=== PATIENT | female | born 1935 | race Caucasian/White ===

== ENCOUNTER → 2017-04-30 | Outpatient (CLI) | payer BC ==
[~2017-04-30] MED LIST: LOSA100T2 PO; MULTTAB58 PO; POTA20TA16 PO
[2017-04-30 15:34] LABS: BASO % 0.5 %; BASO ABS # 0.04 K/uL (0-0.2); COMPLETE YES; EOS % 3.6 %; HEMATOCRIT 38.5 % (37-47); IG% 0.4 %; LYMPH % 24.4 %; LYMPH ABS # 1.98 K/uL (1.2-3.4); MEAN CELL VOLUME 93.2 fL (80-100); MEAN CORPUSCULAR HEMOGLOBIN 30.3 pg (25-34); MEAN CORPUSCULAR HGB CONC 32.5 g/dl (32-36); MEAN PLATELET VOLUME 11.1 fL (7.4-10.4); MONO % 6.8 %; NEUT % 64.3 %; PLATELET COUNT 305 K/uL (130-400); RED BLOOD COUNT 4.13 M/uL (4.2-5.4); WHITE BLOOD COUNT 8.12 K/uL (4.8-10.8)
[2017-04-30 15:53] LABS: INR 0.9 (0.9-1.1); PROTHROMBIN TIME (PATIENT) 10.1 SECONDS (9.0-12.0)
[2017-04-30 16:04] LABS: ALT/SGPT 18 U/L (12-78); AST/SGOT 14 U/L (15-37); BLOOD UREA NITROGEN 23 mg/dl (7-18); BUN/CREATININE RATIO 26.3 (10-20); CALCIUM 9.5 mg/dl (8.5-10.1); CARBON DIOXIDE 27 mmol/L (21-32); CHLORIDE 105 mmol/L (98-107); CREATININE 0.89 mg/dl (0.60-1.20); GLUCOSE 92 mg/dl (70-99); POTASSIUM 3.5 mmol/L (3.5-5.1); SODIUM 141 mmol/L (136-145); URIC ACID 9.1 mg/dl (2.6-7.2)
[2017-04-30 16:15] LABS: ALB/GLOB RATIO 0.8 (0.9-2); ALKALINE PHOSPHATASE 139 U/L (45-117); CHOLESTEROL 281 mg/dl (0-200); CHOLESTEROL/HDL RATIO 2.8; HDL CHOLESTEROL 101 mg/dl; LDL CHOLESTEROL CALCULATED 151 mg/dl; THYROID STIMULATING HORMONE 0.936 uIu/ml (0.300-4.500); TRIGLYCERIDES 147 mg/dl (0-150); VERY LOW DENSITY LIPOPROT CALC 29 mg/dl
[2017-04-30 17:34] LABS: URINE APPEARANCE CLEAR (CLEAR); URINE BILIRUBIN NEG (NEG); URINE COLOR YELLOW; URINE EPITHELIAL CELL AUTO >30 /lpf (0-5); URINE NITRITE NEG (NEG); URINE SPECIFIC GRAVITY 1.017 (1.000-1.030); UROBILINOGEN NEG (NEG)
[2017-04-30 17:41] LABS: MANUAL MICROSCOPIC REQUIRED? NO; REVIEW REQ? NO
== END | disposition home or self-care (01) ==
LOC: C.LAB1850 14:07
PROVIDERS: ATTEND Internal Medicine Pulmonary Disease
DX: Z01.818 Encounter for other preprocedural examination (principal); I10 Essential (primary) hypertension; M25.569 Pain in unspecified knee

== ENCOUNTER → 2017-08-09 | Outpatient (CLI) | payer BC | END | disposition home or self-care (01) | LOC: C.LAB1850 10:09 | PROVIDERS: ATTEND Physician Assistant Medical | DX: M10.9 Gout, unspecified (principal) ==

== ENCOUNTER → 2017-08-20 | Outpatient (CLI) | payer BC ==
--- NOTE | 2017-08-20 10:57 | DIAGNOSTIC IMAGING REPORT ---
L FOOT MIN 3 VIEWS ROUTINE CLINICAL HISTORY: 82 years-old Female presenting with E79.0, M10.9. TECHNIQUE: Frontal, oblique, and lateral views of the left foot were obtained. COMPARISON: None. 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 Overlying soft tissue swelling noted at the medial aspect of the first metatarsophalangeal articulation. Degenerative changes also noted at this joint. Mild osteopenia. Degenerative changes at the medial cuneiform-first metatarsal articulation may also be present. No acute fracture. IMPRESSION: 1. Findings consistent with hallux valgus deformity. 2. No acute osseous injury. 3. Degenerative changes at the first tarsometatarsal and first metatarsal-phalangeal articulations. Electronically signed by: Denzel Long M.D. 08/20/2017 10:56 AM Dictated Date/Time: 08/20/2017 10:53 AM
== END | disposition home or self-care (01) ==
LOC: C.RAD1850 10:42
PROVIDERS: ATTEND Internal Medicine Rheumatology
DX: E79.0 Hyperuricemia without signs of inflammatory arthritis and tophaceous disease (principal); M10.9 Gout, unspecified

== ENCOUNTER → 2017-09-12 | Outpatient (CLI) | payer BC | END | disposition home or self-care (01) | LOC: C.LAB1850 09:45 | PROVIDERS: ATTEND Internal Medicine Rheumatology | DX: M10.9 Gout, unspecified (principal); E79.0 Hyperuricemia without signs of inflammatory arthritis and tophaceous disease; M79.672 Pain in left foot; M25.571 Pain in right ankle and joints of right foot ==

== ENCOUNTER → 2017-09-13 | Outpatient (CLI) | payer BC | END | disposition home or self-care (01) | LOC: C.RDSM 10:07 | PROVIDERS: ATTEND Family Medicine Sports Medicine | DX: M25.571 Pain in right ankle and joints of right foot (principal) ==

== ENCOUNTER 2020-02-27 10:46 | Inpatient (IN) ==
--- NOTE | 2020-02-27 11:11 | Emergency Department Note ---
Impression & Plan Atrial fibrillation with rapid ventricular response, CKD (chronic kidney disease) stage 4, GFR 15-29 ml/min ED Provider Note NAME: ROGER OTERO AGE: 85 SEX: F : 1935 ARRIVES VIA: Walk-In INFORMANT: Patient, ED PROVIDER(S): Charlie Awad MD Chief Complaint: Elevated heart rate, doctor referral HPI: Patient reportedly did go to a follow-up as the patient has had some wound care issues over a prior laceration over the right knee. The patient was seen by the wound care center and referred here due to an elevated heart rate and blood pressure. Patient states that she had not noticed this before and denies any palpitations, shortness of breath, chest pains, fevers, chills, loss of taste or smell, nausea, vomiting. The patient denies any tick bites or recent travel. Patient denies any history of DVT or PE does not take any blood thinning medications. Patient denies any recent change in supplements or stimulants, caffeine, or tobacco. Denies any dietary changes. Patient does relate that in the past she has had some palpitations but they tend to just go away briefly. The patient does not know how long that is been ongoing. She denies any prior history of A. fib palpitations or other issues. Patient denies any prior history of thyroid problems. ROS: See HPI for pertinent positives and negatives. A total of 10 systems were reviewed and otherwise negative. Past medical history: See below Surgical history: See below Social history: See below Physical Exam: GENERAL: Wearing a mask NAD, non-toxic. EYE EXAM: Normal conjunctiva. PERRL, no anisocoria and EOM's grossly intact w/o pain. NECK: Supple, no nuchal rigidity, no adenopathy, non-tender. No signs of meningismus. LUNGS: Clear to auscultation. Normal chest wall mechanics. HEART: Tachycardic irregularly irregular, no MRG. ABDOMEN: Abdomen soft, non-tender, normo-active bowel sounds, no masses, no rebound or guarding. BACK: No CVA TTP. SKIN: No rashes and no bruising. UPPER EXTREMITIES: Upper extremities are grossly normal. LOWER EXTREMITIES: Grossly normal, no edema. Bandage to right knee without any drainage good range of motion neurovascular intact distally. NEURO EXAM: A&O x3, cranial nerves II-XII grossly intact, normal speech, moves all 4 extremities on command w/o issue. Differential diagnoses: Premature contractions, electrolyte abnormality, cardiac dysrhythmia, thyroid dysfunction, pulmonary embolism, infection, gastrointestinal, as well as other pathologies. Course: Patient was seen and evaluated the bedside. Full history physical exam was performed. EKG: Location: Elevated heart rate A. fib, rate of 169, normal QRS and QT, normal axis, nonspecific ST and T wave abnormality noted. Imaging Studies: Radiology results as stated below per my review in the radiologist's interpretation: XR chest 1V portable HISTORY: tachycardia COMPARISON: None. FINDINGS: Small linear density within the periphery the right upper lobe which may represent scarring. Otherwise, lungs are clear. Cardiac silhouette is borderline enlarged. No pleural effusions. No pneumothorax. No evidence for pulmonary edema. IMPRESSION: 1. Small linear density within the periphery of the upper lobe which may repr esent scarring. 2. Borderline cardiomegaly. ACT 112: Negative or not required by law. Electronically signed by: Adilson De Souza M.D. 02/27/2020 11:28 AM Dictated: 02/27/20 1126 Transcribed: 02/27/20 1126 Cardiac monitoring: An order was placed for continuous cardiac monitoring. The monitor shows a rate of 165 with irregularly irregular rhythm. MDM: Patient did a blood work completed along with an EKG troponin chest x-ray was given a small amount of IV fluids and IV Cardizem. He did have initial improvement with the IV Cardizem. I discussed the patient's results and the concern I had is that the patient would likely need anticoagulant medication given her A. fib with RVR. He has a normal white counts no anemia and platelet count is normal. Kidney function with a creat inine 1.2 creatinine clearance 28. The patient's alk phos is borderline elevated. TSH is low but free T4 is normal. Lyme's negative. Patient did tolerate her IV fluids. Patient would also need further rate control. I did speak the on-call hospitalist and the patient was admitted by Dr. Tavares Tavares [facility] physician group. Critical Care: I have personally spent 45 minutes of critical care time in direct management of this patient. This includes bedside care, interpretation of diagnostic studies, and testing, discussion with consultants, patient, and family members, and other require inpatient management activities. This 45 minutes is in excess of all separately billable procedures. Past Med/Surg History Medical History COPD (chronic obstructive pulmonary disease) Dyslipidemia Herpes zoster Hx of fracture of humerus Hx of gout Hypertension Osteoarthritis Surgical History History of total right knee replacement Dr. Jeremiah Eddy [place], [place] 05/2017 S/P cataract surgery Social History Smoking Status: Former smoker Hx Alcohol Use: Yes Alcohol type: wine Preferred Language: Algerian Communication Ability: Effective Hearing Ability: Normal Beliefs That Will Affect Care: None marital status: / Current Living Situation: Alone current occupational status: retired Feels Safe at Home: Yes Allergies Allergies Allergy/AdvReac Type Severity Reaction Status Date / Time No Known Allergies Allergy Verified 02/27/20 12:24 Home Meds Home Medications Medication Instructions Recorded Confirmed losartan-hydrochlorothiazide 1 tab PO QAM 01/07/20 02/27/20 vitamins A,C,[id number] 2 tab PO BID 01/07/20 02/27/20 [PreserVision AREDS] Results & Data (ED) Vital Signs Vital Signs - 24 hr 02/27/20 10:57 02/27/20 11:13 02/27/20 11:24 Temperature 36.8 C Temperature Source Oral Pulse Rate 158 H 186 H 148 H Pulse Rate from SpO2 Sensor 179 H 107 H Pulse Rhythm Regular Pulse Strength Normal Respiratory Rate 20 17 18 Respiratory Effort / Characteristics Non-Labored Spontaneous Respiratory Depth Normal Respiratory Pattern Regular Blood Pressure 144/93 H 154/102 H 154/91 H Blood Pressure Mean 110 127 98 Blood Pressure Position Sitting Pulse Oximetry 95 99 93 Oxygen Delivery Method Room Air Sepsis Recent Fever Within 48 Hours No Sepsis New/Unexplained Change in Mental Status No Sepsis Action Taken by Nursing No Action Required 02/27/20 11:36 02/27/20 11:45 02/27/20 12:01 Temperature Temperature Source Pulse Rate 124 H 158 H 161 H Pulse Rate from SpO2 Sensor 166 H Pulse Rhythm Pulse Strength Respiratory Rate 19 23 21 Respiratory Effort / Characteristics Respiratory Depth Respiratory Pattern Blood Pressure 119/95 144/105 H 121/67 Blood Pressure Mean 101 119 70 Blood Pressure Position Pulse Oximetry 96 99 Oxygen Delivery Method Sepsis Recent Fever Within 48 Hours Sepsis New/Unexplained Change in Mental Status Sepsis Action Taken by Nursing 02/27/20 12:16 Temperature Temperature Source Pulse Rate 169 H Pulse Rate from SpO2 Sensor Pulse Rhythm Pulse Strength Respiratory Rate 19 Respiratory Effort / Characteristics Respiratory Depth Respiratory Pattern Blood Pressure 144/89 H Blood Pressure Mean 123 Blood Pressure Position Pulse Oximetry Oxygen Delivery Method Sepsis Recent Fever Within 48 Hours Sepsis New/Unexplained Change in Mental Status Sepsis Action Taken by Correction Medications Current Medication List: was personally reviewed by me Laboratory Data Attestation: I reviewed the patient's lab results. Result diagrams: 02/27/20 11:10 02/27/20 11:10 Lab Results 02/27/20 02/27/20 02/27/20 Range/Units 11:10 11:10 11:10 WBC 8.69 (4.8-10.8) K/uL RBC 4.33 (4.2-5.4) M/uL Hgb 13.8 (12.0-16.0) g/dL Hct 41.4 (37-47) % MCV 95.6 (80-100) fL MCH 31.9 (25-34) pg MCHC 33.3 (32-36) g/dL RDW Std Deviation 45.2 (36.4-46.3) fL RDW Coeff of Abel 13.0 (11.5-14.5) % Plt Count 277 (130-400) K/uL MPV 11.5 H (7.4-10.4) fL Immature Gran % (Auto) 0.1 % Neut % (Auto) 69.5 % Lymph % (Auto) 23.9 % [place] % (Auto) 5.3 % Eos % (Auto) 1.0 % Baso % (Auto) 0.2 % Neut # (Auto) 6.03 (1.4-6.5) K/uL Lymph # (Auto) 2.08 (1.2-3.4) K/uL [place] # (Auto) 0.46 (0.11-0.59) K/uL Eos # (Auto) 0.09 (0-0.5) K/uL Baso # (Auto) 0.02 (0-0.2) K/uL Immature Gran # (Auto) 0.01 (0.00-0.02) K/uL Sodium 139 (136-145) mmol/L Potassium 3.8 (3.5-5.1) mmol/L Chloride 103 (98-107) mmol/L Carbon Dioxide 27 (21-32) mmol/L Anion Gap 9.0 (3-11) BUN 26 H (7-18) mg/dl Creatinine 1.22 H (0.6-1.2) mg/dl Est Cr Clr Drug Dosing 28.0 ml/min Est GFR ( Amer) 47.1 Est GFR (Non-Af Amer) 40.6 BUN/Creatinine Ratio 21.4 H (10-20) Glucose 106 H (70-99) mg/dl Calcium 9.7 (8.5-10.1) mg/dl Phosphorus 3.0 (2.5-4.9) mg/dl Magnesium 1.8 (1.8-2.4) mg/dl Total Bilirubin 0.8 (0.2-1) mg/dl AST 17 (15-37) U/L ALT 19 (12-78) U/L Alkaline Phosphatase 156 H (45-117) U/L Total Protein 8.0 (6.4-8.2) gm/dl Albumin 3.7 (3.4-5.0) gm/dl Globulin 4.3 H (2.5-4.0) gm/dl Albumin/Globulin Ratio 0.9 (0.9-2) TSH 0.251 L (0.300-4.500) uIu/ml Free T4 1.27 (0.8-1.6) ng/dl Lyme Disease IgG Ab Negative (Negative) Lyme Disease IgM Ab Negative (Negative) Administered Medications Discontinued Medications Diltiazem HCl (Diltiazem Hcl 5 Mg/Ml 5 Ml Vial) 15 mg IV NOW STA Stop: 02/27/20 11:17 Last Admin: 02/27/20 11:25 Dose: 15 mg Documented by: [id number] Cosigned by: [id number] Sodium Chloride (Nss 1000ml) 500 mls @ 999 mls/hr IV .Q31M ONE Stop: 02/27/20 11:47 Last Infusion: 02/27/20 12:22 Dose: 0 mls/hr Documented by: [id number] Admin: 02/27/20 11:25 Dose: 999 mls/hr Documented by: [id number] Discharge Plan Visit Data Chief Complaint: Arrhythmia/Palpitations Stated Complaint: IRREGULAR HEART BEAT ED Provider: Charlie Awad Discharge Problem: Atrial fibrillation with rapid ventricular response, CKD (chronic kidney disease) stage 4, GFR 15-29 ml/min Forms Stand Alone Forms: [facility] [place] [employer] Prescriptions Prescriptions: No Action PreserVision AREDS [id number] Tablet 2 tab PO BID RF: 0 losartan-hydrochlorothiazide 100-12.5 mg tablet 1 tab PO QAM RF: 0
[2020-02-27] MEDS ORDERED: dilTIAZem HCl 5 MG/ML 5 ML VIAL IV STA ×2 (11:16→23:11)
[2020-02-27] MEDS ORDERED: SODIUM CHLORIDE 0.9% 1000ML 500 ML IV ONE (11:17)
[2020-02-27 11:28] LABS: Basophils # (auto) 0.02 K/uL (0-0.2); Basophils % (auto) 0.2 %; Eosinophils # (auto) 0.09 K/uL (0-0.5); Hematocrit (blood only) 41.4 % (37-47); Hemoglobin 13.8 g/dL (12.0-16.0); Immature Granulocytes # (auto) 0.01 K/uL (0.00-0.02); Immature Granulocytes % (auto) 0.1 %; Lymphocytes # (auto) 2.08 K/uL (1.2-3.4); Lymphocytes % (auto) 23.9 %; Mean Corpuscular Hemoglobin 31.9 pg (25-34); Mean Corpuscular Hgb Conc 33.3 g/dL (32-36); Mean Corpuscular Volume 95.6 fL (80-100); Mean Platelet Volume 11.5 fL (7.4-10.4); Monocytes # (auto) 0.46 K/uL (0.11-0.59); Monocytes % (auto) 5.3 %; Neutrophils # (auto) 6.03 K/uL (1.4-6.5); Neutrophils % (auto) 69.5 %; Platelet Count 277 K/uL (130-400); RDW Standard Deviation 45.2 fL (36.4-46.3); Red Blood Count 4.33 M/uL (4.2-5.4); White Blood Count 8.69 K/uL (4.8-10.8)
--- NOTE | 2020-02-27 11:29 | XRay Report ---
XR chest 1V portable HISTORY: tachycardia COMPARISON: None. FINDINGS: Small linear density within the periphery the right upper lobe which may represent scarring . Otherwise, lungs are clear. Cardiac silhouette is borderline enlarged. No pleural effusions. No pne umothorax. No evidence for pulmonary edema. IMPRESSION: 1. Small linear density within the periphery of the upper lobe which may represent scarring. 2. Borderline cardiomegaly. ACT 112: Negative or not required by law. Electronically signed by: Adilson De Souza M.D. 02/27/2020 11:28 AM
[2020-02-27 11:45] LABS: Albumin Level 3.7 gm/dl (3.4-5.0); BUN Creatinine Ratio 21.4 (10-20); Calcium 9.7 mg/dl (8.5-10.1); Est GFR (African American) 47.1; Est GFR (Non-African American) 40.6; Magnesium 1.8 mg/dl (1.8-2.4); Potassium 3.8 mmol/L (3.5-5.1)
[2020-02-27 11:56] LABS: Albumin Globulin Ratio 0.9 (0.9-2); Bilirubin,Total 0.8 mg/dl (0.2-1); Globulin 4.3 gm/dl (2.5-4.0); Thyroid Stimulating Hormone 0.251 uIu/ml (0.300-4.500)
[2020-02-27 12:08] LABS: T4 Free Thyroxine 1.27 ng/dl (0.8-1.6)
[2020-02-27 12:26] LABS: Lyme Ab IgG w/WB Rflx Negative (Negative); Lyme Ab IgM w/WB Rflx Negative (Negative)
[2020-02-27] MEDS ORDERED: METOPROLOL TARTRATE 1 MG/ML VIAL IV PRN (12:47)
[2020-02-27] MEDS ORDERED: METOPROLOL TARTRATE 25 MG TAB PO STA ×2 (12:47→20:33)
[2020-02-27] MEDS ORDERED: Heparin IV Standard *NO* Bolus IV ONE (12:49)
[2020-02-27] MEDS ORDERED: METOPROLOL TARTRATE 1 MG/ML VIAL IV ONE ×3 (12:51→13:24)
[2020-02-27 13:13] LABS: Prothrombin Time 10.7 Seconds (9.0-12.0)
[2020-02-27] MEDS ORDERED: HEPARIN 25000 UNIT/500 ML D5W IV ONE (13:24)
--- NOTE | 2020-02-27 13:38 | History & Physical Report ---
Date of Service February 27, 2020 Assessment & Plan (1) Atrial fibrillation with rapid ventricular response: Rate control strategy: Diltiazem 15 mg IV given in ER We will switch to metoprolol 5 mg IV x3 and oral metoprolol 25 mg every 6 hours with hold parameters. Admit to PCU as likelihood of requiring diltiazem IV drip at some point Since her renal function is decreased and unknown whether this is acute or chronic will start heparin IV drip without a bolus overnight, with plan on transitioning to p.o. Eliquis tomorrow if renal function allows. (2) Hypertension: Hold hydrochlorothiazide given reduced kidney function from previous creatinine (creatinine 0.89 in 2017). Continue losartan with hold parameters tomorrow morning. (3) Decreased thyroid stimulating hormone (TSH) level: Free T4 normal. I do not suspect this is contributing towards atrial fibrillation but should be repeated in 4 to 6 weeks after discharge. (4) Elevated serum creatinine: Unknown whether acute or chronic. Patient is not hypervolemic on exam, suspect she is more hypovolemic due to poor oral intake. NSS 500ml bolus given in ER. Encourage oral intake. Repeat BMP in a.m. once rate more controlled and adequately hydrated off hydrochlorothiazide. History of Present Illness Chief Complaint: Atrial fibrillation with rapid ventricular rate Primary Care Provider: Franklin Whitaker MD Anny Stahl is an 85-year-old female who presents to the ER due to an irregular fast heart rate noted at her wound care appointment. She denies any chest pain, palpitations, shortness of breath, claudication, presyncope, syncope, orthopnea or PND. Although her wound clinic note does mention she was experiencing some palpitations and anxiety. She does have a history of palpitation episodes with associated left jaw pain lasting for minutes at a time very occasionally over the last year, no chest pain with these episodes. She has been more fatigued over the last 2 weeks but she was feeling this down to less activity due to her right knee laceration. She has recently been following up with wound care clinic after right knee laceration since January 06. She reports this has been slowly improving and is no longer on antibiotics. Allergies Allergy/AdvReac Type Severity Reaction Status Date / Time No Known Allergies Allergy Verified 02/27/20 12:24 Home Medications Home Medications Medication Instructions Recorded Confirmed Type losartan-hydrochlorothiazide 1 tab PO QAM 01/07/20 02/27/20 History vitamins A,C,[id number] 2 tab PO BID 01/07/20 02/27/20 History [PreserVision AREDS] Past Med/Surg History Medical History COPD (chronic obstructive pulmonary disease) Dyslipidemia Herpes zoster Hx of fracture of humerus Hx of gout Hypertension Osteoarthritis Surgical History History of total right knee replacement Dr. Jeremiah Eddy [place], [place] 05/2017 S/P cataract surgery Social History Smoking Status: Former smoker Hx Alcohol Use: Yes Alcohol type: wine Preferred Language: Beninese Communication Ability: Effective Hearing Ability: Normal Beliefs That Will Affect Care: None marital status: / Current Living Situation: Alone current occupational status: retired Feels Safe at Home: Yes Review of Systems Review of Systems: All systems reviewed & are unremarkable except as noted in HPI & below Physical Exam Constitutional: well developed and well nourished; no acute distress Eyes: + anicteric sclerae; normal pupil size ENMT: external ear and nose normal, oropharynx normal Neck: trachea midline, no thyromegaly Respiratory: normal respiratory effort, lungs clear to auscultation Cardiovascular: Rate/Rhythm: + tachycardic and + irregularly irregular Heart Sounds: no murmur Vessels: no JVD Extremities: normal capillary refill and + pedal edema (Trace to mid shins equal bilaterally); no calf tenderness Gastrointestinal (Abdomen): normal bowel sounds, soft, nontender, no hepatosplenomegaly Musculoskeletal: no cyanosis or clubbing, extremities motor strength 5/5 Skin: no rashes, warm and dry Neurologic: moves all extremities and awake; no focal motor deficits and not confused Cranial Nerves: normal facial strength Psychiatric: Orientation: alert and oriented x 3 Affect: + anxious affect Genitourinary: no CVA tenderness Results & Data Results & Data ([facility]) Vital Signs (Past 12 Hours) Vital Signs Temp Pulse Resp BP Pulse Ox 02/27/20 12:16 169 H 19 144/89 H 02/27/20 12:01 161 H 21 121/67 02/27/20 11:45 158 H 23 144/105 H 99 02/27/20 11:36 124 H 19 119/95 96 02/27/20 11:24 148 H 18 154/91 H 93 02/27/20 11:13 186 H 17 154/102 H 99 02/27/20 10:57 36.8 C 158 H 20 144/93 H 95 Diagnostic Findings XR chest 1V portable IMPRESSION: 1. Small linear density within the periphery of the upper lobe which may represent scarring. 2. Borderline cardiomegaly. ECG Indication: tachycardia Rate (beats per minute): 169 Rhythm: atrial fibrillation Findings: no acute ischemic change Comparison ECG Date: no prior available Code Status & VTE Plan Code Status Full VTE Prophylaxis Plan VTE Prophylaxis will be ordered: Yes PG Care Time/CCT Total # of Minutes Spent Total Time Spent with Patient: Total time spent is greater than 50% in coordination of care (as documented) at patient's floor/unit and/or counseling patient: Coding Level of Care Code 04726 Initial Inpt Care Lvl 2 Diagnoses Atrial fibrillation with rapid ventricular response I48.91 Hypertension I10 Decreased thyroid stimulating hormone (TSH) level R79.89 Elevated serum creatinine R79.89
[2020-02-27] MEDS: HEPARIN SODIUM/DEXTROSE 25,000 UNITS/500 ML BAG IV SCH (13:40)
[2020-02-27 13:49] LABS: Partial Thromboplastin Ratio 1.1; Partial Thromboplastin Time 30.1 Seconds (21.0-31.0)
[2020-02-27] MEDS ORDERED: PNEUMOCOCCAL POLYSACCHARIDES 25 MCG/0.5 ML VIAL/SYR IM ONE (14:42)
[2020-02-27] MEDS ORDERED: PNEUMOCOCCAL ADMINISTRATION CHARGE ONE (14:42)
--- NOTE | 2020-02-27 15:06 | Electrocardiogram Report ---
Test Reason : Blood Pressure : / mmHG Vent. Rate : 169 BPM Atrial Rate : 416 BPM P-R Int : 000 ms QRS Dur : 080 ms QT Int : 236 ms P-R-T Axes : 000 052 -43 degrees QTc Int : 395 ms Atrial fibrillation with rapid ventricular response Nonspecific ST and T wave abnormality Abnormal ECG No previous ECGs available Confirmed by Pepe Bonilla ([id number]) on 02/27/2020 3:06:40 PM Referred By: Confirmed By:Pepe Bonilla
--- NOTE | 2020-02-27 16:25 | XCELERA ---
[id number]
[2020-02-27] MEDS ORDERED: SODIUM CHLORIDE 0.9% 1000ML 1,000 ML IV ONE (17:43)
[2020-02-27] MEDS ORDERED: METOPROLOL TARTRATE 25 MG TAB PO SCH (19:00)
[2020-02-27 19:48] LABS: Partial Thromboplastin Ratio 2.8
[2020-02-27 19:50] LABS: Partial Thromboplastin Time 76.9 Seconds (21.0-31.0)
[2020-02-27] MEDS: CEROVITE ADV FORMULA TAB PO SCH (20:20)
[2020-02-27] MEDS ORDERED: STAT IV Infusion **Titration per Protocol STA (23:11)
[2020-02-27] MEDS ORDERED: dilTIAZem HCL 125 MG in DEXTROSE 5% 100 ML IV SCH (23:15)
[2020-02-28] MEDS ORDERED: METOPROLOL TARTRATE 50 MG TAB PO SCH (01:00)
[2020-02-28 02:28] LABS: Partial Thromboplastin Ratio 3.3
[2020-02-28] MEDS: METOPROLOL TARTRATE 50 MG TAB PO SCH ×2 (07:48→21:06)
[2020-02-28] MEDS: CEROVITE ADV FORMULA TAB PO SCH ×2 (07:49→21:05)
[2020-02-28 10:46] LABS: Basophils # (auto) 0.02 K/uL (0-0.2); Basophils % (auto) 0.3 %; Eosinophils # (auto) 0.19 K/uL (0-0.5); Eosinophils % (auto) 2.6 %; Hemoglobin 11.8 g/dL (12.0-16.0); Immature Granulocytes # (auto) 0.02 K/uL (0.00-0.02); Immature Granulocytes % (auto) 0.3 %; Lymphocytes # (auto) 2.06 K/uL (1.2-3.4); Lymphocytes % (auto) 28.6 %; Mean Corpuscular Hgb Conc 32.8 g/dL (32-36); Mean Corpuscular Volume 94.5 fL (80-100); Mean Platelet Volume 11.6 fL (7.4-10.4); Monocytes # (auto) 0.43 K/uL (0.11-0.59); Neutrophils # (auto) 4.48 K/uL (1.4-6.5); Neutrophils % (auto) 62.2 %; Platelet Count 233 K/uL (130-400); RDW Coefficient of Variation 12.8 % (11.5-14.5); RDW Standard Deviation 43.9 fL (36.4-46.3); Red Blood Count 3.81 M/uL (4.2-5.4)
[2020-02-28 11:07] LABS: Partial Thromboplastin Ratio 2.8
[2020-02-28 11:10] LABS: BUN Creatinine Ratio 23.6 (10-20); Calcium 9.8 mg/dl (8.5-10.1); Creatinine Clr Calc Pharmacy 34.1 ml/min; Est GFR (African American) 59.2; Est GFR (Non-African American) 51.1
[2020-02-28 11:11] LABS: Partial Thromboplastin Time 79.4 Seconds (21.0-31.0)
[2020-02-28 18:27] LABS: Partial Thromboplastin Time 56.9 Seconds (21.0-31.0)
[2020-02-28] MEDS: HEPARIN SODIUM/DEXTROSE 25,000 UNITS/500 ML BAG IV SCH (21:05)
--- NOTE | 2020-02-28 22:06 | Hospitalist Progress Note ---
Date of Service February 28, 2020 Assessment & Plan (1) Atrial fibrillation with rapid ventricular response: HR remains elevated. She did have a 3 second heart block. HR is not controlled. Will continue on metoprolol. Will consult cardio, may consider increasing metoprolol to 50 q6h. If patient has moments of being too diya, may consider pacemaker or amiodarone. will defer to cardio. (2) Hypertension: Hold hydrochlorothiazide given reduced kidney function from previous creatinine (creatinine 0.89 in 2017). Continue losartan with hold parameters tomorrow morning. (3) Decreased thyroid stimulating hormone (TSH) level: Free T4 normal. I do not suspect this is contributing towards atrial fibrillation but should be repeated in 4 to 6 weeks after discharge. (4) Elevated serum creatinine: Unknown whether acute or chronic. Patient is not hypervolemic on exam, suspect she is more hypovolemic due to poor oral intake. NSS 500ml bolus given in ER. Encourage oral intake. Repeat BMP in a.m. once rate more controlled and adequately hydrated off hydrochlorothiazide. Admission and Anticipated Discharge Date Admission Date: February 27, 2020 Subjective 85 yo female reports feeling well. She has no new complaints. Updated family. Review of Systems Review of Systems: All systems reviewed & are unremarkable except as noted in HPI & below Physical Exam Physical Exam: Constitutional: well developed and well nourished; no acute distress Eyes: + anicteric sclerae; normal pupil size ENMT: external ear and nose normal, oropharynx normal Neck: trachea midline, no thyromegaly Respiratory: normal respiratory effort, lungs clear to auscultation Cardiovascular: Rate/Rhythm: + tachycardic and + irregularly irregular Heart Sounds: no murmur Vessels: no JVD Extremities: normal capillary refill and + pedal edema (Trace to mid shins equal bilaterally); no calf tenderness Gastrointestinal (Abdomen): normal bowel sounds, soft, nontender, no hepatosplenomegaly Musculoskeletal: no cyanosis or clubbing, extremities motor strength 5/5 Skin: no rashes, warm and dry Neurologic: moves all extremities and awake; no focal motor deficits and not confused Cranial Nerves: normal facial strength Psychiatric: Orientation: alert and oriented x 3 Affect: + anxious affect Genitourinary: no CVA tenderness Results & Data Results & Data ([facility]) Vital Signs (Past 12 Hours) Vital Signs Temp Pulse Resp BP Pulse Ox 02/28/20 18:57 36.8 C 72 16 123/81 98 02/28/20 15:45 36.4 C L 97 H 18 126/88 97 02/28/20 10:35 36.6 C 100 H 19 114/82 96 PG Care Time/CCT Total # of Minutes Spent Total Time Spent with Patient: Total time spent is greater than 50% in coordination of care (as documented) at patient's floor/unit and/or counseling patient: Coding Level of Care Code 44547 Subseq Hosp Care Lvl 3 Diagnoses Atrial fibrillation with rapid ventricular response I48.91 Hypertension I10 Decreased thyroid stimulating hormone (TSH) level R79.89 Elevated serum creatinine R79.89 Time Spent (min) 35
[2020-02-29 06:47] LABS: Partial Thromboplastin Ratio 2.1
[2020-02-29 06:59] LABS: Partial Thromboplastin Time 59.2 Seconds (21.0-31.0)
[2020-02-29] MEDS: METOPROLOL TARTRATE 50 MG TAB PO SCH (08:20)
[2020-02-29] MEDS: CEROVITE ADV FORMULA TAB PO SCH (08:21)
[2020-02-29] MEDS: HEPARIN SODIUM/DEXTROSE 25,000 UNITS/500 ML BAG IV SCH ×2 (12:25→12:27)
--- NOTE | 2020-02-29 12:31 | Cardiology Consultation ---
Date of Consultation February 29, 2020 Assessment & Plan (1) Atrial fibrillation with rapid ventricular response: She presents with atrial fibrillation with a rapid ventricular response. She has had intermittent palpitations over the past year or so and this is very likely represents paroxysmal atrial fibrillation although they were not recorded and she does not have symptoms during this episode of atrial fibrillation. She does require long-term anticoagulation however and I would recommend 1 of the newer oral agents (I prefer Eliquis). She also needs rate control, I would use something that will also help with her high blood pressure. Prior to conversion to sinus bradycardia overnight her heart rate was adequately controlled. I would recommend diltiazem. (2) Hypertension: She has hypertension, she has been treated with losartan/Hydrocort thiazide which may help her blood pressure but will not help her heart rate. I would favor switching to either diltiazem or beta blockade and try to control her heart rate as well as her blood pressure with a single medication. I would recommend diltiazem since it has a better side effect profile and may be a better antihypertensive. I will plan on having her come back in for follow-up in our office in several weeks to see how she is doing with these changes in medical therapy History of Present Illness Reason for Consultation: Atrial fibrillation with a rapid ventricular response Attending Physician: Kavon Arias History of Present Illness This is an 85-year-old woman who has a history of hypertension, abnormal thyroid hormone measurements, and elevated creatinine as well as newly identified atrial fibrillation. She was in wound clinic (for follow-up of her right knee laceration January 07, 2020) where she was identified as having a rapid irregular heart rate which turns out to be atrial fibrillation. She apparently does have a history of occasional brief palpitations over the last year and she reports being more fatigued than normal over the last several weeks. She was given intravenous diltiazem in the emergency room for rate control and started on anticoagulation. An echocardiogram done February 27, 2020 showed normal left ventricular size and systolic function, mild concentric left ventricular hypertrophy, mild mitral regurgitation, mild tricuspid regurgitation. Her admission electrocardiogram shows atrial fibrillation with a heart rate [address]-T abnormalities. I do not believe she has had another electrocardiogram done. She reports not really being aware of her atrial fibrillation when she was in wound clinic, she does describe occasional palpitations historically which may or may not be episodes of atrial fibrillation, they have never been investigated as far she knows. She converted to sinus rhythm overnight, today she does not feel any different but feels good. She has no cardiovascular complaints. Allergies Allergy/AdvReac Type Severity Reaction Status Date / Time No Known Allergies Allergy Verified 02/27/20 12:24 Home Medications Home Medications Medication Instructions Recorded Confirmed Type vitamins A,C,Y-[id number]-pilgmu 2 tab PO BID 01/07/20 02/27/20 History [PreserVision AREDS] apixaban [Eliquis] 5 mg PO BID #60 tab 02/29/20 Rx diltiazem HCl 60 mg PO BID #60 cap 02/29/20 Rx Patient History Medical History COPD (chronic obstructive pulmonary disease) Dyslipidemia Herpes zoster Hx of fracture of humerus Hx of gout Hypertension Osteoarthritis Surgical History History of total right knee replacement Dr. Jeremiah Eddy [place], [place] 05/2017 S/P cataract surgery Social History Smoking Status: Former smoker Second Hand Exposure: No; Hx Alcohol Use: Yes Alcohol type: hard liquor Hx Substance Use: No Preferred Language: Dominican Communication Ability: Effective Hearing Ability: Normal Financial Institution President Required: No Beliefs That Will Affect Care: Baptism marital status: / Current Living Situation: Alone current occupational status: retired Feels Safe at Home: Yes Review of Systems Review of Systems: All systems reviewed & are unremarkable except as noted in HPI & below Physical Exam Physical Exam: Constitutional: Alert, cooperative and in no distress. HEENT: Unremarkable Neck: No jugular venous distention, carotid pulses are normal and equal bilaterally without bruits. Pulmonary: Clear to auscultation bilaterally. Cardiac: Regular rhythm with no murmur, gallop or rub. Abdomen: Soft, nontender with normal bowel sounds. Extremities: No edema. Distal pulses intact. Neurologic: No focal findings. Gait is steady. Skin: No rash, ecchymoses or petechiae. Results & Data ([facility]) Vital Signs (Past 12 Hours) Vital Signs Temp Pulse Pulse Resp BP Pulse Ox 02/29/20 11:59 36.7 C 67 18 124/78 100 02/29/20 08:00 36.4 C L 60 16 117/71 98 02/29/20 04:15 36.7 C 60 20 129/69 95 Diagnostic Findings Coagulation 02/28/20 02/29/20 Range/Units 17:43 06:01 APTT 56.9 H* 59.2 H* (21.0-31.0) Seconds Intake and Output 02/28/20 02/29/20 02/29/20 22:59 06:59 14:59 Intake Total 445.666 / 726.066 29.9 / 726.066 Balance 445.666 / 726.066 29.9 / 726.066 Intake: IV 205.666 / 386.066 29.9 / 386.066 HEPARIN SODIUM/DEXTROSE 25,000 127.833 / 277.733 29.9 / 277.733 units In 500 ml @ 650 UNITS/HR 13 mls/hr IV .Q24H JAMESON Rx#: [id number] Cardizem 125 mg In D5 100 ml @ 77.833 / 108.333 5 MG/HR 5 mls/hr IV .Q24H JAMESON Rx#:[id number] Oral 240 / 340 Other: # Unmeasured Voids 2 Weight 69.853 kg Telemetry: She converted from atrial fibrillation to sinus rhythm at 2103 last evening, prior to conversion her heart rate was a little fast but reasonably well controlled, after conversion she is in sinus rhythm with a heart rate from 40 to 60 bpm. PG Care Time/CCT Total # of Minutes Spent Total Time Spent with Patient: Total time spent is greater than 50% in coordination of care (as documented) at patient's floor/unit and/or counseling patient: Coding Level of Care Code 96264 Initial Inpt Care Lvl 3 Diagnoses Atrial fibrillation with rapid ventricular response I48.91 Hypertension I10
[2020-02-29] MEDS ORDERED: METOPROLOL TARTRATE 50 MG TAB PO SCH (14:00)
[2020-02-29] MEDS ORDERED: APIXABAN 5 MG TABLET PO ONE (14:00)
--- NOTE | 2020-02-29 16:38 | Discharge Summary ---
Date of Service February 29, 2020 Admission HPI Per Admitting Provider Anny Stahl is an 85-year-old female who presents to the ER due to an irregular fast heart rate noted at her wound care appointment. She denies any chest pain, palpitations, shortness of breath, claudication, presyncope, syncope, orthopnea or PND. Although her wound clinic note does mention she was experiencing some palpitations and anxiety. She does have a history of palpitation episodes with associated left jaw pain lasting for minutes at a time very occasionally over the last year, no chest pain with these episodes. She has been more fatigued over the last 2 weeks but she was feeling this down to less activity due to her right knee laceration. She has recently been following up with wound care clinic after right knee laceration since January 06. She reports this has been slowly improving and is no longer on antibiotics. Principal Diagnosis Atrial fibrillation with RVR Discharge Exam Constitutional: well developed and well nourished; no acute distress Eyes: + anicteric sclerae; normal pupil size ENMT: external ear and nose normal, oropharynx normal Neck: trachea midline, no thyromegaly Respiratory: normal respiratory effort, lungs clear to auscultation Cardiovascular: Rate/Rhythm: + tachycardic and + irregularly irregular Heart Sounds: no murmur Vessels: no JVD Extremities: normal capillary refill and + pedal edema (Trace to mid shins equal bilaterally); no calf tenderness Gastrointestinal (Abdomen): normal bowel sounds, soft, nontender, no hepatosplenomegaly Musculoskeletal: no cyanosis or clubbing, extremities motor strength 5/5 Skin: no rashes, warm and dry Neurologic: moves all extremities and awake; no focal motor deficits and not confused Cranial Nerves: normal facial strength Psychiatric: Orientation: alert and oriented x 3 Affect: + anxious affect Genitourinary: no CVA tenderness Discharge Data Allergies Allergy/AdvReac Type Severity Reaction Status Date / Time No Known Allergies Allergy Verified 03/05/20 13:06 Consultations 02/27/20 12:40 ED Decision to Admit Stat 02/28/20 17:57 Consult Cardiology Routine Ordered Studies 02/27/20 11:09 point of care ultrasound Stat Hospital Course (1) Atrial fibrillation with rapid ventricular response: Appreciate input from Cardiology: She presents with atrial fibrillation with a rapid ventricular response. She has had intermittent palpitations over the past year or so and this is very likely represents paroxysmal atrial fibrillation although they were not recorded and she does not have symptoms during this episode of atrial fibrillation. She does require long-term anticoagulation however and I would recommend 1 of the newer oral agents (I prefer Eliquis). She also needs rate control, I would use something that will also help with her high blood pressure. Prior to conversion to sinus bradycardia overnight her heart rate was adequately controlled. I would recommend diltiazem. (2) Hypertension: Appreciate input from Cardio: She has hypertension, she has been treated with losartan/Hydrocort thiazide which may help her blood pressure but will not help her heart rate. I would favor switching to either diltiazem or beta blockade and try to control her heart rate as well as her blood pressure with a single medication. I would recommend diltiazem since it has a better side effect profile and may be a better antihypertensive. Plan on having her come back in for follow-up in the cardiology office in several weeks to see how she is doing with these changes in medical therapy (3) Decreased thyroid stimulating hormone (TSH) level: Free T4 normal. I do not suspect this is contributing towards atrial fibrillation but should be repeated in 4 to 6 weeks after discharge. (4) Elevated serum creatinine: Improved. Total Time Total Time Spent Total Time Spent (In Minutes): 32 Discharge Plan Discharge Items Patient Disposition: Home - Self-Care Reason For Visit: NEW ONSET ATRIAL FIBRILLATION Discharge Diagnosis: new onset atrial fibrillation Activity: Resume your previous activity Non-emergency contact: Primary Care Provider Call non-emergency contact if: you have any medication questions Follow-up/Referrals: Franklin Whitaker MD [Primary Care Provider] - 03/02/20 10:30 am Diet: Regular Addtl Attending Provider Instructions: You have been hospitalized for an acute medical problem. During your stay at [facility], we have made an effort to correct the problem that brought you to the hospital while keeping you as comfortable as possible. Medications were used to bring your condition under control and your discharge instructions will include directions for any medications you should take after leaving the hospital. Please make sure you see your Primary Care Provider as part of your follow up plan. Will recommend followup with Cardio. Followup with PCP in 1-2 weeks. Will need to be on blood thinner as your heart rate was in atrial fibrillation.Despite having your heart rhythm improved, you can still be at risk of your heart rate going in and out of atrial fibrillation. Pending Studies at Discharge: No Stand-Alone Forms: [facility], Smoking Cessation Medications and DC Order Prescriptions: Continued PreserVision AREDS [id number] Tablet 2 tab PO BID RF: 0 Discontinued losartan-hydrochlorothiazide 100-12.5 mg tablet 1 tab PO QAM RF: 0 No Action triamterene-hydrochlorothiazid [Dyazide] 37.5-25 mg capsule 1 cap PO DAILY Qty: 30 RF: 6 diltiazem HCl 180 mg capsule,extended release 24 hr 180 mg PO DAILY Qty: 30 RF: 5 Eliquis 5 mg tablet 5 mg PO BID Qty: 60 RF: 11 Discharge Orders: Discharge Order (Routine); Ordered 02/29/20 Ordered By: Kavon Arias Admission Data Admit Date/Time: 02/27/20 12:52 Attending Provider: Kavon Arias Admit Provider: Tavares Tavares Primary Care Provider: Franklin Whitaker Other Providers: Tavares Tavares ; Arian Hernández Other Interventions: Discharge Summary Assessment (RN) Last Done: 02/29/20 14:29 Coding Level of Care Code D/C Day Management >30 mins Diagnoses Atrial fibrillation with rapid ventricular response I48.91 Hypertension I10 Decreased thyroid stimulating hormone (TSH) level R79.89 Elevated serum creatinine R79.89 Time Spent (min) 35
== END 2020-02-29 14:55 | disposition home or self-care (01) | DRG 309 ==
LOC: ED 10:46 → 2S 12:52 → SUATTDRO 12:52 → 2S 14:20

== ENCOUNTER 2020-03-08 08:02 | Inpatient (IN) ==
--- NOTE | 2020-03-08 09:11 | CT Scan Report ---
CT SCAN OF THE BRAIN WITHOUT IV CONTRAST CLINICAL HISTORY: Fall. COMPARISON STUDY: No priors. TECHNIQUE: Unenhanced axial CT scan of the brain is performed from the vertex to the skull base. A do se lowering technique was utilized adhering to the principles of ALARA. CT DOSE: 537.48 mGy.cm FINDINGS: Brain parenchyma: There are age-related involutional changes noting moderate subcortical and periven tricular microangiopathic change. There is no hemorrhage, mass effect, or evidence of acute territori al ischemia by CT criteria. 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 Gore-white nely er differentiation is preserved. No extra-axial fluid collection is seen. Ventricles, sulci, cisterns: Prominent secondary to involutional change. Intracranial vasculature: There is atherosclerotic calcification of the cavernous carotid and vertebr al arteries. Calvarium: The skeletal structures are osteopenic. There is no depressed calvarial fracture. Soft tissues: There is a right frontal scalp contusion/laceration. Sinuses and mastoids: The visualized paranasal sinuses are clear. The mastoid air cells are well pneu matized. Orbits: The bony orbits are grossly intact. There are bilateral ocular lens implants. IMPRESSION: There is no hemorrhage, mass effect, or evidence of acute territorial ischemia by CT crit eria. ACT 112: Negative or not required by law. Electronically signed by: Juan M Patel M.D. 03/08/2020 9:09 AM
[2020-03-08 09:28] LABS: Basophils # (auto) 0.01 K/uL (0-0.2); Basophils % (auto) 0.1 %; Hematocrit (blood only) 30.4 % (37-47); Hemoglobin 10.2 g/dL (12.0-16.0); Immature Granulocytes # (auto) 0.04 K/uL (0.00-0.02); Immature Granulocytes % (auto) 0.3 %; Lymphocytes # (auto) 0.99 K/uL (1.2-3.4); Lymphocytes % (auto) 8.2 %; Mean Corpuscular Hemoglobin 30.7 pg (25-34); Mean Corpuscular Hgb Conc 33.6 g/dL (32-36); Mean Corpuscular Volume 91.6 fL (80-100); Mean Platelet Volume 10.6 fL (7.4-10.4); Monocytes # (auto) 0.67 K/uL (0.11-0.59); Monocytes % (auto) 5.5 %; Neutrophils # (auto) 10.42 K/uL (1.4-6.5); Neutrophils % (auto) 85.9 %; Platelet Count 280 K/uL (130-400); RDW Coefficient of Variation 13.1 % (11.5-14.5); RDW Standard Deviation 43.5 fL (36.4-46.3); Red Blood Count 3.32 M/uL (4.2-5.4); White Blood Count 12.13 K/uL (4.8-10.8)
[2020-03-08] MEDS ORDERED: MoRPHine SULFATE 2 MG/ML CARP IV STA ×2 (09:29→10:45)
[2020-03-08] MEDS ORDERED: ONDANSETRON INJ 2 MG/ML 2 ML VIAL IV STA (09:29)
[2020-03-08] MEDS ORDERED: SODIUM CHLORIDE 0.9% 1000ML 1,000 ML IV SCH (09:30)
[2020-03-08 09:37] LABS: INR 1.2 (0.9-1.1); Prothrombin Time 12.6 Seconds (9.0-12.0)
[2020-03-08 09:44] LABS: BUN Creatinine Ratio 15.4 (10-20); Calcium 9.5 mg/dl (8.5-10.1); Creatinine Clr Calc Pharmacy 25.8 ml/min; Est GFR (African American) 39.2; Est GFR (Non-African American) 33.8; Potassium 4.1 mmol/L (3.5-5.1)
--- NOTE | 2020-03-08 10:06 | XRay Report ---
XR chest 1V not portable CLINICAL HISTORY: Chest pain status post trauma COMPARISON STUDY: February 27, 2020 FINDINGS: The heart is borderline enlarged. There is aortic tortuosity. There is no failure. There is no focal pulmonary consolidation. No pleural effusions are visualized on the supine study. No pneumo thorax is visualized on the supine study.[ IMPRESSION: No acute findings given the AP supine technique. ACT 112: Negative or not required by law. Electronically signed by: Mt Garcias M.D. 03/08/2020 10:05 AM
--- NOTE | 2020-03-08 10:08 | XRay Report ---
XR hand RT min 3V routine CLINICAL HISTORY: Right hand pain status post trauma COMPARISON: None. DISCUSSION: The bones are osteopenic. There are advanced arthritic changes the level of the first car pal metacarpal joint, and the ventricular trapezium and trapezoid articulation. There is mild joint s pace narrowing at the level of the metacarpal phalangeal joints, and moderate degenerative changes at the level of the distal interphalangeal joints. On the provided lateral view, the ulna projects dors al to the distal radius. Clinical correlation will be necessary to exclude a distal radial ulnar subl uxation. IMPRESSION: 1. Osteopenia 2. No acute fractures 3. Moderately advanced arthritic change 4. On the lateral view the ulna projects dorsal to the distal radius. Clinical correlation is recomme nded to confirm or exclude a distal radial ulnar subluxation ACT 112: Negative or not required by law. Electronically signed by: Mt Garcias M.D. 03/08/2020 10:07 AM
--- NOTE | 2020-03-08 10:10 | XRay Report ---
XR hip BRANDEN 2v w pelvis (5 views) CLINICAL HISTORY: Bilateral hip pain status post trauma COMPARISON STUDY: No previous studies for comparison. FINDINGS: There is an acute intertrochanteric right hip fracture with resultant varus angulation. No fractures or dislocations of the left hip are visualized. There is no symphysis diastases. There is n o SI joint diastases. IMPRESSION: Acute intertrochanteric right hip fracture. ACT 112: Negative or not required by law. Electronically signed by: Mt Garcias M.D. 03/08/2020 10:09 AM
--- NOTE | 2020-03-08 12:15 | History & Physical Report ---
Date of Service March 08, 2020 Assessment & Plan (1) Intertrochanteric fracture of right hip: Admit to med/telemetry to monitor for recent atrial fibrillation Consult orthopedics for operative management [place] traction Lee catheter placed in ER Analgesia with acetaminophen and oxycodone, morphine when NPO Antiemetic with ondansetron Patient can eat and drink since she took Eliquis this morning - she would be for operative management tomorrow at earliest Pending morning labs results she will likely be medically optimized for surgery tomorrow. Revised cardiac risk score 0 - 3.9% 30-day risk of , [place], or cardiac arrest. (2) Fall: Mechanical by history with tripping over a rug. No symptoms suggestive of recurrence of atrial fibrillation as a causation. No focal neurology. PT/OT to further assess post surgery (3) Scalp laceration: Routine wound care (4) Paroxysmal atrial fibrillation: Continue diltiazem ER 180 mg p.o. daily Eliquis on hold for potential operation tomorrow, restart per orthopedic recommendations (5) Hypertension: Hold triamterene/hydrochlorothiazide preoperatively tomorrow. Can likely be restarted if blood pressure stable after this. Continue diltiazem as above for rate control if patient transitions into atrial fibrillation. (6) Elevated serum creatinine: Hold triamterene/hydrochlorothiazide as above. Continue gentle IV fluids. Repeat BMP in a.m. (7) Hyperlipidemia: On no medications for this. Follow-up outpatient. (8) Laceration of knee, right: Recently seen in wound clinic for slow healing laceration. Consult wound care nurse for ongoing management of wound dehiscence. (9) DVT prophylaxis: SCDs Eliquis post surgery per orthopedics recommendations Admission and Anticipated Discharge Date Admission Date: 03/08/2020 History of Present Illness Chief Complaint: Fall Primary Care Provider: Franklin Whitaker MD Anny Stahl is an 85-year-old female who presents to the ER after a fall. Around 8 PM last night she tripped over a throw rug and landed on her right side. She denies any lightheadedness, chest pain, shortness of breath, unsteadiness prior to the fall. She fell onto a tiled kitchen floor. Right groin/hip pain since the fall. She did not have her phone that her and lied on the floor all night. She was recently started on Eliquis due to new onset atrial fibrillation. She denies any melena or bright red blood in stool. Hemoglobin has decreased from 13.8-10.2 over the last 10 days. No recent palpitations, shortness of breath, leg swelling, claudication, orthopnea, PND, presyncope or syncope. Last took Eliquis this morning. Last ate yesterday. Small amount of water this morning. Allergies Allergy/AdvReac Type Severity Reaction Status Date / Time No Known Allergies Allergy Verified 03/08/20 10:45 Home Medications Home Medications Medication Instructions Recorded Confirmed Type PreserVision AREDS 2 tab PO BID 01/07/20 03/08/20 History apixaban 5 mg tablet 5 mg PO BID #60 tab 03/02/20 03/08/20 Rx diltiazem HCl 180 mg capsule,24 180 mg PO DAILY #30 cap 03/02/20 03/08/20 Rx hr,extended release triamterene 37.5 1 cap PO DAILY #30 cap 03/04/20 03/08/20 Rx mg-hydrochlorothiazide 25 mg capsule Past Med/Surg History Medical History Atrial fibrillation with rapid ventricular response COPD (chronic obstructive pulmonary disease) Dyslipidemia Herpes zoster Hx of fracture of humerus Hx of gout Hypertension Osteoarthritis Surgical History History of total right knee replacement Dr. Jeremiah Eddy [place], [place] 05/2017 S/P cataract surgery Social History Smoking Status: Never smoker Second Hand Exposure: No; Hx Alcohol Use: No Hx Substance Use: No Preferred Language: Kyrgyz Communication Ability: Effective Hearing Ability: Normal Photo Machine Operator Required: No Beliefs That Will Affect Care: [place] marital status: / Current Living Situation: Alone current occupational status: retired Other Information That Helps Us Care for You: No Feels Safe at Home: Yes Safety Concerns: Feels Safe At This Time Review of Systems Review of Systems: All systems reviewed & are unremarkable except as noted in HPI & below Physical Exam Constitutional: well developed, well nourished and + disheveled; no acute distress Eyes: PERRL, conjunctivae normal, anicteric sclerae ENMT: external ear and nose normal, oropharynx normal Neck: trachea midline, no thyromegaly Respiratory: normal respiratory effort, lungs clear to auscultation Cardiovascular: Rate/Rhythm: regular rate and regular rhythm Heart Sounds: + murmur (2/6 loudest LLSB) Vessels: no JVD Extremities: normal capillary refill; no calf tenderness and no pedal edema Gastrointestinal (Abdomen): normal bowel sounds, soft, nontender, no hepatosplenomegaly Musculoskeletal: Holding right leg with hip flexion and external rotation and knee flexion. Painful to extend. Painful on minimal internal or external rotation of right hip. Skin intact over the hip fracture. Neurovascular intact distally. Skin: no rashes, warm and dry Neurologic: moves all extremities and awake; not confused Psychiatric: A+Ox3, euthymic affect Results & Data Results & Data ([facility]) Vital Signs (Past 12 Hours) Vital Signs Temp Pulse Pulse Resp BP BP Pulse Ox 03/08/20 11:50 82 24 136/89 99 03/08/20 08:13 37.2 C 96 H 20 149/[address] SCAN OF THE BRAIN WITHOUT IV CONTRAST IMPRESSION: There is no hemorrhage, mass effect, or evidence of acute territorial ischemia by CT criteria. XR chest 1V not portable IMPRESSION: No acute findings given the AP supine technique. XR hip BRANDEN 2v w pelvis (5 views) IMPRESSION: Acute intertrochanteric right hip fracture. XR hand RT min 3V routine IMPRESSION: 1. Osteopenia 2. No acute fractures 3. Moderately advanced arthritic change 4. On the lateral view the ulna projects dorsal to the distal radius. Clinical correlation is recommended to confirm or exclude a distal radial ulnar subluxation ECG Indication: other (Fall) Rate (beats per minute): 93 Rhythm: normal sinus Findings: no acute ischemic change Comparison ECG Date: from (February 27, 2020) Change: the following changes noted (Rate related ischemic changes no longer present, sinus rhythm replaced atrial fibrillation) Code Status & VTE Plan Code Status Full as discussed with the patient VTE Prophylaxis Plan VTE Prophylaxis will be ordered: Yes PG Care Time/CCT Total # of Minutes Spent Total Time Spent with Patient: Total time spent is greater than 50% in coordination of care (as documented) at patient's floor/unit and/or counseling patient: Coding Level of Care Code 03135 Initial Inpt Care Lvl 2 Diagnoses Intertrochanteric fracture of right hip S72.141A Fall W19.XXXA Scalp laceration S01.01XA Paroxysmal atrial fibrillation I48.0 Hypertension I10 Elevated serum creatinine R79.89 Hyperlipidemia E78.5 Laceration of knee, right S81.011A Encounter type: initial encounter DVT prophylaxis Z29.9 (1) Laceration of knee, right Encounter type: initial encounter Qualified Code(s): S81.011A - Laceration without foreign body, right knee, initial encounter
--- NOTE | 2020-03-08 13:12 | Emergency Department Note ---
History of Present Illness General Chief complaint: Fall Time Seen by Provider: 03/08/20 08:08 Source: patient and RN notes reviewed Mode of arrival: EMS Limitations: no limitations History of Present Illness Provider complaint: Fall with right hip pain, head injury Maximum Pain Intensity: 3 This patient is an 85-year-old female who presents emergency department after tripping on her rug and falling this morning. Patient states she hit her forehead but more importantly injured her right hip. She states she is not able to move it or bear weight without any significant pain. She denies any loss of consciousness or chest pain. Patient denies ever having orthopedic surgery in the past. Patient did have a fall in January 2020 and and sustained a laceration to the right knee. Patient was recently placed on Eliquis due to paroxysmal atrial fibrillation. She denies any recent illnesses, fever, cough, chest pain, abdominal pain, vomiting or diarrhea. Patient was on the floor for the majority of the night until she could obtain help. Home Medications Home Medications Medication Instructions Recorded Confirmed Type PreserVision AREDS 2 tab PO BID 01/07/20 03/08/20 History apixaban 5 mg tablet 5 mg PO BID #60 tab 03/02/20 03/08/20 Rx diltiazem HCl 180 mg capsule,24 180 mg PO DAILY #30 cap 03/02/20 03/08/20 Rx hr,extended release triamterene 37.5 1 cap PO DAILY #30 cap 03/04/20 03/08/20 Rx mg-hydrochlorothiazide 25 mg capsule Allergies Allergy/AdvReac Type Severity Reaction Status Date / Time No Known Allergies Allergy Verified 03/08/20 10:45 Past Med/Surg History Medical History Atrial fibrillation with rapid ventricular response COPD (chronic obstructive pulmonary disease) Dyslipidemia Herpes zoster Hx of fracture of humerus Hx of gout Hypertension Osteoarthritis Surgical History History of total right knee replacement Dr. Jeremiah Eddy [place], [place] 05/2017 S/P cataract surgery Social History Smoking Status: Never smoker Second Hand Exposure: No; Hx Alcohol Use: No Hx Substance Use: No Preferred Language: [place] Citizen Communication Ability: Effective Hearing Ability: Normal Airworthiness Inspector Required: No Beliefs That Will Affect Care: Baptism marital status: / Current Living Situation: Alone current occupational status: retired Other Information That Helps Us Care for You: No Feels Safe at Home: Yes Safety Concerns: Feels Safe At This Time Review of Systems See HPI for pertinent positives & negatives. and A total of 10 systems reviewed and were otherwise negative Physical Exam Vital Signs Vital Signs - 24 hr 03/08/20 08:13 03/08/20 11:50 Temperature 37.2 C Temperature Source Oral Pulse Rate 96 H Pulse Rate [Right Finger] 82 Pulse Rhythm Regular Pulse Strength Normal Respiratory Rate 20 24 Respiratory Effort / Characteristics Non-Labored Spontaneous Spontaneous Respiratory Depth Normal Respiratory Pattern Regular Blood Pressure 149/110 H Blood Pressure [Right Arm] 136/89 Blood Pressure Mean 123 Blood Pressure Mean [Right Arm] 104 Blood Pressure Position [Right Arm] Lying Pulse Oximetry 98 99 Oxygen Delivery Method Room Air Room Air Sepsis Recent Fever Within 48 Hours No Sepsis New/Unexplained Change in Mental Status N/A Sepsis Action Taken by Nursing No Action Required Vital signs reviewed. General: Well-appearing 85-year-old female, in no significant distress. HEENT: Dried blood to the forehead with a small forehead contusion over the right eye. Conjunctiva are clear, moist mucous membranes. Opens mandible without difficulty. Cardiovascular: Regular rate and rhythm, no extra sounds. Pulmonary: Clear to auscultation bilaterally, normal work of breathing. Abdomen: Soft, nontender, nondistended, positive bowel sounds. Musculoskeletal: Nontender to palpation over the cervical spine. External rotation and shortening of the right hip. Pain with any palpation or range of motion. Neurovascularly intact distally. Left lower extremity without pain/deformity. Nontender to palpation of the pelvis. Neurologic: Patient awake alert and oriented x 3 Skin: Warm, dry, no rash. Dried blood to the forehead as above. Course Administered Medications Discontinued Medications Sodium Chloride (Nss 1000ml) 1,000 mls @ 80 mls/hr IV .[id number] JAMESON Stop: 04/07/20 09:29 Last Admin: 03/08/20 09:38 Dose: 80 mls/hr Documented by: [id number] Morphine Sulfate (Morphine Sulfate 2 Mg/Ml Carp) 2 mg IV NOW STA Stop: 03/08/20 09:30 Last Admin: 03/08/20 09:38 Dose: 2 mg Documented by: [id number] Morphine Sulfate (Morphine Sulfate 2 Mg/Ml Carp) 2 mg IV NOW STA Stop: 03/08/20 10:46 Last Admin: 03/08/20 10:55 Dose: 2 mg Documented by: [id number] Ondansetron HCl (Ondansetron Inj 2 Mg/Ml 2 Ml Vial) 4 mg IV NOW STA Stop: 03/08/20 09:30 Last Admin: 03/08/20 09:38 Dose: 4 mg Documented by: [id number] Medical Decision Making Differential Diagnosis Differential diagnosis: Intracranial injury, cervical spine injury, intrathoracic injury, intra- abdominal injury, musculoskeletal injury. Medical Records Attestation: I reviewed the patient's medical records. Home Medications Current Medication List: was personally reviewed by me Laboratory Data Attestation: I reviewed the patient's lab results. Result diagrams: 03/08/20 09:17 03/08/20 09:17 Lab Results 03/08/20 03/08/20 03/08/20 Range/Units 09:17 09:17 09:17 WBC 12.13 H (4.8-10.8) K/uL RBC 3.32 L (4.2-5.4) M/uL Hgb 10.2 L (12.0-16.0) g/dL Hct 30.4 L (37-47) % MCV 91.6 (80-100) fL MCH 30.7 (25-34) pg MCHC 33.6 (32-36) g/dL RDW Std Deviation 43.5 (36.4-46.3) fL RDW Coeff of Abel 13.1 (11.5-14.5) % Plt Count 280 (130-400) K/uL MPV 10.6 H (7.4-10.4) fL Immature Gran % (Auto) 0.3 % Neut % (Auto) 85.9 % Lymph % (Auto) 8.2 % Fleming % (Auto) 5.5 % Eos % (Auto) 0.0 % Baso % (Auto) 0.1 % Neut # (Auto) 10.42 H (1.4-6.5) K/uL Lymph # (Auto) 0.99 L (1.2-3.4) K/uL Fleming # (Auto) 0.67 H (0.11-0.59) K/uL Eos # (Auto) 0.00 (0-0.5) K/uL Baso # (Auto) 0.01 (0-0.2) K/uL Immature Gran # (Auto) 0.04 H (0.00-0.02) K/uL PT 12.6 H (9.0-12.0) Seconds INR 1.2 H (0.9-1.1) Sodium 137 (136-145) mmol/L Potassium 4.1 (3.5-5.1) mmol/L Chloride 103 (98-107) mmol/L Carbon Dioxide 25 (21-32) mmol/L Anion Gap 10.0 (3-11) BUN 22 H (7-18) mg/dl Creatinine 1.42 H (0.6-1.2) mg/dl Est Cr Clr Drug Dosing 25.8 ml/min Est GFR ( Amer) 39.2 Est GFR (Non-Af Amer) 33.8 BUN/Creatinine Ratio 15.4 (10-20) Glucose 139 H (70-99) mg/dl Calcium 9.5 (8.5-10.1) mg/dl Total Creatine Kinase 294 H (26-192) U/L Imaging Data Radiologist's Impression: CT SCAN OF THE BRAIN WITHOUT IV CONTRAST CLINICAL HISTORY: Fall. COMPARISON STUDY: No priors. TECHNIQUE: Unenhanced axial CT scan of the brain is performed from the vertex to the skull base. A dose lowering technique was utilized adhering to the principles of ALARA. CT DOSE: 537.48 mGy.cm FINDINGS: Brain parenchyma: There are age-related involutional changes noting moderate subcortical and periventricular microangiopathic change. There is no hemorrhage, mass effect, or evidence of acute territorial ischemia by CT criteria. 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 Gore-white matter differentiation is preserved. No extra-axial fluid collection is seen. Ventricles, sulci, cisterns: Prominent secondary to involutional change. Intracranial vasculature: There is atherosclerotic calcification of the cavernous carotid and vertebral arteries. Calvarium: The skeletal structures are osteopenic. There is no depressed calvarial fracture. Soft tissues: There is a right frontal scalp contusion/laceration. Sinuses and mastoids: The visualized paranasal sinuses are clear. The mastoid air cells are well pneumatized. Orbits: The bony orbits are grossly intact. There are bilateral ocular lens implants. IMPRESSION: There is no hemorrhage, mass effect, or evidence of acute territorial ischemia by CT criteria. ACT 112: Negative or not required by law. Electronically signed by: Juan M Patel M.D. 03/08/2020 9:09 AM Dictated: 03/08/20 0907 Transcribed: 03/08/20 0907 XR chest 1V not portable CLINICAL HISTORY: Chest pain status post trauma COMPARISON STUDY: February 27, 2020 FINDINGS: The heart is borderline enlarged. There is aortic tortuosity. There is no failure. There is no focal pulmonary consolidation. No pleural effusions are visualized on the supine study. No pneumothorax is visualized on the supine study.[ IMPRESSION: No acute findings given the AP supine technique. ACT 112: Negative or not required by law. Electronically signed by: Mt Garcias M.D. 03/08/2020 10:05 AM Dictated: 03/08/20 1004 Transcribed: 03/08/20 1004 XR hip BRANDEN 2v w pelvis (5 views) CLINICAL HISTORY: Bilateral hip pain status post trauma COMPARISON STUDY: No previous studies for comparison. FINDINGS: There is an acute intertrochanteric right hip fracture with resultant varus angulation. No fractures or dislocations of the left hip are visualized. There is no symphysis diastases. There is no SI joint diastases. IMPRESSION: Acute intertrochanteric right hip fracture. ACT 112: Negative or not required by law. Electronically signed by: Mt Garcias M.D. 03/08/2020 10:09 AM Dictated: 03/08/20 1007 Transcribed: 03/08/20 1007 XR hand RT min 3V routine CLINICAL HISTORY: Right hand pain status post trauma COMPARISON: None. DISCUSSION: The bones are osteopenic. There are advanced arthritic changes the level of the first carpal metacarpal joint, and the ventricular trapezium and trapezoid articulation. There is mild joint space narrowing at the level of the metacarpal phalangeal joints, and moderate degenerative changes at the level of the distal interphalangeal joints. On the provided lateral view, the ulna projects dorsal to the distal radius. Clinical correlation will be necessary to exclude a distal radial ulnar subluxation. IMPRESSION: 1. Osteopenia 2. No acute fractures 3. Moderately advanced arthritic change 4. On the lateral view the ulna projects dorsal to the distal radius. Clinical correlation is recommended to confirm or exclude a distal radial ulnar subluxation ACT 112: Negative or not required by law. Electronically signed by: Mt Garcias M.D. 03/08/2020 10:07 AM Dictated: 03/08/201004 Transcribed: 03/08/20 100 ECG Data Attestation: I personally reviewed and interpreted this ECG as follows: Indication: + other (Trauma) Rate (beats per minute): 93 Rhythm: + normal sinus ECG Intervals/blocks: + Normal QRS ECG [place]: + Normal ECG ST segments: no T-wave inversions (Diffuse T wave flattening) ECG Findings: no PACs and no PVCs Blood Pressure Blood Pressure Findings: Elevated blood pressure Blood Pressure Disposition: elevated BP felt to be situational Head Trauma GCS Score: 15 MDM Narrative This patient was evaluated and appeared to be in no significant distress. IV access was obtained and laboratory work was drawn. An order for cardiac monitoring was placed and the patient was found to be in a normal sinus rhythm at 93 bpm. EKG confirms the normal sinus rhythm with diffuse T wave flattening. CT imaging of the head reveals no evidence of acute intracranial abnormality. X-ray of the right hip reveals an intertrochanteric fracture. The right hand x-ray is concerning for distal radial/ulnar subluxation. On physical exam the patient's wrist is completely nontender with no deformity. There is some overlying ecchymosis. Patient's laboratory work is fairly reassuring. She did receive several doses of IV morphine for pain control. Case was discussed with the hospitalist service, Dr. Tavares for further evaluation and management. She will require definitive management by orthopedic surgery. Patient is aware of the plan and agrees. Impression & Plan Closed intertrochanteric fracture of right hip, Closed head injury, Contusion of forehead, Chronic anticoagulation Discharge Plan Visit Data Chief Complaint: Fall ED Provider: Jenni Ding ED Midlevel Provider: Sara Aguilera Discharge Problem: Closed intertrochanteric fracture of right hip, Closed head injury, Contusion of forehead, Chronic anticoagulation Patient Disposition: Admitted As Inpatient Discharge Instructions Interventions: ED Discharge Assessment Last Done: 03/08/20 13:28 Discharge Problem: Closed intertrochanteric fracture of right hip Qualifiers: Encounter type: initial encounter Fracture alignment: displaced Qualified Code(s): S72.141A - Displaced intertrochanteric fracture of right femur, initial encounter for closed fracture Closed head injury Qualifiers: Encounter type: initial encounter Qualified Code(s): S09.90XA - Unspecified injury of head, initial encounter Contusion of forehead Qualifiers: Encounter type: initial encounter Qualified Code(s): S00.83XA - Contusion of other part of head, initial encounter
--- NOTE | 2020-03-08 13:13 | Emergency Department Note ---
ED Visit Note I saw this patient today and discussed my findings with Dr. Ding, who saw her separately. Please see her documentation for assessment and plan. . Resident Activity Tracking Resident Involvement: Resident Care Provided Care Provided: Adult ED
[2020-03-08] MEDS ORDERED: ONDANSETRON INJ 2 MG/ML 2 ML VIAL IV PRN (14:13)
[2020-03-08] MEDS ORDERED: bisacodyL 10 MG SUPP PR PRN (14:13)
[2020-03-08] MEDS ORDERED: ACETAMINOPHEN 325 MG TAB PO PRN (14:13)
[2020-03-08] MEDS ORDERED: NALOXONE HCL 0.4 MG/1 ML VIAL/CARP IV PRN (14:13)
[2020-03-08] MEDS ORDERED: LACTATED RINGER'S 1,000 ML IV SCH (15:00)
[2020-03-08] MEDS ORDERED: MoRPHine SULFATE 4 MG/ML 1 ML CARP\\VIAL IV PRN (15:00)
[2020-03-08] MEDS: oxyCODONE HCL IR 5 MG TAB (IMMEDIATE RELEASE) PO PRN ×2 (15:09→20:21)
[2020-03-08] MEDS: MoRPHine SULFATE 2 MG/ML CARP IV PRN (16:53)
--- NOTE | 2020-03-08 17:07 | Orthopedic Consultation ---
Date of Consultation March 08, 2020 Assessment & Plan (1) Closed intertrochanteric fracture of right hip: The patient will require ORIF of right hip with cephalomedullary nail. Due to taking Eliquis this am surgery will need to be delayed for 24-48 hours due to bleeding risk pending kidney function. Medical clearance, NWB RLE, pain control, hold anticoagulation, RLE in traction. The patient is agreeable to planned surgery and all questions were answered to satisfaction. Thank you for the consultation. History of Present Illness Reason for Consultation: Right hip fracture Attending Physician: Tavares Tavares MD History of Present Illness The patient is a 85 year old female who presented to [facility] ED secondary to a mechanical fall she sustained on the evening of 03/07/20 while ambulating in her home. The patient was unable to ambulate and did not have her phone with her and subsequently spent the evening on the floor. XRs today in the ED demonstrated a displaced fracture of her right hip and she was admitted for further inpatient observation and surgical intervention. The patient reports hitting her head but denies LOC. Denies numbness or tingling to RLE. Patient comfortable at rest. Allergies Allergy/AdvReac Type Severity Reaction Status Date / Time No Known Allergies Allergy Verified 03/08/20 10:45 Home Medications Home Medications Medication Instructions Recorded Confirmed Type PreserVision AREDS 2 tab PO BID 01/07/20 03/08/20 History apixaban 5 mg tablet 5 mg PO BID #60 tab 03/02/20 03/08/20 Rx diltiazem HCl 180 mg capsule,24 180 mg PO DAILY #30 cap 03/02/20 03/08/20 Rx hr,extended release triamterene 37.5 1 cap PO DAILY #30 cap 03/04/20 03/08/20 Rx mg-hydrochlorothiazide 25 mg capsule Patient History Medical History Atrial fibrillation with rapid ventricular response COPD (chronic obstructive pulmonary disease) Dyslipidemia Herpes zoster Hx of fracture of humerus Hx of gout Hypertension Osteoarthritis Surgical History History of total right knee replacement Dr. Jeremiah Eddy [place], [place] 05/2017 S/P cataract surgery Social History Smoking Status: Never smoker Second Hand Exposure: No; Hx Alcohol Use: No Hx Substance Use: No Preferred Language: Ivorian Communication Ability: Effective Hearing Ability: Normal Um Nurse Required: No Beliefs That Will Affect Care: Christian marital status: / Current Living Situation: Alone current occupational status: retired Other Information That Helps Us Care for You: No Feels Safe at Home: Yes Safety Concerns: Feels Safe At This Time Review of Systems Review of Systems: All systems reviewed & are unremarkable except as noted in HPI & below Constitutional: as per Subjective / HPI Physical Exam Physical Exam: RLE NVSI +EHL/FHL/TA/GS SILT grossly, +2 DP pulse, compartments soft NT, short and externally rotated Constitutional: WD/WN, vitals as above Results & Data ([place]) Vital Signs (Past 12 Hours) Vital Signs Temp Pulse Pulse Resp BP BP Pulse Ox 03/08/20 15:45 36.8 C 73 20 134/79 97 03/08/20 13:58 36.7 C 83 18 136/77 98 03/08/20 11:50 82 24 136/89 99 03/08/20 08:13 37.2 C 96 H 20 149/110 H 98 Diagnostic Findings XR hip BRANDEN 2v w pelvis (5 views) CLINICAL HISTORY: Bilateral hip pain status post trauma COMPARISON STUDY: No previous studies for comparison. FINDINGS: There is an acute intertrochanteric right hip fracture with resultant varus angulation. No fractures or dislocations of the left hip are visualized. There is no symphysis diastases. There is no SI joint diastases. IMPRESSION: Acute intertrochanteric right hip fracture. XR femur RT 2V routine HISTORY: 85 years-old Female fracture follow-up study in a patient with right hip fracture COMPARISON: Pelvis and hip radiographs 03/08/2020 TECHNIQUE: 2 views of the right femur FINDINGS: There is an acute, comminuted, mildly displaced and angulated intratrochanteric fracture of the right femur redemonstrated. There is at least mild right hip osteoarthritis. Demineralized appearance of the bones. The mid and distal femur appear intact. Right knee total joint arthroplasty and patella resurfacing. IMPRESSION: 1. Unchanged alignment of the acute, comminuted, displaced and mildly angulated intratrochanteric fracture of the right femur. 2. The mid and distal portions of the right femur appear to be intact. (1) Closed intertrochanteric fracture of right hip Encounter type: initial encounter Fracture alignment: displaced Qualified Code(s): S72.141A - Displaced intertrochanteric fracture of right femur, initial encounter for closed fracture
--- NOTE | 2020-03-08 19:30 | XRay Report ---
XR femur RT 2V routine HISTORY: 85 years-old Female fracture follow-up study in a patient with right hip fracture COMPARISON: Pelvis and hip radiographs 03/08/2020 TECHNIQUE: 2 views of the right femur FINDINGS: There is an acute, comminuted, mildly displaced and angulated intratrochanteric fracture of the right femur redemonstrated. There is at least mild right hip osteoarthritis. Demineralized appearance of t he bones. The mid and distal femur appear intact. Right knee total joint arthroplasty and patella res urfacing. IMPRESSION: 1. Unchanged alignment of the acute, comminuted, displaced and mildly angulated intratrochanteric fra cture of the right femur. 2. The mid and distal portions of the right femur appear to be intact. ACT 112: Negative or not required by law. The above report was generated using voice recognition software. It may contain grammatical, syntax o r spelling errors. Electronically signed by: Shreyas Diamond M.D. 03/08/2020 7:29 PM
[2020-03-08] MEDS: DOCUSATE SODIUM/SENNA 50/8.6MG TAB PO SCH (20:22)
[2020-03-08] MEDS ORDERED: VITAMINS A C E ZINC COPPER PO SCH (21:00)
[2020-03-09 07:13] LABS: BUN Creatinine Ratio 15.5 (10-20); Calcium 8.7 mg/dl (8.5-10.1); Est GFR (African American) 28.9; Est GFR (Non-African American) 24.9; Potassium 4.6 mmol/L (3.5-5.1)
[2020-03-09 07:15] LABS: Basophils # (auto) 0.03 K/uL (0-0.2); Basophils % (auto) 0.3 %; Eosinophils # (auto) 0.02 K/uL (0-0.5); Eosinophils % (auto) 0.2 %; Hematocrit (blood only) 28.7 % (37-47); Hemoglobin 9.3 g/dL (12.0-16.0); Immature Granulocytes # (auto) 0.02 K/uL (0.00-0.02); Immature Granulocytes % (auto) 0.2 %; Lymphocytes # (auto) 1.84 K/uL (1.2-3.4); Lymphocytes % (auto) 18.6 %; Mean Corpuscular Hemoglobin 31.2 pg (25-34); Mean Corpuscular Hgb Conc 32.4 g/dL (32-36); Mean Corpuscular Volume 96.3 fL (80-100); Mean Platelet Volume 11.4 fL (7.4-10.4); Monocytes # (auto) 1.14 K/uL (0.11-0.59); Monocytes % (auto) 11.5 %; Neutrophils # (auto) 6.84 K/uL (1.4-6.5); Neutrophils % (auto) 69.2 %; Platelet Count 254 K/uL (130-400); RDW Coefficient of Variation 13.6 % (11.5-14.5); RDW Standard Deviation 46.8 fL (36.4-46.3); Red Blood Count 2.98 M/uL (4.2-5.4); White Blood Count 9.89 K/uL (4.8-10.8)
[2020-03-09] MEDS: dilTIAZem ER 180 MG CAPCR PO SCH (07:32)
[2020-03-09] MEDS: LACTATED RINGER'S 1,000 ML IV SCH ×2 (07:32→16:50)
--- NOTE | 2020-03-09 08:09 | Hospitalist Progress Note ---
Date of Service March 09, 2020 Assessment & Plan (1) Closed intertrochanteric fracture of right hip: Patient is an 85 year old female with PMHx Paroxysmal Afib, HTN, HLD who presented to the ED secondary to a fall, found to have a closed R intertrochanteric fracture. R Closed Intertrochanteric Fracture -Noted on Hip/Pelv CT -Ortho consulted, will require ORIF of the R hip w/ cephalomedullary nail -was to have surgery on 03/09/20 but deferred as patient is on Eliquis for Afib and has a creatinine clearance <30, ortho plans on waiting for 48 hours after last dose of Eliquis due to increased bleeding risk -NPO after midnight -Holding anticoagulation at this time -Non-weightbearing of RLE -Pain control with Tylenol, Oxycodone and Morphine PRN Fall w/ Scalp laceration -Appeared mechanical in nature -Not secondary to Atrial fibrillation or other neuro deficit -Scalp laceration noted on exam, Head CT negative for bleed -Above for intertrochanteric fracture Paroxysmal Atrial Fibrillation -Diagnosed at last stay 1 week ago -Continue Diltiazem 180mg PO QD -Hold Eliquis in preparation for surgery Hypertension -Cr 1.83 this AM -Hold Dyazide until renal function improves -Continue Diltiazem L Knee Laceration -Wound consulted Osteoporosis -Diagnosis in the setting of Fx with mechanical fall -Will start patient on Vitamin D and Calcium while inpatient -Patient will likely require Bisphosphonate therapy 1 month after surgery Dispo: Med/Surg Tele FEN: Normal diet, NPO after midnight, LR 100ml/hr DVT: Holding Eliquis Code: Full (2) Fall: (3) Scalp laceration: (4) Paroxysmal atrial fibrillation: (5) Hypertension: (6) Dyslipidemia: (7) Hyperlipidemia: (8) Osteoporosis: Admission and Anticipated Discharge Date Admission Date: March 08, 2020 Supervising Physician Co-Signing Physician Notes I personally examined the patient and verified all rodriguez points of history and exam, discussed case, and agree with decision making with Dr Martinez. pain controlled. dtr present. updated both to the best of my ability. surgery delayed related to concerns on clearance of apixaban. vitals ntoed nad heent nc at mmm breathing unlabored no accessory muscles good effort skin no rashes no pallor or icterus neuro no focal deficits osteoporotic hip fx - standing level fall, large bone fx. for surgery. then PT/OT - probably rehab. check D. supplement calcium and D. bisphosphonate in about a month acute blood loss anemia - related to fracture. between ARF that likely relates to anemia at least in part, and anesthesia request - will transfuse 1 unit PRBC ARF - acute blood loss anemia and dehydration related. fluids, blood, follow - anticipate improvement. of note, despite being down on the floor for a long time - situation not c/w rhabdo - particularly given that CPK was only 294. afib - rate controlled, anticoagulation on hold DVT proph - resume anticoagulation once safe post op. Subjective Patient evaluated while laying in bed. Patient hard of hearing time of exam due to not having her hearing aids. Notes her pain currently was a 4/10 with traction of her R leg. Otherwise notes that she feels well. Review of Systems Constitutional: no fever and no chills Ear, Nose, Mouth, Throat: no dizziness Respiratory: no cough and no dyspnea Cardiovascular: no chest pain, no radiating jaw, neck or arm pain, no dyspnea on exertion and no palpitations Gastrointestinal: no abdominal pain, no nausea and no vomiting Genitourinary: no dysuria Musculoskeletal: + joint pain, + limited range of motion and + body aches Physical Exam Constitutional: well developed and well nourished; no acute distress Respiratory: normal respiratory effort, lungs clear to auscultation Cardiovascular: Rate/Rhythm: + abnormal rate (irregularly irregular) and + abnormal rhythm Vessels: posterior tibial pulses present and dorsalis pedis pulses present Gastrointestinal (Abdomen): normal bowel sounds, soft, nontender, no hepatosplenomegaly Musculoskeletal: R leg under traction. Slight TTP to palpation of the R hip. Skin: Trauma: + laceration (Noted on the R forehead, no bleeding or erythema ) Results & Data Results & Data ([facility]) Vital Signs (Past 12 Hours) Vital Signs Temp Pulse Pulse Resp BP Pulse Ox 03/09/20 06:57 36.8 C 75 18 127/79 92 03/09/20 03:15 36.8 C 79 20 126/72 97 03/09/20 01:06 74 03/08/20 23:58 36.4 C L 75 20 128/80 95 Resident Activity Tracking Resident Involvement: Resident Care Provided Care Provided: Adult [facility] (1) Closed intertrochanteric fracture of right hip Encounter type: initial encounter Fracture alignment: displaced Qualified Code(s): S72.141A - Displaced intertrochanteric fracture of right femur, initial encounter for closed fracture
--- NOTE | 2020-03-09 09:52 | Anesthesiology Consultation ---
Date of Service March 09, 2020 03/09/20 Covid 19 negative. I discussed the patient with the medicine team and the decision was made to transfused 1 U PRBC by medicine service due to history of anemia, current Eliquis, hx recent onset atrial fibrillation and upcoming surgery. Patient last took Eliquis on 03/08/20. the procedure was initially scheduled fro this afternoon but was delayed by the surgery team due to recent Eliquis use. History Surgery Operation Date: 03/10/20 07:00 Proposed Procedures p Right Troch Nail - Juan Perez DO Height/Weight Height: 4 ft 10 in Weight: 77 kg Allergies Allergy/AdvReac Type Severity Reaction Status Date / Time No Known Allergies Allergy Verified 03/08/20 10:45 Medications Home Medications Medication Instructions Recorded Confirmed Last Taken PreserVision AREDS 2 tab PO BID 01/07/20 03/08/20 03/08/20 apixaban 5 mg tablet 5 mg PO BID #60 tab 03/02/20 03/08/20 03/08/20 diltiazem HCl 180 mg capsule,24 180 mg PO DAILY #30 cap 03/02/20 03/08/20 03/08/20 hr,extended release triamterene 37.5 1 cap PO DAILY #30 cap 03/04/20 03/08/20 03/08/20 mg-hydrochlorothiazide 25 mg capsule Active Medications Generic Name Dose Route Start Last Admin Trade Name Freq PRN Reason Stop Dose Admin Diltiazem HCl 180 mg 03/09/20 09:00 03/09/20 07:32 Diltiazem Er 180 Mg Capcr PO 04/08/20 08:59 180 mg DAILY JAMESON Administration Lactated Ringer's 1,000 mls @ 100 mls/hr 03/09/20 07:00 03/09/20 16:50 Lr IV 04/08/20 06:59 100 mls/hr .Q10H JAMESON Administration Morphine Sulfate 2 mg 03/08/20 15:00 03/08/20 16:53 Morphine Sulfate 2 Mg/Ml Carp IV 03/22/20 14:59 2 mg Q2H PRN Administration MODERATE Pain (Scale 4,5,6) Oxycodone HCl 5 mg 03/08/20 14:13 03/08/20 15:09 Oxycodone Hcl Ir 5 Mg Tab (Immediate Release) PO 03/22/20 14:12 5 mg Q4H PRN Administration MODERATE Pain (Scale 4,5,6) Oxycodone HCl 10 mg 03/08/20 14:13 03/08/20 20:21 Oxycodone Hcl Ir 5 Mg Tab (Immediate Release) PO 03/22/20 14:12 10 mg Q4H PRN Administration SEVERE Pain (Scale 7,8,9,10) Senna/Docusate Sodium 2 tab 03/08/20 21:00 03/08/20 20:22 Docusate Sodium/Senna 50/8.6mg Tab PO 04/07/20 20:59 2 tab HS JAMESON Administration Past Medical History Medical History Atrial fibrillation with rapid ventricular response COPD (chronic obstructive pulmonary disease) Dyslipidemia Herpes zoster Hx of fracture of humerus Hx of gout Hypertension Osteoarthritis Past Surgical History Surgical History History of total right knee replacement Dr. Jeremiah Eddy [place], [place] 05/2017 S/P cataract surgery Social History Smoking Status: Never smoker Hx Alcohol Use: No Alcohol type: hard liquor alcohol intake frequency: a few times a week Hx Substance Use: No substance use type: does not use Physical Exam Vital Signs Last Vital Signs Temp 37.0 C 03/09/20 15:00 Pulse 54 L 03/09/20 15:00 Resp 18 03/09/20 15:00 BP 111/70 03/09/20 15:00 Pulse Ox 98 03/09/20 15:00 Testing Laboratory Results 03/09/20 05:19 03/09/20 05:19 PT 12.6 Seconds (9.0-12.0) H 03/08/20 09:17 INR 1.2 (0.9-1.1) H 03/08/20 09:17 Blood Type AB Positive 03/09/20 05:19 Antibody Screen NEGATIVE 03/09/20 05:19 Electrocardiogram Date: 03/08/20 Normal sinus rhythm Nonspecific T wave abnormality Abnormal ECG When compared with ECG of 27-FEB-2020 11:06, Sinus rhythm has replaced Atrial fibrillation Vent. rate has decreased BY [address] no longer depressed in Inferior leads Chest X-Ray Date: 03/08/20 IMPRESSION: No acute findings given the AP supine technique. Echocardiogram Date: 02/27/20 EF: 60-65% LV Function: normal Other Findings: + LVH (mild) Valvular Disease: + MR (mild)
[2020-03-09] MEDS ORDERED: SODIUM CHLORIDE 0.9% 250 ML IV PRN ×2 (11:37→12:12)
--- NOTE | 2020-03-09 16:21 | Orthopedic Progress Note ---
Date of Service March 09, 2020 Assessment & Plan (1) Closed intertrochanteric fracture of right hip: Due to creatinine clearance of less than 30, will plan for surgery 48 hours after last dose of Eliquis which was 03/08/2020 at 7 AM due to increased bleeding risk. Tentatively planning for surgery 03/10/2020. N.p.o. after midnight. Nonweightbearing right lower extremity, pain control. Continue to hold anticoagulation at this time. Admission and Anticipated Discharge Date Admission Date: March 08, 2020 Subjective Patient seen lying in bed, comfortable, no acute issues, pain well controlled. Review of Systems Review of Systems: All systems reviewed & are unremarkable except as noted in HPI & below Constitutional: as per Subjective / HPI Physical Exam Physical Exam: RLE NVSI +EHL/FHL/TA/GS SILT grossly, +2 DP pulse, compartments soft NT, short and externally rotated Constitutional: WD/WN, vitals as above Results & Data ([facility]) Vital Signs (Past 12 Hours) Vital Signs Temp Pulse Pulse Resp BP BP Pulse Ox 03/09/20 15:00 37.0 C 54 L 18 111/70 98 03/09/20 13:59 36.8 C 82 22 111/70 94 03/09/20 13:30 37.2 C 16 111/72 90 03/09/20 13:15 37.2 C 70 18 110/70 92 03/09/20 12:58 37.2 C 82 18 123/76 95 03/09/20 11:12 37.2 C 79 18 120/73 90 03/09/20 06:57 36.8 C 75 18 127/79 92 Laboratory Results 03/09/20 03/09/20 03/09/20 Range/Units 08:45 08:45 05:19 WBC (4.8-10.8) K/uL RBC (4.2-5.4) M/uL Hgb (12.0-16.0) g/dL Hct (37-47) % MCV (80-100) fL MCH (25-34) pg MCHC (32-36) g/dL RDW Std Deviation (36.4-46.3) fL RDW Coeff of Abel (11.5-14.5) % Plt Count (130-400) K/uL MPV (7.4-10.4) fL Immature Gran % (Auto) % Neut % (Auto) % Lymph % (Auto) % Gosper % (Auto) % Eos % (Auto) % Baso % (Auto) % Neut # (Auto) (1.4-6.5) K/uL Lymph # (Auto) (1.2-3.4) K/uL Gosper # (Auto) (0.11-0.59) K/uL Eos # (Auto) (0-0.5) K/uL Baso # (Auto) (0-0.2) K/uL Immature Gran # (Auto) (0.00-0.02) K/uL Sodium 134 L (136-145) mmol/L Potassium 4.6 (3.5-5.1) mmol/L Chloride 100 (98-107) mmol/L Carbon Dioxide 25 (21-32) mmol/L Anion Gap 9.0 (3-11) BUN 28 H (7-18) mg/dl Creatinine 1.83 H D (0.6-1.2) mg/dl Est Cr Clr Drug Dosing 20.0 ml/min Est GFR ( Amer) 28.9 Est GFR (Non-Af Amer) 24.9 BUN/Creatinine Ratio 15.5 (10-20) Glucose 118 H (70-99) mg/dl Calcium 8.7 (8.5-10.1) mg/dl Specimen Hemolysis COVID-19 Eval Order Covid19 IDNow [facility] SARS-CoV-2, RNA, NAAT NEGATIVE (NEGATIVE) Blood Type Blood Type Recheck Antibody Screen Crossmatch 03/09/20 03/09/20 03/08/20 Range/Units 05:19 05:19 09:19 WBC 9.89 (4.8-10.8) K/uL RBC 2.98 L (4.2-5.4) M/uL Hgb 9.3 L (12.0-16.0) g/dL Hct 28.7 L (37-47) % MCV 96.3 D (80-100) fL MCH 31.2 (25-34) pg MCHC 32.4 (32-36) g/dL RDW Std Deviation 46.8 H (36.4-46.3) fL RDW Coeff of Abel 13.6 (11.5-14.5) % Plt Count 254 (130-400) K/uL MPV 11.4 H (7.4-10.4) fL Immature Gran % (Auto) 0.2 % Neut % (Auto) 69.2 % Lymph % (Auto) 18.6 % Gosper % (Auto) 11.5 % Eos % (Auto) 0.2 % Baso % (Auto) 0.3 % Neut # (Auto) 6.84 H (1.4-6.5) K/uL Lymph # (Auto) 1.84 (1.2-3.4) K/uL Gosper # (Auto) 1.14 H (0.11-0.59) K/uL Eos # (Auto) 0.02 (0-0.5) K/uL Baso # (Auto) 0.03 (0-0.2) K/uL Immature Gran # (Auto) 0.02 (0.00-0.02) K/uL Sodium (136-145) mmol/L Potassium (3.5-5.1) mmol/L Chloride (98-107) mmol/L Carbon Dioxide (21-32) mmol/L Anion Gap (3-11) BUN (7-18) mg/dl Creatinine (0.6-1.2) mg/dl Est Cr Clr Drug Dosing ml/min Est GFR ( Amer) Est GFR (Non-Af Amer) BUN/Creatinine Ratio (10-20) Glucose (70-99) mg/dl Calcium (8.5-10.1) mg/dl Specimen Hemolysis COVID-19 Eval Order SARS-CoV-2, RNA, NAAT (NEGATIVE) Blood Type AB Positive Blood Type Recheck AB Positive Antibody Screen NEGATIVE Crossmatch See Detail (1) Closed intertrochanteric fracture of right hip Encounter type: initial encounter Fracture alignment: displaced Qualified Code(s): S72.141A - Displaced intertrochanteric fracture of right femur, initial encounter for closed fracture
[2020-03-09] MEDS ORDERED: dilTIAZem HCL 30 MG TAB PO ONE (18:55)
--- NOTE | 2020-03-09 19:24 | Electrocardiogram Report ---
Test Reason : Blood Pressure : / mmHG Vent. Rate : 093 BPM Atrial Rate : 093 BPM P-R Int : 152 ms QRS Dur : 068 ms QT Int : 366 ms P-R-T Axes : 053 049 083 degrees QTc Int : 455 ms Poor data quality, interpretation may be adversely affected Normal sinus rhythm Nonspecific T wave abnormality Abnormal ECG When compared with ECG of 27-FEB-2020 11:06, Sinus rhythm has replaced Atrial fibrillation Vent. rate has decreased BY 76 BPM Confirmed by Ryland Mccord ([id number]) on 03/09/2020 7:23:54 PM Referred By: REFERRED SELF Confirmed By:Ryland Mccord
--- NOTE | 2020-03-09 19:54 | Billing Data ---
Date of Service March 09, 2020 Coding Level of Care Code 30090 Subseq Hosp Care Lvl 3
[2020-03-09] MEDS: DOCUSATE SODIUM/SENNA 50/8.6MG TAB PO SCH (21:23)
--- NOTE | 2020-03-09 21:35 | Communication Note ---
Date of Service: March 09, 2020 Still Afib RVR after oral medication. Will transfer to med/surg tele for IV rate control. Resident Activity Tracking Resident Involvement: Resident Care Provided Care Provided: Adult Hospital Medicine
[2020-03-09] MEDS ORDERED: METOPROLOL TARTRATE 1 MG/ML VIAL IV STA ×2 (22:38→23:23)
[2020-03-09] MEDS: oxyCODONE HCL IR 5 MG TAB (IMMEDIATE RELEASE) PO PRN (23:42)
[2020-03-10] MEDS: LACTATED RINGER'S 1,000 ML IV SCH ×3 (03:36→23:21)
[2020-03-10] MEDS ORDERED: METOPROLOL TARTRATE 1 MG/ML VIAL IV STA ×3 (05:30→21:35)
--- NOTE | 2020-03-10 05:40 | Communication Note ---
Date of Service: March 10, 2020 Transfer decided to tele was 2 hours after Diltiazem PO intake with rates in 140s. Transfer order placed to tele for cardiac IV management/intervention, Lopressor 5mg x1 was ordered upon arrival to floor. Rates improved to 100- 120bpm, another dose was given at that time approx 11:30pm. Her rates improved in the 100s, asymptomatic. Rounding around 5am, was 120s-130. Lopressor 5mg IV was ordered, this should bridge her until her morning Diltiazem dose gets on board. Will provide signout to DO and make sure DO is aware on hand off. BP currently stable supporting safety for rate management. Resident Activity Tracking Resident Involvement: Resident Care Provided Care Provided: Adult Hospital Medicine
[2020-03-10 06:01] LABS: Basophils # (auto) 0.02 K/uL (0-0.2); Basophils % (auto) 0.2 %; Eosinophils # (auto) 0.05 K/uL (0-0.5); Eosinophils % (auto) 0.5 %; Hematocrit (blood only) 29.6 % (37-47); Hemoglobin 9.8 g/dL (12.0-16.0); Immature Granulocytes # (auto) 0.02 K/uL (0.00-0.02); Immature Granulocytes % (auto) 0.2 %; Lymphocytes # (auto) 1.83 K/uL (1.2-3.4); Mean Corpuscular Hemoglobin 30.5 pg (25-34); Mean Corpuscular Hgb Conc 33.1 g/dL (32-36); Mean Corpuscular Volume 92.2 fL (80-100); Mean Platelet Volume 10.4 fL (7.4-10.4); Monocytes # (auto) 0.63 K/uL (0.11-0.59); Monocytes % (auto) 6.2 %; Neutrophils # (auto) 7.59 K/uL (1.4-6.5); Neutrophils % (auto) 74.9 %; Platelet Count 216 K/uL (130-400); RDW Coefficient of Variation 14.2 % (11.5-14.5); RDW Standard Deviation 47.4 fL (36.4-46.3); Red Blood Count 3.21 M/uL (4.2-5.4); White Blood Count 10.14 K/uL (4.8-10.8)
[2020-03-10 06:39] LABS: BUN Creatinine Ratio 15.6 (10-20); Calcium 8.9 mg/dl (8.5-10.1); Creatinine Clr Calc Pharmacy 23.9 ml/min; Est GFR (African American) 35.3; Est GFR (Non-African American) 30.4; Potassium 4.2 mmol/L (3.5-5.1)
[2020-03-10] MEDS: dilTIAZem ER 180 MG CAPCR PO SCH (07:51)
--- NOTE | 2020-03-10 08:06 | Hospitalist Progress Note ---
Date of Service March 10, 2020 Assessment & Plan (1) Closed intertrochanteric fracture of right hip: Patient is an 85 year old female with PMHx Paroxysmal Afib, HTN, HLD who presented to the ED secondary to a fall, found to have a closed R intertrochanteric fracture. R Closed Intertrochanteric Fracture -Noted on Hip/Pelv CT -Ortho consulted, will require ORIF of the R hip w/ cephalomedullary nail -was to have surgery on 03/09/20 but deferred as patient is on Eliquis for Afib and has a creatinine clearance <30, ortho plans on waiting for 48 hours after last dose of Eliquis due to increased bleeding risk -Plan for Surgery today. -NPO currently until surgery later today. -Continue holding anticoagulation at this time -Non-weightbearing of RLE -Pain control with Tylenol, Oxycodone and Morphine PRN Anemia -Likely secondary to Hip Fx -Transfused 1 unit PRBC yesterday Fall w/ Scalp laceration -Appeared mechanical in nature -Not secondary to Atrial fibrillation or other neuro deficit -Scalp laceration noted on exam, Head CT negative for bleed -Above for intertrochanteric fracture Paroxysmal Atrial Fibrillation -Diagnosed at last stay 1 week ago -Continue Diltiazem 180mg PO QD -Overnight went back into Afib with average 130's, was given 2 doses of Lopressor 5mg IV -Still in Afib, was given Dilt 180mg early today and another 5mg IV lopressor - HR average 110-115 -Discussed with Anesthesia, still a candidate for surgery later this afternoon. -Hold Eliquis in preparation for surgery Hypertension -Cr improved to 1.55 today with hydration -Hold Dyazide until renal function improves -Continue Diltiazem L Knee Laceration -Wound consulted -Stable Osteoporosis -Diagnosis in the setting of Fx with mechanical fall -Will start patient on Vitamin D and Calcium while inpatient when taking PO -Patient will likely require Bisphosphonate therapy 1 month after surgery Dispo: Med/Surg Tele FEN: NPO, LR 100ml/hr DVT: Holding Eliquis Code: Full (2) Fall: (3) Scalp laceration: (4) Paroxysmal atrial fibrillation: (5) Hypertension: (6) Dyslipidemia: (7) Hyperlipidemia: (8) Osteoporosis: Admission and Anticipated Discharge Date Admission Date: March 08, 2020 Supervising Physician Co-Signing Physician Notes I personally examined the patient and verified all rodriguez points of history and exam, discussed case, and agree with decision making with Dr Martinez. afib rates still up through the night - although somewhat improved - more off and on than consistent - with medications. she herself feels none of it - no cp no sob no palpitations/etc. does have hip pain but otherwise no complaints. vitals ntoed nad heent nc at mmm breathing unlabored no accessory muscles good effort cardio irreg irreg tachy skin no rashes no pallor or icterus neuro no focal deficits osteoporotic hip fx - standing level fall, large bone fx. for surgery. then PT/OT - probably rehab. D low. supplement calcium and D. bisphosphonate in about a month acute blood loss anemia - related to fracture. between ARF that likely relates to anemia at least in part, and anesthesia request - was transfused 1 unit PRBC, continue to follow Hgb acute renal failure - acute blood loss anemia and dehydration related. fluids, blood, follow - showing slow but ongoing improvement - continue to follow. of note, despite being down on the floor for a long time - situation not c/w rhabdo - particularly given that CPK was only 294. afib - rates elevated, totally asymptomatic, otherwise hemodynamically stable - continue to titrate rate control (dr martinez personally called anesthesia - i was present for part of call - imparting that from a medical standpoint asymptomatic RVR should not interfere w getting hip fixed, and also to review what options for rate control anesthesia felt would be best compatible w proceeding to surgery), anticoagulation on hold DVT proph - resume anticoagulation once safe post op. Subjective Patient evaluated at the bedside this morning, resting comfortably. Notes that her pain is currently well controlled with traction on her R leg. Does not note that she is currently in AFIB, asymptomatic. Daughter at bedside as well, no concerns from her end. Patient denies fever, chills, SOB, chest pain. Notes some abdominal discomfort secondary to constipation. Review of Systems Constitutional: no fever and no chills Respiratory: no cough, no dyspnea and no pain on inspiration Cardiovascular: no chest pain, no dyspnea on exertion, no palpitations and no syncope Gastrointestinal: + bloating and + constipation; no nausea and no vomiting Musculoskeletal: + joint pain and + limited range of motion Physical Exam Constitutional: well developed and well nourished; no acute distress Respiratory: normal respiratory effort, lungs clear to auscultation Cardiovascular: Rate/Rhythm: + abnormal rate (irregularly irregular) and + abnormal rhythm Vessels: posterior tibial pulses present and dorsalis pedis pulses present Gastrointestinal (Abdomen): normal bowel sounds, soft, nontender, no hepatosplenomegaly Skin: Trauma: + laceration (Noted on the R forehead, no bleeding or erythema ) Results & Data Results & Data ([facility]) Vital Signs (Past 12 Hours) Vital Signs Temp Pulse Pulse Pulse Resp BP BP 03/10/20 07:32 36.7 C 114 H 18 03/10/20 03:25 37.3 C 103 H 20 123/78 03/09/20 23:33 115 H 109/73 03/09/20 23:04 135 H 03/09/20 22:51 37.4 C 149 H 20 03/09/20 22:47 149 H 137/53 L 03/09/20 21:09 139 H 03/09/20 20:24 132 H BP Pulse Ox 03/10/20 07:32 113/69 93 03/10/20 03:25 92 03/09/20 23:33 03/09/20 23:04 03/09/20 22:51 137/53 L 90 03/09/20 22:47 03/09/20 21:09 03/09/20 20:24 Resident Activity Tracking Resident Involvement: Resident Care Provided Care Provided: Adult Hospital Medicine (1) Closed intertrochanteric fracture of right hip Encounter type: initial encounter Fracture alignment: displaced Qualified Code(s): S72.141A - Displaced intertrochanteric fracture of right femur, initial encounter for closed fracture
[2020-03-10] MEDS ORDERED: PROPOFOL IV EMULSION 10 MG/ML 20 ML VIAL IV ONE (12:56)
[2020-03-10] MEDS ORDERED: fentaNYL citrate 100 MCG/2 ML VIAL ONE ×3 (12:56→16:20)
[2020-03-10] MEDS ORDERED: LIDOCAINE HCL 2% 2 ML VIAL/AMP(20MG/ML) INFIL ONE (12:56)
--- NOTE | 2020-03-10 13:52 | History & Physical Bridge Note ---
Date of Service March 10, 2020 History & Physical Bridge Note I have examined the patient, reviewed the History & Physical and in the interval since the performance of the History & Physical I have noted the following changes of clinical significance: no changes noted
--- NOTE | 2020-03-10 13:54 | Orthopedic Progress Note ---
Date of Service March 10, 2020 Assessment & Plan (1) Closed intertrochanteric fracture of right hip: The patient is a 85yo female with displaced right intertrochanteric hip fracture sustained after a fall from standing height. The patient was medically stabilized on 03/10/2020. I indicated the patient for right hip cephalomedullary nail. The patient was informed of the risks and benefits of surgery, which include but not limited to infection, bleeding, blood clots, damage to nerves, vessels, bone and soft tissue, dislocation, leg length discrepancy, malunion, nonunion, failure of the implants, need for additional surgery and . The patient chose to proceed with surgical intervention and informed consent was obtained. Admission and Anticipated Discharge Date Admission Date: March 08, 2020 Subjective The patient was seen in preoperative holding, comfortable, no acute issues, pain well controlled, medically optimized for surgery. Review of Systems Review of Systems: All systems reviewed & are unremarkable except as noted in HPI & below Constitutional: as per Subjective / HPI Physical Exam Physical Exam: RLE NVSI +EHL/FHL/TA/GS SILT grossly, +2 DP pulse, compartments soft NT, short and externally rotated Constitutional: WD/WN, vitals as above Results & Data ([facility]) Vital Signs (Past 12 Hours) Vital Signs Temp Pulse Pulse Resp BP BP BP 03/10/20 11:28 36.9 C 96 H 16 101/66 03/10/20 09:49 134 H 107/71 03/10/20 08:17 115 H 03/10/20 07:32 36.7 C 114 H 18 113/69 03/10/20 03:25 37.3 C 103 H 20 123/78 Pulse Ox 03/10/20 11:28 90 03/10/20 09:49 03/10/20 08:17 03/10/20 07:32 93 03/10/20 03:25 92 (1) Closed intertrochanteric fracture of right hip Encounter type: initial encounter Fracture alignment: displaced Qualified Code(s): S72.141A - Displaced intertrochanteric fracture of right femur, initial encounter for closed fracture
[2020-03-10] MEDS ORDERED: EPINEPHrine INJ 1 MG/ML AMP ONE (14:23)
[2020-03-10] MEDS ORDERED: BUPIVACAINE 0.5 % 5 MG/1 ML MPF 30ML VIAL ONE (14:23)
[2020-03-10] MEDS ORDERED: ePHEDrine sulfate 50 MG/ML AMP IV PRN (14:27)
[2020-03-10] MEDS ORDERED: ONDANSETRON INJ 2 MG/ML 2 ML VIAL IV PRN (14:27)
[2020-03-10] MEDS ORDERED: ATROPINE SULFATE 0.1 MG/ML 10ML SYR IV PRN (14:27)
[2020-03-10] MEDS ORDERED: SODIUM CHLORIDE 0.9% 250 ML IV PRN (14:42)
[2020-03-10] MEDS ORDERED: DEXAMETHASONE SOD INJ 4 MG/ML VIAL ONE (15:08)
[2020-03-10] MEDS ORDERED: ONDANSETRON INJ 2 MG/ML 2 ML VIAL ONE (15:08)
[2020-03-10] MEDS ORDERED: PHENYLEPHRINE HCL 10 MG/ML VIAL ONE (15:09)
[2020-03-10] MEDS ORDERED: PHENYLEPHRINE 100MCG/ML 5ML SYR ONE (15:09)
[2020-03-10] MEDS ORDERED: ESMOLOL HCL INJ 10 MG/ML 10ML VIAL IV ONE (15:24)
[2020-03-10] MEDS ORDERED: ceFAZolin 2000MG 2,000 MG/15 ML SYR IV ONE (15:27)
[2020-03-10] MEDS ORDERED: ROCURONIUM BROMIDE 10 MG/ML 5 ML VIAL IV ONE (15:50)
[2020-03-10] MEDS ORDERED: NEOSTIGMINE METHYLSULFATE 5 MG/5 ML SYR ONE (15:50)
[2020-03-10] MEDS ORDERED: GLYCOPYRROLATE 0.2 MG/ML VIAL ONE (15:50)
--- NOTE | 2020-03-10 16:10 | Fluoroscopy Report ---
FL hip RT 2-3V HISTORY: 85 years-old Female RT TROCH NAIL STATUS post placement of a right-sided intratrochanteric nail COMPARISON: Right femur radiographs 03/08/2020 TECHNIQUE: 4 spot fluoroscopic images of the right hip were obtained utilizing 150.9 seconds of fluor oscopy time FINDINGS: Status post placement of an intratrochanteric nail with medullary jabari and distal cannulated fixation screw fixating the previously noted acute and comminuted intratrochanteric fracture. There is improve d alignment. Right hip osteoarthritis. Expected postsurgical soft tissue swelling and deep tissue air . No unexpected opaque foreign body. IMPRESSION: Fluoroscopic assistance as above. Please see operative report for further details. ACT 112: Negative or not required by law. The above report was generated using voice recognition software. It may contain grammatical, syntax o r spelling errors. Electronically signed by: Shreyas Diamond M.D. 03/10/2020 4:08 PM
--- NOTE | 2020-03-10 16:27 | Post Operative Brief Note ---
Immediate Post Op Note v1 Date of Surgery March 10, 2020 Pre & Post Diagnosis Operation Date: 03/10/20 07:00 Pre-Op Diagnosis: Closed intertrochanteric fracture of right hip Post-Op Diagnosis: Closed intertrochanteric fracture of right hip I identified the patient and participated in the time-out.: Yes Procedure Operation Date: 03/10/20 07:00 Actual Procedures p Right Hip Cephalomedulary Nail (Right) - Juan Perez DO Surgeon Juan Perez DO Ingredient Handler None Estimated Blood Loss 75 Findings Consistent with Post-Op Diagnosis Specimens None Drains Lee Catheter Anesthesia Type General Complications none Disposition Disposition: Recovery Room Overlapping Procedure I was present for: the critical portions of procedure. I was immediately available: during the entire case. Back up surgeon: was not required during procedure.
--- NOTE | 2020-03-10 16:29 | Operative Report ---
Post Operative Report Pre & Post Diagnosis Operation Date: 03/10/20 07:00 Pre-Op Diagnosis: Closed intertrochanteric fracture of right hip Post-Op Diagnosis: Closed intertrochanteric fracture of right hip I identified the patient and participated in the time-out.: Yes Procedure Operation Date: 03/10/20 07:00 Actual Procedures p Right Hip Cephalomedulary Nail (Right) - Juan Perez DO Surgeon Juan Perez DO Digital Asset Coordinator None Estimated Blood Loss 75 Findings Consistent with Post-Op Diagnosis Specimens None Anesthesia Type General Complications none Disposition Disposition: Recovery Room Indications The patient is a 85yo female with displaced comminuted right intertrochanteric hip fracture sustained after a fall from standing height. The patient was medically stabilized on 03/10/2020. I indicated the patient for right hip cephalomedullary nail. The patient and family was informed of the risks and benefits of surgery, which include but not limited to infection, bleeding, blood clots, damage to nerves, vessels, bone and soft tissue, dislocation, leg length discrepancy, malunion, nonunion, failure of the implants, need for additional surgery and . The patient and family collectively chose to proceed with surgical intervention and informed consent was obtained. Description of Procedure Following induction of adequate general anesthesia, the patient was placed on the fracture table. The left leg was placed in the well leg white and the right leg in the traction leg white. All bony prominences were protected. Utilizing c-arm fluoroscopy closed reduction of the fracture was performed. Once satisfied with fracture reduction the right hip was prepped and draped in the usual sterile manner. A time out was performed and site verified. The i ncision was made from the tip of the greater trochanter proximally. Subcutaneous tissue was sharply dissected to the tip of the greater trochanter, electrocautery used for hemostasis. Under fluoroscopic guidance the drill tipped guidewire was inserted at the tip of the greater trochanter and advanced into the medullary canal. Utilizing the intramedullary drill the guidewire was overdrilled with tissue protector attached. A 11 mm short Synthes TFN was inserted and impacted into position and confirmed by c-arm fluoroscopy. Next the aiming arm was attached to the insertion handle. A incision was made and carried down through subcutaneous tissues to bone. The blade guide sleeve was inserted and secured down to bone. The guide wire was passed across the fracture site to the tip of the femoral head, position was confirmed in the AP and lateral planes utilizing c-arm fluoroscopy. The guide pin was measured and the 11.0mm drill bit passed over the guide pin to open lateral cortex followed by a 6.0mm/10.0mm cannulated reamer to a depth of 95 mm. Next the helical blade was inserted and locked proximally. Traction was released and interfragmentary compression applied. Distally a stab incision was made in the skin and carried down to bone. The triple trocar assembly was inserted into the aiming guide to bone. Utilizing a 4.0mm drill, both cortices were drilled. The nail was locked distally using a single 4.9mm x 32 mm locking bolt. The aiming guide was removed at this time and final radiographs were obtained utilizing c-arm fluoroscopy to confirm overall position and fracture reduction. Incisions were irrigated with copious amounts of sterile saline solution. Subcutaneous tissue were injected utilizing .5% marcaine with epi. Deep closure was performed using #1 Vicryl followed by 2-0 Vicryl for subcutaneous tissues and monica in the skin. Sterile dressing, Xeroform gauze, 4x4s, ABDs and foam tape. The patient tolerated the procedure well, was extubated in OR and was transported to the PACU in stable condition. I attest to the content of the Intraoperative Record and any orders documented therein. Any exceptions are noted below.
[2020-03-10] MEDS: fentaNYL citrate 100 MCG/2 ML VIAL IV PRN ×4 (16:45→17:00)
--- NOTE | 2020-03-10 16:48 | Orthopedic Progress Note ---
Date of Service March 10, 2020 Assessment & Plan (1) Closed intertrochanteric fracture of right hip: Status post right hip cephalo-medullary nail -Ancef x24 -DVT prophylaxis: SCDs, teds, Eliquis twice daily Toe-touch nonweightbearing right lower extremity PT/OT Postoperative x-ray pending A.m. labs Admission and Anticipated Discharge Date Admission Date: March 08, 2020 Subjective Postoperative progress note Patient was seen in PACU, complaining of pain, receiving pain medication, no acute issues. Review of Systems Review of Systems: All systems reviewed & are unremarkable except as noted in HPI & below Constitutional: as per Subjective / HPI Physical Exam Physical Exam: RLE NVSI +EHL/FHL/TA/GS SILT grossly, +2 DP pulse, compartments soft NT, dressing cdi. Constitutional: WD/WN, vitals as above Results & Data ([facility]) Vital Signs (Past 12 Hours) Vital Signs Temp Pulse Pulse Pulse Resp BP BP 03/10/20 16:45 115 H 18 03/10/20 16:35 102 H 20 03/10/20 16:26 36.9 C 110 H 16 03/10/20 13:43 37.5 C 92 H 16 101/63 03/10/20 11:28 36.9 C 96 H 16 101/66 03/10/20 09:49 134 H 107/71 03/10/20 08:17 115 H 03/10/20 07:32 36.7 C 114 H 18 BP Pulse Ox 03/10/20 16:45 133/74 100 03/10/20 16:35 133/91 100 03/10/20 16:26 98/79 L 97 03/10/20 13:43 93 03/10/20 11:28 90 03/10/20 09:49 03/10/20 08:17 03/10/20 07:32 113/69 93 (1) Closed intertrochanteric fracture of right hip Encounter type: initial encounter Fracture alignment: displaced Qualified Code(s): S72.141A - Displaced intertrochanteric fracture of right femur, initial encounter for closed fracture
[2020-03-10] MEDS ORDERED: ACETAMINOPHEN 1000 MG/100 ML IV IV ONE (17:09)
[2020-03-10] MEDS ORDERED: ACETAMINOPHEN 1,000 MG/100 ML VIAL IV STA (17:14)
--- NOTE | 2020-03-10 17:21 | Billing Data ---
Date of Service March 10, 2020 Coding Level of Care Code 21742 Subseq Hosp Care Lvl 3
--- NOTE | 2020-03-10 17:49 | XRay Report ---
XR hip RT min 2V CLINICAL HISTORY: Post-Operative implant position COMPARISON: Right femur radiographs March 08, 2020. FINDINGS: Internal fixation of the intertrochanteric fracture of the right femur is noted. Fracture alignment has improved. Hardware is intact. There are no unexpected radiopaque foreign bodies. IMPRESSION: Postoperative findings from internal fixation of the intertrochanteric fracture of the ri ght femur. ACT 112: Negative or not required by law. Electronically signed by: Satinder Marcelino M.D. 03/10/2020 5:48 PM
[2020-03-10] MEDS ORDERED: NALOXONE HCL 0.4 MG/1 ML VIAL/CARP IV PRN (17:51)
--- NOTE | 2020-03-10 17:51 | Anesthesiology Progress Note ---
Date of Service March 10, 2020 Anesthesia Post Procedure Vital Signs Vital Signs: Temp Pulse Pulse Pulse Resp BP BP 03/10/20 17:25 105 H 18 03/10/20 17:15 36.8 C 112 H 19 03/10/20 17:05 121 H 16 03/10/20 16:55 103 H 17 03/10/20 16:45 115 H 18 03/10/20 16:35 102 H 20 03/10/20 16:26 36.9 C 110 H 16 03/10/20 13:43 37.5 C 92 H 16 101/63 03/10/20 11:28 36.9 C 96 H 16 101/66 03/10/20 09:49 134 H 107/71 03/10/20 08:17 115 H 03/10/20 07:32 36.7 C 114 H 18 03/10/20 03:25 37.3 C 103 H 20 123/78 03/09/20 23:33 115 H 109/73 03/09/20 23:04 135 H 03/09/20 22:51 37.4 C 149 H 20 03/09/20 22:47 149 H 137/53 L 03/09/20 21:09 139 H 03/09/20 20:24 132 H 03/09/20 18:35 37.2 C 141 H 20 03/09/20 17:58 37 C 54 L 18 111/70 BP Pulse Ox 03/10/20 17:25 118/74 97 03/10/20 17:15 127/62 99 03/10/20 17:05 128/93 92 03/10/20 16:55 139/84 100 03/10/20 16:45 133/74 100 03/10/20 16:35 133/91 100 03/10/20 16:26 98/79 L 97 03/10/20 13:43 93 03/10/20 11:28 90 03/10/20 09:49 03/10/20 08:17 03/10/20 07:32 113/69 93 03/10/20 03:25 92 03/09/20 23:33 03/09/20 23:04 03/09/20 22:51 137/53 L 90 03/09/20 22:47 03/09/20 21:09 03/09/20 20:24 03/09/20 18:35 118/82 93 03/09/20 17:58 98 Pain Intensity Right Hip: Pain Intensity: 5 Transfer of Care Handoff Completed per policy Notes Mental Status: alert / awake / arousable and participated in evaluation Patient Amnestic to Procedure: Yes Nausea / Vomiting: adequately controlled Pain: adequately controlled Airway Patency, RR, SpO2: stable & adequate BP & HR: stable & adequate Hydration State: stable & adequate Anesthetic Complications: no major complications apparent
[2020-03-10] MEDS: oxyCODONE HCL IR 5 MG TAB (IMMEDIATE RELEASE) PO PRN ×2 (18:07→22:30)
[2020-03-10] MEDS: DOCUSATE SODIUM/SENNA 50/8.6MG TAB PO SCH (21:11)
[2020-03-10] MEDS: ceFAZolin 2000MG 2,000 MG/15 ML SYR IV SCH (23:21)
[2020-03-11] MEDS ORDERED: METOPROLOL TARTRATE 1 MG/ML VIAL IV STA ×2 (00:29→06:32)
[2020-03-11] MEDS: oxyCODONE HCL IR 5 MG TAB (IMMEDIATE RELEASE) PO PRN ×2 (03:25→16:00)
[2020-03-11 06:00] LABS: Hematocrit (blood only) 28.7 % (37-47); Hemoglobin 9.2 g/dL (12.0-16.0); Immature Granulocytes # (auto) 0.04 K/uL (0.00-0.02); Immature Granulocytes % (auto) 0.3 %; Lymphocytes # (auto) 0.93 K/uL (1.2-3.4); Mean Corpuscular Hemoglobin 30.1 pg (25-34); Mean Corpuscular Hgb Conc 32.1 g/dL (32-36); Mean Corpuscular Volume 93.8 fL (80-100); Mean Platelet Volume 10.5 fL (7.4-10.4); Monocytes # (auto) 0.55 K/uL (0.11-0.59); Monocytes % (auto) 4.7 %; Neutrophils # (auto) 10.16 K/uL (1.4-6.5); Platelet Count 303 K/uL (130-400); RDW Coefficient of Variation 14.4 % (11.5-14.5); Red Blood Count 3.06 M/uL (4.2-5.4); White Blood Count 11.68 K/uL (4.8-10.8)
[2020-03-11] MEDS ORDERED: METOPROLOL TARTRATE 1 MG/ML VIAL IV ONE (06:34)
[2020-03-11 06:41] LABS: BUN Creatinine Ratio 17.6 (10-20); Calcium 8.6 mg/dl (8.5-10.1); Creatinine Clr Calc Pharmacy 24.7 ml/min; Est GFR (African American) 36.4; Est GFR (Non-African American) 31.4
--- NOTE | 2020-03-11 06:53 | Hospitalist Progress Note ---
Date of Service March 11, 2020 Assessment & Plan (1) Closed intertrochanteric fracture of right hip: Patient is an 85 year old female with PMHx Paroxysmal Afib, HTN, HLD who presented to the ED secondary to a fall, found to have a closed R intertrochanteric fracture. R Closed Intertrochanteric Fracture -Noted on Hip/Pelv CT -Ortho consulted, will require ORIF of the R hip w/ cephalomedullary nail -- R hip Cephalomedulary Nail on 03/11/20 -Postoperative x-ray demonstrated well aligned well fixed implant -Resumed on Eliquis for DVT prophylaxis -Diet resumed -Non-weightbearing of RLE -Pain control with Tylenol, Oxycodone and Morphine PRN -PT/OT ordered, encourage early mobility of patient, no weight bearing today Anemia -Likely secondary to Hip Fx -Transfused 1 unit PRBC prior -Current Hgb 9.2 Fall w/ Scalp laceration -Appeared mechanical in nature -Not secondary to Atrial fibrillation or other neuro deficit -Scalp laceration noted on exam, Head CT negative for bleed -Above for intertrochanteric fracture Paroxysmal Atrial Fibrillation -Diagnosed at last stay 1 week ago -Resumed Eliquis as procedure completed -Still in Afib average 130's today, gave 20mg IV Cardizem with minimal improvement -Transfer to PCU for Cardizem Drip -Hold Diltiazem 180mg PO QD while on drip Hypertension -Cr improved to 1.51 today with hydration -Hold Dyazide until renal function improves -Hold Diltiazem whiel on drip L Knee Laceration -Wound consulted -Stable Osteoporosis -Diagnosis in the setting of Fx with mechanical fall -Started patient on Vitamin D and Calcium while inpatient when taking PO -Patient will likely require Bisphosphonate therapy 1 month after surgery Post Nasal Drip -Likely secondary to allergic rhinitis -Nasacort QD Dispo: PCU FEN: Reg diet, LR 100ml/hr DVT: Eliquis Code: Full (2) Fall: (3) Scalp laceration: (4) Paroxysmal atrial fibrillation: (5) Hypertension: (6) Dyslipidemia: (7) Hyperlipidemia: (8) Osteoporosis: Admission and Anticipated Discharge Date Admission Date: March 08, 2020 Supervising Physician Co-Signing Physician Notes I personally examined the patient and verified all rodriguez points of history and exam, discussed case, and agree with decision making with Dr Martinez. afib continues to be faster than desired, but still zero chest sx. only real "complaint" is fear about how her leg will hurt as she does PT vitals ntoed nad heent nc at mmm breathing unlabored no accessory muscles good effort cardio irreg irreg tachy ongoing (although on later recheck she is slowing to low 100's) skin no rashes no pallor or icterus neuro no focal deficits osteoporotic hip fx - standing level fall, large bone fx. overall stable post op. PT/OT eval and treat, anticipate transfer rehab. D low- supplement calcium and D. bisphosphonate in about a month acute blood loss anemia - related to fracture. between ARF that likely relates to anemia at least in part, and anesthesia request - was transfused 1 unit PRBC, continue to follow Hgb - but now stable acute renal failure - acute blood loss anemia and dehydration related. fluids, blood, follow - improvement has slowed some afib - rates remain elevated, but she is still totally asymptomatic, and otherwise hemodynamically stable - ongoing rate control - now dilt gtt, later some additional metoprolol. back on eliquis. DVT proph - resumed anticoagulation Subjective Patient seen at the bedside. Patient notes that she is feeling well today, pain 4/10. Not having the most of appetites, but has been picking at breakfast. States that she has some anxiety in regards to movement secondary to pain, but understands that she'll have to work with PT today and get the let moving. She notes she does not feel she is in Afib. No chest pain, chest pressure, SOB, dizziness, lightheadedness. Review of Systems Constitutional: + body aches; no fever and no chills Respiratory: no cough, no dyspnea and no pain on inspiration Cardiovascular: + edema; no chest pain and no radiating jaw, neck or arm pain Gastrointestinal: no abdominal pain, no nausea and no vomiting Genitourinary: no dysuria Musculoskeletal: + joint pain and + limited range of motion Physical Exam Constitutional: well developed and well nourished; no acute distress Respiratory: normal respiratory effort, lungs clear to auscultation Cardiovascular: Rate/Rhythm: + abnormal rate (irr-irr at 132 bpm) and + abnormal rhythm Vessels: posterior tibial pulses present and dorsalis pedis pulses present Gastrointestinal (Abdomen): normal bowel sounds, soft, nontender, no hepatosplenomegaly Musculoskeletal: R hip with dressing CDI Psychiatric: A+Ox3, euthymic affect Results & Data Results & Data ([facility]) Vital Signs (Past 12 Hours) Vital Signs Temp Pulse Pulse Resp BP BP Pulse Ox 03/11/20 06:36 142 H 107/77 03/11/20 02:52 36.8 C 118 H 18 100/69 92 03/11/20 00:52 138 H 101/65 03/11/20 00:33 138 H 101/65 03/10/20 23:47 111 H 03/10/20 21:54 137 H 137 H 116/81 116/81 03/10/20 19:00 36.3 C L 94 H 20 105/70 91 Resident Activity Tracking Resident Involvement: Resident Care Provided Care Provided: Adult Hospital Medicine (1) Closed intertrochanteric fracture of right hip Encounter type: initial encounter Fracture alignment: displaced Qualified Code(s): S72.141A - Displaced intertrochanteric fracture of right femur, initial encounter for closed fracture
[2020-03-11] MEDS: dilTIAZem ER 180 MG CAPCR PO SCH (07:43)
[2020-03-11] MEDS: APIXABAN 5 MG TABLET PO SCH ×2 (07:43→19:52)
[2020-03-11] MEDS: ceFAZolin 2000MG 2,000 MG/15 ML SYR IV SCH (07:43)
[2020-03-11] MEDS: CALCIUM CARBONATE 1250MG TAB PO SCH ×2 (08:37→19:52)
[2020-03-11] MEDS: CHOLECALCIFEROL 1,000 UNITS 25 MCG TAB PO SCH (08:37)
[2020-03-11] MEDS: LACTATED RINGER'S 1,000 ML IV SCH ×2 (08:38→19:22)
--- NOTE | 2020-03-11 09:13 | Orthopedic Progress Note ---
Date of Service March 11, 2020 Assessment & Plan (1) Closed intertrochanteric fracture of right hip: Status post right hip cephalo-medullary nail POD#1 -Ancef x24 -DVT prophylaxis: SCDs, teds, Eliquis twice daily Toe-touch nonweightbearing right lower extremity PT/OT Postoperative x-ray demonstrates well aligned well fixed implant, improved alignment at fracture site with comminution, no dislocation or new fractures. A.m. labs - hgb 9.2 Admission and Anticipated Discharge Date Admission Date: March 08, 2020 Subjective Post Operative Progress Note Patient seen sitting up in bed eating breakfast, comfortable, denies complaints, pain well controlled, no acute issues. Review of Systems Review of Systems: All systems reviewed & are unremarkable except as noted in HPI & below Constitutional: as per Subjective / HPI Physical Exam Physical Exam: RLE NVSI +EHL/FHL/TA/GS SILT grossly, +2 DP pulse, compartments soft NT, dressing cdi. Constitutional: WD/WN, vitals as above Results & Data ([facility]) Vital Signs (Past 12 Hours) Vital Signs Temp Pulse Pulse Resp BP BP Pulse Ox 03/11/20 08:05 132 H 03/11/20 07:47 36.6 C 114 H 20 109/72 90 03/11/20 06:36 142 H 107/77 03/11/20 02:52 36.8 C 118 H 18 100/69 92 03/11/20 00:52 138 H 101/65 03/11/20 00:33 138 H 101/65 03/10/20 23:47 111 H 03/10/20 21:54 137 H 137 H 116/81 116/81 Laboratory Results 03/11/20 03/11/20 03/11/20 Range/Units 07:04 05:37 05:37 WBC 11.68 H (4.8-10.8) K/uL RBC 3.06 L (4.2-5.4) M/uL Hgb 9.2 L (12.0-16.0) g/dL Hct 28.7 L (37-47) % MCV 93.8 (80-100) fL MCH 30.1 (25-34) pg MCHC 32.1 (32-36) g/dL RDW Std Deviation 48.0 H (36.4-46.3) fL RDW Coeff of Abel 14.4 (11.5-14.5) % Plt Count 303 (130-400) K/uL MPV 10.5 H (7.4-10.4) fL Immature Gran % (Auto) 0.3 % Neut % (Auto) 87.0 % Lymph % (Auto) 8.0 % [place] % (Auto) 4.7 % Eos % (Auto) 0.0 % Baso % (Auto) 0.0 % Neut # (Auto) 10.16 H (1.4-6.5) K/uL Lymph # (Auto) 0.93 L (1.2-3.4) K/uL [place] # (Auto) 0.55 (0.11-0.59) K/uL Eos # (Auto) 0.00 (0-0.5) K/uL Baso # (Auto) 0.00 (0-0.2) K/uL Immature Gran # (Auto) 0.04 H (0.00-0.02) K/uL Sodium 134 L (136-145) mmol/L Potassium 5.0 D (3.5-5.1) mmol/L Chloride 101 (98-107) mmol/L Carbon Dioxide 25 (21-32) mmol/L Anion Gap 8.0 (3-11) BUN 27 H (7-18) mg/dl Creatinine 1.51 H (0.6-1.2) mg/dl Est Cr Clr Drug Dosing 24.7 ml/min Est GFR ( Amer) 36.4 Est GFR (Non-Af Amer) 31.4 BUN/Creatinine Ratio 17.6 (10-20) Glucose 125 H (70-99) mg/dl Calcium 8.6 (8.5-10.1) mg/dl Blood Type Antibody Screen Crossmatch 03/09/20 Range/Units 05:19 WBC (4.8-10.8) K/uL RBC (4.2-5.4) M/uL Hgb (12.0-16.0) g/dL Hct (37-47) % MCV (80-100) fL MCH (25-34) pg MCHC (32-36) g/dL RDW Std Deviation (36.4-46.3) fL RDW Coeff of Abel (11.5-14.5) % Plt Count (130-400) K/uL MPV (7.4-10.4) fL Immature Gran % (Auto) % Neut % (Auto) % Lymph % (Auto) % [place] % (Auto) % Eos % (Auto) % Baso % (Auto) % Neut # (Auto) (1.4-6.5) K/uL Lymph # (Auto) (1.2-3.4) K/uL [place] # (Auto) (0.11-0.59) K/uL Eos # (Auto) (0-0.5) K/uL Baso # (Auto) (0-0.2) K/uL Immature Gran # (Auto) (0.00-0.02) K/uL Sodium (136-145) mmol/L Potassium (3.5-5.1) mmol/L Chloride (98-107) mmol/L Carbon Dioxide (21-32) mmol/L Anion Gap (3-11) BUN (7-18) mg/dl Creatinine (0.6-1.2) mg/dl Est Cr Clr Drug Dosing ml/min Est GFR ( Amer) Est GFR (Non-Af Amer) BUN/Creatinine Ratio (10-20) Glucose (70-99) mg/dl Calcium (8.5-10.1) mg/dl Blood Type AB Positive Antibody Screen NEGATIVE Crossmatch See Detail (1) Closed intertrochanteric fracture of right hip Encounter type: initial encounter Fracture alignment: displaced Qualified Code(s): S72.141A - Displaced intertrochanteric fracture of right femur, initial encounter for closed fracture
[2020-03-11] MEDS ORDERED: dilTIAZem HCl 5 MG/ML 5 ML VIAL IV STA (09:46)
[2020-03-11] MEDS ORDERED: STAT IV Infusion **Titration per Protocol STA (11:21)
[2020-03-11] MEDS: dilTIAZem HCL 125 MG in DEXTROSE 5% 100 ML IV SCH ×2 (11:35→19:40)
[2020-03-11] MEDS: TRIAMCINOLONE ACET NASAL SPRAY 10.8ML BTL NAE SCH (13:33)
[2020-03-11] MEDS ORDERED: ACETAMINOPHEN 500 MG TAB PO PRN (16:33)
[2020-03-11] MEDS: METOPROLOL TARTRATE 25 MG TAB PO SCH ×2 (17:59→23:01)
--- NOTE | 2020-03-11 18:32 | Billing Data ---
Date of Service March 11, 2020 Coding Level of Care Code 39648 Subseq Hosp Care Lvl 3
[2020-03-11] MEDS: DOCUSATE SODIUM/SENNA 50/8.6MG TAB PO SCH (19:51)
[2020-03-12] MEDS: LACTATED RINGER'S 1,000 ML IV SCH ×2 (04:10→14:13)
[2020-03-12] MEDS: dilTIAZem HCL 125 MG in DEXTROSE 5% 100 ML IV SCH ×3 (04:10→20:18)
[2020-03-12] MEDS: METOPROLOL TARTRATE 25 MG TAB PO SCH ×4 (05:49→23:31)
[2020-03-12 06:43] LABS: Hematocrit (blood only) 24.9 % (37-47); Hemoglobin 8.2 g/dL (12.0-16.0); Immature Granulocytes # (auto) 0.07 K/uL (0.00-0.02); Immature Granulocytes % (auto) 0.6 %; Lymphocytes # (auto) 1.55 K/uL (1.2-3.4); Lymphocytes % (auto) 12.7 %; Mean Corpuscular Hemoglobin 30.6 pg (25-34); Mean Corpuscular Hgb Conc 32.9 g/dL (32-36); Mean Corpuscular Volume 92.9 fL (80-100); Mean Platelet Volume 10.4 fL (7.4-10.4); Monocytes # (auto) 1.24 K/uL (0.11-0.59); Monocytes % (auto) 10.2 %; Neutrophils % (auto) 76.5 %; Platelet Count 324 K/uL (130-400); RDW Coefficient of Variation 14.7 % (11.5-14.5); RDW Standard Deviation 48.1 fL (36.4-46.3); Red Blood Count 2.68 M/uL (4.2-5.4); White Blood Count 12.16 K/uL (4.8-10.8)
[2020-03-12 07:19] LABS: BUN Creatinine Ratio 22.5 (10-20); Calcium 8.7 mg/dl (8.5-10.1); Creatinine Clr Calc Pharmacy 24.2 ml/min; Est GFR (African American) 35.5; Est GFR (Non-African American) 30.7; Potassium 4.8 mmol/L (3.5-5.1)
[2020-03-12] MEDS: CALCIUM CARBONATE 1250MG TAB PO SCH ×2 (08:20→20:17)
[2020-03-12] MEDS: APIXABAN 5 MG TABLET PO SCH ×2 (08:20→20:17)
[2020-03-12] MEDS: CHOLECALCIFEROL 1,000 UNITS 25 MCG TAB PO SCH (08:20)
[2020-03-12] MEDS: TRIAMCINOLONE ACET NASAL SPRAY 10.8ML BTL NAE SCH (08:20)
--- NOTE | 2020-03-12 10:06 | Orthopedic Progress Note ---
Date of Service March 12, 2020 Assessment & Plan (1) Closed intertrochanteric fracture of right hip: Status post right hip cephalo-medullary nail POD#2 -DVT prophylaxis: SCDs, teds, Eliquis twice daily Toe-touch nonweightbearing right lower extremity PT/OT Postoperative x-ray demonstrates well aligned well fixed implant, improved alignment at fracture site with comminution, no dislocation or new fractures. A.m. labs - hgb 8.2 today. Will defer to medicine for transfusion decisions. Admission and Anticipated Discharge Date Admission Date: March 08, 2020 Subjective States she is doing well. She is having slight increase in pain in the right hip compared to yesterday but the medicines controlled the pain. She has been partial weightbearing on the right lower extremity however she states this has been a little bit difficult. Denies chest pain, shortness of breath, lightheadedness. No other right hip complaints. Review of Systems Constitutional: as per Subjective / HPI Physical Exam Constitutional: WD/WN, vitals as above Musculoskeletal: Hip: + surgical incision (Right hip dressing is clean, dry, and intact. Incisions are well approximated.) and + joint line tenderness (Right thigh is soft. Mild tenderness with light palpation.); no skin erythema and no ecchymosis Skin: no rashes, warm and dry Neurologic: normal touch/pain/proprioception Psychiatric: A+Ox3, euthymic affect Speech: normal rate/rhythm/volume of speech Results & Data ([facility]) Vital Signs (Past 12 Hours) Vital Signs Temp Pulse Resp BP Pulse Ox 03/12/20 07:18 36.7 C 83 16 106/67 92 03/12/20 03:17 36.6 C 84 18 107/86 91 03/11/20 23:17 36.5 C 108 H 18 97/75 L 91 Laboratory Results Laboratory Tests 03/12/20 05:55 Hgb 8.2 L Hct 24.9 L (1) Closed intertrochanteric fracture of right hip Encounter type: initial encounter Fracture alignment: displaced Qualified Code(s): S72.141A - Displaced intertrochanteric fracture of right femur, initial encounter for closed fracture
[2020-03-12] MEDS: oxyCODONE HCL IR 5 MG TAB (IMMEDIATE RELEASE) PO PRN (10:27)
[2020-03-12] MEDS: MAGNESIUM HYDROXIDE SUSP 30 ML UDC PO PRN (10:28)
--- NOTE | 2020-03-12 11:03 | Hospitalist Progress Note ---
Date of Service March 12, 2020 Assessment & Plan (1) Closed intertrochanteric fracture of right hip: Patient is an 85 year old female with PMHx Paroxysmal Afib, HTN, HLD who presented to the ED secondary to a fall, found to have a closed R intertrochanteric fracture. R Closed Intertrochanteric Fracture -Noted on Hip/Pelv CT -Ortho consulted, will require ORIF of the R hip w/ cephalomedullary nail -- R hip Cephalomedulary Nail on 03/11/20 -Postoperative x-ray demonstrated well aligned well fixed implant -Resumed on Eliquis for DVT prophylaxis -Non-weightbearing of RLE -Pain control with Tylenol, Oxycodone and Morphine PRN -PT/OT ordered, encourage early mobility of patient, no weight bearing yet Anemia -Likely secondary to Hip Fx -Transfused 1 unit PRBC prior -Current Hgb 8.2 -Would recommend transfusion if <7 or becomes symptomatic <8 Fall w/ Scalp laceration -Appeared mechanical in nature -Not secondary to Atrial fibrillation or other neuro deficit -Scalp laceration noted on exam, Head CT negative for bleed -Above for intertrochanteric fracture Paroxysmal Atrial Fibrillation -Diagnosed at last stay. -Resumed Eliquis as procedure completed -Afib average in 115's on 15mg/hr Diltiazem and Metoprolol Tart 25mg q6h -Will continue drip at this time as patients status improves, will likely be able to transition to oral early next week as sympathetic tone lessens -Hold Diltiazem 180mg PO QD while on drip Hypertension -Cr 1.54 today -Hold Dyazide until renal function improves -Hold Diltiazem while on drip L Knee Laceration -Wound consulted -Stable Osteoporosis -Diagnosis in the setting of Fx with mechanical fall -Started patient on Vitamin D and Calcium while inpatient when taking PO -Patient will likely require Bisphosphonate therapy 1 month after surgery Post Nasal Drip -Likely secondary to allergic rhinitis -Nasacort QD Dispo: PCU FEN: Reg diet, LR 80ml/hr DVT: Eliquis Code: Full (2) Fall: (3) Scalp laceration: (4) Paroxysmal atrial fibrillation: (5) Hypertension: (6) Dyslipidemia: (7) Hyperlipidemia: (8) Osteoporosis: Admission and Anticipated Discharge Date Admission Date: March 08, 2020 Supervising Physician Co-Signing Physician Notes I personally examined the patient and verified all rodriguez points of history and exam, discussed case, and agree with decision making with Dr Martinez. hip hurts but trying to move it more. afib rates are improving. feeling indigestion/reflux vitals noted nad heent nc at mmm breathing unlabored no accessory muscles good effort cardio irreg irreg rates improving skin no rashes no pallor or icterus neuro no focal deficits osteoporotic hip fx - standing level fall, large bone fx. overall stable post op. PT/OT eval and treat, anticipate transfer rehab over the next few days. vit D low- supplement calcium and D. bisphosphonate in about a month acute blood loss anemia - related to fracture. between ARF that likely relates to anemia at least in part, and anesthesia request - was transfused 1 unit PRBC, continue to follow Hgb - but now stable, follow periodically acute renal failure - acute blood loss anemia and dehydration related. fluids, blood, follow - showed initial improvement, now a plateau. follow afib - rates improving, anticoagulated. continue current - probably start to switch off dilt gtt over next few days DVT proph - anticoagulation Subjective Patient examined while seated in the chair this AM. Patient had just had a sponge bath and had finished combing her hair, noting that she "feels much better now" after being cleaned. Noted she has been working hard during PT and has been trying to do non-weightbearing exercises with her R hip. Pain well controlled this AM. While tachycardic, does not feel palpitations, chest pain, SOB, dizziness. No other complaints at this time. Review of Systems Constitutional: no fever and no chills Respiratory: no cough, no dyspnea and no pain on inspiration Cardiovascular: no chest pain, no dyspnea on exertion and no palpitations Gastrointestinal: no abdominal pain, no nausea and no vomiting Genitourinary: no dysuria Musculoskeletal: + joint pain Physical Exam Constitutional: well developed and well nourished; no acute distress Respiratory: normal respiratory effort, lungs clear to auscultation Cardiovascular: Rate/Rhythm: + abnormal rate (irr-irr at 132 bpm) and + abnormal rhythm Heart Sounds: + murmur (2/6 DELMIS ) Vessels: posterior tibial pulses present and dorsalis pedis pulses present Gastrointestinal (Abdomen): normal bowel sounds, soft, nontender, no hepatosplenomegaly Skin: Trauma: + laceration (Noted on the R forehead, no bleeding or erythema ) Psychiatric: A+Ox3, euthymic affect Results & Data Results & Data ([facility]) Vital Signs (Past 12 Hours) Vital Signs Temp Pulse Resp BP Pulse Ox 03/12/20 07:18 36.7 C 83 16 106/67 92 03/12/20 03:17 36.6 C 84 18 107/86 91 03/11/20 23:17 36.5 C 108 H 18 97/75 L 91 Resident Activity Tracking Resident Involvement: Resident Care Provided Care Provided: Adult Hospital Medicine (1) Closed intertrochanteric fracture of right hip Encounter type: initial encounter Fracture alignment: displaced Qualified Code(s): S72.141A - Displaced intertrochanteric fracture of right femur, initial encounter for closed fracture
[2020-03-12] MEDS: MICONAZOLE NITRATE POWDER 43 GM EXT SCH ×2 (12:31→20:18)
[2020-03-12] MEDS ORDERED: LACTATED RINGER'S 1,000 ML IV SCH (14:45)
--- NOTE | 2020-03-12 17:14 | Billing Data ---
Date of Service March 12, 2020 Coding Level of Care Code 26784 Subseq Hosp Care Lvl 3
[2020-03-12] MEDS: DOCUSATE SODIUM/SENNA 50/8.6MG TAB PO SCH (20:23)
[2020-03-12] MEDS: FAMOTIDINE 20 MG TAB PO SCH (23:31)
[2020-03-13] MEDS: SODIUM CHLORIDE 0.9% 1000ML 1,000 ML IV SCH ×2 (02:15→13:23)
[2020-03-13] MEDS: dilTIAZem HCL 125 MG in DEXTROSE 5% 100 ML IV SCH ×2 (04:22→13:23)
[2020-03-13 05:45] LABS: Basophils # (auto) 0.01 K/uL (0-0.2); Basophils % (auto) 0.1 %; Eosinophils # (auto) 0.08 K/uL (0-0.5); Eosinophils % (auto) 0.6 %; Hematocrit (blood only) 24.3 % (37-47); Hemoglobin 7.8 g/dL (12.0-16.0); Immature Granulocytes # (auto) 0.07 K/uL (0.00-0.02); Immature Granulocytes % (auto) 0.6 %; Lymphocytes # (auto) 1.73 K/uL (1.2-3.4); Lymphocytes % (auto) 13.8 %; Mean Corpuscular Hemoglobin 30.6 pg (25-34); Mean Corpuscular Hgb Conc 32.1 g/dL (32-36); Mean Corpuscular Volume 95.3 fL (80-100); Mean Platelet Volume 9.8 fL (7.4-10.4); Monocytes % (auto) 9.6 %; Neutrophils # (auto) 9.45 K/uL (1.4-6.5); Neutrophils % (auto) 75.3 %; Nucleated RBC # (auto) 0.06 K/uL (0-0); Nucleated RBC % (auto) 0.5 %; Platelet Count 321 K/uL (130-400); RDW Coefficient of Variation 14.6 % (11.5-14.5); RDW Standard Deviation 49.1 fL (36.4-46.3); Red Blood Count 2.55 M/uL (4.2-5.4); White Blood Count 12.54 K/uL (4.8-10.8)
--- NOTE | 2020-03-13 06:11 | Orthopedic Progress Note ---
Date of Service March 13, 2020 Assessment & Plan (1) Closed intertrochanteric fracture of right hip: Status post right hip cephalo-medullary nail POD#3 -DVT prophylaxis: SCDs, teds, Eliquis twice daily Toe-touch nonweightbearing right lower extremity PT/OT Orthopedically stable, will sign off at this time. instructions placed in chart, should f/u with Dr Perez at [facility] in 10-12 days, for appt. Admission and Anticipated Discharge Date Admission Date: March 08, 2020 Supervising Physician Co-Signing Physician Notes Patient seen and examined. Agree with ARVIND Vanegas's note as above. She is postoperative day 3 from her right hip fracture fixation. has not yet been able to She is mobilizing slowly with therapy. She has been transferring to chair, but take any steps; she has difficulty supporting her weight with her arms. She complains of swelling in her thigh, but her thigh is soft and compressible. Dressings are dry and intact. She is doing well from an orthopedic perspective. We will sign off for now. Follow-up in outpatient clinic with Dr. Perez. Subjective patient laying in bed, comfortable, awakes upon questioning. denies CP/SOB, denies pain in her hip at this time. Physical Exam Physical Exam: Vital Signs Temp 36.4 C L 03/13/20 03:54 Pulse 72 03/13/20 03:54 Resp 20 03/13/20 03:54 BP 102/62 03/13/20 03:54 Pulse Ox 94 03/13/20 03:54 Intake & Output 03/12/20 03/12/20 03/13/20 06:59 18:59 06:59 Intake Total 2234.833 / 3698.33 3 1523.333 / 2717.41 6 1194.083 / 2717.41 6 Output Total 200 / 400 350 / 350 Balance 2034.833 / 3298.33 3 1523.333 / 2367.41 6 844.083 / 2367.416 Intake: IV 2234.833 / 3178.33 3 1203.333 / 2347.41 6 1144.083 / 2347.41 6 Lr 1,000 ml @ 80 mls/hr IV . 19998.333 1078.333 / 1987.66 6 909.333 / 1986.666 [id number] JAMESON Rx #:[id number] Cardizem 125 m g In D5 100 ml @ 234.833 / 250.000 125 / 359.75 234.75 / 359.75 15 MG/HR 15 ml s/hr IV .[id number] [facility] Rx#:[id number] Oral 320 / 370 50 / 370 Output: Urine 200 / 400 0 / 0 Urine Amount (Ca theter) 350 / 350 Straight 350 / 350 Other: Other Intake Alissa rce Sips Musculoskeletal: Right Hip: surgical incision dressing is clean, dry, and intact. Right thigh is soft. Mild tenderness with light palpation, erythema noted. Results & Data ([facility]) Vital Signs (Past 12 Hours) Vital Signs Temp Pulse Resp BP Pulse Ox 03/13/20 03:54 36.4 C L 72 20 102/62 94 03/12/20 23:29 36.7 C 83 18 107/64 94 03/12/20 19:08 36.6 C 85 17 107/76 91 Laboratory Results Laboratory Results WBC 12.54 K/uL (4.8-10.8) H 03/13/20 05:16 RBC 2.55 M/uL (4.2-5.4) L 03/13/20 05:16 Hgb 7.8 g/dL (12.0-16.0) L 03/13/20 05:16 Hct 24.3 % (37-47) L 03/13/20 05:16 MCV 95.3 fL (80-100) 03/13/20 05:16 MCH 30.6 pg (25-34) 03/13/20 05:16 MCHC 32.1 g/dL (32-36) 03/13/20 05:16 RDW Std Deviation 49.1 fL (36.4-46.3) H 03/13/20 05:16 RDW Coeff of Abel 14.6 % (11.5-14.5) H 03/13/20 05:16 Plt Count 321 K/uL (130-400) 03/13/20 05:16 MPV 9.8 fL (7.4-10.4) 03/13/20 05:16 Immature Gran % (Auto) 0.6 % 03/13/20 05:16 Neut % (Auto) 75.3 % 03/13/20 05:16 Lymph % (Auto) 13.8 % 03/13/20 05:16 Howell % (Auto) 9.6 % 03/13/20 05:16 Eos % (Auto) 0.6 % 03/13/20 05:16 Baso % (Auto) 0.1 % 03/13/20 05:16 Neut # (Auto) 9.45 K/uL (1.4-6.5) H 03/13/20 05:16 Lymph # (Auto) 1.73 K/uL (1.2-3.4) 03/13/20 05:16 Howell # (Auto) 1.20 K/uL (0.11-0.59) H 03/13/20 05:16 Eos # (Auto) 0.08 K/uL (0-0.5) 03/13/20 05:16 Baso # (Auto) 0.01 K/uL (0-0.2) 03/13/20 05:16 Immature Gran # (Auto) 0.07 K/uL (0.00-0.02) H 03/13/20 05:16 Absolute Nucleated RBC 0.06 K/uL (0-0) H 03/13/20 05:16 Nucleated RBC % (auto) 0.5 % 03/13/20 05:16 RBC Morphology Unremarkable 03/13/20 05:16 PT 12.6 Seconds (9.0-12.0) H 03/08/20 09:17 INR 1.2 (0.9-1.1) H 03/08/20 09:17 Sodium 133 mmol/L (136-145) L 03/12/20 05:55 Potassium 4.8 mmol/L (3.5-5.1) 03/12/20 05:55 Chloride 100 mmol/L (98-107) 03/12/20 05:55 Carbon Dioxide 26 mmol/L (21-32) 03/12/20 05:55 Anion Gap 7.0 (3-11) 03/12/20 05:55 BUN 35 mg/dl (7-18) H 03/12/20 05:55 Creatinine 1.54 mg/dl (0.6-1.2) H 03/12/20 05:55 Est Cr Clr Drug Dosing 24.2 ml/min 03/12/20 05:55 Est GFR ( Amer) 35.5 03/12/20 05:55 Est GFR (Non-Af Amer) 30.7 03/12/20 05:55 BUN/Creatinine Ratio 22.5 (10-20) H 03/12/20 05:55 Glucose 133 mg/dl (70-99) H 03/12/20 05:55 Calcium 8.7 mg/dl (8.5-10.1) 03/12/20 05:55 Total Creatine Kinase 294 U/L (26-192) H 03/08/20 09:17 25-OH Vitamin D Total 15.9 ng/ml (30-100) L 03/10/20 05:46 Specimen Hemolysis 03/09/20 05:19 COVID-19 Eval Order [facility] 03/09/20 08:45 SARS-CoV-2, RNA, NAAT NEGATIVE (NEGATIVE) 03/09/20 08:45 Blood Type AB Positive 03/09/20 05:19 Blood Type Recheck AB Positive 03/08/20 09:19 Antibody Screen NEGATIVE 03/09/20 05:19 Crossmatch See Detail 03/09/20 05:19 (1) Closed intertrochanteric fracture of right hip Encounter type: initial encounter Fracture alignment: displaced Qualified Code(s): S72.141A - Displaced intertrochanteric fracture of right femur, initial encounter for closed fracture
[2020-03-13 06:12] LABS: RBC Morphology Unremarkable
[2020-03-13 06:19] LABS: BUN Creatinine Ratio 27.2 (10-20); Calcium 8.6 mg/dl (8.5-10.1); Creatinine Clr Calc Pharmacy 28.4 ml/min; Est GFR (African American) 43.2; Est GFR (Non-African American) 37.3; Potassium 4.2 mmol/L (3.5-5.1)
[2020-03-13] MEDS: METOPROLOL TARTRATE 25 MG TAB PO SCH ×4 (06:29→23:46)
[2020-03-13] MEDS: CALCIUM CARBONATE 1250MG TAB PO SCH ×2 (07:46→19:58)
[2020-03-13] MEDS: CHOLECALCIFEROL 1,000 UNITS 25 MCG TAB PO SCH (07:46)
[2020-03-13] MEDS: oxyCODONE HCL IR 5 MG TAB (IMMEDIATE RELEASE) PO PRN ×3 (07:46→19:57)
[2020-03-13] MEDS: FAMOTIDINE 20 MG TAB PO SCH ×2 (07:46→19:59)
[2020-03-13] MEDS: APIXABAN 5 MG TABLET PO SCH ×2 (07:46→19:58)
[2020-03-13] MEDS: TRIAMCINOLONE ACET NASAL SPRAY 10.8ML BTL NAE SCH (07:46)
[2020-03-13] MEDS: MICONAZOLE NITRATE POWDER 43 GM EXT SCH ×2 (07:47→19:59)
--- NOTE | 2020-03-13 08:40 | Hospitalist Progress Note ---
Date of Service March 13, 2020 Assessment & Plan (1) Closed intertrochanteric fracture of right hip: Patient is an 85 year old female with PMHx Paroxysmal Afib, HTN, HLD who presented to the ED secondary to a fall, found to have a closed R intertrochanteric fracture. POD #3 s/p ORIF R hip. R Closed Intertrochanteric Fracture s/p ORIF: - Noted on Hip/Pelv CT in ED on arrival. - Ortho performed R hip Cephalomedullary Nail on 03/11/20. - Postoperative x-ray demonstrated well aligned well fixed implant. - Ortho has signed off on patient and will require follow up with surgeon in 10-12 days. - Resumed on Eliquis for AFib/DVT prophylaxis post-op. - Currently non-weightbearing of RLE with toe touch exercises. - For eventual placement to rehab facility for inpatient rehab following discharge. - Pain control with Tylenol, Oxycodone and Morphine PRN. - PT/OT ordered, encourage early mobility of patient. Anemia - Acute on Chronic: - Likely secondary to Hip Fx with chronic anemia at baseline with Hgb 11 prior to this admission. - Transfused 1 unit PRBC prior to surgery. - Hgb 7.8 this AM, relatively stable compared to 8.2 yesterday. - Continue to monitor daily and PRN symptoms of symptomatic anemia. - Transfuse if Hgb <7 or becomes symptomatic with Hgb <8. Fall w/ Scalp laceration: - Appeared mechanical in nature. - Not secondary to Atrial fibrillation or other neuro deficit. Patient is at her baseline with regard to mental status and physical functioning save for right lower extremity. - Scalp laceration noted on exam, Head CT negative for bleed . Paroxysmal Atrial Fibrillation: - Diagnosed 1 month prior to admission. - Continue Eliquis 5 mg twice daily. - On arrival patient had A. fib with RVR on telemetry and EKG, was eventually placed on diltiazem drip for heart rate in 120s to 130s. - This a.m. with heart rate 60-80 on telemetry and without palpitations, CP, SOB. - We will transition patient to total of 360 mg diltiazem daily, broken up to 180 mg extended release every morning, with immediate release 60 mg 3 times daily. - Continue home metoprolol. Hypertension: - Creatinine this a.m. 1.31 from 1.54 yesterday, baseline is 1.0. - Continue gentle hydration with NSS at 80 mL/hr, encourage p.o. hydration. - Hold Dyazide for now, BP normotensive. - Diltiazem and metoprolol as above. L Knee Laceration: - Wound consulted, area is without purulent drainage and appears clean, dry, intact. Osteoporosis: - Diagnosis in the setting of Fx with mechanical fall from standing height. - Started patient on Vitamin D and Calcium while inpatient when taking PO. - Patient will likely require Bisphosphonate therapy 1 month after surgery. Post Nasal Drip: - Likely secondary to allergic rhinitis. - Nasacort daily. Dispo: Med/Surg with Telemetry FEN: Reg diet, NSS 80ml/hr DVT: Eliquis 5mg BID Code Status: Full Code (2) Fall: (3) Scalp laceration: (4) Paroxysmal atrial fibrillation: (5) Hypertension: (6) Dyslipidemia: (7) Hyperlipidemia: (8) Osteoporosis: Admission and Anticipated Discharge Date Admission Date: March 08, 2020 Supervising Physician Co-Signing Physician Notes I personally examined the patient and verified all rodriguez points of history and exam, discussed case, and agree with decision making with Dr Inman. case d/w dr inman extensively, chart reviewed, telemetry reviewed. pt resting comfortably when i enter the room vitals noted nad heent nc at mmm breathing unlabored no accessory muscles good effort cardio irreg irreg rates controlled skin no rashes no pallor or icterus neuro no focal deficits osteoporotic hip fx - standing level fall, large bone fx. overall stable post op. PT/OT eval and treat, rehab soon. vit D low- supplement calcium and D. bisphosphonate in about a month acute blood loss anemia - related to fracture. between ARF that likely relates to anemia at least in part, and anesthesia request - was transfused 1 unit PRBC, continue to follow Hgb but doubt will need more blood acute renal failure - acute blood loss anemia and dehydration related. fluids, blood, follow - showing slow improvement afib - rate controlled, anticoagulated. transition off gtt to PO meds DVT proph - anticoagulation Subjective Patient without acute events overnight. Patient has some pain in her right hip, and is frustrated with not being able to be as independent as she is used to. Has not had a bowel movement since admission, despite being on senna. Otherwise is doing well, without fevers or chills, without shortness of breath or chest pain, no nausea or vomiting. Worked a bit with PT yesterday which she felt went well. Desires to go to [facility] for her physical rehab. Review of Systems Review of Systems: All systems reviewed & are unremarkable except as noted in Subjective Physical Exam Constitutional: WD/WN, vitals as above Respiratory: normal respiratory effort, lungs clear to auscultation Cardiovascular: Heart Sounds: + murmur (2/6 DELMIS best heard over RUSB) Vessels: posterior tibial pulses present and dorsalis pedis pulses present HR irregularly irregular, non-tachycardic Gastrointestinal (Abdomen): normal bowel sounds, soft, nontender, no hepatosplenomegaly Skin: Trauma: + laceration (Noted on the R forehead, no bleeding or erythema ) R hip incision C/D/I Right knee laceration site C/D/I Neurologic: moves all extremities Psychiatric: A+Ox3, euthymic affect Results & Data Results & Data ([facility]) Vital Signs (Past 12 Hours) Vital Signs Temp Pulse Pulse Resp BP BP Pulse Ox 03/13/20 07:07 36.7 C 89 18 103/74 92 03/13/20 06:28 79 107/71 03/13/20 03:54 36.4 C L 72 20 102/62 94 03/12/20 23:29 36.7 C 83 18 107/64 94 Resident Activity Tracking Resident Involvement: Resident Care Provided Care Provided: Adult Hospital Medicine (1) Closed intertrochanteric fracture of right hip Encounter type: initial encounter Fracture alignment: displaced Qualified Code(s): S72.141A - Displaced intertrochanteric fracture of right femur, initial encounter for closed fracture
[2020-03-13] MEDS: dilTIAZem HCl 60 MG TAB PO SCH ×2 (14:29→19:59)
[2020-03-13] MEDS: POLYETHYLENE (MIRALAX) 17 GM PACK PO SCH ×2 (14:29→19:58)
--- NOTE | 2020-03-13 15:43 | Billing Data ---
Date of Service March 13, 2020 Coding Level of Care Code 73113 Subseq Hosp Care Lvl 2
[2020-03-13] MEDS: DOCUSATE SODIUM/SENNA 50/8.6MG TAB PO SCH (20:00)
[2020-03-14] MEDS: dilTIAZem HCl 60 MG TAB PO SCH (02:06)
[2020-03-14] MEDS: oxyCODONE HCL IR 5 MG TAB (IMMEDIATE RELEASE) PO PRN ×4 (05:22→22:39)
[2020-03-14] MEDS: METOPROLOL TARTRATE 25 MG TAB PO SCH ×4 (05:52→18:45)
[2020-03-14] MEDS ORDERED: dilTIAZem HCl 60 MG TAB PO SCH (07:00)
[2020-03-14 07:09] LABS: Basophils # (auto) 0.01 K/uL (0-0.2); Basophils % (auto) 0.1 %; Eosinophils % (auto) 0.9 %; Hematocrit (blood only) 25.3 % (37-47); Hemoglobin 8.3 g/dL (12.0-16.0); Immature Granulocytes # (auto) 0.19 K/uL (0.00-0.02); Immature Granulocytes % (auto) 1.8 %; Lymphocytes % (auto) 12.1 %; Mean Corpuscular Hemoglobin 31.8 pg (25-34); Mean Corpuscular Hgb Conc 32.8 g/dL (32-36); Mean Corpuscular Volume 96.9 fL (80-100); Mean Platelet Volume 9.4 fL (7.4-10.4); Monocytes # (auto) 0.89 K/uL (0.11-0.59); Monocytes % (auto) 8.3 %; Neutrophils # (auto) 8.28 K/uL (1.4-6.5); Neutrophils % (auto) 76.8 %; Nucleated RBC # (auto) 0.27 K/uL (0-0); Nucleated RBC % (auto) 2.5 %; Platelet Count 328 K/uL (130-400); RDW Standard Deviation 50.8 fL (36.4-46.3); Red Blood Count 2.61 M/uL (4.2-5.4); White Blood Count 10.77 K/uL (4.8-10.8)
[2020-03-14 07:34] LABS: BUN Creatinine Ratio 26.6 (10-20); Calcium 9.2 mg/dl (8.5-10.1); Creatinine Clr Calc Pharmacy 30.1 ml/min; Est GFR (African American) 46.2; Est GFR (Non-African American) 39.9; Potassium 4.2 mmol/L (3.5-5.1)
--- NOTE | 2020-03-14 07:53 | Hospitalist Progress Note ---
Date of Service March 14, 2020 Assessment & Plan (1) Closed intertrochanteric fracture of right hip: Patient is an 85 year old female with PMHx Paroxysmal Afib, HTN, HLD who presented to the ED secondary to a fall, found to have a closed R intertrochanteric fracture. POD #3 s/p ORIF R hip. R Closed Intertrochanteric Fracture s/p ORIF: - Noted on Hip/Pelv CT in ED on arrival. - Ortho performed R hip Cephalomedullary Nail on 03/11/20. - Postoperative x-ray demonstrated well aligned well fixed implant. - Ortho has signed off on patient and will require follow up with surgeon in 10-12 days. - Resumed Eliquis for AFib/DVT prophylaxis post-op. - Currently non-weightbearing of RLE with toe touch exercises. - For eventual placement to rehab facility for inpatient rehab following discharge. - Pain control with Tylenol, Oxycodone and Morphine PRN. - PT/OT ordered, encourage early mobility of patient. Anemia - Acute on Chronic: - Likely secondary to Hip Fx with chronic anemia at baseline with Hgb 11 prior to this admission. - Transfused 1 unit PRBC prior to surgery. - Hgb 8.3 this AM from 7.8 yesterday. - Continue to monitor daily and PRN symptoms of symptomatic anemia while admitted. - Transfuse if Hgb <7 or becomes symptomatic with Hgb <8. Fall w/ Scalp laceration: - Appeared mechanical in nature. - Not secondary to Atrial fibrillation or other neuro deficit. Patient is at her baseline with regard to mental status and physical functioning save for right lower extremity. - Scalp laceration noted on exam, Head CT negative for bleed. Paroxysmal Atrial Fibrillation: - Diagnosed 1 month prior to admission. - Continue Eliquis 5 mg twice daily. - On arrival patient had A. fib with RVR on telemetry and EKG, was eventually placed on diltiazem drip for heart rate in 120s to 130s. - This a.m. with heart rate 60-80 on telemetry and without palpitations, CP, SOB. - Diltiazem 240mg ER daily starting today, with dilt 30mg IR PRN HR >110. - Continue home metoprolol. Constipation: - With no BM since admission despite Senna. - Miralax q8h scheduled and will titrate as needed for one soft BM per day. Hypertension: - Creatinine this a.m. 1.24 from 1.31 yesterday, baseline is 1.0. - Continue gentle hydration with NSS at 80 mL/hr, further encouraged p.o. hydration. - Hold Dyazide for now, BP normotensive. - Diltiazem and metoprolol as above. L Knee Laceration: - Wound consulted, area is without purulent drainage and appears clean, dry, intact. - Dressing changes daily and PRN. Osteoporosis: - Diagnosis in the setting of Fx with mechanical fall from standing height. - Started patient on Vitamin D and Calcium while inpatient when taking PO. - Patient will likely require Bisphosphonate therapy 1 month after surgery. Post Nasal Drip: - Likely secondary to allergic rhinitis. - Nasacort daily. Dispo: Med/Surg with Telemetry FEN: Reg diet, NSS 80ml/hr DVT: Eliquis 5mg BID Code Status: Full Code (2) Fall: (3) Scalp laceration: (4) Paroxysmal atrial fibrillation: (5) Hypertension: (6) Dyslipidemia: (7) Hyperlipidemia: (8) Osteoporosis: (9) Constipation: Admission and Anticipated Discharge Date Admission Date: March 08, 2020 Supervising Physician Co-Signing Physician Notes I personally examined the patient and verified all rodriguez points of history and exam, discussed case, and agree with decision making with Dr Cantu. seen twice today - earlier doing well no complaints, later revisited for concern of wound drainage. at that time she also disclosed she was really not eating much vitals noted nad heent nc at mmm breathing unlabored no accessory muscles good effort R leg incisions healing well c/d/i serosanguanous drainage no erythema no exudate osteoporotic hip fx - standing level fall, large bone fx. overall stable post op. PT/OT eval and treat, rehab once available. vit D low- supplement calcium and D. bisphosphonate in about a month poor PO intake - discussed critical importance of getting in enough calories, "eyeball guestimate" given of about 1500 madeline/day needs - but will ask director of sales marketing for formal plan. discussed deconditioning/malnutrition downward spiral. got pt chocolate ice cream, nick crackers and peanut butter to get her something she might eat and emphasize the importance of this. acute blood loss anemia - related to fracture. between ARF that likely relates to anemia at least in part, and anesthesia request - was transfused 1 unit PRBC, continue to follow Hgb but doubt will need more blood acute renal failure - acute blood loss anemia and dehydration related. fluids, blood, follow - showing overall improvement afib - rate controlled, anticoagulated. currently on higher dosing than before - but as physiologic stress from fall/fracture/etc let up - them probably will eventually revert back to baseline home dosing. DVT proph - anticoagulation Subjective Patient without acute events overnight. Still has not had a BM, refused Miralax overnight for fear of "pooping the bed at night". Would like to take Miralax during the day to assist with BM. No abdominal pain, no SOB, CP, palpitations, nausea or vomiting. Not much of an appetite but is drinking some fluids and "picking at foods". Review of Systems Review of Systems: All systems reviewed & are unremarkable except as noted in Subjective Physical Exam Constitutional: WD/WN, vitals as above Respiratory: normal respiratory effort, lungs clear to auscultation Cardiovascular: Heart Sounds: + murmur (2/6 DELMIS best heard over RUSB) Vessels: posterior tibial pulses present and dorsalis pedis pulses present HR irregularly irregular, non-tachycardic Gastrointestinal (Abdomen): normal bowel sounds, soft, nontender, no hepatosplenomegaly Skin: Trauma: + laceration (Noted on the R forehead, no bleeding or erythema ) R hip incision C/D/I Right knee laceration site C/D/I Neurologic: moves all extremities Psychiatric: A+Ox3, euthymic affect Results & Data Results & Data ([facility]) Vital Signs (Past 12 Hours) Vital Signs Temp Pulse Pulse Pulse Resp BP BP 03/14/20 07:27 100 H 03/14/20 05:53 85 110/74 03/14/20 03:56 36.7 C 82 18 97/62 L 03/13/20 23:43 36.6 C 129 H 14 100/69 03/13/20 23:25 117 H Pulse Ox 03/14/20 07:27 03/14/20 05:53 03/14/20 03:56 94 03/13/20 23:43 93 03/13/20 23:25 Resident Activity Tracking Resident Involvement: Resident Care Provided Care Provided: Adult Hospital Medicine (1) Closed intertrochanteric fracture of right hip Encounter type: initial encounter Fracture alignment: displaced Qualified Code(s): S72.141A - Displaced intertrochanteric fracture of right femur, initial encounter for closed fracture
[2020-03-14 07:59] LABS: RBC Morphology Unremarkable
[2020-03-14] MEDS ORDERED: dilTIAZem ER 180 MG CAPCR PO SCH ×2 (09:00)
[2020-03-14] MEDS ORDERED: dilTIAZem HCL 30 MG TAB PO PRN (09:18)
[2020-03-14] MEDS: CHOLECALCIFEROL 1,000 UNITS 25 MCG TAB PO SCH (09:20)
[2020-03-14] MEDS: CALCIUM CARBONATE 1250MG TAB PO SCH ×2 (09:20→20:28)
[2020-03-14] MEDS: MICONAZOLE NITRATE POWDER 43 GM EXT SCH ×2 (09:21→20:30)
[2020-03-14] MEDS: TRIAMCINOLONE ACET NASAL SPRAY 10.8ML BTL NAE SCH (09:21)
[2020-03-14] MEDS: FAMOTIDINE 20 MG TAB PO SCH ×2 (09:21→20:27)
[2020-03-14] MEDS: APIXABAN 5 MG TABLET PO SCH ×2 (09:22→20:28)
[2020-03-14] MEDS: POLYETHYLENE (MIRALAX) 17 GM PACK PO SCH ×4 (09:22→20:27)
[2020-03-14] MEDS: dilTIAZem ER 120 MG CAPCR PO SCH (13:53)
[2020-03-14] MEDS: MAGNESIUM HYDROXIDE SUSP 30 ML UDC PO PRN (16:20)
--- NOTE | 2020-03-14 18:34 | Billing Data ---
Date of Service March 14, 2020 Coding Level of Care Code 31300 Subseq Hosp Care Lvl 3
[2020-03-14] MEDS: MoRPHine SULFATE 2 MG/ML CARP IV PRN (19:33)
[2020-03-14] MEDS: DOCUSATE SODIUM/SENNA 50/8.6MG TAB PO SCH (20:30)
[2020-03-14] MEDS ORDERED: SODIUM CHLORIDE 0.9% 1000ML 500 ML IV ONE (22:11)
[2020-03-14 22:46] LABS: BUN Creatinine Ratio 25.2 (10-20); Calcium 8.8 mg/dl (8.5-10.1); Creatinine Clr Calc Pharmacy 30.6 ml/min; Est GFR (African American) 47.1; Est GFR (Non-African American) 40.6; Magnesium 1.9 mg/dl (1.8-2.4); Potassium 4.4 mmol/L (3.5-5.1)
[2020-03-15] MEDS: METOPROLOL TARTRATE 25 MG TAB PO SCH ×5 (00:59→23:56)
[2020-03-15] MEDS ORDERED: METOPROLOL TARTRATE 1 MG/ML VIAL IV STA (04:54)
[2020-03-15] MEDS: MAGNESIUM SULFATE / D5W 1 GM/100 ML BAG IV SCH ×2 (05:24→07:11)
[2020-03-15] MEDS ORDERED: SODIUM CHLORIDE 0.9% 1000ML 500 ML IV ONE (05:43)
[2020-03-15 07:43] LABS: Basophils # (auto) 0.02 K/uL (0-0.2); Basophils % (auto) 0.2 %; Eosinophils # (auto) 0.18 K/uL (0-0.5); Eosinophils % (auto) 1.7 %; Hematocrit (blood only) 29.6 % (37-47); Hemoglobin 9.5 g/dL (12.0-16.0); Immature Granulocytes # (auto) 0.21 K/uL (0.00-0.02); Lymphocytes # (auto) 1.67 K/uL (1.2-3.4); Lymphocytes % (auto) 15.8 %; Mean Corpuscular Hemoglobin 31.8 pg (25-34); Mean Corpuscular Hgb Conc 32.1 g/dL (32-36); Monocytes # (auto) 1.07 K/uL (0.11-0.59); Monocytes % (auto) 10.1 %; Neutrophils # (auto) 7.44 K/uL (1.4-6.5); Neutrophils % (auto) 70.2 %; Nucleated RBC # (auto) 0.11 K/uL (0-0); Platelet Count 394 K/uL (130-400); RDW Coefficient of Variation 15.7 % (11.5-14.5); RDW Standard Deviation 52.3 fL (36.4-46.3); Red Blood Count 2.99 M/uL (4.2-5.4); White Blood Count 10.59 K/uL (4.8-10.8)
[2020-03-15 08:09] LABS: BUN Creatinine Ratio 25.5 (10-20); Calcium 8.8 mg/dl (8.5-10.1); Creatinine Clr Calc Pharmacy 34.3 ml/min; Est GFR (Non-African American) 46.6; Potassium 4.3 mmol/L (3.5-5.1)
[2020-03-15] MEDS: POLYETHYLENE (MIRALAX) 17 GM PACK PO SCH ×3 (09:10→20:49)
[2020-03-15] MEDS: dilTIAZem ER 120 MG CAPCR PO SCH (09:11)
[2020-03-15] MEDS: CALCIUM CARBONATE 1250MG TAB PO SCH ×2 (09:11→20:55)
[2020-03-15] MEDS: FAMOTIDINE 20 MG TAB PO SCH ×2 (09:11→20:54)
[2020-03-15] MEDS: APIXABAN 5 MG TABLET PO SCH ×2 (09:11→20:54)
[2020-03-15] MEDS: CHOLECALCIFEROL 1,000 UNITS 25 MCG TAB PO SCH (09:12)
[2020-03-15] MEDS: TRIAMCINOLONE ACET NASAL SPRAY 10.8ML BTL NAE SCH (09:12)
[2020-03-15] MEDS: oxyCODONE HCL IR 5 MG TAB (IMMEDIATE RELEASE) PO PRN ×3 (09:16→20:53)
[2020-03-15] MEDS: MICONAZOLE NITRATE POWDER 43 GM EXT SCH ×2 (09:25→20:51)
[2020-03-15] MEDS ORDERED: dilTIAZem ER 120 MG CAPCR PO ONE (09:30)
--- NOTE | 2020-03-15 11:11 | Hospitalist Progress Note ---
Date of Service March 15, 2020 Assessment & Plan (1) Closed intertrochanteric fracture of right hip: Patient is an 85 year old female with PMHx Paroxysmal Afib, HTN, HLD who presented to the ED secondary to a fall, found to have a closed R intertrochanteric fracture. R Closed Intertrochanteric Fracture s/p ORIF: - Noted on Hip/Pelv CT in ED on arrival. - Ortho performed R hip Cephalomedullary Nail on 03/11/20. - Postoperative x-ray demonstrated well aligned well fixed implant. - Ortho has signed off on patient and will require follow up with surgeon in 10-12 days. - Resumed Eliquis for AFib/DVT prophylaxis post-op. - Currently non-weightbearing of RLE with toe touch exercises. - For eventual placement to rehab facility for inpatient rehab following discharge. - Pain control with Tylenol, Oxycodone and Morphine PRN. - PT/OT ordered, encourage early mobility of patient. Malnutrition -Discussed with patient about importance of eating well and staying hydrated -Patient noting that she will attempt to increase PO intake and caloric intake by using boost/ensure. -If patient continues to struggle with PO intake, will restart IVF. Anemia - Acute on Chronic: - Likely secondary to Hip Fx with chronic anemia at baseline with Hgb 11 prior to this admission. - Transfused 1 unit PRBC prior to surgery. - Hgb 9.5 - Continue to monitor daily and PRN symptoms of symptomatic anemia while admitted. - Transfuse if Hgb <7 or becomes symptomatic with Hgb <8. Fall w/ Scalp laceration: - Appeared mechanical in nature. - Not secondary to Atrial fibrillation or other neuro deficit. Patient is at her baseline with regard to mental status and physical functioning save for right lower extremity. - Scalp laceration noted on exam, Head CT negative for bleed. Paroxysmal Atrial Fibrillation: - Diagnosed 1 month prior to admission. - Continue Eliquis 5 mg twice daily. - On arrival patient had A. fib with RVR on telemetry and EKG, was eventually placed on diltiazem drip for heart rate in 120s to 130s. - Over the weekend patient was transitioned to Diltiazem 240mg ER QD with Dilt 30mg IR PRN HR >110 - Patient continuing to have afib with rates avg 125-130's - Added 120mg Dilt this AM and plan to continue with Dilt 360mg ER QD and Metoprolol Tart 25mg Q6H - Cardiology consulted at this point as patients afib has been difficult to manage off of Cardizem drip, appreciate recs. Constipation: - Miralax q8h scheduled and will titrate as needed for one soft BM per day. Hypertension: - Creatinine this a.m. 1.09 - Hold Dyazide for now, BP normotensive. - Diltiazem and metoprolol as above. L Knee Laceration: - Wound consulted, area is without purulent drainage and appears clean, dry, intact. - Dressing changes daily and PRN. Osteoporosis: - Diagnosis in the setting of Fx with mechanical fall from standing height. - Started patient on Vitamin D and Calcium while inpatient when taking PO. - Patient will likely require Bisphosphonate therapy 1 month after surgery. Post Nasal Drip: - Likely secondary to allergic rhinitis. - Nasacort daily. Dispo: Med/Surg with Telemetry FEN: Reg diet DVT: Eliquis 5mg BID Code Status: Full Code (2) Fall: (3) Scalp laceration: (4) Paroxysmal atrial fibrillation: (5) Hypertension: (6) Dyslipidemia: (7) Hyperlipidemia: (8) Osteoporosis: (9) Constipation: Admission and Anticipated Discharge Date Admission Date: March 08, 2020 Supervising Physician Co-Signing Physician Notes Patient seen and examined with PGY-2 Dr. Martinez. Agree with history, exam findings, assessment and plan of care as outlined. 85 year old female with history of pAF, HTN, HLD admitted with right closed intertrochanteric fracture following a fall. Appetite has been down and not feeling thirsty. Does like the Boost/[place] drinks on the tray. Denies nausea, vomiting, abdominal pain. Heart rates in the 100s-130s. Although she reports that she does not feel an irregular heart beat. VS and labs reviewed. Nursing notes reviewed. Sitting comfortably in the bedside chair. Heart rate in the high 120s, irregularly irregular. 1. Closed intertrochanteric fracture s/p cephalomedullary nail on 03/11/2020. NWB, TT exercises. Pain control with Tylenol, oxy and morphine. Home Eliquis resumed for post-op DVT prophy. Awaiting rehab placement. 2. With hip fracture, consistent with osteoporosis. Consider starting antifracture therapy 1 month following surgery. Started vitamin D (vitamin D level 15.9). Calcium rich diet. Would stop calcium supplement as this is often not well absorbed compared to dietary calcium. Will need DXA prior to initiation of any antifracture medication. 3. Anemia. Acute on chronic. Post-op anemia. s/p 1u PRBCs prior to surgery. Hgb 9.5 today. 4. Scalp lac due to fall. CT Head negative for bleed. 5. Left knee laceration. Clean. Dressing changes per wound care. 6. pAF. Elevated HRs up to the 130s earlier today. Likely a bit worse due to recent surgery. Increased Diltazem ER to 360mg. Continue metoprolol tartrate 25mg q6h. Will need to watch BP carefully. Consulted cardiology for assistance with rate management, although patient now with HRs in the 80s this evening. Appreciate recommendations. 7. Constipation. Senna, miralax. 8. ESAU. Baseline Cr 1.0, bumped to 1.3-->1.2. PO intake. Holding home dyazide. 9. HTN. Continue dilt and metoprolol. Dispo: pending rehab placement. Subjective Patient seen and evaluated this AM while seated in the bedside chair. Patient noting that she was feeling well and that she has been trying to participate more in PT. She does note, however, that she has had minimal appetite or thirst and over all didn't feel like eating. She understands that this would make her feel weaker and agrees that she should eat and drink more, but just doesn't have the appetite. She still notes she cannot feel her heart beating fast. She denies any NVD, SOB, chest pain, fevers, chills, abdominal pain. Review of Systems Constitutional: + anorexia; no fever and no chills Respiratory: no cough, no dyspnea and no pain on inspiration Cardiovascular: no chest pain, no radiating jaw, neck or arm pain, no dyspnea on exertion and no palpitations Gastrointestinal: no abdominal pain, no nausea and no vomiting Genitourinary: + difficulty urinating and + urinary hesitancy Musculoskeletal: + joint pain Physical Exam Constitutional: well developed and well nourished; no acute distress Respiratory: normal respiratory effort, lungs clear to auscultation Cardiovascular: Rate/Rhythm: + abnormal rate (irr-irr at 128bpm) and + abnormal rhythm Heart Sounds: + murmur (2/6 DELMIS ) Vessels: posterior tibial pulses present and dorsalis pedis pulses present Gastrointestinal (Abdomen): normal bowel sounds, soft, nontender, no hepatosplenomegaly Skin: no rashes, warm and dry Psychiatric: A+Ox3, euthymic affect Results & Data Results & Data ([facility]) Vital Signs (Past 12 Hours) Vital Signs Temp Pulse Pulse Pulse Pulse Resp BP 03/15/20 11:09 36.6 C 71 18 03/15/20 09:45 122 H 03/15/20 07:46 128 H 03/15/20 07:23 36.8 C 90 18 03/15/20 05:40 03/15/20 05:10 124 H 111/78 03/15/20 03:40 36.8 C 120 H 18 03/15/20 01:00 123 H 03/14/20 23:49 119 H 03/14/20 23:38 123 H BP Pulse Ox 03/15/20 11:09 111/68 96 03/15/20 09:45 109/71 03/15/20 07:46 03/15/20 07:23 113/77 91 03/15/20 05:40 96/61 L 03/15/20 05:10 03/15/20 03:40 101/71 92 03/15/20 01:00 106/55 L 03/14/20 23:49 108/72 03/14/20 23:38 Resident Activity Tracking Resident Involvement: Resident Care Provided Care Provided: Adult Hospital Medicine (1) Closed intertrochanteric fracture of right hip Encounter type: initial encounter Fracture alignment: displaced Qualified Code(s): S72.141A - Displaced intertrochanteric fracture of right femur, initial encounter for closed fracture
[2020-03-15] MEDS: DOCUSATE SODIUM/SENNA 50/8.6MG TAB PO SCH (20:49)
[2020-03-16] MEDS: oxyCODONE HCL IR 5 MG TAB (IMMEDIATE RELEASE) PO PRN ×5 (01:02→23:59)
[2020-03-16] MEDS ORDERED: SODIUM CHLORIDE 0.9% 1000ML 500 ML IV ONE (05:41)
[2020-03-16] MEDS: METOPROLOL TARTRATE 25 MG TAB PO SCH ×3 (05:50→12:21)
[2020-03-16 06:34] LABS: Basophils # (auto) 0.02 K/uL (0-0.2); Basophils % (auto) 0.2 %; Eosinophils # (auto) 0.25 K/uL (0-0.5); Eosinophils % (auto) 2.3 %; Hematocrit (blood only) 29.2 % (37-47); Hemoglobin 9.2 g/dL (12.0-16.0); Immature Granulocytes % (auto) 1.8 %; Lymphocytes # (auto) 1.93 K/uL (1.2-3.4); Lymphocytes % (auto) 17.5 %; Mean Corpuscular Hgb Conc 31.5 g/dL (32-36); Mean Corpuscular Volume 98.3 fL (80-100); Mean Platelet Volume 9.6 fL (7.4-10.4); Monocytes # (auto) 1.03 K/uL (0.11-0.59); Monocytes % (auto) 9.4 %; Neutrophils # (auto) 7.57 K/uL (1.4-6.5); Neutrophils % (auto) 68.8 %; Platelet Count 437 K/uL (130-400); RDW Coefficient of Variation 16.3 % (11.5-14.5); RDW Standard Deviation 52.8 fL (36.4-46.3); Red Blood Count 2.97 M/uL (4.2-5.4)
[2020-03-16 07:09] LABS: BUN Creatinine Ratio 23.6 (10-20); Calcium 9.1 mg/dl (8.5-10.1); Creatinine Clr Calc Pharmacy 34.5 ml/min; Est GFR (African American) 55.2; Est GFR (Non-African American) 47.6; Potassium 4.6 mmol/L (3.5-5.1)
[2020-03-16] MEDS: MICONAZOLE NITRATE POWDER 43 GM EXT SCH ×2 (07:52→21:43)
[2020-03-16] MEDS: CHOLECALCIFEROL 1,000 UNITS 25 MCG TAB PO SCH (07:53)
[2020-03-16] MEDS: TRIAMCINOLONE ACET NASAL SPRAY 10.8ML BTL NAE SCH (07:53)
[2020-03-16] MEDS: FAMOTIDINE 20 MG TAB PO SCH ×2 (07:53→21:44)
[2020-03-16] MEDS: POLYETHYLENE (MIRALAX) 17 GM PACK PO SCH ×3 (07:54→21:44)
[2020-03-16] MEDS: APIXABAN 5 MG TABLET PO SCH ×2 (07:54→21:43)
[2020-03-16] MEDS ORDERED: dilTIAZem ER 180 MG CAPCR PO SCH (09:00)
--- NOTE | 2020-03-16 09:25 | Hospitalist Progress Note ---
Date of Service March 16, 2020 Assessment & Plan (1) Closed intertrochanteric fracture of right hip: Patient is an 85 year old female with PMHx Paroxysmal Afib, HTN, HLD who presented to the ED secondary to a fall, found to have a closed R intertrochanteric fracture. R Closed Intertrochanteric Fracture s/p ORIF: - Noted on Hip/Pelv CT in ED on arrival. - Ortho performed R hip Cephalomedullary Nail on 03/11/20. - Postoperative x-ray demonstrated well aligned well fixed implant. - Ortho has signed off on patient and will require follow up with surgeon in 10-12 days. - Resumed Eliquis for AFib/DVT prophylaxis post-op. - Currently non-weightbearing of RLE with toe touch exercises. - For eventual placement to rehab facility for inpatient rehab following discharge. - Pain control with Tylenol, Oxycodone and Morphine PRN. - PT/OT ordered, encourage early mobility of patient. Malnutrition -Discussed with patient about importance of eating well and staying hydrated -Patient noting that she will attempt to increase PO intake and caloric intake by using boost/ensure. -If patient continues to struggle with PO intake, will restart IVF. Anemia - Acute on Chronic: - Likely secondary to Hip Fx with chronic anemia at baseline with Hgb 11 prior to this admission. - Transfused 1 unit PRBC prior to surgery. - Hgb stable now. - Continue to monitor daily and PRN symptoms of symptomatic anemia while admitted. - Transfuse if Hgb <7 or becomes symptomatic with Hgb <8. Fall w/ Scalp laceration: - Appeared mechanical in nature. - Not secondary to Atrial fibrillation or other neuro deficit. Patient is at her baseline with regard to mental status and physical functioning save for right lower extremity. - Scalp laceration noted on exam, Head CT negative for bleed. Paroxysmal Atrial Fibrillation: - Diagnosed 1 month prior to admission. - Continue Eliquis 5 mg twice daily. - On arrival patient had A. fib with RVR on telemetry and EKG, was eventually placed on diltiazem drip for heart rate in 120s to 130s. - Patient had a period of HR in the 80's yesterday evening, but has since returned to averages in the 120's - Increase oral Dilt to 360mg Daily and Metoprolol Tart 25mg QID, DC IR diltiazem 30mg. - Cardiology consulted at this point as patients afib has been difficult to manage off of Cardizem drip, appreciate recs. Constipation: - Miralax q8h scheduled and will titrate as needed for one soft BM per day. - BM noted today. Hypertension: - Creatinine back to baseline - Hold Dyazide for now, BP normotensive and at times soft. - Diltiazem and metoprolol as above. L Knee Laceration: - Wound consulted, area is without purulent drainage and appears clean, dry, intact. - Dressing changes daily and PRN. Osteoporosis: - Diagnosis in the setting of Fx with mechanical fall from standing height. - Started patient on Vitamin D and Calcium while inpatient when taking PO - DC calcium supplement and encourage calcium rich foods instead for better absorption - Patient will likely require Bisphosphonate therapy 1 month after surgery. Post Nasal Drip: - Likely secondary to allergic rhinitis. - Nasacort daily. Dispo: Med/Surg with Telemetry FEN: Reg diet DVT: Eliquis 5mg BID Code Status: Full Code (2) Fall: (3) Scalp laceration: (4) Paroxysmal atrial fibrillation: (5) Hypertension: (6) Dyslipidemia: (7) Hyperlipidemia: (8) Osteoporosis: (9) Constipation: Admission and Anticipated Discharge Date Admission Date: March 08, 2020 Supervising Physician Co-Signing Physician Notes Patient seen and examined with PGY-2 Dr. Martinez. Agree with history, exam findings, assessment and plan of care as outlined. 85 year old female with history of pAF, HTN, HLD admitted with right closed intertrochanteric fracture following a fall. Appetite has been down and not feeling thirsty. Heart rates averaging in the 120-130s. Gets anxious as she is generally a very active person and is very concerned about her heart. Noticing increased swelling in the legs. Legs are feeling heavy and tired. VS and labs reviewed. Nursing notes reviewed. Sitting comfortably in the bedside chair. Heart rate in the high 120s, irregularly irregular. +2 pitting edema to the kne es. Lungs are clear to auscultation in all lung banerjee. 1. Closed intertrochanteric fracture s/p cephalomedullary nail on 03/11/2020. NWB, TT exercises. Pain control with Tylenol, oxy and morphine. Home Eliquis resumed for post-op DVT prophy. Awaiting rehab placement. 2. With hip fracture, consistent with osteoporosis. Consider starting antifracture therapy 1 month following surgery. Started vitamin D (vitamin D level 15.9). Calcium rich diet. Would stop calcium supplement as this is often not well absorbed compared to dietary calcium. Will need DXA prior to initiation of any antifracture medication. 3. pAF. Elevated HRs up to the 130s earlier today. Likely a bit worse due to recent surgery. Cardizem ER 120mg BID and metoprolol succinate 50mg per cardiology recs. 4. lower extremity edema. Likely secondary to IVFs given, relatively immobile, and third spacing due to low albumin. 20mg IV Lasix today. Avoid excess fluids. 4. Anemia. Acute on chronic. Post-op anemia. s/p 1u PRBCs prior to surgery. Hgb 9.2 today. 5. Constipation. Senna, miralax. 8. ESAU. Resolved. Baseline Cr 1.0, bumped to 1.3-->1.2?1.07. Holding home dyazide. Dispo: pending rehab placement. Subjective Patient seen and evaluated at the bedside this AM. Noting that she feels she has been getting worsening swelling in her legs. Also noting that she feels a bit more anxious as she worries that some of "the staff don't seem to care." When asked if there was a specific person patient was referring to she mentioned that she just felt some people were here to work. Reassured patient that all of the hospital staff care about our patients and if that there was anything we could do differently that I would pass the info along. Patient could not think of anything specific at that time. Review of Systems Constitutional: + weakness and + anorexia; no fever and no chills Respiratory: no cough, no dyspnea and no pain on inspiration Cardiovascular: no chest pain, no radiating jaw, neck or arm pain, no dyspnea on exertion and no palpitations Gastrointestinal: no abdominal pain, no nausea and no vomiting Genitourinary: no dysuria Musculoskeletal: + joint pain Physical Exam Constitutional: well developed and well nourished; no acute distress Respiratory: normal respiratory effort, lungs clear to auscultation Cardiovascular: Rate/Rhythm: + abnormal rate (irr-irr at 128bpm) and + abnormal rhythm Heart Sounds: + murmur (2/6 DELMIS ) Vessels: posterior tibial pulses present and dorsalis pedis pulses present Extremities: + edema (+2 b/l ) Gastrointestinal (Abdomen): normal bowel sounds, soft, nontender, no hepatosplenomegaly Skin: no rashes, warm and dry Psychiatric: A+Ox3, euthymic affect Results & Data Results & Data ([facility]) Vital Signs (Past 12 Hours) Vital Signs Temp Pulse Pulse Pulse Resp BP Pulse Ox 03/16/20 08:00 36.8 C 120 H 18 99/64 L 97 03/16/20 05:03 119 H 91/63 L 03/16/20 03:11 36.8 C 97 H 19 105/73 94 03/15/20 23:44 36.7 C 109 H 20 115/79 95 03/15/20 22:51 113 H 03/15/20 22:48 36.8 C 74 20 112/69 98 Resident Activity Tracking Resident Involvement: Resident Care Provided Care Provided: Adult Hospital Medicine (1) Closed intertrochanteric fracture of right hip Encounter type: initial encounter Fracture alignment: displaced Qualified Code(s): S72.141A - Displaced intertrochanteric fracture of right femur, initial encounter for closed fracture
--- NOTE | 2020-03-16 11:18 | Cardiology Consultation ---
Date of Consultation March 16, 2020 Assessment & Plan (1) Paroxysmal atrial fibrillation: She has had paroxysmal atrial fibrillation identified in the past although it does seem to be more consistent now and she has been in it for the last 3 days. The heart rate is reasonably well controlled in the afternoon but then in the evening and by morning the rate is quite fast. From the pattern I think that perhaps the long-acting diltiazem is not lasting throughout the day. She is on 300 mg daily today, I am going to switch that to 120 mg twice a day which is still more than she was on at home. I am going to add or continue a morning dose of beta-blockade. We will have to see whether this helps control her heart rate in a more even manner. Other options include converting her rhythm back to normal, either using medications or cardioversion, although we would likely need ongoing antiarrhythmic therapy to maintain sinus rhythm. If we have increasing difficulty with edema, worsening in symptoms (currently she is asymptomatic) or inability to control the heart rate we should probably do this. (2) Chronic anticoagulation: She needs to be on anticoagulation and she seems to be doing well on Eliquis, she is on the correct dose for her weight and renal function. (3) Edema of both legs: Her main complaint today is leg swelling which apparently is much more than it has been before and it certainly is evident on exam. This could be a combination of sitting most the day with her legs down, calcium blockade which can contribute to leg edema, atrial fibrillation and possibly a low albumin although that was normal on admission but has not been checked since. I am going to check an albumin, I have advised her to keep her legs up as much as possible and I am going to prescribe a diuretic which I do not think she is on based on her med list. I am also going to add a fluid restriction and change her to a heart healthy diet which may decrease her salt intake. Perhaps switching her calcium blockade as noted above will help as well as I would like to reduce the total dose. If this becomes an ongoing problem we may have to consider different agents altogether or maintenance of sinus rhythm and avoid calcium blockade. I doubt this is a direct result of the atrial fibrillation although could be a contributor. History of Present Illness Reason for Consultation: Atrial fibrillation with a rapid heart rate Attending Physician: Nba Cantrell DO History of Present Illness This is an 85-year-old woman who has a history of hypertension, abnormal thyroid hormone measurements, and elevated creatinine as well as recently identified atrial fibrillation. She was in the wound clinic (for follow-up of a right knee laceration January 07, 2020) where she was identified as having a rapid irregular heart rate which turns out to be atrial fibrillation. She apparently does have a history of occasional brief palpitations over the prior year and she reported being more fatigued than normal over the prior several weeks. She was given intravenous diltiazem in the emergency room for rate control and started on anticoagulation. An echocardiogram done February 27, 2020 showed normal left ventricular size and systolic function, mild concentric left ventricular hypertrophy, mild mitral regurgitation, mild tricuspid regurgitation. Her admission electrocardiogram shows atrial fibrillation with a heart rate [address]-T abnormalities. She reports not really being aware of her atrial fibrillation when she was in wound clinic, she does describe occasional palpitations historically which may or may not be episodes of atrial fibrillation, they have never been investigated as far she knows. She converted to sinus rhythm overnight, afterwards did not feel any different but felt good. She presented with a mechanical fall on March 08, 2020 resulting in a right hip fracture. That was repaired on March 11, 2020. Postoperatively she has continued to have intermittent atrial fibrillation. She has continued to have atrial fibrillation with heart rates during atrial fibrillation in the 120 bpm range. When not in atrial fibrillation her heart rate is 70 to 80/min. This is higher than her heart rate was following conversion to sinus rhythm during her initial hospitalization. Currently her medical regimen consists of diltiazem CD 360 mg daily although just started today I believe, prior to that 30 mg every 6 hours) and metoprolol tartrate 25 mg 4 times daily (although held from time to time due to low blood pressure I believe), at home she was only on diltiazem CD 180 mg daily. She remains unaware of her heart rhythm. She has no sensation of the atrial fibrillation. Her only complaint today is that her legs are swollen, she tells me they are twice the size they usually are and she has not had that difficulty before. She is keeping them down most of the time when she is in a chair, she is not very active as yet following her surgery and therefore sits for most of the day. She does have them up when she is in bed but that is the majority of the time. She does not feel that she is drinking excessive amount of fluid. Allergies Allergy/AdvReac Type Severity Reaction Status Date / Time No Known Allergies Allergy Verified 03/08/20 10:45 Home Medications Home Medications Medication Instructions Recorded Confirmed Type PreserVision AREDS 2 tab PO BID 01/07/20 03/08/20 History apixaban 5 mg tablet 5 mg PO BID #60 tab 03/02/20 03/08/20 Rx diltiazem HCl 180 mg capsule,24 180 mg PO DAILY #30 cap 03/02/20 03/08/20 Rx hr,extended release triamterene 37.5 1 cap PO DAILY #30 cap 03/04/20 03/08/20 Rx mg-hydrochlorothiazide 25 mg capsule Patient History Medical History Atrial fibrillation with rapid ventricular response COPD (chronic obstructive pulmonary disease) Dyslipidemia Herpes zoster Hx of fracture of humerus Hx of gout Hypertension Osteoarthritis Surgical History History of total right knee replacement Dr. Jeremiah Eddy [place], [place] 05/2017 S/P cataract surgery Social History Smoking Status: Never smoker Second Hand Exposure: No; Hx Alcohol Use: No Hx Substance Use: No Preferred Language: Kiswahili Communication Ability: Effective Hearing Ability: Normal Fine [employer]el[employer] Sales Associate Required: No Beliefs That Will Affect Care: Anabaptist marital status: / Current Living Situation: Alone current occupational status: retired Other Information That Helps Us Care for You: No Feels Safe at Home: Yes Safety Concerns: Feels Safe At This Time Physical Exam Physical Exam: Constitutional: Alert, cooperative and in no distress. HEENT: Unremarkable Neck: No jugular venous distention, carotid pulses are irregular but otherwise normal and equal bilaterally without bruits. Pulmonary: Clear to auscultation bilaterally. Cardiac: Irregular rhythm with no murmur, gallop or rub. Abdomen: Soft, nontender with normal bowel sounds. Extremities: +3 bilateral pretibial edema. Distal pulses intact. Neurologic: No focal findings. Gait is steady. Skin: No rash, ecchymoses or petechiae. Results & Data ([facility]) Vital Signs (Past 12 Hours) Vital Signs Temp Pulse Resp BP Pulse Ox 03/16/20 08:00 36.8 C 120 H 18 99/64 L 97 03/16/20 05:03 119 H 91/63 L 03/16/20 03:11 36.8 C 97 H 19 105/73 94 03/15/20 23:44 36.7 C 109 H 20 115/79 95 Laboratory Results CBC 03/16/20 Range/Units 06:11 WBC 11.00 H (4.8-10.8) K/uL RBC 2.97 L (4.2-5.4) M/uL Hgb 9.2 L (12.0-16.0) g/dL Hct 29.2 L (37-47) % Plt Count 437 H (130-400) K/uL Neut # (Auto) 7.57 H (1.4-6.5) K/uL Lymph # (Auto) 1.93 (1.2-3.4) K/uL [place] # (Auto) 1.03 H (0.11-0.59) K/uL Eos # (Auto) 0.25 (0-0.5) K/uL Baso # (Auto) 0.02 (0-0.2) K/uL Comprehensive Metabolic Panel 03/16/20 Range/Units 06:11 Sodium 136 (136-145) mmol/L Potassium 4.6 (3.5-5.1) mmol/L Chloride 104 (98-107) mmol/L Carbon Dioxide 27 (21-32) mmol/L BUN 25 H (7-18) mg/dl Creatinine 1.07 (0.6-1.2) mg/dl Glucose 95 (70-99) mg/dl Calcium 9.1 (8.5-10.1) mg/dl Intake and Output 03/15/20 03/16/20 03/16/20 22:59 06:59 14:59 Intake Total 50 / 979.167 620 / 979.167 Output Total 2 / 2 Balance 50 / 977.167 618 / 977.167 Intake: IV 500 / 689.167 Nss 1000ML 500 ml @ 999 mls/hr 500 / 500 IV .Q31M ONE Rx#:[id number] Oral 50 / 290 120 / 290 Output: # Bowel Movements 2 / 2 Other: # Unmeasured Voids 1 Weight 78.3 kg Diagnostic Findings Telemetry: Her last 3 days she has been in atrial fibrillation. Overall the heart rate is elevated, it tends to come up overnight and then drop down when she receives her morning medications. Currently it is quite well controlled having received her medications about 4 or 5 hours ago. PG Care Time/CCT Total # of Minutes Spent Total Time Spent with Patient: Total time spent is greater than 50% in coordination of care (as documented) at patient's floor/unit and/or counseling patient: Coding Level of Care Code 03093 Initial Inpt Care Lvl 3 Diagnoses Paroxysmal atrial fibrillation I48.0 Chronic anticoagulation Z79.01 Edema of both legs R60.0
[2020-03-16] MEDS ORDERED: FUROSEMIDE 20 MG in SYRINGE 0 ML IV ONE (15:00)
[2020-03-16] MEDS ORDERED: HYDROCORTISONE 1% CRM 30 GM TUBE EXT PRN (16:12)
--- NOTE | 2020-03-16 18:21 | Electrocardiogram Report ---
Test Reason : Blood Pressure : / mmHG Vent. Rate : 106 BPM Atrial Rate : 110 BPM P-R Int : 000 ms QRS Dur : 080 ms QT Int : 328 ms P-R-T Axes : 000 021 014 degrees QTc Int : 435 ms Atrial fibrillation with rapid ventricular response Abnormal ECG When compared with ECG of 08-MAR-2020 08:11, Atrial fibrillation has replaced Sinus rhythm Nonspecific T wave abnormality no longer evident in Lateral leads Confirmed by David Chan ([id number]) on 03/16/2020 6:21:26 PM Referred By: REFERRED SELF Confirmed By:Kyle Chan
[2020-03-16] MEDS: dilTIAZem HCL 120 MG CAPCR PO SCH (21:43)
[2020-03-16] MEDS: DOCUSATE SODIUM/SENNA 50/8.6MG TAB PO SCH (21:45)
[2020-03-17] MEDS: oxyCODONE HCL IR 5 MG TAB (IMMEDIATE RELEASE) PO PRN ×2 (05:45→19:56)
[2020-03-17 07:03] LABS: Basophils # (auto) 0.02 K/uL (0-0.2); Basophils % (auto) 0.2 %; Eosinophils % (auto) 1.8 %; Hematocrit (blood only) 28.8 % (37-47); Hemoglobin 9.2 g/dL (12.0-16.0); Immature Granulocytes # (auto) 0.21 K/uL (0.00-0.02); Immature Granulocytes % (auto) 1.9 %; Lymphocytes # (auto) 1.73 K/uL (1.2-3.4); Lymphocytes % (auto) 15.7 %; Mean Corpuscular Hemoglobin 31.3 pg (25-34); Mean Corpuscular Hgb Conc 31.9 g/dL (32-36); Mean Platelet Volume 9.6 fL (7.4-10.4); Monocytes # (auto) 1.01 K/uL (0.11-0.59); Monocytes % (auto) 9.2 %; Neutrophils # (auto) 7.83 K/uL (1.4-6.5); Neutrophils % (auto) 71.2 %; Platelet Count 407 K/uL (130-400); RDW Coefficient of Variation 16.8 % (11.5-14.5); RDW Standard Deviation 55.2 fL (36.4-46.3); Red Blood Count 2.94 M/uL (4.2-5.4)
[2020-03-17] MEDS: CHOLECALCIFEROL 1,000 UNITS 25 MCG TAB PO SCH (07:29)
[2020-03-17] MEDS: dilTIAZem HCL 120 MG CAPCR PO SCH ×2 (07:31→20:12)
[2020-03-17] MEDS: APIXABAN 5 MG TABLET PO SCH ×2 (07:31→20:11)
[2020-03-17] MEDS: FAMOTIDINE 20 MG TAB PO SCH ×2 (07:31→20:11)
[2020-03-17 07:38] LABS: Albumin Level 2.1 gm/dl (3.4-5.0); BUN Creatinine Ratio 21.8 (10-20); Calcium 8.9 mg/dl (8.5-10.1); Creatinine Clr Calc Pharmacy 34.2 ml/min; Est GFR (African American) 55.2; Est GFR (Non-African American) 47.6; Potassium 4.1 mmol/L (3.5-5.1)
[2020-03-17] MEDS ORDERED: METOPROLOL SUCC 50MG EXT REL TAB PO SCH (09:00)
[2020-03-17] MEDS ORDERED: FUROSEMIDE 20 MG in SYRINGE 0 ML IV ONE (09:15)
[2020-03-17] MEDS: TRIAMCINOLONE ACET NASAL SPRAY 10.8ML BTL NAE SCH (09:25)
[2020-03-17] MEDS: MICONAZOLE NITRATE POWDER 43 GM EXT SCH ×2 (09:26→20:12)
[2020-03-17] MEDS: POLYETHYLENE (MIRALAX) 17 GM PACK PO SCH ×3 (09:34→20:12)
--- NOTE | 2020-03-17 09:39 | Hospitalist Progress Note ---
Date of Service March 17, 2020 Assessment & Plan (1) Closed intertrochanteric fracture of right hip: Patient is an 85 year old female with PMHx Paroxysmal Afib, HTN, HLD who presented to the ED secondary to a fall, found to have a closed R intertrochanteric fracture. R Closed Intertrochanteric Fracture s/p ORIF: - Noted on Hip/Pelv CT in ED on arrival. - Ortho performed R hip Cephalomedullary Nail on 03/11/20. - Postoperative x-ray demonstrated well aligned well fixed implant. - Ortho has signed off on patient and will require follow up with surgeon in 10-12 days. - Resumed Eliquis for AFib/DVT prophylaxis post-op. - Currently non-weightbearing of RLE with toe touch exercises. - Pain control with Tylenol, Oxycodone and Morphine PRN. - PT/OT ordered, encourage early mobility of patient. - Continue to plan for discharge to rehab facility for inpatient rehab, case management made request to [facility]. Malnutrition -Discussed with patient about importance of eating well and staying hydrated -Patient noting that she will attempt to increase PO intake and caloric intake by using boost/ensure. -Dietary consult placed, diet minced and moist. Anemia - Acute on Chronic: - Likely secondary to Hip Fx with chronic anemia at baseline with Hgb 11 prior to this admission. - Transfused 1 unit PRBC prior to surgery. - Hgb stable now. - Continue to monitor daily and PRN symptoms of symptomatic anemia while admitted. - Transfuse if Hgb <7 or becomes symptomatic with Hgb <8. Fall w/ Scalp laceration: - Appeared mechanical in nature. - Not secondary to Atrial fibrillation or other neuro deficit. Patient is at her baseline with regard to mental status and physical functioning save for right lower extremity. - Scalp laceration noted on exam, Head CT negative for bleed. Paroxysmal Atrial Fibrillation: - Diagnosed 1 month prior to admission. - Continue Eliquis 5 mg twice daily. - On arrival patient had A. fib with RVR on telemetry and EKG, was eventually placed on diltiazem drip for heart rate in 120s to 130s. - Patient had a period of HR in the 80's yesterday evening, but has since returned to averages in the 120's - Cardiology consulted at this point as patients afib has been difficult to manage off of Cardizem drip, appreciate recs. -Patient has a unique pattern to heart rate being that it raises at night and is more well controlled during day. -Cardizem 120mg BID and Metoprolol Succinate 50mg qAM -Will check later this afternoon to determine if changes have lasting effects on heart rate, patient may require qHS dosing instead of qAM or increases in dosing -Also noted swelling of LE the past few days with patient stated weight gain of 20lbs -Likely multifactorial including afib, inactivity, and CCB -Lasix 20mg IV yesterday with good result, will give another 20mg IV today for continued diuresis. Fluid restriction 1000ml daily. Constipation: - Miralax q8h scheduled and will titrate as needed for one soft BM per day. - BM noted today. Hypertension: - Creatinine back to baseline - Hold Dyazide for now, BP normotensive and at times soft. - Diltiazem and metoprolol as above. L Knee Laceration: - Wound consulted, area is without purulent drainage and appears clean, dry, intact. - Dressing changes daily and PRN. Osteoporosis: - Diagnosis in the setting of Fx with mechanical fall from standing height. - Started patient on Vitamin D and Calcium while inpatient when taking PO - DC calcium supplement and encourage calcium rich foods instead for better absorption - Patient will likely require Bisphosphonate therapy 1 month after surgery. Post Nasal Drip: - Likely secondary to allergic rhinitis. - Nasacort daily. Dispo: Med/Surg with Telemetry FEN: Minced and Moist, Fluid restrict 1000ml DVT: Eliquis 5mg BID Code Status: Full Code (2) Fall: (3) Scalp laceration: (4) Paroxysmal atrial fibrillation: (5) Hypertension: (6) Dyslipidemia: (7) Hyperlipidemia: (8) Osteoporosis: (9) Constipation: Admission and Anticipated Discharge Date Admission Date: March 08, 2020 Supervising Physician Co-Signing Physician Notes Patient seen and examined independently of PGY-2 Dr. Martinez. Agree with history, exam findings, assessment and plan of care as outlined. 85 year old female with history of pAF, HTN, HLD admitted with right closed intertrochanteric fracture following a fall. Heart rates are elevating during the night. No history of snoring/sleep apnea. She does not always feel her heart racing, although does endorse some dyspnea at times or feeling increased anxiety. VS and labs reviewed. Nursing notes reviewed. Sitting comfortably in the bedside chair. Heart rate in the high 110s, irregularly irregular. +2 pitting edema to the knees. Skin is no longer tense. Lungs are clear to auscultation in all lung banerjee. 1. Closed intertrochanteric fracture s/p cephalomedullary nail on 03/11/2020. NWB, TT exercises. Pain control with Tylenol, oxy and morphine. Home Eliquis resumed for post-op DVT prophy. Awaiting rehab placement. 2. With hip fracture, consistent with osteoporosis. Starting antifracture therapy 1 month following surgery. Started vitamin D (vitamin D level 15.9). Calcium rich diet. Will need DXA prior to initiation of any antifracture medication. 3. pAF. Elevated HRs up to the 130-140s overnight. Likely a bit worse due to recent surgery. Cardizem ER 120mg BID and metoprolol succinate 100mg per cardiology recs. Will check a noc ox tonight to determine if she is desaturating while sleeping as a cause of her increased heart rates. 4. lower extremity edema. Likely secondary to IVFs given, relatively immobile, and third spacing due to low albumin. 20mg IV Lasix yesterday and another 20mg IV today. Avoid excess fluids. 4. Anemia. Acute on chronic. Post-op anemia. s/p 1u PRBCs prior to surgery. Hgb 9.2 today. 5. Constipation. Senna, miralax. 8. ESAU. Resolved. Dispo: pending improvement in rate control of afib and rehab placement. Subjective Patient evaluated at the bedside. Noting that overnight she was having some difficulties with pain in her R hip, but that it was adequately controlled this AM. Feels swelling in her legs has improved slightly. No Chest pain, SOB, fever or chills. Review of Systems Constitutional: + weakness and + weight gain; no fever and no chills Respiratory: no cough, no dyspnea and no pain on inspiration Cardiovascular: + edema; no chest pain, no dyspnea on exertion and no palpitations Gastrointestinal: no abdominal pain, no nausea and no vomiting Genitourinary: no dysuria Musculoskeletal: + joint pain Physical Exam Constitutional: well developed and well nourished; no acute distress Respiratory: normal respiratory effort, lungs clear to auscultation Cardiovascular: Rate/Rhythm: + abnormal rate (irr-irr at 130bpm) and + abnormal rhythm Heart Sounds: + murmur (2/6 DELMIS ) Vessels: posterior tibial pulses present and dorsalis pedis pulses present Extremities: + edema (+1 b/l ) Gastrointestinal (Abdomen): normal bowel sounds, soft, nontender, no hepatosplenomegaly Skin: no rashes, warm and dry Psychiatric: A+Ox3, euthymic affect Results & Data Results & Data ([facility]) Vital Signs (Past 12 Hours) Vital Signs Temp Pulse Pulse Pulse Resp BP BP 03/17/20 07:17 145 H 03/17/20 07:12 36.7 C 54 L 20 104/53 L 03/17/20 03:09 36.7 C 94 H 16 93/62 L 03/17/20 02:09 120 H 03/16/20 23:35 36.5 C 90 18 113/77 Pulse Ox 03/17/20 07:17 03/17/20 07:12 97 03/17/20 03:09 97 03/17/20 02:09 03/16/20 23:35 97 Resident Activity Tracking Resident Involvement: Resident Care Provided Care Provided: Adult Hospital Medicine (1) Closed intertrochanteric fracture of right hip Encounter type: initial encounter Fracture alignment: displaced Qualified Code(s): S72.141A - Displaced intertrochanteric fracture of right femur, initial encounter for closed fracture
[2020-03-17] MEDS ORDERED: METOPROLOL SUCC 50MG EXT REL TAB PO STA (12:48)
--- NOTE | 2020-03-17 12:52 | Cardiology Progress Note ---
Date of Service March 17, 2020 Assessment & Plan (1) Paroxysmal atrial fibrillation: She has had paroxysmal atrial fibrillation identified in the past although it does seem to be more persistent now and she has been in it for the last 3 days. The heart rate has been reasonably well controlled in the early afternoon but then in the evening and by morning the rate is quite fast. This pattern has continued after switching her medications yesterday but we are still within 24 hours of establishing a baseline. I still cannot explain the pattern very well but she may need higher doses in the evening. I am going to continue the diltiazem 120 mg twice a day (long-acting) and daily metoprolol in the morning. 50 mg this morning apparently was not enough although her heart rate is beginning to drop at this point consistent with her prior pattern. I am going to give an additional dose of metoprolol succinate now and increase to 100 mg daily tomorrow morning. Other options include converting her rhythm back to normal, either using medications or cardioversion, although we would likely need ongoing antiarrhythmic therapy to maintain sinus rhythm and it is potentially risky since her anticoagulant was stopped prior to surgery so we should probably consider JEFFY if we are going to go that route. If we have increasing difficulty with edema (which is improving), worsening in symptoms (currently she is asymptomatic) or inability to control the heart rate we should probably do this. (2) Chronic anticoagulation: She needs to be on anticoagulation and she seems to be doing well on Eliquis, she is on the correct dose for her weight and renal function. (3) Edema of both legs: Her edema has improved today but is still present. This is likely a combination of sitting most the day with her legs down, calcium blockade which can contribute to leg edema, persistent atrial fibrillation and a low albumin which is now only 2.1. I would consider diet supplementation to raise her albumin, I have advised her to keep her legs up as much as possible and I would continue a diuretic for the time being. I did add a fluid restriction and changed her to a heart healthy diet which may decrease her salt intake. In any case it is improving with our current management. Admission and Anticipated Discharge Date Admission Date: March 08, 2020 Subjective Today she is feeling better, her edema is improved and she remains unaware of her rhythm. She is not having lightheadedness or dizziness and wa is s tolerating her medications well. Physical Exam Physical Exam: Constitutional: Alert, cooperative and in no distress. HEENT: Unremarkable Neck: No jugular venous distention, carotid pulses are irregular but otherwise normal and equal bilaterally without bruits. Pulmonary: Clear to auscultation bilaterally. Cardiac: Irregular rhythm with no murmur, gallop or rub. Abdomen: Soft, nontender with normal bowel sounds. Extremities: +2 bilateral pretibial edema. Distal pulses intact. Neurologic: No focal findings. Gait was not tested. Skin: No rash, ecchymoses or petechiae. Results & Data ([facility]) Vital Signs (Past 12 Hours) Vital Signs Temp Pulse Pulse Pulse Resp BP BP 03/17/20 11:31 36.8 C 70 20 100/70 03/17/20 07:17 145 H 03/17/20 07:12 36.7 C 54 L 20 104/53 L 03/17/20 03:09 36.7 C 94 H 16 93/62 L 03/17/20 02:09 120 H Pulse Ox 03/17/20 11:31 03/17/20 07:17 03/17/20 07:12 97 03/17/20 03:09 97 03/17/20 02:09 Laboratory Results CBC 03/17/20 Range/Units 06:19 WBC 11.00 H (4.8-10.8) K/uL RBC 2.94 L (4.2-5.4) M/uL Hgb 9.2 L (12.0-16.0) g/dL Hct 28.8 L (37-47) % Plt Count 407 H (130-400) K/uL Neut # (Auto) 7.83 H (1.4-6.5) K/uL Lymph # (Auto) 1.73 (1.2-3.4) K/uL [place] # (Auto) 1.01 H (0.11-0.59) K/uL Eos # (Auto) 0.20 (0-0.5) K/uL Baso # (Auto) 0.02 (0-0.2) K/uL Comprehensive Metabolic Panel 03/17/20 Range/Units 06:19 Sodium 137 (136-145) mmol/L Potassium 4.1 (3.5-5.1) mmol/L Chloride 103 (98-107) mmol/L Carbon Dioxide 28 (21-32) mmol/L BUN 23 H (7-18) mg/dl Creatinine 1.07 (0.6-1.2) mg/dl Glucose 100 H (70-99) mg/dl Calcium 8.9 (8.5-10.1) mg/dl Albumin 2.1 L (3.4-5.0) gm/dl Intake and Output 03/16/20 03/17/20 03/17/20 22:59 06:59 14:59 Intake Total 100 / 200 Output Total 300 / 300 Balance 100 / -100 -300 / -100 Intake: Oral 100 / 200 Output: Urine 300 / 300 Other: # Unmeasured Voids 1 1 Weight 78.3 kg 77.2 kg Diagnostic Findings Telemetry: Atrial fibrillation, unusual trend of higher heart rates overnight and in the morning continues. PG Care Time/CCT Total # of Minutes Spent Total Time Spent with Patient: Total time spent is greater than 50% in coordination of care (as documented) at patient's floor/unit and/or counseling patient: Coding Level of Care Code 75946 Subseq Hosp Care Lvl 3 Diagnoses Paroxysmal atrial fibrillation I48.0 Chronic anticoagulation Z79.01 Edema of both legs R60.0
[2020-03-17] MEDS: DOCUSATE SODIUM/SENNA 50/8.6MG TAB PO SCH (20:14)
[2020-03-18] MEDS: oxyCODONE HCL IR 5 MG TAB (IMMEDIATE RELEASE) PO PRN (06:01)
[2020-03-18 08:54] LABS: BUN Creatinine Ratio 20.9 (10-20); Calcium 9.1 mg/dl (8.5-10.1); Est GFR (African American) 48.1; Est GFR (Non-African American) 41.5; Potassium 4.2 mmol/L (3.5-5.1)
[2020-03-18] MEDS ORDERED: METOPROLOL SUCC 50MG EXT REL TAB PO SCH (09:00)
--- NOTE | 2020-03-18 09:50 | Hospitalist Progress Note ---
Date of Service March 18, 2020 Assessment & Plan (1) Closed intertrochanteric fracture of right hip: Patient is an 85 year old female with PMHx Paroxysmal Afib, HTN, HLD who presented to the ED secondary to a fall, found to have a closed R intertrochanteric fracture. R Closed Intertrochanteric Fracture s/p ORIF: - Noted on Hip/Pelv CT in ED on arrival. - Ortho performed R hip Cephalomedullary Nail on 03/11/20. - Postoperative x-ray demonstrated well aligned well fixed implant. - Ortho has signed off on patient and will require follow up with surgeon in 10-12 days. - Resumed Eliquis for AFib/DVT prophylaxis post-op. - Currently non-weightbearing of RLE with toe touch exercises. - Pain control with Tylenol, Oxycodone and Morphine PRN. - PT/OT ordered, encourage early mobility of patient. - As long as rates remain relatively controlled overnight, plan for discharge as accepted by [facility] already. Paroxysmal Atrial Fibrillation: - Diagnosed 1 month prior to admission. - Continue Eliquis 5 mg twice daily. - On arrival patient had A. fib with RVR on telemetry and EKG, was eventually placed on diltiazem drip for heart rate in 120s to 130s. - Patient had a period of HR in the 80's yesterday evening, but has since return ed to averages in the 120's - Cardiology consulted at this point as patients afib has been difficult to manage off of Cardizem drip, appreciate recs. -Patient has a unique pattern to heart rate being that it raises at night and is more well controlled during day. -Cardizem 120mg BID and Metoprolol Succinate 50mg qAM stabilized patten of rise and fall, but still having rates averaging in the 120-130's -Per cardiology increase to Cardizem 180mg BID and Metoprolol Succinate 150mg qAM -Also noted swelling of LE the past few days with patient stated weight gain of 20lbs -Likely multifactorial including afib, inactivity, and CCB -Fluid restriction 1000ml daily. -Lasix 40mg IV BID and Mario hose Malnutrition -Discussed with patient about importance of eating well and staying hydrated -Patient noting that she will attempt to increase PO intake and caloric intake by using boost/ensure. -Dietary consult placed, diet minced and moist. Anemia - Acute on Chronic: - Likely secondary to Hip Fx with chronic anemia at baseline with Hgb 11 prior to this admission. - Transfused 1 unit PRBC prior to surgery. - Hgb stable now. - Continue to monitor daily and PRN symptoms of symptomatic anemia while admitted. - Transfuse if Hgb <7 or becomes symptomatic with Hgb <8. Fall w/ Scalp laceration: - Appeared mechanical in nature. - Not secondary to Atrial fibrillation or other neuro deficit. Patient is at her baseline with regard to mental status and physical functioning save for right lower extremity. - Scalp laceration noted on exam, Head CT negative for bleed. Constipation - resolved: - Miralax q8h scheduled and will titrate as needed for one soft BM per day. - Resolved Hypertension: - Creatinine back to baseline - Hold Dyazide for now, BP normotensive and at times soft. - Diltiazem and metoprolol as above. L Knee Laceration: - Wound consulted, area is without purulent drainage and appears clean, dry, intact. - Dressing changes daily and PRN. Osteoporosis: - Diagnosis in the setting of Fx with mechanical fall from standing height. - Started patient on Vitamin D and Calcium while inpatient when taking PO - DC calcium supplement and encourage calcium rich foods instead for better absorption - Patient will likely require Bisphosphonate therapy 1 month after surgery. Post Nasal Drip: - Likely secondary to allergic rhinitis. - Nasacort daily. Dispo: Med/Surg with Telemetry FEN: Minced and Moist, Fluid restrict 1000ml DVT: Eliquis 5mg BID Code Status: Full Code (2) Fall: (3) Scalp laceration: (4) Paroxysmal atrial fibrillation: (5) Hypertension: (6) Dyslipidemia: (7) Hyperlipidemia: (8) Osteoporosis: (9) Constipation: Admission and Anticipated Discharge Date Admission Date: March 08, 2020 Supervising Physician Co-Signing Physician Notes Patient seen and examined with PGY-2 Dr. Martinez. Agree with history, exam findings, assessment and plan of care as outlined. 85 year old female with history of pAF, HTN, HLD admitted with right closed intertrochanteric fracture following a fall. Feeling well today. Still has some swelling in the legs but feels that this is improved. VS and labs reviewed. Nursing notes reviewed. Sitting comfortably in the bedside chair. Heart rate in the high 110s, irregularly irregular. +2 pitting edema to the knees. Skin is no longer tense. Lungs are clear to auscultation in all lung banerjee. 1. Closed intertrochanteric fracture s/p cephalomedullary nail on 03/11/2020. NWB, TT exercises. Pain control with Tylenol, oxy and morphine. Home Eliquis resumed for post-op DVT prophy. Has a bed at [facility]. 2. With hip fracture, consistent with osteoporosis. Starting antifracture therapy 1 month following surgery. Started vitamin D (vitamin D level 15.9). Calcium rich diet. Will need DXA prior to initiation of any antifracture medication. 3. pAF. Elevated HRs overnight. Goal to have average heart rates in the 100- 110s. Cardizem ER 180mg BID and metoprolol succinate 150mg per cardiology recs. 4. lower extremity edema. Likely secondary to IVFs given, relatively immobile, and third spacing due to low albumin. IV Lasix. Mario hose. Suspect this will improve as she becomes a bit more mobile too. Avoid excess fluids. Dispo: pending improvement in rate control of afib. Will discharge to [facility]. Subjective Patient evaluated while laying down at the bedside. Patient noted that she was feeling a little dizzier today, but that it resolved with laying down. States she is eager to go to rehab. No other concerns at this time. Review of Systems Constitutional: + weakness; no fever and no chills Respiratory: no cough, no dyspnea and no pain on inspiration Cardiovascular: no chest pain, no dyspnea on exertion and no palpitations Gastrointestinal: no abdominal pain, no constipation and no diarrhea/loose stools Genitourinary: no dysuria Musculoskeletal: + joint pain and + muscle weakness Physical Exam Constitutional: well developed and well nourished; no acute distress Respiratory: normal respiratory effort, lungs clear to auscultation Cardiovascular: Rate/Rhythm: + abnormal rate (irr-irr at 130bpm) and + abn ormal rhythm Heart Sounds: + murmur (2/6 DELMIS ) Vessels: posterior tibial pulses present and dorsalis pedis pulses present Extremities: + edema (+2 b/l to the mid sanchez) Gastrointestinal (Abdomen): normal bowel sounds, soft, nontender, no hepatosplenomegaly Skin: no rashes, warm and dry Psychiatric: A+Ox3, euthymic affect Results & Data Results & Data ([facility]) Vital Signs (Past 12 Hours) Vital Signs Temp Pulse Pulse Pulse Resp BP BP 03/18/20 09:26 36.6 C 96 H 18 114/75 03/18/20 07:31 139 H 03/18/20 07:22 36.8 C 91 H 20 102/71 03/18/20 04:18 36.6 C 94 H 18 104/67 03/18/20 01:00 126 H 03/17/20 23:22 36.7 C 127 H 18 100/63 Pulse Ox 03/18/20 09:26 98 03/18/20 07:31 03/18/20 07:22 93 03/18/20 04:18 96 03/18/20 01:00 03/17/20 23:22 96 Resident Activity Tracking Resident Involvement: Resident Care Provided Care Provided: Adult Hospital Medicine (1) Closed intertrochanteric fracture of right hip Encounter type: initial encounter Fracture alignment: displaced Qualified Code(s): S72.141A - Displaced intertrochanteric fracture of right femur, initial encounter for closed fracture
[2020-03-18] MEDS: dilTIAZem HCL 120 MG CAPCR PO SCH (09:54)
[2020-03-18] MEDS: TRIAMCINOLONE ACET NASAL SPRAY 10.8ML BTL NAE SCH (09:55)
[2020-03-18] MEDS: CHOLECALCIFEROL 1,000 UNITS 25 MCG TAB PO SCH (09:55)
[2020-03-18] MEDS: MICONAZOLE NITRATE POWDER 43 GM EXT SCH ×2 (09:56→20:00)
[2020-03-18] MEDS: POLYETHYLENE (MIRALAX) 17 GM PACK PO SCH ×3 (09:56→20:02)
[2020-03-18] MEDS: FAMOTIDINE 20 MG TAB PO SCH ×2 (09:56→20:02)
[2020-03-18] MEDS: APIXABAN 5 MG TABLET PO SCH ×2 (09:56→20:01)
--- NOTE | 2020-03-18 12:12 | Cardiology Progress Note ---
Date of Service March 18, 2020 Assessment & Plan (1) Paroxysmal atrial fibrillation: She has had paroxysmal atrial fibrillation identified in the past although it does seem to be more persistent now and she has been in it for this week. The heart rate had been controlled in the early afternoon but elevated other times, by adjusting her medications we have evened out her heart rate but it is still too high. I am going to keep the relative doses and administration time in the same and increase her beta-blockade and her diltiazem. Other options include converting her rhythm back to normal, either using medications or cardioversion, although we would likely need ongoing antiarrhyt hmic therapy to maintain sinus rhythm and it is potentially risky since her anticoagulant was stopped prior to surgery so we should probably consider JEFFY if we are going to go that route. If we have increasing difficulty with edema, worsening in symptoms (currently she is asymptomatic) or inability to control the heart rate we should probably do this. (2) Chronic anticoagulation: She needs to be on anticoagulation and she seems to be doing well on Eliquis, she is on the correct dose for her weight and renal function. (3) Edema of both legs: Her edema has not really improved overall and is quite significant continue. This is likely a combination of sitting most the day with her legs down, calcium blockade which can contribute to leg edema, persistent atrial fibrillation and a low albumin which is now only 2.1. I would consider diet supplementation to raise her albumin, her narcotics may be affecting her appetite since she is not eating much. I have advised her to keep her legs up as much as possible and I will increase her diuretic since she is not losing weight. I did add a fluid restriction and changed her to a heart healthy diet which may decrease her salt intake. I am also going to order support stockings. Admission and Anticipated Discharge Date Admission Date: March 08, 2020 Subjective She is not feeling very well today, she is complaining of nausea, her legs remain swollen, she does not have much of an appetite and is not eating very much and she has a lot of hip pain. No palpitations or cardiovascular symptoms. Physical Exam Physical Exam: Constitutional: Alert, cooperative and in no distress. HEENT: Unremarkable Neck: No jugular venous distention, carotid pulses are irregular but otherwise normal and equal bilaterally without bruits. Pulmonary: Clear to auscultation bilaterally. Cardiac: Irregular rhythm with no murmur, gallop or rub. Abdomen: Soft, nontender with normal bowel sounds. Extremities: +3 bilateral pretibial edema. Distal pulses intact. Neurologic: No focal findings. Gait was not tested. Skin: No rash, ecchymoses or petechiae. Results & Data ([facility]) Vital Signs (Past 12 Hours) Vital Signs Temp Pulse Pulse Pulse Pulse Resp BP 03/18/20 11:23 102 H 03/18/20 11:22 105 H 03/18/20 11:06 36.9 C 89 18 03/18/20 09:26 36.6 C 96 H 18 114/75 03/18/20 07:31 139 H 03/18/20 07:22 36.8 C 91 H 20 102/71 03/18/20 04:18 36.6 C 94 H 18 03/18/20 01:00 126 H BP Pulse Ox 03/18/20 11:23 104/67 97 03/18/20 11:22 103/69 97 03/18/20 11:06 93/62 L 97 03/18/20 09:26 98 03/18/20 07:31 03/18/20 07:22 93 03/18/20 04:18 104/67 96 03/18/20 01:00 Laboratory Results Comprehensive Metabolic Panel 03/18/20 Range/Units 07:43 Sodium 138 (136-145) mmol/L Potassium 4.2 (3.5-5.1) mmol/L Chloride 102 (98-107) mmol/L Carbon Dioxide 30 (21-32) mmol/L BUN 25 H (7-18) mg/dl Creatinine 1.20 (0.6-1.2) mg/dl Glucose 102 H (70-99) mg/dl Calcium 9.1 (8.5-10.1) mg/dl Intake and Output 03/17/20 03/18/20 03/18/20 22:59 06:59 14:59 Intake Total 100 / 340 Output Total 300 / 300 Balance 100 / 40 -300 / 40 Intake: Oral 100 / 340 Output: Urine 300 / 300 Other: # Unmeasured Voids 1 Weight 79.2 kg Diagnostic Findings Telemetry: Atrial fibrillation, heart rate is now relatively consistent although elevated in general averaging perhaps 120 bpm PG Care Time/CCT Total # of Minutes Spent Total Time Spent with Patient: Total time spent is greater than 50% in coordination of care (as documented) at patient's floor/unit and/or counseling patient: Coding Level of Care Code 24186 Subseq Hosp Care Lvl 2 Diagnoses Paroxysmal atrial fibrillation I48.0 Chronic anticoagulation Z79.01 Edema of both legs R60.0
[2020-03-18] MEDS: FUROSEMIDE 40 MG in SYRINGE 0 ML IV SCH ×3 (13:48→20:54)
[2020-03-18] MEDS: dilTIAZem HCL 180 MG CAPCR PO SCH (20:00)
[2020-03-18] MEDS: DOCUSATE SODIUM/SENNA 50/8.6MG TAB PO SCH (20:03)
[2020-03-18] MEDS: MoRPHine SULFATE 2 MG/ML CARP IV PRN ×2 (20:03→20:54)
[2020-03-19] MEDS: oxyCODONE HCL IR 5 MG TAB (IMMEDIATE RELEASE) PO PRN ×3 (03:32→14:19)
[2020-03-19] MEDS: FUROSEMIDE 40 MG in SYRINGE 0 ML IV SCH ×2 (07:35→16:22)
[2020-03-19] MEDS: APIXABAN 5 MG TABLET PO SCH (07:36)
[2020-03-19] MEDS: dilTIAZem HCL 180 MG CAPCR PO SCH (07:36)
[2020-03-19] MEDS: FAMOTIDINE 20 MG TAB PO SCH (07:36)
[2020-03-19] MEDS: CHOLECALCIFEROL 1,000 UNITS 25 MCG TAB PO SCH (07:36)
[2020-03-19] MEDS: TRIAMCINOLONE ACET NASAL SPRAY 10.8ML BTL NAE SCH (07:37)
[2020-03-19] MEDS: POLYETHYLENE (MIRALAX) 17 GM PACK PO SCH ×2 (07:37→14:13)
[2020-03-19 08:16] LABS: Basophils # (auto) 0.01 K/uL (0-0.2); Basophils % (auto) 0.1 %; Eosinophils # (auto) 0.15 K/uL (0-0.5); Eosinophils % (auto) 1.4 %; Hematocrit (blood only) 29.1 % (37-47); Hemoglobin 9.3 g/dL (12.0-16.0); Immature Granulocytes # (auto) 0.11 K/uL (0.00-0.02); Immature Granulocytes % (auto) 1.1 %; Lymphocytes % (auto) 17.3 %; Mean Corpuscular Hemoglobin 31.2 pg (25-34); Mean Corpuscular Volume 97.7 fL (80-100); Mean Platelet Volume 9.6 fL (7.4-10.4); Monocytes # (auto) 0.88 K/uL (0.11-0.59); Monocytes % (auto) 8.4 %; Neutrophils # (auto) 7.48 K/uL (1.4-6.5); Neutrophils % (auto) 71.7 %; Platelet Count 401 K/uL (130-400); RDW Coefficient of Variation 17.2 % (11.5-14.5); RDW Standard Deviation 58.9 fL (36.4-46.3); Red Blood Count 2.98 M/uL (4.2-5.4); White Blood Count 10.43 K/uL (4.8-10.8)
[2020-03-19 08:44] LABS: BUN Creatinine Ratio 24.6 (10-20); Calcium 8.7 mg/dl (8.5-10.1); Creatinine Clr Calc Pharmacy 30.9 ml/min; Est GFR (African American) 48.1; Est GFR (Non-African American) 41.5; Potassium 3.7 mmol/L (3.5-5.1)
[2020-03-19] MEDS ORDERED: METOPROLOL SUCC 50MG EXT REL TAB PO SCH (09:00)
[2020-03-19] MEDS: MICONAZOLE NITRATE POWDER 43 GM EXT SCH (12:54)
[2020-03-19] MEDS ORDERED: DIGOXIN 0.125 MG TAB PO ONE (13:45)
[2020-03-19] MEDS: MoRPHine SULFATE 2 MG/ML CARP IV PRN (16:22)
--- NOTE | 2020-03-19 16:22 | Discharge Summary ---
Date of Service March 19, 2020 Admission HPI Per Admitting Provider Anny Stahl is an 85-year-old female who presents to the ER after a fall. Around 8 PM last night she tripped over a throw rug and landed on her right side. She denies any lightheadedness, chest pain, shortness of breath, unsteadiness prior to the fall. She fell onto a tiled kitchen floor. Right groin/hip pain since the fall. She did not have her phone that her and lied on the floor all night. She was recently started on Eliquis due to new onset atrial fibrillation. She denies any melena or bright red blood in stool. Hemoglobin has decreased from 13.8-10.2 over the last 10 days. No recent palpitations, shortness of breath, leg swelling, claudication, orthopnea, PND, presyncope or syncope. Last took Eliquis this morning. Last ate yesterday. Small amount of water this morning. Admission Exam Per Admitting Provider Constitutional: well developed, well nourished and + disheveled; no acute distress Eyes: PERRL, conjunctivae normal, anicteric sclerae ENMT: external ear and nose normal, oropharynx normal Neck: trachea midline, no thyromegaly Respiratory: normal respiratory effort, lungs clear to auscultation Cardiovascular: Rate/Rhythm: regular rate and regular rhythm Heart Sounds: + murmur (2/6 loudest LLSB) Vessels: no JVD Extremities: normal capillary refill; no calf tenderness and no pedal edema Gastrointestinal (Abdomen): normal bowel sounds, soft, nontender, no hepatosplenomegaly Musculoskeletal: Holding right leg with hip flexion and external rotation and knee flexion. Painful to extend. Painful on minimal internal or external rotation of right hip. Skin intact over the hip fracture. Neurovascular intact distally. Skin: no rashes, warm and dry Neurologic: moves all extremities and awake; not confused Psychiatric: A+Ox3, euthymic affect Principal Diagnosis R intertrochanteric fracture Discharge Exam Constitutional well developed and well nourished; no acute distress Respiratory normal respiratory effort, lungs clear to auscultation Cardiovascular Rate/Rhythm: + abnormal rate (irr-irr at 120bpm) and + abnormal rhythm Heart Sounds: + murmur (2/6 DELMIS ) Vessels: posterior tibial pulses present and dorsalis pedis pulses present Extremities: + edema (+2 b/l to the mid sanchez) Gastrointestinal (Abdomen) normal bowel sounds, soft, nontender, no hepatosplenomegaly Skin no rashes, warm and dry Trauma: + laceration (Noted on the R forehead, no bleeding or erythema ) Psychiatric A+Ox3, euthymic affect Discharge Data Allergies Allergy/AdvReac Type Severity Reaction Status Date / Time No Known Allergies Allergy Verified 03/08/20 10:45 Consultations 03/08/20 11:12 ED Decision to Admit Stat 03/08/20 14:13 Consult Case Management - Discharge Planning Routine Consult Orthopedic Surgery Routine 03/10/20 17:51 Consult Case Management - Discharge Planning Routine 03/14/20 16:39 Consult [employer] job titles Routine 03/15/20 12:56 Consult Cardiology Routine 03/19/20 13:34 Consult [employer] job titles Routine Procedures Performed Operation Date: 03/10/20 07:00 Actual Procedures p Right Hip Cephalomedulary Nail (Right) - Juan Perez DO Ordered Studies 03/08/20 08:27 CT head/brain wo con Stat 03/10/20 12:30 FL fluoroscopy <1hr Routine FL hip RT 2-3V Routine Hospital Course (1) Closed intertrochanteric fracture of right hip: Patient is an 85 year old female with PMHx Paroxysmal Afib, HTN, HLD who presented to the ED secondary to a fall, found to have a closed R intertrochanteric fracture. R Closed Intertrochanteric Fracture s/p ORIF: - Noted on Hip/Pelv CT in ED on arrival. - Ortho performed R hip Cephalomedullary Nail on 03/11/20. - Postoperative x-ray demonstrated well aligned well fixed implant. - Ortho has signed off on patient and will require follow up with surgeon in 10-12 days. - Resumed Eliquis for AFib/DVT prophylaxis post-op. - Non-weightbearing of RLE with toe touch exercises. - Pain control with Tylenol, Oxycodone and Morphine PRN while inpatient -Discharged with Tylenol and Oxycodone 5mg q4h PRN for pain - Discharged to [facility] with plans to follow up with Ortho in 10 days. Paroxysmal Atrial Fibrillation: - Diagnosed 1 month prior to admission. - Continued Eliquis 5 mg twice daily. - On arrival patient had A. fib with RVR on telemetry and EKG, was eventually placed on diltiazem drip for heart rate in 120s to 130s. - Cardiology consulted -Patient has a unique pattern to heart rate being that it raises at night and is more well controlled during day. -Cardizem 180mg BID, Metoprolol Succinate 150mg qAM, Digoxin 0.125mg -Follow up with Dr. Hernández cardiology the week of 03/22/20. -Also noted swelling of LE over the course of admission with patient stating weight gain of 20lbs -Likely multifactorial including afib, inactivity, and CCB -Fluid restriction 1000ml daily. -Lasix 40mg IV BID while inpatient, transitioned to Lasix 40mg PO BID upon discharge. Malnutrition -Discussed with patient about importance of eating well and staying hydrated -Patient noted that she will attempt to increase PO intake and caloric intake by using boost/ensure. -Dietary consult placed, diet minced and moist. Anemia - Acute on Chronic: - Likely secondary to Hip Fx with chronic anemia at baseline with Hgb 11 prior to this admission. - Transfused 1 unit PRBC prior to surgery. - Hgb stable. Fall w/ Scalp laceration: - Appeared mechanical in nature. - Not secondary to Atrial fibrillation or other neuro deficit. Patient is at her baseline with regard to mental status and physical functioning save for right lower extremity. - Scalp laceration noted on exam, Head CT negative for bleed. Constipation - resolved: - Miralax q8h scheduled and will titrate as needed for one soft BM per day. - Resolved Hypertension: - Creatinine back to baseline by discharge. - Held Dyazide as patient was normotensive, rec to continue to hold after discharge until able to lower Metoprolol and Diltiazem. - Diltiazem and metoprolol as above. L Knee Laceration: - Wound consulted, area is without purulent drainage and appeared clean, dry, intact. Osteoporosis: - Diagnosis in the setting of Fx with mechanical fall from standing height. - Started patient on Vitamin D, rec to continue after discharge - Will require DEXA scan in the outpatient setting - Patient will likely require Bisphosphonate therapy 1 month after surgery. Post Nasal Drip: - Likely secondary to allergic rhinitis. - Nasacort daily. (2) Fall: (3) Scalp laceration: (4) Paroxysmal atrial fibrillation: (5) Hypertension: (6) Dyslipidemia: (7) Hyperlipidemia: (8) Osteoporosis: (9) Constipation: Total Time Total Time Spent Total Time Spent (In Minutes): see attending attestation Discharge Plan Discharge Items Patient Disposition: Transfer Inpatient Rehab Fac Reason For Visit: RT HIP FX Discharge Diagnosis: R Intertrochanteric Fracture s/p repair Activity: Resume your previous activity Weightbearing: Right toe touch Non-emergency contact: Primary Care Provider, Surgeon and Die Storage Worker Call non-emergency contact if: you have any medication questions and your symptoms worsen Follow-up/Referrals: Franklin Whitaker MD [Primary Care Provider] - Juan Perez DO [Physician] - (Follow-up in approximately 2 weeks after surgery for reevaluation and staple removal.) Diet: Regular Fluids: 1000ml (4 cups) Diet Comment: minced and moist diet Addtl Attending Provider Instructions: Patient is an 85 year old female with PMHx Paroxysmal Afib, HTN, HLD who presented to the ED secondary to a fall, found to have a closed R intertrochanteric fracture. R Closed Intertrochanteric Fracture s/p ORIF: - Noted on Hip/Pelv CT in ED on arrival. - Ortho performed R hip Cephalomedullary Nail on 03/11/20. - Postoperative x-ray demonstrated well aligned well fixed implant. - Ortho has signed off on patient and will require follow up with surgeon in 10-12 days. - Pain control Tylenol 650mg q6h PRN and Oxycodone 5mg PO q4h PRN pain - Continue PT/OT - Discharge to [facility] - Follow up with Ortho Dr. Perez in 10 days. Paroxysmal Atrial Fibrillation: - Continue Eliquis 5 mg twice daily. - Cardiology was consulted with following recommendations upon discharge -Continue Cardizem 180mg PO BID -Continue Metoprolol succinate 150mg PO qAM -Continue Digoxin 0.125mg PO daily - Follow up with Cardiology early the week of 03/22/20 Dr. Hernández Bilateral Leg Swelling -Fluid restriction 1000ml daily -Lasix 40mg by mouth BID -Recommend repeat BMP in the next 3-4 days Malnutrition -Discussed with patient about importance of eating well and staying hydrated -Patient noting that she will attempt to increase PO intake and caloric intake by using boost/ensure. -Dietary consult placed, diet minced and moist. Hypertension: - Can continue to hold home Dyazide as patient is on increased Cardizem and Metoprolol succinate than usual. - May be resumed at patients follow up visit with Cardiology. L Knee Laceration: - Dressing changes daily and PRN. Osteoporosis: - Diagnosis in the setting of Fx with mechanical fall from standing height. - Continue Vitamin D supplement - Will require DEXA in roughly 1 month - Patient will likely require Bisphosphonate therapy 1 month after surgery (04/10/20). Post Nasal Drip: - Nasacort daily. Dispo: [facility] FEN: Minced and Moist, Fluid restrict 1000ml DVT: Eliquis 5mg BID Code Status: Full Code Addtl Development Coach Provider Instructions: [facility] DISCHARGE INSTRUCTIONS: HIP FRACTURE SELF CARE INSTRUCTIONS: A. You are to ambulate with a walker or crutches for approximately 6 weeks. B. You are TOE TOUCH NON WEIGHT BEARING on your operative lower extremity for at least 6 weeks. C. Wear low heeled shoes with non-slip soles D. Be sure that your floors are free of things that could trip you throw rugs, electrical cords, and small objects. Avoid wet and waxed floors, especially with crutches/walker/cane. E. Try to walk several times a day with rest periods between. F. You may shower 48 hours after surgery and get the incision area wet, but DO NOT soak or submerge incision area in water. (No baths, swimming pools, hot tubs) G. You may have a large, band-aid like dressing over your incision (Aquacel). This will remain on your incision for 7 days, and then can be removed. You CAN shower with this on. If incision is leaking through the dressing, please call the office . H. Do NOT apply soap or any ointment/lotions directly over incision. I. You may use ice as needed to operative site. SPECIAL CARE INSTRUCTIONS: VERY IMPORTANT TO READ AND REVIEW A. You may be at risk for phlebitis or blood clots. a. Wear surgical stockings (MILTON hose) for 2 weeks after surgery to improve circulation and reduce swelling. b. Take Apixaban 5mg twice a day. This is your blood thinner. c. If you are on Coumadin- you will have daily/weekly bl ood work to monitor your levels. This will be done by either your family physician/battery plate remover (if you are on Coumadin chronically) versus your orthopedic surgeon. Expect a phone call the day of or the day after your blood work is drawn to adjust your dose accordingly. B. There are a few signs you need to watch for after you are home. Call [facility] at [phone] if you experience any of the following: a. If you have a temperature of 101 degrees or higher. b. Sudden increase in pain in your hip not relieved by rest or pain medication. c. Any fluid or drainage from the incision; redness of the incision. d. Shortness of breath or chest pain. C. Call your physician if: a. Temperature is greater than 101 degrees (F). b. Pain is not relieved by prescribed pain medic ations. c. Increase drainage or redness from incision. d. Unanswered questions or concerns. D. Pain Medication: a. You will be prescribed pain medication upon discharge that should last till your first post-operative appointment. b. If you experience nausea and/or skin rash, discontinue this medication and contact our office for an alternative medication. c. Caution- narcotic pain medication can cause constipation. FOLLOW UP VISIT: Please call [facility] at [phone] to schedule a follow up appointment 10-14 days from the date of your surgery date with Dr Perez. Pending Studies at Discharge: No Stand-Alone Forms: My [facility] Skilled Items Patient informed of condition?: Yes DNR: No Discharge Level of Care: Acute rehab Communicable Disease: No Discharge Prognosis: Stable Lines: None Urinary Catheter: No Medications and DC Order Prescriptions: New acetaminophen 325 mg Tablet 650 mg PO Q6H PRN (Reason: pain) 30 Days RF: 0 polyethylene glycol 3350 [Miralax] 17 gram Powder In Packet 17 g PO TID 30 Days RF: 0 diltiazem HCl 180 mg Capsule,Extended Release 24hr 180 mg PO BID 30 Days Qty: 60 RF: 0 metoprolol succinate 50 mg Tablet Extended Release 24 Hr 150 mg PO QAM 30 Days Qty: 90 RF: 0 triamcinolone acetonide [Nasacort] 55 mcg Aerosol,[place] 2 spray FOREIGN DAILY 30 Days RF: 0 oxycodone 5 mg Tablet 5 mg PO Q4H PRN (Reason: pain) 30 Days RF: 0 cholecalciferol (vitamin D3) 25 mcg (1,000 unit) Capsule 5,000 unit PO QAM 30 Days RF: 0 Continued Eliquis 5 mg tablet 5 mg PO BID Qty: 60 RF: 11 PreserVision AREDS [id number],[id number] Tablet 2 tab PO BID RF: 0 Discontinued triamterene-hydrochlorothiazid [Dyazide] 37.5-25 mg capsule 1 cap PO DAILY Qty: 30 RF: 6 diltiazem HCl 180 mg capsule,extended release 24 hr 180 mg PO DAILY Qty: 30 RF: 5 Discharge Orders: Discharge Order (Routine); Ordered 03/19/20 Ordered By: Jeremiah Martinez Admission Data Admit Date/Time: 03/08/20 12:30 Attending Provider: Rah Smyth Admit Provider: Tavares Tavares Primary Care Provider: Franklin Whitaker Other Providers: [facility] ; Tavares Tavares ; Chase Bear ; Arian Hernández Other Interventions: Discharge Summary Assessment (RN) Last Done: 03/19/20 16:29 Supervising Physician Co-Signing Physician Notes Attending attestation Pt seen and examined in concert with Dr. Martinez. In agreement with the documented findings as noted in the resident documentation with any exceptions or additions as noted here. 85 y/o female with history of pAF, HTN, HLD admitted with right closed intertrochanteric fracture following a fall. Continuing to improve - working with PT with more ROM and less pain. On examination, S1/S2 IRR/IRR no MCG. CTAB. Abd NT/ND BS+ve. 2+ pitting edema to the knees, nontense Closed intertrochanteric fx s/p nail on 9.3 - Pain control as noted, eliquis for post-op DVT. Engaged for PT at [facility] Concern for osteoporotic fracture - Vit D, to start antifracture medication following DEXA if positive pAF - cardizem and toprol as noted - HR in the 100s-110s today Else see resident documentation as noted. Resident Activity Tracking Resident Involvement: Resident Care Provided Care Provided: Adult [facility]
== END 2020-03-19 16:51 | DRG 481 ==
LOC: ED 08:02 → SUATTDRO 12:30 → 2W 12:30 → 3W 03-09 12:15 → 2N 03-09 21:29 → 2E 03-11 10:45 → 2W 03-13 15:11

== ENCOUNTER 2020-06-09 07:47 | Inpatient (IN) ==
--- NOTE | 2020-06-09 07:52 | Emergency Department Note ---
Impression & Plan Right hip pain, Renal insufficiency, Paroxysmal atrial fibrillation, Chronic anticoagulation, Dehydration ED Provider Note NAME: ROGER OTERO AGE: 85 SEX: F ARRIVES VIA: Ambulance INFORMANT: Patient, ED PROVIDER(S): Alcon Myers MD CHIEF COMPLAINT: Hip Pain, weakness PLAN: Disposition: Admit MEDICAL DECISION MAKING: The patient is a pleasant 85-year-old woman with a past medical history of CKD, paroxysmal atrial fibrillation on Eliquis who presents emergency department with continued right hip pain the concern by the patient's daughter (visiting from [place]) for decreased oral intake and failure to thrive over the past 2 weeks after being seen in the emergency department where she was diagnosed with migration of her recent femoral nail with plan for hip replacement this coming Sunday with her orthopedic surgeon, Dr. Perez. The patient and her daughter are concerned that she is not being successful at home and feels that she needs admitted for pain control and supportive care. She denies any fevers, chills, cough, congestion, nausea, vomit, diarrhea, urinary symptoms. On arrival the patient is uncomfortable no acute distress, afebrile with stable vital signs. She has mild tenderness of the right groin and right lateral aspect of her hip. Range of motion is intact but causes discomfort. Distal PMS intact. EKG with afib, without evidence of acute ischemia. CXR negative for acute process. WBC, H/H and platelets within normal limits. Chemistry without acidosis. Creatinine 1.4 consistent with the patient's clinically dry appearance. Calcium 10.9 and magnesium 1.7. Plain films of the right hip are unchanged from prior and again show the migration of the patient's femoral trochanteric nail with tip extending beyond the cortex of the femoral head and into the joint space. Resident, Dr. Sriram Smith, discussed the case with the patient's orthopedic surgeon, Dr. Perez, and agrees with plan for admission to medical service for clearance and plan for OR during hospitalization. Dr. Smith discussed the patient's case with Dr. Butt, [facility] hospitalist, who will evaluate the patient for admission. This patient was managed with the assistance of resident, Dr. Sriram Smith. I discussed the case with the resident, examined the patient, and confirm the findings and plan as documented in this note. Triage Nursing notes reviewed and agree them. Additional history obtained from daughter Prior medical records reviewed Vital Signs: reviewed and remarkable for no significant abnormalities Differential diagnosis: Infection, dehydration, metabolic abnormality, hypo/hyperglycemia, electrolyte disturbance, anemia, hypoxia, cardiac sources, intracerebral event, toxicologic, neurologic, as well as other pathologies. ER treatment provided: See below. Diagnostics interpreted by me: ECG: Atrial fibrillation, 98 bpm, no ectopy, no overt ST elevation or depression. Cardiac Monitoring: An order for continuous cardiac monitoring was placed and demonstrated Atrial fibrillation, 98 bpm, no ectopy Laboratory studies: See below Imaging studies: XR chest 1V portable CLINICAL HISTORY: preop COMPARISON STUDY: 03/08/2020 FINDINGS: The heart is mildly enlarged. There is no failure. There is no focal pulmonary consolidation. There are no pleural effusions. There is an old proximal left humeral deformity.[ IMPRESSION: No active disease in the chest. ---- XR hip RT 2V w pelvis CLINICAL HISTORY: Right hip pain COMPARISON: 05/28/2020 DISCUSSION: There are postsurgical changes of an internally fixated intertrochanteric right hip fracture. There is a trochanteric nail and interlocking medullary jabari. The trochanteric nail appears to breach the femoral head cortex superiorly. IMPRESSION: 1. Healing internally fixated intertrochanteric right hip fracture 2. The trochanteric nail remains malpositioned with its tip extending beyond the cortex of the femoral head and into the joint space. Consultation(s): Dr. Perez, Orthopedic Surgery. Dr. Butt, [facility] hospitalist. HPI: The patient is a pleasant 85-year-old woman with a past medical history of CKD, paroxysmal atrial fibrillation on Eliquis who presents emergency department with continued right hip pain the concern by the patient's daughter (visiting from [place]) for decreased oral intake and failure to thrive over the past 2 weeks after being seen in the emergency department where she was diagnosed with migration of her recent femoral nail with plan for hip replacement this coming Sunday with her orthopedic surgeon, Dr. Perez. The patient and her daughter are concerned that she is not being successful at home and feels that she needs admitted for pain control and supportive care. She denies any fevers, chills, cough, congestion, nausea, vomit, diarrhea, urinary symptoms. ROS: See above HPI for pertinent positives & negatives. A total of 10 systems reviewed and were otherwise negative. PAST MEDICAL HISTORY:See Below PAST SURGICAL HISTORY:See Below FAMILY HISTORY:See Below SOCIAL HISTORY:See Below HOME MEDICATIONS:See Below ALLERGIES:See Below VITALS:See Below PHYSICAL EXAMINATION: GENERAL: Awake, alert, fatigued/uncomfortable-appearing, in no distress HENT: Normocephalic, atraumatic. Oropharynx with dry mucous membranes and otherwise unremarkable. . EYES: Normal conjunctiva. Sclera non-icteric. NECK: Supple. No nuchal rigidity. FROM. No JVD. RESPIRATORY: Clear to auscultation. CARDIAC: Regular rate, normal rhythm. Extremities warm and well perfused. Pulses equal. ABDOMEN: Soft, non-distended. No tenderness to palpation. No rebound or guarding. No masses. RECTAL: Deferred. MUSCULOSKELETAL: Chest examination reveals no tenderness. The back is symmetrical on inspection without obvious abnormality. There is no CVA tenderness to palpation. No joint edema. LOWER EXTREMITIES: Mild tenderness of the right inguinal and right lateral hip. Range of motion intact but causes discomfort. Distal PMS intact. Calves are equal size bilaterally and non-tender. No edema. No discoloration. NEURO: Normal sensorium. No sensory or motor deficits noted. SKIN: No rash or jaundice noted. Alcon Myers MD Past Med/Surg History Medical History Atrial fibrillation with rapid ventricular response 02/[address] kendrick COPD (chronic obstructive pulmonary disease) Dyslipidemia Hx of gout Hypertension On anticoagulant therapy Osteoarthritis Surgical History History of cardioversion 04/2020 [place] History of open reduction and internal fixation (ORIF) procedure right hip with nailing 03/2020 History of total right knee replacement Dr. Jeremiah Eddy [place], [place] 05/2017 S/P cataract surgery Family History Father , age 59 Myocardial infarction Social History Smoking Status: Former smoker Tobacco Type: Cigarettes Years Smoked: 15; Cigarettes Per Day: 0.5 ppd; Smoking End Date: 1971; Second Hand Exposure: No; Do You Dip or Chew Tobacco: No; Hx Alcohol Use: No Hx Substance Use: No Preferred Language: Portuguese Communication Ability: Effective Hearing Ability: Normal Client Solutions Specialist Required: No Beliefs That Will Affect Care: None marital status: / Current Living Situation: Alone Current Living Situation Comment: 1 floor apartment current occupational status: retired How many Children do You have: 4 Other Information That Helps Us Care for You: No Feels Safe at Home: Yes Safety Concerns: Feels Safe At This Time Assistive Devices: Walker and Wheelchair Allergies Allergies Allergy/AdvReac Type Severity Reaction Status Date / Time No Known Allergies Allergy Verified 06/09/20 08:18 Home Meds Home Medications Medication Instructions Recorded Confirmed fluticasone propionate 1 spray INTRANASAL QAM PRN 04/06/20 06/09/20 diltiazem HCl 180 mg capsule,24 180 mg PO BID cap 05/07/20 06/09/20 hr,extended release metoprolol succinate 50 mg 150 mg PO QAM tab 05/13/20 06/09/20 tablet,extended release 24 hr spironolacton-hydrochlorothiaz 1 tab PO QAM 06/07/20 06/09/20 [Aldactazide] docusate sodium [Stool Softener] 100 mg PO BID 06/09/20 06/09/20 furosemide 40 mg PO QAM 06/09/20 06/09/20 oxycodone 5 mg PO Q6H PRN 06/09/20 06/09/20 potassium chloride 10 meq PO QAM 06/09/20 06/09/20 Previous Rx's Medication Instructions Recorded apixaban 5 mg tablet 5 mg PO BID #60 tab 03/02/20 Results & Data (ED) Vital Signs Vital Signs - 24 hr 06/09/20 07:57 06/09/20 08:30 06/09/20 08:49 Temperature 36.8 C Temperature Source Oral Pulse Rate 75 94 H 83 Pulse Rate from SpO2 Sensor Respiratory Rate 16 14 16 Respiratory Effort / Characteristics Non-Labored Spontaneous Respiratory Depth Normal Blood Pressure 111/80 107/87 Blood Pressure Mean 90 89 Blood Pressure Position Lying Pulse Oximetry 92 Oxygen Delivery Method Room Air Sepsis Recent Fever Within 48 Hours No Sepsis New/Unexplained Change in Mental Status No Sepsis Action Taken by Nursing No Action Required 06/09/20 08:50 06/09/20 09:00 06/09/20 09:30 Temperature Temperature Source Pulse Rate 82 85 Pulse Rate from SpO2 Sensor 63 Respiratory Rate 19 23 Respiratory Effort / Characteristics Respiratory Depth Blood Pressure 105/80 109/71 Blood Pressure Mean 90 77 Blood Pressure Position Pulse Oximetry 96 94 Oxygen Delivery Method Room Air Sepsis Recent Fever Within 48 Hours Sepsis New/Unexplained Change in Mental Status Sepsis Action Taken by Nursing 06/09/20 10:00 06/09/20 10:30 06/09/20 11:00 Temperature Temperature Source Pulse Rate 95 H 74 63 Pulse Rate from SpO2 Sensor 81 68 70 Respiratory Rate 17 13 17 Respiratory Effort / Characteristics Respiratory Depth Blood Pressure 97/61 L 98/73 L 96/72 L Blood Pressure Mean 77 83 77 Blood Pressure Position Pulse Oximetry 95 98 96 Oxygen Delivery Method Sepsis Recent Fever Within 48 Hours Sepsis New/Unexplained Change in Mental Status Sepsis Action Taken by Nursing 06/09/20 11:30 06/09/20 12:00 06/09/20 12:02 Temperature Temperature Source Pulse Rate 67 63 65 Pulse Rate from SpO2 Sensor 70 Respiratory Rate 13 19 13 Respiratory Effort / Characteristics Respiratory Depth Blood Pressure 94/58 L 77/34 L 70/43 L Blood Pressure Mean 77 52 56 Blood Pressure Position Pulse Oximetry Oxygen Delivery Method Sepsis Recent Fever Within 48 Hours Sepsis New/Unexplained Change in Mental Status Sepsis Action Taken by Nursing 06/09/20 12:03 06/09/20 12:05 06/09/20 12:30 Temperature Temperature Source Pulse Rate 85 71 72 Pulse Rate from SpO2 Sensor Respiratory Rate 17 15 14 Respiratory Effort / Characteristics Respiratory Depth Blood Pressure 73/51 L 92/67 L Blood Pressure Mean 57 82 Blood Pressure Position Pulse Oximetry Oxygen Delivery Method Sepsis Recent Fever Within 48 Hours Sepsis New/Unexplained Change in Mental Status Sepsis Action Taken by Nursing Laboratory Data Attestation: I reviewed the patient's lab results. Result diagrams: 06/09/20 09:19 06/09/20 11:52 Lab Results 06/09/20 06/09/20 06/09/20 Range/Units 09:19 09:19 11:52 WBC 9.06 (4.8-10.8) K/uL RBC 4.86 (4.2-5.4) M/uL Hgb 14.6 (12.0-16.0) g/dL Hct 43.8 (37-47) % MCV 90.1 (80-100) fL MCH 30.0 (25-34) pg MCHC 33.3 (32-36) g/dL RDW Std Deviation 44.4 (36.4-46.3) fL RDW Coeff of Abel 13.6 (11.5-14.5) % Plt Count 285 (130-400) K/uL MPV 12.0 H (7.4-10.4) fL Immature Gran % (Auto) 0.2 % Neut % (Auto) 68.1 % Lymph % (Auto) 22.2 % [place] % (Auto) 8.1 % Eos % (Auto) 1.2 % Baso % (Auto) 0.2 % Neut # (Auto) 6.17 (1.4-6.5) K/uL Lymph # (Auto) 2.01 (1.2-3.4) K/uL [place] # (Auto) 0.73 H (0.11-0.59) K/uL Eos # (Auto) 0.11 (0-0.5) K/uL Baso # (Auto) 0.02 (0-0.2) K/uL Immature Gran # (Auto) 0.02 (0.00-0.02) K/uL Sodium 134 L (136-145) mmol/L Potassium 4.1 (3.5-5.1) mmol/L Chloride 99 (98-107) mmol/L Carbon Dioxide 25 (21-32) mmol/L Anion Gap 10.0 (3-11) BUN 38 H (7-18) mg/dl Creatinine 1.44 H (0.6-1.2) mg/dl Est Cr Clr Drug Dosing 22.7 ml/min Est GFR ( Amer) 38.6 Est GFR (Non-Af Amer) 33.3 BUN/Creatinine Ratio 26.5 H (10-20) Glucose 97 (70-99) mg/dl Calcium 10.9 H (8.5-10.1) mg/dl Phosphorus 2.9 (2.5-4.9) mg/dl Magnesium 1.7 L (1.8-2.4) mg/dl Administered Medications Acetaminophen (Acetaminophen 500 Mg Tab) 1,000 mg PO Q8 JAMESON Stop: 07/09/20 17:59 Last Admin: 06/09/20 17:49 Dose: 1,000 mg Documented by: [id number] Diltiazem HCl (Diltiazem Er 180 Mg Capcr) 180 mg PO BID [facility] Stop: 07/09/20 20:59 Last Admin: 06/09/20 19:59 Dose: 180 mg Documented by: [id number] Docusate Sodium (Docusate Sodium 100 Mg Cap) 100 mg PO BID JAMESON Stop: 07/09/20 20:59 Last Admin: 06/09/20 19:59 Dose: 100 mg Documented by: [id number] Hydromorphone HCl (Hydromorphone Inj 0.5 Mg/0.5 Ml Syr) 0.25 mg IV Q4H PRN PRN Reason: Pain Stop: 06/23/20 12:46 Last Admin: 06/09/20 15:48 Dose: 0.25 mg Documented by: [id number] Sodium Chloride (Nss 1000ml) 1,000 mls @ 75 mls/hr IV .[id number] JAMESON Stop: 06/10/20 17:31 Last Admin: 06/09/20 16:41 Dose: 75 mls/hr Documented by: [id number] Polyethylene Glycol (Polyethylene (Miralax) 17 Gm Pack) 17 gm PO BID JAMESON Stop: 07/09/20 20:59 Last Admin: 06/09/20 19:59 Dose: 17 gm Documented by: [id number] Discontinued Medications Acetaminophen (Ofirmev) 1,000 mg in 100 mls @ 400 mls/hr IV NOW STA Stop: 06/09/20 08:50 Last Infusion: 06/09/20 09:45 Dose: 0 mls/hr Documented by: [id number] Admin: 06/09/20 09:28 Dose: 400 mls/hr Documented by: [id number] Sodium Chloride (Nss) 500 mls @ 999 mls/hr IV .Q31M ONE Stop: 06/09/20 12:22 Last Admin: 06/09/20 11:57 Dose: Not Given Documented by: [id number] Sodium Chloride (Nss) 500 mls @ 999 mls/hr IV .Q31M ONE Stop: 06/09/20 12:25 Last Infusion: 06/09/20 15:25 Dose: 0 mls/hr Documented by: [id number] Admin: 06/09/20 13:57 Dose: 999 mls/hr Documented by: [id number] Magnesium Sulfate/Dextrose (Magnesium Sulfate / D5w) 1 gm in 100 mls @ 100 mls/hr IV NOW STA Stop: 06/09/20 13:16 Last Infusion: 06/09/20 15:25 Dose: 0 mls/hr Documented by: [id number] Admin: 06/09/20 13:56 Dose: 100 mls/hr Documented by: [id number] Morphine Sulfate (Morphine Sulfate 2 Mg/Ml Carp) 2 mg IV NOW STA Stop: 06/09/20 09:16 Last Admin: 06/09/20 09:28 Dose: 2 mg Documented by: [id number] Discharge Plan Visit Data Chief Complaint: Hip Pain ED Provider: Alcon Myers ED Midlevel Provider: Sriram Smith Discharge Problem: Right hip pain, Renal insufficiency, Paroxysmal atrial fibrillation, Chronic anticoagulation, Dehydration Patient Disposition: Admitted As Inpatient Discharge Instructions Interventions: ED Discharge Assessment Last Done: 06/09/20 14:05
[2020-06-09] MEDS ORDERED: ACETAMINOPHEN 1,000 MG/100 ML VIAL IV STA (08:36)
--- NOTE | 2020-06-09 08:57 | Emergency Department Note ---
ED Visit Note I saw this patient today and discussed my findings w/ Dr. Myers who has examined the patient independently. Please see his documentation for assessment and plan. . Resident Activity Tracking Resident Involvement: Resident Care Provided Care Provided: Adult ED
[2020-06-09] MEDS ORDERED: MoRPHine SULFATE 2 MG/ML CARP IV STA (09:15)
--- NOTE | 2020-06-09 09:50 | XRay Report ---
XR chest 1V portable CLINICAL HISTORY: preop COMPARISON STUDY: 03/08/2020 FINDINGS: The heart is mildly enlarged. There is no failure. There is no focal pulmonary consolidatio n. There are no pleural effusions. There is an old proximal left humeral deformity.[ IMPRESSION: No active disease in the chest. ACT 112: Negative or not required by law. Electronically signed by: Mt Garcias M.D. 06/09/2020 9:49 AM
--- NOTE | 2020-06-09 10:03 | XRay Report ---
XR hip RT 2V w pelvis CLINICAL HISTORY: Right hip pain COMPARISON: 05/28/2020 DISCUSSION: There are postsurgical changes of an internally fixated intertrochanteric right hip fract ure. There is a trochanteric nail and interlocking medullary jabari. The trochanteric nail appears to br each the femoral head cortex superiorly. IMPRESSION: 1. Healing internally fixated intertrochanteric right hip fracture 2. The trochanteric nail remains malpositioned with its tip extending beyond the cortex of the femora l head and into the joint space. ACT 112: Negative or not required by law. Electronically signed by: Mt Garcias M.D. 06/09/2020 10:01 AM
[2020-06-09 10:50] LABS: Basophils # (auto) 0.02 K/uL (0-0.2); Basophils % (auto) 0.2 %; Eosinophils # (auto) 0.11 K/uL (0-0.5); Eosinophils % (auto) 1.2 %; Hematocrit (blood only) 43.8 % (37-47); Hemoglobin 14.6 g/dL (12.0-16.0); Immature Granulocytes # (auto) 0.02 K/uL (0.00-0.02); Immature Granulocytes % (auto) 0.2 %; Lymphocytes # (auto) 2.01 K/uL (1.2-3.4); Lymphocytes % (auto) 22.2 %; Mean Corpuscular Hgb Conc 33.3 g/dL (32-36); Mean Corpuscular Volume 90.1 fL (80-100); Monocytes # (auto) 0.73 K/uL (0.11-0.59); Monocytes % (auto) 8.1 %; Neutrophils # (auto) 6.17 K/uL (1.4-6.5); Neutrophils % (auto) 68.1 %; Platelet Count 285 K/uL (130-400); RDW Coefficient of Variation 13.6 % (11.5-14.5); RDW Standard Deviation 44.4 fL (36.4-46.3); Red Blood Count 4.86 M/uL (4.2-5.4); White Blood Count 9.06 K/uL (4.8-10.8)
[2020-06-09 11:14] LABS: BUN Creatinine Ratio 26.5 (10-20); Calcium 10.9 mg/dl (8.5-10.1); Creatinine Clr Calc Pharmacy 22.7 ml/min; Est GFR (African American) 38.6; Est GFR (Non-African American) 33.3; Phosphorus 2.9 mg/dl (2.5-4.9)
[2020-06-09] MEDS ORDERED: SODIUM CHLORIDE 0.9% 500 ML IV ONE ×2 (11:52→11:55)
[2020-06-09 12:14] LABS: Potassium 4.1 mmol/L (3.5-5.1)
[2020-06-09 12:16] LABS: Magnesium 1.7 mg/dl (1.8-2.4)
[2020-06-09] MEDS ORDERED: MAGNESIUM SULFATE / D5W 1 GM/100 ML BAG IV STA (12:17)
--- NOTE | 2020-06-09 12:17 | History & Physical Report ---
Date of Service June 09, 2020 Assessment & Plan (1) Right hip pain: 2nd to failed hardware from recent right hip fracture ORIF. initial surgery 03/10/20. patient will need operative management of the failed hardware. Dr Perez has been consulted and is aware. HOLD eliquis. Last dose - AM 06/09/20. Morphine in ER not helping pain - change to low-dose dilaudid 0.25mg prn. schedule tylenol 1gm TID. bedrest for now. (2) Failed hardware: see "right hip pain." appreciate ortho consult by Dr Perez. (3) Acute kidney injury: mild ESAU - likely due to dehydration - patient not eating/drinking well due to pain. fluids overnight; repeat labs am. (4) Hyponatremia: Mild; 2nd volume depletion. On multiple diuretics as well. HOLD diuretics. IV fluids. repeat BMP am. (5) Permanent atrial fibrillation: BPs are low-normal in setting of volume depletion. lower metoprolol dose. cont cardizem as is. hold diuretics. place on telemetry. from cardiopulmonary standpoint she is optimized for her upcoming hip surgery. HOLD eliquis. (6) Hypertension: BPs low-normal due to dehydration. HOLD her triple diuretics. Lower metoprolol dose. Cont cardizem as she needs such for a.fib rate control. (7) COPD (chronic obstructive pulmonary disease): no exacerbation at this time (8) Hypercalcemia: possibly 2nd to HCTZ use with superimposed dehydration. hold HCTZ. hydrate. repeat bmp am. (9) Hypomagnesemia: replete repeat level am (10) Chronic kidney disease, stage 3a: baseline CrCl low 30s (11) Hyperlipidemia: (12) UTI (urinary tract infection): u/a suggestive of UTI send culture start rocephin 1gm daily (13) DVT prophylaxis: hold eliquis for upcoming surgery scds in meantime tomorrow would use heparin SC while off eliquis for dvt prevention History of Present Illness Chief Complaint: severe right hip pain Primary Care Provider: Franklin Whitaker MD 85yo female with h/o permanent a. fib, COPD, and right hip fracture s/p ORIF in 03/2020 followed by 6 week stay at [facility] presents with 10 days of refractory, severe right hip/groin pain. Patient states she never fully recovered from her hip repair. Got to 50% weight-bearing earlier this fall following the procedure. However, by the time she was discharged from [facility] to home, she essentially has been wheelchair dependent. About 10 days ago she developed the acute onset of severe right hip/anterior groin pain. Some of the pain radiates down the anterior thigh to the right knee. She was seen in the ER and diagnosed with a malpositioned nail extending into the joint. She has been taking oxycodone since then without relief of the pain. She has stopped eating/drinking because of the pain. It has severely affected her quality of life. Finally called EMS to bring her to [facility] today because of the severity of the pain. Allergies Allergy/AdvReac Type Severity Reaction Status Date / Time No Known Allergies Allergy Verified 06/09/20 08:18 Home Medications Medication Instructions Recorded Confirmed Type apixaban 5 mg tablet 5 mg PO BID #60 tab 03/02/20 06/09/20 Rx fluticasone propionate 1 spray INTRANASAL QAM PRN 04/06/20 06/09/20 History diltiazem HCl 180 mg capsule,24 180 mg PO BID cap 05/07/20 06/09/20 History hr,extended release metoprolol succinate 50 mg 150 mg PO QAM tab 05/13/20 06/09/20 History tablet,extended release 24 hr spironolacton-hydrochlorothiaz 1 tab PO QAM 06/07/20 06/09/20 History [Aldactazide] docusate sodium [Stool Softener] 100 mg PO BID 06/09/20 06/09/20 History furosemide 40 mg PO QAM 06/09/20 06/09/20 History oxycodone 5 mg PO Q6H PRN 06/09/20 06/09/20 History potassium chloride 10 meq PO QAM 06/09/20 06/09/20 History Past Med/Surg History Medical History Atrial fibrillation with rapid ventricular response 02/[address] kendrick COPD (chronic obstructive pulmonary disease) Dyslipidemia Hx of gout Hypertension On anticoagulant therapy Osteoarthritis Surgical History History of cardioversion 04/2020 [place] History of open reduction and internal fixation (ORIF) procedure right hip with nailing 03/2020 History of total right knee replacement Dr. Jeremiah Eddy [place], [place] 05/2017 S/P cataract surgery Family History Father , age 59 Myocardial infarction Social History Smoking Status: Former smoker Tobacco Type: Cigarettes Years Smoked: 15; Cigarettes Per Day: 0.5 ppd; Second Hand Exposure: No; Do You Dip or Chew Tobacco: No; Hx Alcohol Use: No Hx Substance Use: No Preferred Language: Macedonian Communication Ability: Effective Hearing Ability: Normal Home Energy Inspector Required: No Beliefs That Will Affect Care: None marital status: / Current Living Situation: Alone Current Living Situation Comment: 1 floor apartment current occupational status: retired How many Children do You have: 4 Feels Safe at Home: Yes Safety Concerns: Feels Safe At This Time Assistive Devices: Denture - Lower, Glasses, Hearing Aid - Bilateral and Hearing Aid - Left Review of Systems Constitutional: + anorexia and + weight loss; no fever and no chills Eyes: no worsening vision Ear, Nose, Mouth, Throat: + hearing loss; no nasal congestion and no sore throat no loss of taste/smell Respiratory: no cough and no dyspnea Cardiovascular: + edema (mild - chronic ); no chest pain and no palpitations Gastrointestinal: + constipation; no abdominal pain, no nausea and no vomiting Genitourinary: no dysuria Musculoskeletal: as per Subjective / HPI and + joint pain Integumentary: no rash Neurologic: + localized weakness (right leg due to prior surgery); no falls Psychiatric: no depression and no anxiety Endocrine: denies diabetes Hematologic / Lymphatic: no easy bruising Physical Exam Constitutional: + acute distress; no altered mental status Eyes: PERRL ENMT: Mouth: + dry oral mucous membranes Neck: trachea midline, no thyromegaly Respiratory: normal respiratory effort, lungs clear to auscultation Cardiovascular: Rate/Rhythm: regular rate and regular rhythm Heart Sounds: normal S1 and normal S2; no murmur Vessels: posterior tibial pulses present and dorsalis pedis pulses present Extremities: no edema Gastrointestinal (Abdomen): Inspection/Auscultation: normal bowel sounds; abdomen not distended Percussion/Palpation: abdomen soft and + hernia (periumbilical - reducible); no hepatosplenomegaly Musculoskeletal: right leg mildly shorter than left leg and slightly externally rotated Skin: no rashes, warm and dry Neurologic: moves all extremities; no focal motor deficits Psychiatric: A+Ox3, euthymic affect Lymphatic: no cervical lymphadenopathy Results & Data Results & Data ([facility]) Vital Signs (Past 12 Hours) Vital Signs Temp Pulse Resp BP Pulse Ox 06/09/20 08:50 96 06/09/20 07:57 36.8 C 75 16 111/80 92 Cr 1.4 other labs reviewed cxr - no infiltrates x-ray right hip - IMPRESSION: 1. Healing internally fixated intertrochanteric right hip fracture 2. The trochanteric nail remains malpositioned with its tip extending beyond the cortex of the femoral head and into the joint space. Code Status & VTE Plan Code Status full VTE Prophylaxis Plan VTE Prophylaxis will be ordered: Yes PG Care Time/CCT Total # of Minutes Spent Total Time Spent with Patient: Total time spent is greater than 50% in coordination of care (as documented) at patient's floor/unit and/or counseling patient: Coding Level of Care Code 52967 Initial Inpt Care Lvl 3 Diagnoses Right hip pain M25.551 Failed hardware Acute kidney injury N17.9 Hyponatremia E87.1 Permanent atrial fibrillation I48.21 Hypertension I10 COPD (chronic obstructive pulmonary disease) J44.9 Hypercalcemia E83.52 Hypomagnesemia E83.42 Chronic kidney disease, stage 3a N18.31 Hyperlipidemia E78.5 UTI (urinary tract infection) N39.0 DVT prophylaxis Z29.9
--- NOTE | 2020-06-09 14:15 | Electrocardiogram Report ---
Test Reason : Blood Pressure : / mmHG Vent. Rate : 098 BPM Atrial Rate : 300 BPM P-R Int : 000 ms QRS Dur : 076 ms QT Int : 376 ms P-R-T Axes : 000 056 066 degrees QTc Int : 480 ms Atrial fibrillation Abnormal ECG When compared with ECG of 09-APR-2020 07:35, Atrial fibrillation has replaced Sinus rhythm Vent. rate has increased BY 47 BPM QT has lengthened Confirmed by David Chan ([id number]) on 06/09/2020 2:14:37 PM Referred By: REFERRED SELF Confirmed By:Kyle Chan
[2020-06-09] MEDS ORDERED: FLUTICASONE PROPIONATE NA SPR 16 GM BTL PRN (14:52)
[2020-06-09] MEDS: HYDROmorphone INJ 0.5 MG/0.5 ML SYR IV PRN (15:48)
[2020-06-09] MEDS: SODIUM CHLORIDE 0.9% 1000ML 1,000 ML IV SCH (16:41)
[2020-06-09] MEDS: ACETAMINOPHEN 500 MG TAB PO SCH (17:49)
[2020-06-09] MEDS: POLYETHYLENE (MIRALAX) 17 GM PACK PO SCH (19:59)
[2020-06-09] MEDS: dilTIAZem ER 180 MG CAPCR PO SCH (19:59)
[2020-06-09] MEDS: DOCUSATE SODIUM 100 MG CAP PO SCH (19:59)
[2020-06-09 20:30] LABS: Appearance Urine Cloudy (Clear); Bacteria Urine Automated 1+ (Negative); Bilirubin Urine Negative (Negative); Blood Urine Trace (Negative); Color Urine Yellow; Epithelial Cell Urine Auto 20-30 /lpf (0-5); Glucose Urine UA Negative (Negative); Ketones Urine Trace (Negative); Leukocyte Esterase Urine 2+ (Negative); Nitrite Urine Negative (Negative); Protein Urine Negative (Negative); Specific Gravity Urine 1.018 (1.000-1.030); Urobilinogen Urine Negative (Negative); WBC Urine Automated >30 /hpf (0-5); pH Urine 5.5 (4.5-7.5)
[2020-06-09] MEDS: cefTRIAXone SODIUM 1,000 MG in DEXTROSE 5% 50 ML IV SCH (23:38)
[2020-06-10] MEDS: ACETAMINOPHEN 500 MG TAB PO SCH ×3 (06:03→20:56)
[2020-06-10] MEDS: SODIUM CHLORIDE 0.9% 1000ML 1,000 ML IV SCH (06:03)
[2020-06-10 07:22] LABS: BUN Creatinine Ratio 26.7 (10-20); Calcium 9.7 mg/dl (8.5-10.1); Creatinine Clr Calc Pharmacy 27.2 ml/min; Est GFR (African American) 48.5; Est GFR (Non-African American) 41.9; Magnesium 1.9 mg/dl (1.8-2.4)
[2020-06-10] MEDS: dilTIAZem ER 180 MG CAPCR PO SCH ×2 (07:45→20:56)
[2020-06-10] MEDS: METOPROLOL SUCC 50MG EXT REL TAB PO SCH (07:45)
[2020-06-10] MEDS: DOCUSATE SODIUM 100 MG CAP PO SCH ×2 (07:45→20:10)
[2020-06-10] MEDS: POLYETHYLENE (MIRALAX) 17 GM PACK PO SCH ×2 (07:46→20:10)
[2020-06-10] MEDS: HYDROmorphone INJ 0.5 MG/0.5 ML SYR IV PRN ×3 (07:59→23:55)
[2020-06-10] MEDS ORDERED: METOPROLOL SUCC 50MG EXT REL TAB PO SCH (09:00)
--- NOTE | 2020-06-10 10:57 | Orthopedic Consultation ---
Date of Consultation June 10, 2020 Assessment & Plan (1) Failed hardware: (2) Closed intertrochanteric fracture of right hip: I have indicated the patient for removal of hardware, right total hip arthroplasty. The risk, benefits, complications and alternatives to surgery were explained to the patient in detail which include however not limited to infection, blood clots, acute blood loss, injury to the nerves, bone including fracture, vessels and soft tissue, arthrofibrosis, chronic pain, hip dislocation, leg length discrepancies, failure of the implant, need for additional surgery, loss of limb and loss of life. Alternatives to surgery include no surgery which would result in worsening clinical picture and symptoms. The patient was to proceed with surgery at this time and informed consent was obtained. Patient on Eliquis, last dose 06/09/20 and will hold for 48 hours prior to proceeding with surgery due to bleeding risk. Tentatively planning for OR on 06/11/2020. N.p.o. after midnight History of Present Illness Reason for Consultation: Failed fixation of right intertrochanteric hip fracture Attending Physician: Nba Cantrell DO History of Present Illness The patient is a 84-year-old female with significant past surgical history for right hip cephalomedullary nail performed on 03/10/2020. The patient initially did well postoperatively however on 05/27/2020 she developed increasing pain and difficulty ambulating. Presented to [facility] emergency department and x-rays taken at that time confirmed varus collapse of the intertrochanteric fracture with superior cut out of the helical blade. The patient followed up in the office and was scheduled for removal of hardware and right total hip arthroplasty scheduled for 06/14/2020. Due to increasing pain and difficulty ambulating the patient was admitted on 06/09/2020 for medical optimization in anticipation for surgery. Allergies Allergy/AdvReac Type Severity Reaction Status Date / Time No Known Allergies Allergy Verified 06/09/20 08:18 Home Medications Medication Instructions Recorded Confirmed Type apixaban 5 mg tablet 5 mg PO BID #60 tab 03/02/20 06/09/20 Rx fluticasone propionate 1 spray INTRANASAL QAM PRN 04/06/20 06/09/20 History diltiazem HCl 180 mg capsule,24 180 mg PO BID cap 05/07/20 06/09/20 History hr,extended release metoprolol succinate 50 mg 150 mg PO QAM tab 05/13/20 06/09/20 History tablet,extended release 24 hr spironolacton-hydrochlorothiaz 1 tab PO QAM 06/07/20 06/09/20 History [Aldactazide] docusate sodium [Stool Softener] 100 mg PO BID 06/09/20 06/09/20 History furosemide 40 mg PO QAM 06/09/20 06/09/20 History oxycodone 5 mg PO Q6H PRN 06/09/20 06/09/20 History potassium chloride 10 meq PO QAM 06/09/20 06/09/20 History Patient History Medical History Atrial fibrillation with rapid ventricular response 02/[address] kendrick COPD (chronic obstructive pulmonary disease) Dyslipidemia Hx of gout Hypertension On anticoagulant therapy Osteoarthritis Surgical History History of cardioversion 04/2020 [place] History of open reduction and internal fixation (ORIF) procedure right hip with nailing 03/2020 History of total right knee replacement Dr. Jeremiah Eddy [place], [place] 05/2017 S/P cataract surgery Family History Father , age 59 Myocardial infarction Social History Smoking Status: Former smoker Tobacco Type: Cigarettes Years Smoked: 15; Cigarettes Per Day: 0.5 ppd; Second Hand Exposure: No; Do You Dip or Chew Tobacco: No; Hx Alcohol Use: No Hx Substance Use: No Preferred Language: Ethiopian Communication Ability: Effective Hearing Ability: Normal Helper Coordinator Required: No Beliefs That Will Affect Care: None marital status: / Current Living Situation: Alone Current Living Situation Comment: 1 floor apartment current occupational status: retired How many Children do You have: 4 Feels Safe at Home: Yes Safety Concerns: Feels Safe At This Time Assistive Devices: Denture - Lower, Glasses, Hearing Aid - Bilateral and Hearing Aid - Left Review of Systems Review of Systems: All systems reviewed & are unremarkable except as noted in HPI & below Constitutional: as per Subjective / HPI Physical Exam Physical Exam: RLE NVSI +EHL/FHL/TA/GS SILT grossly, +2 DP pulse, compartments soft NT, incision cdi, limited painful ROM of the right hip Constitutional: WD/WN, vitals as above Results & Data ([facility]) Vital Signs (Past 12 Hours) Vital Signs Temp Pulse Resp BP BP Pulse Ox 06/10/20 08:14 36.6 C 80 20 102/69 95 06/10/20 03:01 36.5 C 69 16 106/68 94 06/09/20 23:19 36.3 C L 76 18 104/71 92 Laboratory Results 06/10/20 06/09/20 06/09/20 Range/Units 06:39 Unknown 13:24 Sodium 138 (136-145) mmol/L Potassium 4.0 (3.5-5.1) mmol/L Chloride 105 (98-107) mmol/L Carbon Dioxide 26 (21-32) mmol/L Anion Gap 7.0 (3-11) BUN 32 H (7-18) mg/dl Creatinine 1.19 (0.6-1.2) mg/dl Est Cr Clr Drug Dosing 27.2 ml/min Est GFR ( Amer) 48.5 Est GFR (Non-Af Amer) 41.9 BUN/Creatinine Ratio 26.7 H (10-20) Glucose 90 (70-99) mg/dl Calcium 9.7 (8.5-10.1) mg/dl Phosphorus (2.5-4.9) mg/dl Magnesium 1.9 (1.8-2.4) mg/dl Urine Color Yellow Urine Appearance Cloudy A (Clear) Urine pH 5.5 (4.5-7.5) Ur Specific [place] 1.018 (1.000-1.030) Urine Protein Negative (Negative) Urine Glucose (UA) Negative (Negative) Urine Ketones Trace H (Negative) Urine Blood Trace H (Negative) Urine Nitrite Negative (Negative) Urine Bilirubin Negative (Negative) Urine Urobilinogen Negative (Negative) Ur Leukocyte Esterase 2+ H (Negative) Urine WBC (Auto) >30 H (0-5) /hpf Urine RBC (Auto) 5-10 H (0-4) /hpf U Hyaline Cast (Auto) 5-10 H (0-5) /lpf U Epithel Cells (Auto) 20-30 H (0-5) /lpf Urine Bacteria (Auto) 1+ H (Negative) Urine Yeast Not Reportable SARS-CoV-2 Ag (Rapid) Negative (Negative) 06/09/20 06/09/20 Range/Units 11:52 09:19 Sodium 134 L (136-145) mmol/L Potassium 4.1 (3.5-5.1) mmol/L Chloride 99 (98-107) mmol/L Carbon Dioxide 25 (21-32) mmol/L Anion Gap 10.0 (3-11) BUN 38 H (7-18) mg/dl Creatinine 1.44 H (0.6-1.2) mg/dl Est Cr Clr Drug Dosing 22.7 ml/min Est GFR ( Amer) 38.6 Est GFR (Non-Af Amer) 33.3 BUN/Creatinine Ratio 26.5 H (10-20) Glucose 97 (70-99) mg/dl Calcium 10.9 H (8.5-10.1) mg/dl Phosphorus 2.9 (2.5-4.9) mg/dl Magnesium 1.7 L (1.8-2.4) mg/dl Urine Color Urine Appearance (Clear) Urine pH (4.5-7.5) Ur Specific [place] (1.000-1.030) Urine Protein (Negative) Urine Glucose (UA) (Negative) Urine Ketones (Negative) Urine Blood (Negative) Urine Nitrite (Negative) Urine Bilirubin (Negative) Urine Urobilinogen (Negative) Ur Leukocyte Esterase (Negative) Urine WBC (Auto) (0-5) /hpf Urine RBC (Auto) (0-4) /hpf U Hyaline Cast (Auto) (0-5) /lpf U Epithel Cells (Auto) (0-5) /lpf Urine Bacteria (Auto) (Negative) Urine Yeast SARS-CoV-2 Ag (Rapid) (Negative) Diagnostic Findings XR hip RT 2V w pelvis CLINICAL HISTORY: Right hip pain COMPARISON: 05/28/2020 DISCUSSION: There are postsurgical changes of an internally fixated intertrochanteric right hip fracture. There is a trochanteric nail and interlocking medullary jabari. The trochanteric nail appears to breach the femoral head cortex superiorly. IMPRESSION: 1. Healing internally fixated intertrochanteric right hip fracture 2. The trochanteric nail remains malpositioned with its tip extending beyond the cortex of the femoral head and into the joint space.
--- NOTE | 2020-06-10 17:18 | Hospitalist Progress Note ---
Date of Service June 10, 2020 Assessment & Plan (1) Right hip pain: Anny Stahl is an 85 yo female with PMHx of afib, HTN, COPD, and hyperlipidemia, admitted to the hospital on 06/10/20 due to complaints of right hip pain secondary to failed hardware from recent right hip fracture ORIF on 03/10/20. Right hip pain w/ failed hardware - Right hip pain secondary to failed hardware from right hip fracture ORIF 03/10/20 - Dr. Perez, orthopedic surgeon, consulted and plans to take patient to OR for operative management of the failed hardware - Will hold Eliquis in preparation for surgery; last dose of Eliquis was morning of 06/09/20 - Continue pain management with Tylenol 1gm TID and Dilaudid 0.25mg q4h prn - Continue bedrest for now until surgical intervention Permanent atrial fibrillation - BPs are low-normal in setting of volume depletion - On admission, lowered metoprolol dose from home 150mg po qam to 100mg po qam - Continue home cardizem at 180mg po bid - Hold diuretic - Monitor patient on telemetry - Per telemetry 06/10/20 - patient has been in atrial fibrillation since admission with rates in 70s-120s - According ACS surgical risk calculator, from cardiac standpoint, patient is at an above average but low risk for cardiac outcomes (1.7%) and above average risk for serious complications (17.0%) but she is medically optimized for surgical intervention - Hold eliquis at this time UTI (urinary tract infection) - U/A suggestive of UTI - Awaiting urine culture - Will tx with ceftriaxone 1g IV q24h x5 days Acute kidney injury (resolved) - Mild ESAU with Cr of 1.44 - Likely due to dehydration and patient is not eating/drinking well due to pain - She received fluids overnight 06/09-06/10 - Repeat creatinine 06/10 is 1.19 Hyponatremia (resolved) - Mild hyponatremia on admission with Na of 134 - Secondary to volume depletion - Patient on multiple diuretics; diuretics held at admission - Continue IV fluids - Repeat Na 06/10 is 138 Hypertension - BPs low-normal due to dehydration - Will hold her triple diuretics - Lower metoprolol dose (as noted above) - Cont cardizem as she needs such for a.fib rate control. Hx of COPD (chronic obstructive pulmonary disease) - No exacerbation at this time Hypercalcemia (resolved) - Hypercalcemia on admission at 10.9 - Possibly 2nd to HCTZ use with superimposed dehydration - On admission, HCTZ held - Patient hydrated with IVF - Repeat BMP 06/10/20 with normal calcium at 9.7 Hypomagnesemia (resolved) - Hypomagnesemia on admission at 1.7 - Repleted - Repeat magensium level 06/10/20 normal at 1.9 Chronic kidney disease, stage 3a - Baseline CrCl low 30s - Will monitor BMP daily Hyperlipidemia - No current statin therapy treatment FEN: Full diet; will make NPO at midnight pending surgery tomorrow DVT ppx: Will hold eliquis for upcoming surgery, SCDs in meantime Dispo: medsurge/tele Code status: FULL CODE Admission and Anticipated Discharge Date Admission Date: June 09, 2020 Supervising Physician Co-Signing Physician Notes Patient seen and examined with PGY-1 Dr. Rodriguez. Agree with history, exam findings, assessment and plan of care: In brief, Ms. Stahl is an 85 year old female with history of Afib, CKD and prior hip fracture s/p nailing admitted with inability to ambulate due to pain from failed hip hardward. She was not able to ambulate safely at home. Due to uncontroleld pain, she was not taking much PO intake prior to admission. She did have elective surgery to address the failed hip hardware scheduled for next week. VS and nursing notes reviewed. labs and imaging reviewed. 1. 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 Plans for OR with ortho tomorrow. Pain control with dilaudid (morphine not effective). Holding anticoagulation (On Eliquis prior to admission). At this point, she is medically optimized for surgical intervention. 2. severe protein calorie malnutrition secondary to pain/decreased oral intake. Nutrition consult. 3. ESAU. Resolved after IVFs. 4. Afib. In the past, rates have swung from rate controlled to 110s/120s. Continue home dilt 180mg BID and metoprolol XL 100mg daily. Will need to monitor HRs carefully following OR. 5. abnormal UA. concerning for urinary tract infection. No symptoms, but given that she will be going to the OR, history of tenuous HR control of her afib and the fact that she will likely be getting a Lee in the OR, will continue to treat with ceftriaxone until culture results. Dispo: pending OR intervention. Will likely need SNF following surgery. PT/OT. Subjective Anny Stahl is an 85 yo female admitted to the hospital on 06/10/20 due to complaints of right hip pain secondary to failed hardware from recent right hip fracture ORIF on 03/10/20. Patient originally had a fall back on March 08, 2020 with subsequent right closed intertrochanteric fracture. She underwent ORIF and was subsequently discharged to [facility] for rehab x6 [facility]. Patient states that she was doing well and d/c home. However, about 10 days ago, she developed worsening right hip pain. She was evaluated in the ED and it was determined that the intertrochanteric nail has changed position as compared to postop 03/10/20 examination. She was sent home with Percocet for pain management and had scheduled follow up with ortho, Dr. Adrian, who confirmed that patient would have operative repair with removal of hardware and right total hip arthroplasty. She presented to the ED again yesterday due to persistent pain and outpatient pain control failure with Percocet. Patient states that the pain had gotten so severe that she was not ambulating at all and not eating. Patient was evaluated by Dr. Adrian and admitted for operative management. Patient states that apart from the right hip pain, she is doing well. She has no other complaints or concerns at this time. Patient states that she is eating well without nausea or vomiting. She also denies fever, chills, CP, SOB, abdominal pain, lower leg pain, or lower leg swelling. Review of Systems Constitutional: no fever and no chills Respiratory: no cough and no dyspnea Cardiovascular: no chest pain Gastrointestinal: no abdominal pain, no nausea, no vomiting, no constipation and no diarrhea/loose stools Musculoskeletal: + joint pain; no swelling Physical Exam Physical Exam: GENERAL: No acute distress. Well developed and well nourished. Vital signs reviewed. EYES: EOMI. Anicteric sclerae. HENT: Moist mucous membranes. RESPIRATORY: Clear to auscultation bilaterally. No wheezing, rales, or rhonchi. CARDIOVASCULAR: Regular rate. Irregularly irregular rhythm. No murmurs. ABDOMEN: Soft and non-tender. Normal bowel sounds. EXTREMITIES: No edema. Non-tender. Right leg is externally rotated and shortened. SKIN: Warm, dry. No rashes or lesions. NEUROLOGIC: A/O x3. Normal sensation to light touch to bilateral lower extremities. PSYCHIATRIC: Cooperative. Appropriate mood and affect. Results & Data Results & Data ([facility]) Vital Signs (Past 12 Hours) Vital Signs Temp Pulse Resp BP BP Pulse Ox 06/10/20 16:00 36.8 C 90 18 108/77 94 06/10/20 11:36 36.2 C L 69 20 101/80 95 06/10/20 08:14 36.6 C 80 20 102/69 95 Resident Activity Tracking Resident Involvement: Resident Care Provided Care Provided: Adult Hospital Medicine
[2020-06-10] MEDS: cefTRIAXone SODIUM 1,000 MG in DEXTROSE 5% 50 ML IV SCH (22:20)
[2020-06-11] MEDS ORDERED: ROPIVACAINE 0.5% HCL/PF 150 MG, BUPIVACAINE 0.5% MPF 30 ML, EPINEPHrine 0.15 MG, Ketoro... INFIL SCH (06:00)
[2020-06-11] MEDS: ACETAMINOPHEN 500 MG TAB PO SCH ×3 (06:27→22:12)
[2020-06-11] MEDS: POLYETHYLENE (MIRALAX) 17 GM PACK PO SCH ×2 (08:03→22:14)
[2020-06-11] MEDS: DOCUSATE SODIUM 100 MG CAP PO SCH ×2 (08:03→22:13)
[2020-06-11] MEDS: HYDROmorphone INJ 0.5 MG/0.5 ML SYR IV PRN (08:24)
[2020-06-11] MEDS: METOPROLOL SUCC 50MG EXT REL TAB PO SCH (09:03)
[2020-06-11] MEDS: dilTIAZem ER 180 MG CAPCR PO SCH ×2 (09:03→22:15)
--- NOTE | 2020-06-11 09:58 | Hospitalist Progress Note ---
Date of Service June 11, 2020 Assessment & Plan (1) Right hip pain: Anny Stahl is an 85 yo female with PMHx of afib, HTN, COPD, and hyperlipidemia, admitted to the hospital on 06/10/20 due to complaints of right hip pain secondary to failed hardware from recent right hip fracture ORIF on 03/10/20. Right hip pain w/ failed hardware - Right hip pain secondary to failed hardware from right hip fracture ORIF 03/10/20 - Dr. Perez, orthopedic surgeon, consulted and plans to take patient to OR for operative management of the failed hardware - Will hold Eliquis in preparation for surgery; last dose of Eliquis was morning of 06/09/20 - Continue pain management with Tylenol 1gm TID and Dilaudid 0.25mg q4h prn - Continue bedrest for now until surgical intervention - Patient scheduled for surgical intervention today with Dr. Perez Permanent atrial fibrillation - BPs are low-normal in setting of volume depletion - On admission, lowered metoprolol dose from home 150mg po qam to 100mg po qam - Continue home cardizem at 180mg po bid - Hold diuretic - Monitor patient on telemetry - Per telemetry 06/10/20 - patient has been in atrial fibrillation since admission with rates in 70s-120s - According ACS surgical risk calculator, from cardiac standpoint, patient is at an above average but low risk for cardiac outcomes (1.7%) and above average risk for serious complications (17.0%) but she is medically optimized for surgical intervention - Hold eliquis at this time - Will need to monitor HRs closely following OR UTI (urinary tract infection) - U/A suggestive of UTI - Awaiting urine culture - Will tx with ceftriaxone 1g IV q24h x5 days Acute kidney injury (resolved) - Mild ESAU with Cr of 1.44 - Likely due to dehydration and patient is not eating/drinking well due to pain - She received fluids overnight 06/09-06/10 - Repeat creatinine 06/10 is 1.19 Hyponatremia (resolved) - Mild hyponatremia on admission with Na of 134 - Secondary to volume depletion - Patient on multiple diuretics; diuretics held at admission - Continue IV fluids - Repeat Na 06/10 is 138 Hypertension - BPs low-normal due to dehydration - Will hold her triple diuretics - Lower metoprolol dose (as noted above) - Cont cardizem as she needs such for a.fib rate control. Hx of COPD (chronic obstructive pulmonary disease) - No exacerbation at this time Hypercalcemia (resolved) - Hypercalcemia on admission at 10.9 - Possibly 2nd to HCTZ use with superimposed dehydration - On admission, HCTZ held - Patient hydrated with IVF - Repeat BMP 06/10/20 with normal calcium at 9.7 Hypomagnesemia (resolved) - Hypomagnesemia on admission at 1.7 - Repleted - Repeat magensium level 06/10/20 normal at 1.9 Chronic kidney disease, stage 3a - Baseline CrCl low 30s - Will monitor BMP daily Hyperlipidemia - No current statin therapy treatment FEN: Full diet; currently NPO as going to surgery today DVT ppx: Will hold eliquis for upcoming surgery, SCDs in meantime Dispo: medsurge/tele Code status: FULL CODE Admission and Anticipated Discharge Date Admission Date: June 09, 2020 Supervising Physician Co-Signing Physician Notes Attending attestation Pt seen and examined in concert with Dr. Rodriguez. In agreement with the documented findings as noted in the resident documentation with any exceptions or additions as noted here. Resting in bed, pain well controlled on current regimen with activity m odification. Anxious but optimistic regarding upcoming procedure. On examination, S1/S2 nl IRR/IRR no MCG. CTAB. Abd NT/ND BS+ve R hip pain 2/2 migration of femoral nail - OR today - though RCRI is class 1, her perioperative risk is elevated and she is optimized. I had this discussion with her this morning and she is aware of the risks and wishes to proceed. Pain control as noted, to be adjusted postoperatively. Severe protein calorie malnutrition - nutrition consultation Abnormal UA - continue ceftriaxone, f/u Cx Else see resident documentation as noted. Subjective Patient seen and evaluated at bedside this morning. She complains of persistent right hip pain. The pain reaches a max of 10/10 but with analgesia, the pain is reduced to a 4/10. Patient states that apart from the right hip pain, she is doing well. She has no other complaints or concerns at this time. Patient has been NPO since midnight in preparation for surgery today. She also denies fever, chills, CP, SOB, abdominal pain, lower leg pain, or lower leg swelling. Review of Systems Constitutional: no fever and no chills Respiratory: no cough and no dyspnea Cardiovascular: no chest pain Gastrointestinal: no abdominal pain, no nausea and no vomiting Musculoskeletal: + joint pain; no swelling Neurologic: no headache(s) Physical Exam Physical Exam: GENERAL: No acute distress. Well developed and well nourished. Vital signs reviewed. EYES: EOMI. Anicteric sclerae. HENT: Moist mucous membranes. RESPIRATORY: Clear to auscultation bilaterally. No wheezing, rales, or rhonchi. CARDIOVASCULAR: Regular rate. Irregularly irregular rhythm. ABDOMEN: Soft and non-tender. Normal bowel sounds. EXTREMITIES: No edema. B/l calves are non-tender to deep palpation/squeeze. SKIN: Warm, dry. No rashes or lesions. NEUROLOGIC: A/O x3. Normal sensation to light touch to bilateral lower extremities. PSYCHIATRIC: Cooperative. Appropriate mood and affect. Results & Data Results & Data ([facility]) Vital Signs (Past 12 Hours) Vital Signs Temp Pulse Pulse Resp BP BP Pulse Ox 06/11/20 08:53 116/83 06/11/20 08:45 106 H 06/11/20 07:00 36.5 C 90 18 104/72 95 06/11/20 03:00 36.3 C L 86 18 108/83 98 06/11/20 01:41 85 06/10/20 23:03 36.5 C 86 18 107/74 97 Resident Activity Tracking Resident Involvement: Resident Care Provided Care Provided: Adult Hospital Medicine
[2020-06-11] MEDS ORDERED: BACITRACIN INJ 50,000 UNIT VIAL ONE ×2 (12:45→16:48)
--- NOTE | 2020-06-11 13:41 | History & Physical Bridge Note ---
Date of Service June 11, 2020 History & Physical Bridge Note I have examined the patient, reviewed the History & Physical and in the interval since the performance of the History & Physical I have noted the following changes of clinical significance: no changes noted
--- NOTE | 2020-06-11 13:42 | Orthopedic Progress Note ---
Date of Service June 11, 2020 Assessment & Plan (1) Failed hardware: (2) Closed intertrochanteric fracture of right hip: I have indicated the patient for removal of hardware, right total hip arthroplasty. The risk, benefits, complications and alternatives to surgery were explained to the patient in detail which include however not limited to infection, blood clots, acute blood loss, injury to the nerves, bone including fracture, vessels and soft tissue, arthrofibrosis, chronic pain, hip dislocation, leg length discrepancies, failure of the implant, need for additional surgery, loss of limb and loss of life. Alternatives to surgery include no surgery which would result in worsening clinical picture and symptoms. The patient was to proceed with surgery at this time and informed consent was obtained. Admission and Anticipated Discharge Date Admission Date: June 09, 2020 Subjective Patient seen in preoperative holding, comfortable, no acute issues, medically optimized for surgery. Review of Systems Review of Systems: All systems reviewed & are unremarkable except as noted in HPI & below Constitutional: as per Subjective / HPI Physical Exam Physical Exam: RLE NVSI +EHL/FHL/TA/GS SILT grossly, +2 DP pulse, compartments soft NT Constitutional: WD/WN, vitals as above Results & Data ([facility]) Vital Signs (Past 12 Hours) Vital Signs Temp Pulse Pulse Resp BP BP Pulse Ox 06/11/20 13:00 36.8 C 96 H 18 114/86 96 06/11/20 11:00 36.6 C 83 18 111/80 93 06/11/20 08:53 116/83 06/11/20 08:45 106 H 06/11/20 07:00 36.5 C 90 18 104/72 95 06/11/20 03:00 36.3 C L 86 18 108/83 98
--- NOTE | 2020-06-11 13:50 | Anesthesiology Consultation ---
Date of Service June 11, 2020 Assessment & Plan Chart Review Chart Review: Acceptable Risk for Surgery Consults Requested none History Surgery Operation Date: 06/11/20 13:00 Proposed Procedures p Right Troch Nail Removal of Hardware, Posterior Total Hip Arthroplasty - Juan Perez DO Height/Weight Height: 4 ft 10 in Weight: 61 kg Allergies Allergy/AdvReac Type Severity Reaction Status Date / Time No Known Allergies Allergy Verified 06/09/20 08:18 Medications Home Medications Medication Instructions Recorded Confirmed Last Taken apixaban 5 mg tablet 5 mg PO BID #60 tab 03/02/20 06/09/20 06/09/20 fluticasone propionate 1 spray INTRANASAL QAM PRN 04/06/20 06/09/20 06/09/20 diltiazem HCl 180 mg capsule,24 180 mg PO BID cap 05/07/20 06/09/20 06/09/20 hr,extended release metoprolol succinate 50 mg 150 mg PO QAM tab 05/13/20 06/09/20 06/09/20 tablet,extended release 24 hr spironolacton-hydrochlorothiaz 1 tab PO QAM 06/07/20 06/09/20 06/09/20 [Aldactazide] docusate sodium [Stool Softener] 100 mg PO BID 06/09/20 06/09/20 06/09/20 furosemide 40 mg PO QAM 06/09/20 06/09/20 06/09/20 oxycodone 5 mg PO Q6H PRN 06/09/20 06/09/20 06/08/20 potassium chloride 10 meq PO QAM 06/09/20 06/09/20 06/09/20 Active Medications Generic Name Dose Route Start Last Admin Trade Name Freq PRN Reason Stop Dose Admin Acetaminophen 1,000 mg 06/09/20 18:00 06/11/20 06:27 Acetaminophen 500 Mg Tab PO 07/09/20 17:59 1,000 mg Q8 JAMESON Administration Diltiazem HCl 180 mg 06/09/20 21:00 06/11/20 09:03 Diltiazem Er 180 Mg Capcr PO 07/09/20 20:59 180 mg BID JAMESON Administration Docusate Sodium 100 mg 06/09/20 21:00 06/11/20 08:03 Docusate Sodium 100 Mg Cap PO 07/09/20 20:59 Not Given BID JAMESON Hydromorphone HCl 0.25 mg 06/09/20 12:47 06/11/20 08:24 Hydromorphone Inj 0.5 Mg/0.5 Ml Syr IV 06/23/20 12:46 0.25 mg Q4H PRN Administration Pain Ceftriaxone Sodium 1,000 mg/ 50 mls @ 100 mls/hr 06/09/20 23:00 06/10/20 22:55 Dextrose IV 06/14/20 22:59 Infused Q24H JAMESON Infusion Protocol Metoprolol Succinate 100 mg 06/10/20 09:00 06/11/20 09:03 Metoprolol Succ 50mg Ext Rel Tab PO 07/10/20 08:59 100 mg QAM JAMESON Administration Polyethylene Glycol 17 gm 06/09/20 21:00 06/11/20 08:03 Polyethylene (Miralax) 17 Gm Pack PO 07/09/20 20:59 Not Given BID JAMESON NPO Date Last Intake of Fluids: 06/10/20 Time Last Intake of Fluids: 17:00 Last Intake of Fluids Comment: sips with meds Date Last Intake of Solids: 06/10/20 Time Last Intake of Solids: 23:50 Past Medical History Medical History Atrial fibrillation with rapid ventricular response 02/[address] kendrick COPD (chronic obstructive pulmonary disease) Dyslipidemia Hx of gout Hypertension On anticoagulant therapy Osteoarthritis Past Family History Family History Father , age 59 Myocardial infarction Past Surgical History Surgical History History of cardioversion 04/2020 [place] History of open reduction and internal fixation (ORIF) procedure right hip with nailing 03/2020 History of total right knee replacement Dr. Jeremiah Eddy [place], [place] 05/2017 S/P cataract surgery Social History Smoking Status: Former smoker Smoking cigarettes per day: 0.5 ppd Do You Dip or Chew Tobacco: No Smoking End Date: 1971 Hx Alcohol Use: No Alcohol type: hard liquor alcohol intake frequency: a few times a week Hx Substance Use: No substance use type: does not use Physical Exam Vital Signs Last Vital Signs Temp 36.8 C 06/11/20 13:00 Pulse 96 H 06/11/20 13:00 Resp 18 06/11/20 13:00 BP 114/86 06/11/20 13:00 Pulse Ox 96 06/11/20 13:00 Testing Laboratory Results 06/09/20 09:19 06/10/20 06:39 Urine Color Yellow 06/09/20 Unknown Urine Appearance Cloudy (Clear) A 06/09/20 Unknown Urine pH 5.5 (4.5-7.5) 06/09/20 Unknown Ur Specific [place] 1.018 (1.000-1.030) 06/09/20 Unknown Urine Protein Negative (Negative) 06/09/20 Unknown Urine Glucose (UA) Negative (Negative) 06/09/20 Unknown Urine Ketones Trace (Negative) H 06/09/20 Unknown Urine Nitrite Negative (Negative) 06/09/20 Unknown Ur Leukocyte Esterase 2+ (Negative) H 06/09/20 Unknown Urine WBC (Auto) >30 /hpf (0-5) H 06/09/20 Unknown Urine RBC (Auto) 5-10 /hpf (0-4) H 06/09/20 Unknown U Hyaline Cast (Auto) 5-10 /lpf (0-5) H 06/09/20 Unknown U Epithel Cells (Auto) 20-30 /lpf (0-5) H 06/09/20 Unknown Urine Bacteria (Auto) 1+ (Negative) H 06/09/20 Unknown Blood Type AB Positive 06/09/20 11:54 Antibody Screen NEGATIVE 06/09/20 11:54 06/09/20 Unknown Urine Culture - Final Urine,Clean Catch More than three types of organisms present, all high coun ts. Repeat collection recommended. No further identifications or sensitivities to follow.
[2020-06-11] MEDS ORDERED: fentaNYL citrate 100 MCG/2 ML VIAL IV PRN (13:51)
[2020-06-11] MEDS ORDERED: ePHEDrine sulfate 50 MG/ML AMP IV PRN (13:51)
[2020-06-11] MEDS ORDERED: ATROPINE SULFATE 0.1 MG/ML 10ML SYR IV PRN (13:51)
[2020-06-11] MEDS ORDERED: METOCLOPRAMIDE HCL INJ 5 MG/ML 2 ML VIAL IV PRN (13:51)
[2020-06-11] MEDS ORDERED: HYDROmorphone INJ 2 MG/ML SYR/VIAL IV PRN (13:51)
[2020-06-11] MEDS ORDERED: PROMETHAZINE HCL 12.5 MG in SODIUM CHLORIDE 0.9% 50 ML IV PRN (13:51)
[2020-06-11] MEDS ORDERED: ONDANSETRON INJ 2 MG/ML 2 ML VIAL IV PRN (13:51)
[2020-06-11] MEDS ORDERED: SODIUM CHLORIDE 0.9% 250 ML IV PRN (15:56)
[2020-06-11] MEDS ORDERED: ceFAZolin 1000MG 1,000 MG/7.5 ML SYR IV ONE (16:24)
[2020-06-11] MEDS ORDERED: SUGAMMADEX SODIUM 200 MG/2 ML VIAL IV ONE (17:06)
--- NOTE | 2020-06-11 17:10 | Fluoroscopy Report ---
FL hip RT 1V CLINICAL HISTORY: RT NAIL REMOVAL WITH TOTAL HIP EXCHANGE COMPARISON STUDY: None. FLUOROSCOPY TIME: 14 seconds. FINDINGS: 5 fluoroscopic spot images of the right hip demonstrate a right total hip arthroplasty. The hardware appears intact. No fracture or dislocation on limited imaging. IMPRESSION: Fluoroscopy provided for right total arthroplasty. ACT 112: Negative or not required by law. Electronically signed by: Adilson De Souza M.D. 06/11/2020 5:09 PM
--- NOTE | 2020-06-11 17:19 | Post Operative Brief Note ---
Immediate Post Op Note v1 Date of Surgery June 11, 2020 Pre & Post Diagnosis Operation Date: 06/11/20 13:00 Pre-Op Diagnosis: Failed hardware, closed intertrochanteric fracture of right hip Post-Op Diagnosis: Failed hardware, closed intertrochanteric fracture of right hip I identified the patient and participated in the time-out.: Yes Procedure Operation Date: 06/11/20 13:00 Actual Procedures p Right Troch Nail Removal of Hardware, Posterior Total Hip Arthroplasty(Right) - Juan Perze DO Surgeon Juan Perez DO Chemical Plant Operator Onur Hester Estimated Blood Loss 600 Findings Consistent with Post-Op Diagnosis Fluids 2 units of PRBC 500 cc albumin 2500 cc LR Specimens Femoral head Drains Hemovac Drain Anesthesia Type Spinal MAC Complications none Disposition Disposition: Recovery Room Overlapping Procedure I was present for: the critical portions of procedure. I was immediately available: during the entire case. Back up surgeon: was not required during procedure.
--- NOTE | 2020-06-11 17:21 | Operative Report ---
Post Operative Report Pre & Post Diagnosis Operation Date: 06/11/20 13:00 Pre-Op Diagnosis: Failed hardware, closed intertrochanteric fracture of right hip Post-Op Diagnosis: Failed hardware, closed intertrochanteric fracture of right hip I identified the patient and participated in the time-out.: Yes Procedure Operation Date: 06/11/20 13:00 Actual Procedures p Right Troch Nail Removal of Hardware, Posterior Total Hip Arthroplasty(Right) - Juan Perez DO Surgeon Juan Perez, Can Pusher Onur Hester Estimated Blood Loss 700 Findings Consistent with Post-Op Diagnosis Fluids 2 units of PRBC 500 cc albumin 2500 cc LR Specimens Femoral head Drains Hemovac drain deep to fascia Anesthesia Type General Complications none Disposition Disposition: Recovery Room Indications The patient is a 84-year-old female with significant past surgical history for right hip cephalomedullary nail performed on 03/10/2020. The patient initially did well postoperatively however on 05/27/2020 she developed increasing pain and difficulty ambulating. Presented to [facility] emergency department and x-rays taken at that time confirmed varus collapse of the intertrochanteric fracture with superior cut out of the helical blade. The patient followed up in the office and was scheduled for removal of hardware and right total hip arthroplasty scheduled for 06/14/2020. Due to increasing pain and difficulty ambulating the patient was admitted on 06/09/2020 for medical optimization in anticipation for surgery. I have indicated the patient for removal of hardware, right total hip arthroplasty. The risk, benefits, complications and alternatives to surgery were explained to the patient in detail which include however not limited to infection, blood clots, acute blood loss, injury to the nerves, bone including fracture, vessels and soft tissue, arthrofibrosis, chronic pain, hip dislocation, leg length discrepancies, failure of the implant, need for additional surgery, loss of limb and loss of life. Alternatives to surgery include no surgery which would result in worsening clinical picture and symptoms. The patient was to proceed with surgery at this time and informed consent was obtained. Patient on Eliquis, last dose 06/09/20 and will hold for 48 hours prior to proceeding with surgery due to bleeding risk. Description of Procedure COMPONENTS USED: Tl Biomet hip system: Acetabulum size 50 G7 osteo-ti, femur size 85479 Roya one-piece calcar replacing standard offset, femoral head 36+0, liner 5036, acetabular screw x2 measuring 30mm and 35mm. Following induction of adequate general anesthesia, the patient was transferred to the OR table and placed in lateral decubitus position with left hip down. The right hip was prepped and draped in the typical sterile fashion. A timeout was performed, patient identified and site brigid confirmed. Appropriate antibiotics were given. A standard posterolateral/Rocio-Langenbeck incision was made. We extended the incision distally to incorporate the prior distal incisions for the cephalo- medullary nail. Subcutaneous tissue was sharply dissected. Electrocautery was utilized for hemostasis. The fascia was incised throughout the length of the wound and retracted with the Charnley retractor. The bursa was taken down and the short external rotators were identified. The piriformis was tagged with #1 Vicryl. The short external rotators and capsule were divided from the posterior aspect of the femur using electrocautery. The posterior capsule was tagged with #1 Vicryl. Both external rotators and posterior capsule were swept posterior and protected, along with protecting the sciatic nerve. Next the dissection was carried proximally to the greater trochanter. The gluteus muscle fibers were split to gain access to the tip of the greater trochcanter. Once the proximal aspect of the cephalo-medullary nail was exposed and bone and soft tissue debris cleared utilizing the flexible nascar driver the helical blade was unlocked proximally. The removal handle was then attached to the proximal nail. Next we focused our attention to the distal locking screw and helical blade. We dissected down bluntly until the screw head and helical blade were adequately visualized. Soft tissue debris was cleared from the screw and helical blade. Distal locking screw and helical blade were removed easily. Next we turned our attention proximally and the cephalo-medullary nail was easi ly removed. Next, the hip was dislocated by flexion and internally rotation in a controlled manner and exposure of the femoral neck was gained with an old-style Hohmann and a blunt cobra retractor. We appreciated a partially healed varus malunion of the fracture. A femoral cutting guide was utilized for making the appropriate level femoral neck cut at the fracture site with reciprocating saw. The femoral head and neck was removed. Next, attention was turned to the acetabulum. A posterior and anterior offset retractor was placed to gain adequate exposure. Acetabular labrum as well as posterior capsule elements were removed using electrocautery and forceps. There was a small defect measuring less than 1cm x 1cm wide and 2mm deep in the superior acetabulum where the helical blade was abutting the acetabulum. The Fovea centralis was cleared of all soft tissue. Aquamantys was utilized for hemostasis. Sequential reaming was performed starting at 42mm and carried up to a 49 mm and the decision was made to proceed with impaction of a 50 mm G7 osteo-ti cup. The final component was impacted and secured in place with two acetabular screws measuring 30mm and 35mm. The trial acetabular liner was placed at this time. Next, attention was turned to the proximal femur where a Bovie and pickup was used to further clear short external rotators from their insertion on the femur. Box osteotome and canal finder was used to gain access to the femoral canal and the lateral reamer on power was used to further open the proximal lateral canal. Next distal reaming was performed by hand to a depth of 210 mm and increased sequentially until good bone chatter was appreciated to a final size 13 mm reamer. Next, sequentially rasping was carried up to a 13 which gave good fit and fill of the proximal femur. A trial reduction was carried out with a +0 standard femoral neck component and a 36 mm femoral head. The trial reduction was stable in all degrees of rotation with no [id number] impingement. The hip was dislocated, trial components were removed and access to the acetabulum was re- established. The trial liner was removed and the cup was irrigated to ensure all debris was removed. The final acetabular liner was inserted and properly seated in the cup. Access to the femur was once more gained and the size 50385 calcar replacing Roya one piece femoral stem with standard offset was impacted into position with appropriate version. The hip was once more assessed with the 36+0 mm femoral head. Stability was accessed and found to be excellent with equal leg lengths. The hip was dislocated for the last time and the final 36+0 ceramic femoral head was impacted in place and the hip was reduced. Range of motion was checked once again and found to be stable. A Betadine soak was performed. After 3 minutes, the hip was once more irrigated with copious sterile saline solution with bacitracin. The emily-incisional soft tissue was injected utilizing [place] ortho mix which includes a combination of Ropivicaine 0.5% 150mg, Bupivicaine 0.5%/Epinephrine 1:200,000 30ml, Toradol 30mg, Dexamethasone 4mg, Ketamine 10mg, Clonidine 100mcg and NSS 30ml Orthomix solution. The piriformis, external rotators, abductor tendon and capsule were repaired to the greater trochanter using #5 FiberWire. HMV drain was placed deep to fascia. The fascia was closed using #1 Vicryl, subcutaneous tissue was closed using 2-0 Vicryl, and skin was closed with monica. Sterile dressings were applied which included xeroform, 4x4s, abds, drain sponge and tape. The patient tolerated the procedure well and was transported to PACU in stable condition. Due to the complex nature of the procedure, the entire surgery was performed with the operational assistance of Ted Hester PA-C. The medical assistant instructor, under direct supervision, was involved in the actual performance of all aspects of the surgical procedure including patient positioning, hemostasis, tissue retraction, instrument management and wound closure. I attest to the content of the Intraoperative Record and any orders documented therein. Any exceptions are noted below.
[2020-06-11] MEDS ORDERED: ACETAMINOPHEN 1000 MG/100 ML IV IV ONE (18:05)
[2020-06-11 18:07] LABS: iSTAT Arterial Blood Gas HCO3 17 meg/L (19-24); iSTAT Arterial Blood Gas pCO2 45 mmHg (35-46); iSTAT Arterial Blood Gas pH 7.19 (7.35-7.45); iSTAT Arterial Blood Gas pO2 321 mmHg (80-95); iSTAT Carbon Dioxide 18 mmol/L (24-31); iSTAT Hematocrit 32 % (37-47); iSTAT Hemoglobin 10.9 g/dl (12.0-16.0); iSTAT Potassium 4.9 mmol/L (3.3-5.0); iSTAT Sodium 134 mmol/L (135-144)
[2020-06-11] MEDS ORDERED: ACETAMINOPHEN 1,000 MG/100 ML VIAL IV STA (18:07)
[2020-06-11 18:08] LABS: iSTAT Creatinine 0.9 mg/dl (0.6-1.3); iSTAT Hemoglobin 10.5 g/dl (12.0-16.0); iSTAT Ionized Calcium 1.14 mmol/l (1.12-1.32); iSTAT Potassium 4.1 mmol/L (3.3-5.0)
--- NOTE | 2020-06-11 18:35 | XRay Report ---
XR hip RT min 2V CLINICAL HISTORY: Post-Operative implant position COMPARISON STUDY: Right hip 06/09/2020. FINDINGS: Interval placement of a right total hip arthroplasty. The hardware is intact. No acute frac ture or dislocation. 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 Sk in monica and surgical drains are in place. IMPRESSION: Status post right total hip arthroplasty. No evidence for hardware complication. ACT 112: Negative or not required by law. Electronically signed by: Adilson De Souza M.D. 06/11/2020 6:34 PM
--- NOTE | 2020-06-11 18:44 | Orthopedic Progress Note ---
Date of Service June 11, 2020 Assessment & Plan (1) Failed hardware: (2) Closed intertrochanteric fracture of right hip: s/p ANDIE, R CLARY -ancef x 24 -DVT PPX: SCDs, TEDs, heparin, when medically stable, restart eliquis -Partial WB RLE -PT/OT -Posterior and Abduction precautions, ambulate with walker at all times -PO XR demonstrates well aligned well fixed long stem total hip prosthesis, without new fracture or dislocation -am labs Admission and Anticipated Discharge Date Admission Date: June 09, 2020 Subjective Post Operative Progress Note Patient seen in PACU, confused, still waking up from general anesthesia, comfortable appearing, pain controlled. Review of Systems Review of Systems: All systems reviewed & are unremarkable except as noted in HPI & below Constitutional: as per Subjective / HPI Physical Exam Physical Exam: RLE NVSI +EHL/FHL/TA/GS SILT grossly, +2 DP pulse, compartments soft NT, dressing cdi. Moving all four extremities. Constitutional: WD/WN, vitals as above Results & Data ([place]) Vital Signs (Past 12 Hours) Vital Signs Temp Pulse Pulse Pulse Resp BP BP 06/11/20 18:30 102 H 16 102/58 L 99/65 L 06/11/20 18:20 104 H 16 108/64 06/11/20 18:10 101 H 20 101/64 06/11/20 18:00 101 H 24 101/56 L 06/11/20 17:52 36.0 C L 110 H 26 H 96/59 L 06/11/20 13:00 36.8 C 96 H 18 06/11/20 11:00 36.6 C 83 18 111/80 06/11/20 08:53 116/83 06/11/20 08:45 106 H 06/11/20 07:00 36.5 C 90 18 104/72 BP Pulse Ox 06/11/20 18:30 100 06/11/20 18:20 06/11/20 18:10 06/11/20 18:00 06/11/20 17:52 06/11/20 13:00 114/86 96 06/11/20 11:00 93 06/11/20 08:53 06/11/20 08:45 06/11/20 07:00 95
--- NOTE | 2020-06-11 18:45 | Anesthesiology Progress Note ---
Date of Service June 11, 2020 Anesthesia Post Procedure Vital Signs Vital Signs: Temp Pulse Pulse Pulse Resp BP BP 06/11/20 18:30 102 H 16 102/58 L 99/65 L 06/11/20 18:20 104 H 16 108/64 06/11/20 18:10 101 H 20 101/64 06/11/20 18:00 101 H 24 101/56 L 06/11/20 17:52 36.0 C L 110 H 26 H 96/59 L 06/11/20 13:00 36.8 C 96 H 18 06/11/20 11:00 36.6 C 83 18 111/80 06/11/20 08:53 116/83 06/11/20 08:45 106 H 06/11/20 07:00 36.5 C 90 18 104/72 06/11/20 03:00 36.3 C L 86 18 108/83 06/11/20 01:41 85 06/10/20 23:03 36.5 C 86 18 06/10/20 20:30 36.5 C 99 H 18 103/74 BP Pulse Ox 06/11/20 18:30 100 06/11/20 18:20 06/11/20 18:10 06/11/20 18:00 06/11/20 17:52 06/11/20 13:00 114/86 96 06/11/20 11:00 93 06/11/20 08:53 06/11/20 08:45 06/11/20 07:00 95 06/11/20 03:00 98 06/11/20 01:41 06/10/20 23:03 107/74 97 06/10/20 20:30 94 Pain Intensity Right Upper Leg: Pain Intensity: 8 Transfer of Care Handoff Completed per policy Notes Mental Status: alert / awake / arousable, participated in evaluation and see notes below Patient Amnestic to Procedure: Yes Nausea / Vomiting: adequately controlled Pain: adequately controlled Airway Patency, RR, SpO2: stable & adequate BP & HR: stable & adequate and see Notes below Hydration State: stable & adequate Anesthetic Complications: see Notes below and Pt Satisfied with anesthetic care Notes: I assumed care of this patient around 1600 midway through her procedure. As I was receiving sign out from her initial anesthesiologist, patient was noted to become much more tachycardic (patient was already in A fib but rate became more rapid) and hypotensive. There was notable bleeding at this time as well and there was also concern for possible embolic event. Given these differentials, we quickly decided to transfuse 2 units pRBCs (emergency release blood) along with albumin while waiting for the blood to come from the blood bank. An arterial line was inserted by myself using ultrasound guidance. Patient was also treated with IV vasopressor agents. Our initial thoughts were that the patient would be admitted to the ICU after the procedure but after the pRBC replacement her HR decreased into the 90's and BP remained in the 110's without vasopressors. We reversed her paralytic with sugammadex and patient was found to be spontaneously breathing, moving extremities x4 and following commands (opened eyes to voice) and was squeezing both of her hands. She was extubated without incident. She was taken to the ICU and her blood pressure remained stable without vasoactive support. She was initially confused but her mentation improved throughout her PACU stay. I called her daughter and gave her an update on her condition. At this time, she is meeting discharge criteria from the PACU and her arterial line will be discontinued. She will be transferred back to telemetry unit given her A fib.
[2020-06-11] MEDS ORDERED: SODIUM CHLORIDE 0.9% 1000ML 1,000 ML IV ONE (20:28)
[2020-06-11] MEDS ORDERED: NALOXONE HCL 0.4 MG/1 ML VIAL/CARP IV PRN (20:31)
[2020-06-11] MEDS: ERYTHROMYCIN OP OINT 5 MG/GM 3.5 GM TUBE OP SCH ×2 (20:37→22:16)
--- NOTE | 2020-06-11 21:02 | Anesthesiology Progress Note ---
Date of Service June 11, 2020 Anesthesia Post Procedure Vital Signs Vital Signs: Temp Pulse Pulse Pulse Resp BP BP 06/11/20 20:53 06/11/20 20:48 06/11/20 20:41 06/11/20 20:36 63/33 L 06/11/20 20:21 71/50 L 06/11/20 20:17 81/58 L 06/11/20 20:10 06/11/20 20:04 06/11/20 20:00 36.4 C L 18 58/38 L 06/11/20 19:25 94 H 18 95/49 L 06/11/20 19:10 82 20 96/64 L 06/11/20 19:00 108 H 17 90/64 L 06/11/20 18:50 36.5 C 100 H 17 87/58 L 06/11/20 18:40 78 16 104/66 94/62 L 06/11/20 18:30 102 H 16 102/58 L 99/65 L 06/11/20 18:20 104 H 16 108/64 06/11/20 18:10 101 H 20 101/64 06/11/20 18:00 101 H 24 101/56 L 06/11/20 17:52 36.0 C L 110 H 26 H 96/59 L 06/11/20 13:00 36.8 C 96 H 18 06/11/20 11:00 36.6 C 83 18 111/80 06/11/20 08:53 116/83 06/11/20 08:45 106 H 06/11/20 07:00 36.5 C 90 18 104/72 06/11/20 03:00 36.3 C L 86 18 108/83 06/11/20 01:41 85 06/10/20 23:03 36.5 C 86 18 BP Pulse Ox 06/11/20 20:53 72/56 L 06/11/20 20:48 82/60 L 06/11/20 20:41 71/59 L 06/11/20 20:36 06/11/20 20:21 06/11/20 20:17 06/11/20 20:10 74/49 L 06/11/20 20:04 68/38 L 06/11/20 20:00 98 06/11/20 19:25 98 12/04/20 19:10 100 06/11/20 19:00 95 06/11/20 18:50 96 06/11/20 18:40 06/11/20 18:30 100 06/11/20 18:20 06/11/20 18:10 06/11/20 18:00 68/38 L 06/11/20 17:52 06/11/20 13:00 114/86 96 06/11/20 11:00 93 06/11/20 08:53 06/11/20 08:45 06/11/20 07:00 95 06/11/20 03:00 98 06/11/20 01:41 06/10/20 23:03 107/74 97 Pain Intensity Right Upper Leg: Pain Intensity: 8 Transfer of Care Handoff Completed per policy Notes Mental Status: alert / awake / arousable and participated in evaluation Patient Amnestic to Procedure: Yes Nausea / Vomiting: see Notes below Pain: adequately controlled Airway Patency, RR, SpO2: stable & adequate BP & HR: see Notes below Hydration State: see Notes below Anesthetic Complications: see Notes below Notes: Called by [facility] as they had transported patient back to her telemetry room but were having trouble getting a blood pressure reading. Patient conversant and answering questions appropriately. Had SPECIMEN ACCESSIONER contact primary team, who came and spoke with patient. I finished placing a labor epidural and then went to see patient. Patient was in bed, awake and was conversant. She asked if I had spoken to her daughter earlier (which I had). Machine BP running and systolic BP noted to be in 70's. Placed patient's bed supine and then went to speak to her primary physician. We decided it was best to elevate this patient's level of care and she will be transferred to ICU in the event she needs BP management. Unsure how accurate her BP cuffs are as we were reading off of an arterial line for an hour and a half in PACU (BP's in low 100's without pressor support) but this was discontinued prior to her going back to the floor. Primary physician and I both spoke with the ICU team for report and they have agreed to accept the patient. All questions answered.
[2020-06-11] MEDS ORDERED: SODIUM CHLORIDE 0.9% 1000ML 500 ML IV ONE (21:11)
[2020-06-11] MEDS ORDERED: STAT IV Infusion **Titration per Protocol STA ×2 (21:12→23:14)
[2020-06-11] MEDS ORDERED: NOREPINEPHRINE/D5W 8 MG/508 ML BAG IV SCH (21:15)
[2020-06-11] MEDS ORDERED: ICU PROTOCOL FOR HYPERGLYCEMIA PRN (22:04)
[2020-06-11] MEDS: ceFAZolin 1000MG 1,000 MG/7.5 ML SYR IV SCH (22:12)
[2020-06-11 22:14] LABS: BUN Creatinine Ratio 23.4 (10-20); Blood Urea Nitrogen 25 mg/dl (7-18); Calcium 7.9 mg/dl (8.5-10.1); Carbon Dioxide 18 mmol/L (21-32); Chloride 112 mmol/L (98-107); Creatinine Clr Calc Pharmacy 30.2 ml/min; Est GFR (African American) 55.2; Est GFR (Non-African American) 47.6; Glucose 151 mg/dl (70-99); Hematocrit (blood only) 28.6 % (37-47); Hemoglobin 9.6 g/dL (12.0-16.0); Mean Corpuscular Hemoglobin 29.6 pg (25-34); Mean Corpuscular Hgb Conc 33.6 g/dL (32-36); Mean Corpuscular Volume 88.3 fL (80-100); Mean Platelet Volume 11.5 fL (7.4-10.4); Platelet Count 197 K/uL (130-400); Potassium 4.4 mmol/L (3.5-5.1); RDW Coefficient of Variation 14.9 % (11.5-14.5); RDW Standard Deviation 48.2 fL (36.4-46.3); Red Blood Count 3.24 M/uL (4.2-5.4); Sodium 140 mmol/L (136-145); Troponin I < 0.015 ng/ml (0-0.045); White Blood Count 21.46 K/uL (4.8-10.8)
[2020-06-11 22:15] LABS: Basophils # (auto) 0.01 K/uL (0-0.2); Echinocytes 1+; Immature Granulocytes # (auto) 0.11 K/uL (0.00-0.02); Immature Granulocytes % (auto) 0.5 %; Lymphocytes # (auto) 0.94 K/uL (1.2-3.4); Lymphocytes % (auto) 4.4 %; Monocytes % (auto) 3.7 %; Neutrophils % (auto) 91.4 %
[2020-06-11] MEDS: cefTRIAXone SODIUM 1,000 MG in DEXTROSE 5% 50 ML IV SCH (22:16)
[2020-06-11] MEDS ORDERED: ALBUMIN 5% 250 ML IV ONE (22:54)
[2020-06-11] MEDS ORDERED: PIPERACILL/TAZOBAC CONSULT ACTIVE PRN ×2 (22:56)
--- NOTE | 2020-06-11 22:58 | Critical Care Consultation ---
Date of Consultation June 11, 2020 Assessment & Plan (1) Hypotension: Reason Critically Ill: 85-year-old female transferred to ICU for hypotension postop following right trochanter nail removal of hardware and posterior total hip arthroplasty. Neuro - [facility] ICU: Negative Patient remains drowsy but alert and oriented. Pain control: Holding narcotics at this time as patient is significantly hypotensive, patient currently resting without complaint of pain Cardiac - Hypotensionunclear etiology at this time, patient did have acute blood loss intraprocedure and was resuscitated with 2 units RBCs and hemoglobin postop now stable, will trend and transfuse if indicated -Patient undergoing treatment for UTI, cannot rule out septic component at this time. Antibiotics broadened and repeat blood cultures pending. -Cortisol of 45, no indication for hydrocortisone at this time -Troponin within normal limits, echo from February showed EF 65%. Will repeat study considering hypotension -Patient has shown some temporary response to fluid resuscitation, and did receive 1 L crystalloid. Administering additional albumin. -Titrating vasopressors for MAP greater than 65, A-line inserted. Currently only requiring low-dose vasopressor and will run peripherally for the time being but will insert central line if patient requires higher dose of vasopressors. -Holding BP medications and narcotics at this time -Patient consistently in A. fib, anticoagulation held since 06/09 for surgery -Rate improved with fluid resuscitation and improvement in SBP, continuous monitoring on telemetry -Did receive p.m. dose of diltiazem, holding MTP for hypotension at this time Respiratory - COPDhistory of COPD does not appear to be an issue at this time, patient currently maintaining oxygen saturation on room air without issue -Chest x-ray is unremarkable -Continuous monitoring on pulse ox, nebs as needed GI - N.p.o. RENAL/LYTES - Renal insufficiencycreatinine currently consistent with previous baseline -Holding Lasix and Aldactazide for now -Renally adjust medications and avoid nephrotoxins -Trend routine BMPs and electrolytes and replete as indicated -Continue IV fluid resuscitation - Foleystrict I's and O's ENDO - Currently euglycemic ICU hyperglycemic protocol TSH pending HEME - Acute blood loss anemiapatient did receive 2 units RBCs for acute blood loss intra procedure, repeat hemoglobin appears to be stable -We will trend hemoglobin and transfuse as indicated -Repeat INR and fibrinogen acceptable, monitor ID - Sepsis?Patient previously being treated for UTI on admission with Rocephin, urine culture pending -WBC elevation most likely reactionary following procedure and procalcitonin negative, however given hypotension and elevated lactate cannot rule out sepsis at this time -Antibiotics broadened to Zosyn and vancomycin, blood cultures pending Orthostatus post right hip arthroplasty with repair of hardware malfunction, currently managed by Ortho, will follow up recs LINES/IV ACCESS - Peripheral IVs, A-line DVT PROPHYLAXIS - SCDs, holding anticoagulation as patient recently postop for hip arthroplasty I have personally spent 65 minutes of critical care time in the direct management of this patient. This is a life/limb threatening event. This includes time spent evaluating patient, direct bedside care, chart review, placing orders, interpretation of diagnostic studies, discussion with consultants, patient, and family members, as well as other required patient management activities. This time is exclusive of all separately billable procedures, and teaching time and separate from and in addition to any other critical care service time. Thank you for allowing us to participate in the care of this patient. Please refer to my attending physician's documentation for any further recommendations. (2) UTI (urinary tract infection): (3) Closed intertrochanteric fracture of right hip: (4) Failed hardware: (5) Renal insufficiency: (6) Dehydration: (7) Chronic kidney disease, stage 3a: (8) Acute kidney injury: (9) Hypomagnesemia: (10) Hypercalcemia: (11) Hyponatremia: (12) DVT prophylaxis: (13) Right hip pain: (14) Hyperlipidemia: (15) Chronic anticoagulation: (16) Intertrochanteric fracture of right hip: (17) Permanent atrial fibrillation: (18) COPD (chronic obstructive pulmonary disease): History of Present Illness Attending Physician: Rah Smyth MD History of Present Illness Patient is a 85-year-old female with PMH including A. fib (on apixaban), HTN, COPD, HLD who presented to the hospital on 06/10 with complaints of right hip pain secondary to failed hardware from her recent right hip surgery ORIF on 03/10/2020. She was taken to the OR today for a right karri nail removal of hardware, posterior total hip arthroplasty right. During the procedure patient had become hypotensive and did receive 2 units RBCs intraprocedure for acute blood loss. Postoperatively she was extubated and was hemodynamically stable and transferred to PCU. Shortly after arrival to PCU patient again became hypotensive with systolics in the 50s to 70s. She was somewhat responsive to crystalloid bolus but remained hypotensive. Decision was made to transfer the patient to the ICU. On arrival arterial line was placed and she is started on low-dose vasopressors. She received additional crystalloid bolus. Repeat labs showed stable hemoglobin and mildly elevated lactate. Cortisol within normal limits. She remains drowsy but is alert and oriented x3, and denies syncope or lightheadedness. She denies pain, headaches, shortness of breath, chest pain or palpitations, abdominal pain. She does report feeling nauseous earlier but currently has not an issue. Patient to remain in ICU for further management at this time. Allergies Allergy/AdvReac Type Severity Reaction Status Date / Time No Known Allergies Allergy Verified 06/09/20 08:18 Home Medications Medication Instructions Recorded Confirmed Type apixaban 5 mg tablet 5 mg PO BID #60 tab 03/02/20 06/09/20 Rx fluticasone propionate 1 spray INTRANASAL QAM PRN 04/06/20 06/09/20 History diltiazem HCl 180 mg capsule,24 180 mg PO BID cap 05/07/20 06/09/20 History hr,extended release metoprolol succinate 50 mg 150 mg PO QAM tab 05/13/20 06/09/20 History tablet,extended release 24 hr spironolacton-hydrochlorothiaz 1 tab PO QAM 06/07/20 06/09/20 History [Aldactazide] docusate sodium [Stool Softener] 100 mg PO BID 06/09/20 06/09/20 History furosemide 40 mg PO QAM 06/09/20 06/09/20 History oxycodone 5 mg PO Q6H PRN 06/09/20 06/09/20 History potassium chloride 10 meq PO QAM 06/09/20 06/09/20 History Patient History Medical History Atrial fibrillation with rapid ventricular response 02/[address] kendrick COPD (chronic obstructive pulmonary disease) Dyslipidemia Hx of gout Hypertension On anticoagulant therapy Osteoarthritis Surgical History History of cardioversion 04/2020 [place] History of open reduction and internal fixation (ORIF) procedure right hip with nailing 03/2020 History of total right knee replacement Dr. Jeremiah Eddy [place], [place] 05/2017 S/P cataract surgery Family History Father , age 59 Myocardial infarction Social History Smoking Status: Former smoker Tobacco Type: Cigarettes Years Smoked: 15; Cigarettes Per Day: 0.5 ppd; Second Hand Exposure: No; Do You Dip or Chew Tobacco: No; Hx Alcohol Use: No Hx Substance Use: No Preferred Language: Yoruba Communication Ability: Effective Hearing Ability: Normal Cloud Consultant Required: No Beliefs That Will Affect Care: None marital status: / Current Living Situation: Alone Current Living Situation Comment: 1 floor apartment current occupational status: retired How many Children do You have: 4 Feels Safe at Home: Yes Safety Concerns: Feels Safe At This Time Assistive Devices: Denture - Lower, Glasses, Hearing Aid - Bilateral and Hearing Aid - Left Review of Systems Review of Systems: All systems reviewed & are unremarkable except as noted in HPI & below Physical Exam Constitutional: cooperative, comfortable and + lethargic Eyes: PERRL, conjunctivae normal, anicteric sclerae ENMT: external ear and nose normal, oropharynx normal Neck: trachea midline, no thyromegaly Respiratory: normal respiratory effort, lungs clear to auscultation Cardiovascular: RRR, no murmur, no edema Heart Sounds: normal S1 and normal S2 Vessels: no JVD Extremities: normal capillary refill Gastrointestinal (Abdomen): normal bowel sounds, soft, nontender, no hepatosplenomegaly Musculoskeletal: no cyanosis or clubbing, extremities motor strength 5/5 Skin: Surgical incision of the right hip is well approximated, dressings are dry and intact. There is no palpable hematoma at the surgical site. Drain is intact with scant amounts of bloody drainage. Skin is cool to touch. Neurologic: PERRL, EOMI, accommodation nl, no face palsy, no dysarthria Psychiatric: A+Ox3, euthymic affect Genitourinary: Indwelling Lee catheter present Results & Data Results & Data ([facility]) Vital Signs (Past 12 Hours) Vital Signs Temp Pulse Pulse Resp BP BP BP 06/11/20 21:41 79/58 L 06/11/20 21:35 87/63 L 06/11/20 21:06 52/39 L 06/11/20 20:53 72/56 L 06/11/20 20:48 82/60 L 06/11/20 20:41 71/59 L 06/11/20 20:36 63/33 L 06/11/20 20:21 71/50 L 06/11/20 20:17 81/58 L 06/11/20 20:10 74/49 L 06/11/20 20:04 68/38 L 06/11/20 20:00 36.4 C L 18 58/38 L 06/11/20 19:25 94 H 18 95/49 L 06/11/20 19:10 82 20 96/64 L 06/11/20 19:00 108 H 17 90/64 L 06/11/20 18:50 36.5 C 100 H 17 87/58 L 06/11/20 18:40 78 16 104/66 94/62 L 06/11/20 18:30 102 H 16 102/58 L 99/65 L 06/11/20 18:20 104 H 16 108/64 06/11/20 18:10 101 H 20 101/64 06/11/20 18:00 101 H 24 101/56 L 68/38 L 06/11/20 17:52 36.0 C L 110 H 26 H 96/59 L 06/11/20 13:00 36.8 C 96 H 18 114/86 06/11/20 11:00 36.6 C 83 18 111/80 Pulse Ox 06/11/20 21:41 06/11/20 21:35 06/11/20 21:06 06/11/20 20:53 06/11/20 20:48 06/11/20 20:41 06/11/20 20:36 06/11/20 20:21 06/11/20 20:17 06/11/20 20:10 06/11/20 20:04 06/11/20 20:00 98 06/11/20 19:25 98 06/11/20 19:10 100 06/11/20 19:00 95 06/11/20 18:50 96 06/11/20 18:40 06/11/20 18:30 100 06/11/20 18:20 06/11/20 18:10 06/11/20 18:00 06/11/20 17:52 06/11/20 13:00 96 06/11/20 11:00 93 Coding Level of Care Code Critical Care 1st 30-74 mins Diagnoses Hypotension I95.9 UTI (urinary tract infection) N39.0 Closed intertrochanteric fracture of right hip S72.141A Failed hardware Renal insufficiency N28.9 Dehydration E86.0 Chronic kidney disease, stage 3a N18.31 Acute kidney injury N17.9 Hypomagnesemia E83.42 Hypercalcemia E83.52 Hyponatremia E87.1 DVT prophylaxis Z29.9 Right hip pain M25.551 Hyperlipidemia E78.5 Chronic anticoagulation Z79.01 Intertrochanteric fracture of right hip S72.141A Permanent atrial fibrillation I48.21 COPD (chronic obstructive pulmonary disease) J44.9
--- NOTE | 2020-06-11 22:59 | Procedure Note ---
Procedure Note Date of Service June 11, 2020 Note ARTERIAL LINE PROCEDURE NOTE: Procedure: Arterial Line Placement Attending: Dr. Musa Provider: ESSIE Marroquin Indication: Monitoring on Pressors Anesthesia: Lidocaine 1% Line placed emergently in the setting of hypotension requiring vasopressor support. A time-out was completed verifying correct patient, procedure, site, positioning, and implant(s) or special equipment if applicable. Allens test was performed to ensure adequate perfusion. Patients right wrist was prepped and draped in the usual sterile fashion. Ultrasound guidance was used to aid needle placement. A 20g Arrow arterial line was introduced into the right radial artery. Catheter was threaded, and the needle was removed with appropriate blood return. Good waveform was observed. The patient tolerated the procedure well. Confirmation of placement with ultrasound. Blood Loss: Minimal Complications: None Procedural Ultrasound Guidance: Procedure Date: 06/11/2020 Indication: Arterial line insertion Attending: Dr. Musa Provider: ESSIE Marroquin Artery Identified: YES Line confirmed in Artery with ultrasound: Yes Complications: NONE Patient tolerated procedure: WELL Coding CPT Codes Tubes, Drains, and Vasc Access - Tubes, Drains, and Vasc Access: [id number] Insertion Catheter, Artery ([id number]) Tubes, Drains, and Vasc Access - Tubes, Drains, and Vasc Access: [id number] Ultrasou nd Guidance For Vascular ([id number]) [facility] [place] Procedure Codes (Charges) Tubes, Drains, and Vasc Access Procedure 1: Tubes, Drains, and Vasc Access: [id number] Insertion Catheter, Artery Procedure 2: Tubes, Drains, and Vasc Access: [id number] Ultrasound Guidance For Vascular
[2020-06-11] MEDS ORDERED: PIPERACILLIN/TAZOBACTAM 4.5 GM in DEXTROSE 5% 100 ML IV ONE (23:15)
[2020-06-11 23:29] LABS: Fibrinogen 261 mg/dl (184-400); INR 1.3 (0.9-1.1); Prothrombin Time 13.5 Seconds (9.0-12.0)
[2020-06-11] MEDS: PHENYLEPHRINE HCL 20 MG in DEXTROSE 5% 500 ML IV SCH (23:58)
[2020-06-12] MEDS: NORMOSOL-R 1,000 ML IV SCH (00:16)
[2020-06-12] MEDS ORDERED: VANCOMYCIN CONSULT ACTIVE PRN (00:39)
[2020-06-12] MEDS ORDERED: VANCOMYCIN HCL 1,250 MG in SODIUM CHLORIDE 0.9% 250 ML IV ONE (01:00)
--- NOTE | 2020-06-12 01:19 | Pharmacy Report ---
Pharmacy Abx Dose Short Note - Date of Service June 12, 2020 - Assessment & Plan Assessment * Ms Stahl is an 85 year old F receiving Vancomycin/Zosyn for empiric treatment of UTI, ?sepsis * Pt admitted for hip pain/failed hardware s/p total hip arthroplasty 03/10/20. Pt underwent ORIF 06/11/20. * Other significant PMH includes COPD, CKD stage III, Afib, HTN, HLD. * Pt transferred to ICU post-op d/t hypotension. Currently receiving treatment for UTI, cannot r/o sepsis. * Procal 0.12. Urine and blood cultures pending. * ABX broadened to vanc/zosyn. Plan Vancomycin * Patient meets criteria for vancomycin AUC dosing nomogram * AUC/TAYLER is the preferred PK/PD target for vancomycin * Target AUC/TAYLER = 400-600 * AUC guided dosing is effective and associated with decreased risk of nephrotoxicity * Vancomycin 1250mg (~20.5mg/kg) IV x1 dose, then * Vancomycin 1000mg (~16.4mg/kg) IV q24h * No levels have been ordered at this time, as vanc currently only ordered [id number]. If vanc continues beyond 48h, vanc level will be assessed. Zosyn * 4.5gm IV x1 dose, then * 3.375gm IV q8h, extended infusion Pharmacy will continue to follow and will adjust dose/frequency as necessary. Thank you.
[2020-06-12 01:44] LABS: Hematocrit (blood only) 26.6 % (37-47); Hemoglobin 8.9 g/dL (12.0-16.0)
[2020-06-12] MEDS: PIPERACILLIN/TAZOBACTAM 3.375 GM in DEXTROSE 5% 100 ML IV SCH ×3 (03:40→20:40)
[2020-06-12] MEDS: ERYTHROMYCIN OP OINT 5 MG/GM 3.5 GM TUBE OP SCH ×4 (03:41→20:46)
[2020-06-12 04:23] LABS: Hematocrit (blood only) 26.3 % (37-47); Hemoglobin 8.6 g/dL (12.0-16.0); Immature Granulocytes # (auto) 0.07 K/uL (0.00-0.02); Immature Granulocytes % (auto) 0.4 %; Lymphocytes # (auto) 1.47 K/uL (1.2-3.4); Lymphocytes % (auto) 7.8 %; Mean Corpuscular Hemoglobin 28.7 pg (25-34); Mean Corpuscular Hgb Conc 32.7 g/dL (32-36); Mean Corpuscular Volume 87.7 fL (80-100); Mean Platelet Volume 11.9 fL (7.4-10.4); Monocytes # (auto) 0.53 K/uL (0.11-0.59); Monocytes % (auto) 2.8 %; Neutrophils # (auto) 16.72 K/uL (1.4-6.5); Platelet Count 218 K/uL (130-400); RDW Coefficient of Variation 15.6 % (11.5-14.5); RDW Standard Deviation 50.3 fL (36.4-46.3); White Blood Count 18.79 K/uL (4.8-10.8)
[2020-06-12] MEDS: ACETAMINOPHEN 500 MG TAB PO SCH ×3 (04:28→21:58)
[2020-06-12 04:41] LABS: BUN Creatinine Ratio 22.6 (10-20); Calcium 7.9 mg/dl (8.5-10.1); Creatinine Clr Calc Pharmacy 31.1 ml/min; Est GFR (African American) 57.1; Est GFR (Non-African American) 49.3; Potassium 4.4 mmol/L (3.5-5.1)
[2020-06-12] MEDS: ceFAZolin 1000MG 1,000 MG/7.5 ML SYR IV SCH ×2 (04:50→20:42)
[2020-06-12] MEDS ORDERED: NORMOSOL-R 1,000 ML IV ONE (04:56)
[2020-06-12] MEDS ORDERED: traMADol HCL 50 MG TABLET ONE (11:24)
--- NOTE | 2020-06-12 13:40 | XCELERA ---
[id number] \\[id number]
--- NOTE | 2020-06-12 15:00 | XRay Report ---
XR chest 1V portable CLINICAL HISTORY: shock COMPARISON STUDY: Chest radiograph June 09, 2020. FINDINGS: Lung volumes are normal. There is no pneumothorax or pleural effusion. There is no consolid ation or evidence for pulmonary edema. Moderate cardiomegaly is unchanged. There is old deformity of the proximal left humerus. Old left-sided rib fractures are incidentally noted. The appearance of the chest is unchanged. IMPRESSION: No acute cardiopulmonary findings. ACT 112: Negative or not required by law. Electronically signed by: Satinder Marcelino M.D. 06/12/2020 7:23 AM
--- NOTE | 2020-06-12 17:15 | Hospitalist Progress Note ---
Date of Service June 12, 2020 Assessment & Plan (1) Right hip pain: Anny Stahl is an 85 yo female with PMHx of afib, HTN, COPD, and hyperlipidemia, admitted to the hospital on 06/10/20 due to complaints of right hip pain secondary to failed hardware from recent right hip fracture ORIF on 03/10/20. Transferred to ICU on evening of 06/11/20, several hours after R hip arthoplasty, for hypotension, and a fib w/ RVR. Weaned off pressors 06/12/20. hypovolemic shock, likely secondary to anemia 2/2 hip surgery - Hb 8.6 AM, 8.3 on recheck. vs 14.6 prior to surgery a day prior - metabolic acidosis (borderline elevated anion gap) w/ pH 7.19 on poc blood gasses (pco2 45. po2 321. hco3 17. Na 137. Cl 108) during initial transfer to ICU evening of 06/11/20. anion gap ~13-14 depending on albumin correction. - initially required pressor support w/ IV phenylephrine. MAPs maintained above 65 w/ this. rate control for a fib held at the time for concern of depression of blood pressure - weaned off phenylephrine. started BID metoprolol 25 - lactate normalized, 2.1->1.3 - elevated white count downtrending 21.46->14.47 - on Vanc/Zosyn - echo read from today: EF 55-60%. Normal LV systolic function. No regional wall motion abnormalities. - per nursing, good uop afternoon of 06/12/20. will continue monitoring. goal of >0.5mL/kg/hr. - blood cultures pending AFib w/ RVR - denies palpitations or fluttering sensation - restarted metoprolol as per above - held home Eliquis. Currently on heparin. - On admission, lowered metoprolol dose from home 150mg po qam to 100mg po qam - Continued home cardizem at 180mg po bid, since discontinued after ICU transfer - rate in the 100-120s this AM - According ACS surgical risk calculator, from cardiac standpoint, patient is at an above average but low risk for cardiac outcomes (1.7%) and above average risk for serious complications (17.0%) but she is medically optimized for surgical intervention - currently on metoprolol tartrate 25 BID s/p total arthoplasty - Right hip pain secondary to failed hardware from right hip fracture ORIF 03/10/20 - Dr. Perez, orthopedic surgeon, consulted and plans to take patient to OR for operative management of the failed hardware - last dose of Eliquis was morning of 06/09/20 - s/p hardware removal and total hip arthoplasty 06/11/20 Chronic kidney disease, stage 3a - Baseline CrCl low 30s - will monitor BMP daily Hypertension - Update since 06/11/20: BPs low 2/2 hypovolemic shock - See above regarding transfer to ICU evening of 06/11/20 - weaned off pressors today (started yesterday evening), goal is maintain MAP >65 Hx of COPD (chronic obstructive pulmonary disease) - No exacerbation at this time UTI (urinary tract infection) - U/A suggestive of UTI - urine culture > 3 types of organisms in high counts, repeat recommended - will monitor for symptoms Acute kidney injury (resolved) - Mild ESAU with Cr of 1.44 - Likely due to dehydration and patient is not eating/drinking well due to pain - She received fluids overnight 06/09-06/10 - Repeat creatinine 06/10 is 1.19. 1.04 on 06/12/20, downtrending Hyponatremia (resolved) - Mild hyponatremia on admission with Na of 134 - Secondary to volume depletion - Patient on multiple diuretics; diuretics held at admission - Continue IV fluids Hypercalcemia (resolved) - Hypercalcemia on admission at 10.9 - Possibly 2nd to HCTZ use with superimposed dehydration - On admission, HCTZ held - Patient hydrated with IVF - Repeat BMP 06/10/20 with normal calcium at 9.7 - 06/11/20 1.14 iCa POC, wnl Hypomagnesemia (resolved) - Hypomagnesemia on admission at 1.7 - Repleted - Repeat magensium level 06/10/20 normal at 1.9 Hyperlipidemia - No current statin therapy treatment FEN/GI: LR 125cc/hr, regular diet dvt ppx: 5000 units sub q heparin sodium Dispo: ICU Code status: FULL (2) Hypotension: (3) Closed intertrochanteric fracture of right hip: (4) Failed hardware: (5) Chronic kidney disease, stage 3a: (6) DVT prophylaxis: (7) Elevated serum creatinine: (8) Paroxysmal atrial fibrillation: (9) Hypertension: (10) Dyslipidemia: (11) COPD (chronic obstructive pulmonary disease): (12) Hypercalcemia: (13) Acute kidney injury: Admission and Anticipated Discharge Date Admission Date: June 09, 2020 Supervising Physician Co-Signing Physician Notes Attending attestation Pt seen and examined in concert with Dr. Smith. In agreement with the documented findings as noted in the resident documentation with any exceptions or additions as noted here. Resting in bed, pain well controlled on current regimen with activity modification. Relieved to have the surgery completed. On examination, S1/S2 nl IRR/IRR no MCG. CTAB. Abd NT/ND BS+ve. Decreased sensation of the RLE stable from preoperatively. Hypotension in the setting of tachycardia and AF w/ RVR - tolerating pressors with the goal of tapering while preserving MAP R hip pain 2/2 migration of femoral nail - POD #1 - pain and recovery course per orthopaedics, will adjust as is helpful Severe protein calorie malnutrition - nutrition consultation with support once recovered Abnormal UA - continue ceftriaxone, f/u Cx Else see resident documentation as noted. Subjective Patient was seen in the ICU. Yesterday evening, status post R hip total arthroplasty, was transferred to ICU for hypotension, tachycardia, and poor control of a fib. Requiring pressor support Rosalio Synephrine .75 TAYLER. Per nursing, MAPs maintained >65 overnight. Refused PO Tylenol. No PRN medications received overnight. Right foot numb/ting. Per patient, not new and has had this before the surgery. Weaned off pressors late morning. Review of Systems Review of Systems: Constitutional: Denies fever, chills Cardiovascular: Denies chest pain. No palpitations or fluttering sensation. Respiratory: Denies shortness of breath, difficulty breathing Gastrointestinal: Denies abdominal pain, nausea, vomiting, constipation, diarrhea Genitourinary: Denies urinary symptoms. Has juarez. Musculoskeletal: Denies weakness. Pain at R hip w/ movement Neurological: Denies headache. + numbness/tingling of R foot, see HPI Physical Exam Physical Exam: General: Grossly A&O. Conversing normally. NAD. Cooperative. HEENT: Atraumatic, normocephalic. EOMI Pulm: CTAB. -wheezes, -rales, -rhonchi. No respiratory distress. Cardiac: Tachycardic rate, irregular rhythm. Abdominal: Nontender, nondistended, soft. Musculoskeletal: R hip incision site is bandaged, c/d/i. Results & Data Results & Data ([facility]) Vital Signs (Past 12 Hours) early AM vitals, while still on pressors: 36.8C, 103/61 (MAP 75) (via A-line), 15 rr. pulse 100-120s, spO2 94 on RA. PM update, maintaining MAP >65 after weaning off pressors. Resident Activity Tracking Resident Involvement: Resident Care Provided Care Provided: Adult Hospital Medicine
--- NOTE | 2020-06-12 17:35 | Orthopedic Progress Note ---
Date of Service June 12, 2020 Assessment & Plan (1) Failed hardware: (2) Closed intertrochanteric fracture of right hip: s/p ANDIE, R CLARY POD#1 -ancef x 24 -DVT PPX: SCDs, TEDs, heparin, when medically stable, restart Eliquis -Partial WB RLE -PT/OT when medically stable -Posterior and Abduction precautions, ambulate with walker at all times -PO XR demonstrates well aligned well fixed long stem total hip prosthesis, without new fracture or dislocation -am labs, as above -HMV drain 90/140cc Admission and Anticipated Discharge Date Admission Date: June 09, 2020 Subjective Post Operative Progress Note Patient seen this morning, paper note placed in chart due to EMR downtime. Patient sitting up in bed, comfortable, denies complaints, pain well controlled, transferred to ICU overnight for monitoring due to persistent hypotension, patient was near her baseline and off pressors this am. Review of Systems Review of Systems: All systems reviewed & are unremarkable except as noted in HPI & below Constitutional: as per Subjective / HPI Physical Exam Physical Exam: RLE NVSI +EHL/FHL/TA/GS SILT grossly, +2 DP pulse, compartments soft NT, dressing cdi. Constitutional: WD/WN, vitals as above Results & Data ([facility]) Laboratory Results 06/12/20 06/12/20 06/12/20 Range/Units 03:58 03:58 03:30 WBC 18.79 H (4.8-10.8) K/uL RBC 3.00 L (4.2-5.4) M/uL Hgb 8.6 L (12.0-16.0) g/dL POC Hgb (12.0-16.0) g/dl Hct 26.3 L (37-47) % POC Hct (37-47) % MCV 87.7 (80-100) fL MCH 28.7 (25-34) pg MCHC 32.7 (32-36) g/dL RDW Std Deviation 50.3 H (36.4-46.3) fL RDW Coeff of Abel 15.6 H (11.5-14.5) % Plt Count 218 (130-400) K/uL MPV 11.9 H (7.4-10.4) fL Immature Gran % (Auto) 0.4 % Neut % (Auto) 89.0 % Lymph % (Auto) 7.8 % [place] % (Auto) 2.8 % Eos % (Auto) 0.0 % Baso % (Auto) 0.0 % Neut # (Auto) 16.72 H (1.4-6.5) K/uL Lymph # (Auto) 1.47 (1.2-3.4) K/uL [place] # (Auto) 0.53 (0.11-0.59) K/uL Eos # (Auto) 0.00 (0-0.5) K/uL Baso # (Auto) 0.00 (0-0.2) K/uL Immature Gran # (Auto) 0.07 H (0.00-0.02) K/uL Echinocytes PT (9.0-12.0) Seconds INR (0.9-1.1) Fibrinogen (184-400) mg/dl POC pH (7.35-7.45) POC pCO2 (35-46) mmHg POC pO2 (80-95) mmHg POC HCO3 (19-24) rita/L POC Total CO2 (24-31) mmol/L POC Base Excess (-9-1.8) rita/L POC ABG O2 Sat (90-95) % POC Sodium (135-144) mmol/L Sodium 138 (136-145) mmol/L POC Potassium (3.3-5.0) mmol/L Potassium 4.4 (3.5-5.1) mmol/L POC Chloride (101-112) mmol/L Chloride 110 H (98-107) mmol/L Carbon Dioxide 18 L (21-32) mmol/L Anion Gap 10.0 (3-11) POC Anion Gap (16-25) mmol/L POC BUN (7-18) mg/dl BUN 24 H (7-18) mg/dl Creatinine 1.04 (0.6-1.2) mg/dl POC Creatinine (0.6-1.3) mg/dl Est Cr Clr Drug Dosing 31.1 ml/min Est GFR ( Amer) 57.1 Est GFR (Non-Af Amer) 49.3 BUN/Creatinine Ratio 22.6 H (10-20) Glucose 161 H (70-99) mg/dl POC Glucose (other) (70-99) mg/dl Lactate (0.4-2.0) mmol/L Calcium 7.9 L (8.5-10.1) mg/dl POC Ioniz Calcium Lali (1.12-1.32) mmol/l Troponin I (0-0.045) ng/ml Procalcitonin (0-0.5) ng/ml TSH (0.300-4.500) uIu/ml Random Cortisol mcg/dl Nasal Screen MRSA (PCR) Pending Blood Type Antibody Screen Crossmatch 06/12/20 06/12/20 06/12/20 Range/Units 01:31 01:31 01:31 WBC (4.8-10.8) K/uL RBC (4.2-5.4) M/uL Hgb 8.9 L (12.0-16.0) g/dL POC Hgb (12.0-16.0) g/dl Hct 26.6 L (37-47) % POC Hct (37-47) % MCV (80-100) fL MCH (25-34) pg MCHC (32-36) g/dL RDW Std Deviation (36.4-46.3) fL RDW Coeff of Abel (11.5-14.5) % Plt Count (130-400) K/uL MPV (7.4-10.4) fL Immature Gran % (Auto) % Neut % (Auto) % Lymph % (Auto) % [place] % (Auto) % Eos % (Auto) % Baso % (Auto) % Neut # (Auto) (1.4-6.5) K/uL Lymph # (Auto) (1.2-3.4) K/uL [place] # (Auto) (0.11-0.59) K/uL Eos # (Auto) (0-0.5) K/uL Baso # (Auto) (0-0.2) K/uL Immature Gran # (Auto) (0.00-0.02) K/uL Echinocytes PT (9.0-12.0) Seconds INR (0.9-1.1) Fibrinogen (184-400) mg/dl POC pH (7.35-7.45) POC pCO2 (35-46) mmHg POC pO2 (80-95) mmHg POC HCO3 (19-24) rita/L POC Total CO2 (24-31) mmol/L POC Base Excess (-9-1.8) rita/L POC ABG O2 Sat (90-95) % POC Sodium (135-144) mmol/L Sodium (136-145) mmol/L POC Potassium (3.3-5.0) mmol/L Potassium (3.5-5.1) mmol/L POC Chloride (101-112) mmol/L Chloride (98-107) mmol/L Carbon Dioxide (21-32) mmol/L Anion Gap (3-11) POC Anion Gap (16-25) mmol/L POC BUN (7-18) mg/dl BUN (7-18) mg/dl Creatinine (0.6-1.2) mg/dl POC Creatinine (0.6-1.3) mg/dl Est Cr Clr Drug Dosing ml/min Est GFR ( Amer) Est GFR (Non-Af Amer) BUN/Creatinine Ratio (10-20) Glucose (70-99) mg/dl POC Glucose (other) (70-99) mg/dl Lactate 2.1 H* (0.4-2.0) mmol/L Calcium (8.5-10.1) mg/dl POC Ioniz Calcium Lali (1.12-1.32) mmol/l Troponin I (0-0.045) ng/ml Procalcitonin (0-0.5) ng/ml TSH 0.328 (0.300-4.500) uIu/ml Random Cortisol mcg/dl Nasal Screen MRSA (PCR) Blood Type Antibody Screen Crossmatch 06/11/20 06/11/20 06/11/20 Range/Units 23:28 21:37 21:37 WBC (4.8-10.8) K/uL RBC (4.2-5.4) M/uL Hgb (12.0-16.0) g/dL POC Hgb (12.0-16.0) g/dl Hct (37-47) % POC Hct (37-47) % MCV (80-100) fL MCH (25-34) pg MCHC (32-36) g/dL RDW Std Deviation (36.4-46.3) fL RDW Coeff of Abel (11.5-14.5) % Plt Count (130-400) K/uL MPV (7.4-10.4) fL Immature Gran % (Auto) % Neut % (Auto) % Lymph % (Auto) % [place] % (Auto) % Eos % (Auto) % Baso % (Auto) % Neut # (Auto) (1.4-6.5) K/uL Lymph # (Auto) (1.2-3.4) K/uL [place] # (Auto) (0.11-0.59) K/uL Eos # (Auto) (0-0.5) K/uL Baso # (Auto) (0-0.2) K/uL Immature Gran # (Auto) (0.00-0.02) K/uL Echinocytes PT (9.0-12.0) Seconds INR (0.9-1.1) Fibrinogen (184-400) mg/dl POC pH (7.35-7.45) POC pCO2 (35-46) mmHg POC pO2 (80-95) mmHg POC HCO3 (19-24) rita/L POC Total CO2 (24-31) mmol/L POC Base Excess (-9-1.8) rita/L POC ABG O2 Sat (90-95) % POC Sodium (135-144) mmol/L Sodium (136-145) mmol/L POC Potassium (3.3-5.0) mmol/L Potassium (3.5-5.1) mmol/L POC Chloride (101-112) mmol/L Chloride (98-107) mmol/L Carbon Dioxide (21-32) mmol/L Anion Gap (3-11) POC Anion Gap (16-25) mmol/L POC BUN (7-18) mg/dl BUN (7-18) mg/dl Creatinine (0.6-1.2) mg/dl POC Creatinine (0.6-1.3) mg/dl Est Cr Clr Drug Dosing ml/min Est GFR ( Amer) Est GFR (Non-Af Amer) BUN/Creatinine Ratio (10-20) Glucose (70-99) mg/dl POC Glucose (other) 148 H (70-99) mg/dl Lactate (0.4-2.0) mmol/L Calcium (8.5-10.1) mg/dl POC Ioniz Calcium Lali (1.12-1.32) mmol/l Troponin I (0-0.045) ng/ml Procalcitonin 0.12 (0-0.5) ng/ml TSH (0.300-4.500) uIu/ml Random Cortisol 44.23 mcg/dl Nasal Screen MRSA (PCR) Blood Type Antibody Screen Crossmatch 06/11/20 06/11/20 06/11/20 Range/Units 21:37 21:37 21:37 WBC (4.8-10.8) K/uL RBC (4.2-5.4) M/uL Hgb (12.0-16.0) g/dL POC Hgb (12.0-16.0) g/dl Hct (37-47) % POC Hct (37-47) % MCV (80-100) fL MCH (25-34) pg MCHC (32-36) g/dL RDW Std Deviation (36.4-46.3) fL RDW Coeff of Abel (11.5-14.5) % Plt Count (130-400) K/uL MPV (7.4-10.4) fL Immature Gran % (Auto) % Neut % (Auto) % Lymph % (Auto) % [place] % (Auto) % Eos % (Auto) % Baso % (Auto) % Neut # (Auto) (1.4-6.5) K/uL Lymph # (Auto) (1.2-3.4) K/uL [place] # (Auto) (0.11-0.59) K/uL Eos # (Auto) (0-0.5) K/uL Baso # (Auto) (0-0.2) K/uL Immature Gran # (Auto) (0.00-0.02) K/uL Echinocytes PT 13.5 H (9.0-12.0) Seconds INR 1.3 H (0.9-1.1) Fibrinogen 261 (184-400) mg/dl POC pH (7.35-7.45) POC pCO2 (35-46) mmHg POC pO2 (80-95) mmHg POC HCO3 (19-24) rita/L POC Total CO2 (24-31) mmol/L POC Base Excess (-9-1.8) rita/L POC ABG O2 Sat (90-95) % POC Sodium (135-144) mmol/L Sodium 140 (136-145) mmol/L POC Potassium (3.3-5.0) mmol/L Potassium 4.4 (3.5-5.1) mmol/L POC Chloride (101-112) mmol/L Chloride 112 H (98-107) mmol/L Carbon Dioxide 18 L (21-32) mmol/L Anion Gap 10.0 (3-11) POC Anion Gap (16-25) mmol/L POC BUN (7-18) mg/dl BUN 25 H (7-18) mg/dl Creatinine 1.07 (0.6-1.2) mg/dl POC Creatinine (0.6-1.3) mg/dl Est Cr Clr Drug Dosing 30.2 ml/min Est GFR ( Amer) 55.2 Est GFR (Non-Af Amer) 47.6 BUN/Creatinine Ratio 23.4 H (10-20) Glucose 151 H (70-99) mg/dl POC Glucose (other) (70-99) mg/dl Lactate 2.1 H* (0.4-2.0) mmol/L Calcium 7.9 L D (8.5-10.1) mg/dl POC Ioniz Calcium Lali (1.12-1.32) mmol/l Troponin I < 0.015 (0-0.045) ng/ml Procalcitonin (0-0.5) ng/ml TSH (0.300-4.500) uIu/ml Random Cortisol mcg/dl Nasal Screen MRSA (PCR) Blood Type Antibody Screen Crossmatch 06/11/20 06/11/20 06/11/20 Range/Units 21:37 16:53 16:34 WBC 21.46 H (4.8-10.8) K/uL RBC 3.24 L (4.2-5.4) M/uL Hgb 9.6 L (12.0-16.0) g/dL POC Hgb 10.5 L 10.9 L (12.0-16.0) g/dl Hct 28.6 L (37-47) % POC Hct 31 L 32 L (37-47) % MCV 88.3 (80-100) fL MCH 29.6 (25-34) pg MCHC 33.6 (32-36) g/dL RDW Std Deviation 48.2 H (36.4-46.3) fL RDW Coeff of Abel 14.9 H (11.5-14.5) % Plt Count 197 (130-400) K/uL MPV 11.5 H (7.4-10.4) fL Immature Gran % (Auto) 0.5 % Neut % (Auto) 91.4 % Lymph % (Auto) 4.4 % [place] % (Auto) 3.7 % Eos % (Auto) 0.0 % Baso % (Auto) 0.0 % Neut # (Auto) 19.60 H (1.4-6.5) K/uL Lymph # (Auto) 0.94 L (1.2-3.4) K/uL [place] # (Auto) 0.80 H (0.11-0.59) K/uL Eos # (Auto) 0.00 (0-0.5) K/uL Baso # (Auto) 0.01 (0-0.2) K/uL Immature Gran # (Auto) 0.11 H (0.00-0.02) K/uL Echinocytes 1+ PT (9.0-12.0) Seconds INR (0.9-1.1) Fibrinogen (184-400) mg/dl POC pH 7.19 L* (7.35-7.45) POC pCO2 45 (35-46) mmHg POC pO2 321 H (80-95) mmHg POC HCO3 17 L (19-24) rita/L POC Total CO2 20 L 18 L (24-31) mmol/L POC Base Excess -11.0 L (-9-1.8) rita/L POC ABG O2 Sat 100.0 H (90-95) % POC Sodium 137 134 L (135-144) mmol/L Sodium (136-145) mmol/L POC Potassium 4.1 4.9 (3.3-5.0) mmol/L Potassium (3.5-5.1) mmol/L POC Chloride 108 (101-112) mmol/L Chloride (98-107) mmol/L Carbon Dioxide (21-32) mmol/L Anion Gap (3-11) POC Anion Gap 14.0 L (16-25) mmol/L POC BUN 20 H (7-18) mg/dl BUN (7-18) mg/dl Creatinine (0.6-1.2) mg/dl POC Creatinine 0.9 (0.6-1.3) mg/dl Est Cr Clr Drug Dosing ml/min Est GFR ( Amer) Est GFR (Non-Af Amer) BUN/Creatinine Ratio (10-20) Glucose (70-99) mg/dl POC Glucose (other) 202 H (70-99) mg/dl Lactate (0.4-2.0) mmol/L Calcium (8.5-10.1) mg/dl POC Ioniz Calcium Lali 1.14 (1.12-1.32) mmol/l Troponin I (0-0.045) ng/ml Procalcitonin (0-0.5) ng/ml TSH (0.300-4.500) uIu/ml Random Cortisol mcg/dl Nasal Screen MRSA (PCR) Blood Type Antibody Screen Crossmatch 06/09/20 Range/Units 11:54 WBC (4.8-10.8) K/uL RBC (4.2-5.4) M/uL Hgb (12.0-16.0) g/dL POC Hgb (12.0-16.0) g/dl Hct (37-47) % POC Hct (37-47) % MCV (80-100) fL MCH (25-34) pg MCHC (32-36) g/dL RDW Std Deviation (36.4-46.3) fL RDW Coeff of Abel (11.5-14.5) % Plt Count (130-400) K/uL MPV (7.4-10.4) fL Immature Gran % (Auto) % Neut % (Auto) % Lymph % (Auto) % [place] % (Auto) % Eos % (Auto) % Baso % (Auto) % Neut # (Auto) (1.4-6.5) K/uL Lymph # (Auto) (1.2-3.4) K/uL [place] # (Auto) (0.11-0.59) K/uL Eos # (Auto) (0-0.5) K/uL Baso # (Auto) (0-0.2) K/uL Immature Gran # (Auto) (0.00-0.02) K/uL Echinocytes PT (9.0-12.0) Seconds INR (0.9-1.1) Fibrinogen (184-400) mg/dl POC pH (7.35-7.45) POC pCO2 (35-46) mmHg POC pO2 (80-95) mmHg POC HCO3 (19-24) rita/L POC Total CO2 (24-31) mmol/L POC Base Excess (-9-1.8) rita/L POC ABG O2 Sat (90-95) % POC Sodium (135-144) mmol/L Sodium (136-145) mmol/L POC Potassium (3.3-5.0) mmol/L Potassium (3.5-5.1) mmol/L POC Chloride (101-112) mmol/L Chloride (98-107) mmol/L Carbon Dioxide (21-32) mmol/L Anion Gap (3-11) POC Anion Gap (16-25) mmol/L POC BUN (7-18) mg/dl BUN (7-18) mg/dl Creatinine (0.6-1.2) mg/dl POC Creatinine (0.6-1.3) mg/dl Est Cr Clr Drug Dosing ml/min Est GFR ( Amer) Est GFR (Non-Af Amer) BUN/Creatinine Ratio (10-20) Glucose (70-99) mg/dl POC Glucose (other) (70-99) mg/dl Lactate (0.4-2.0) mmol/L Calcium (8.5-10.1) mg/dl POC Ioniz Calcium Lali (1.12-1.32) mmol/l Troponin I (0-0.045) ng/ml Procalcitonin (0-0.5) ng/ml TSH (0.300-4.500) uIu/ml Random Cortisol mcg/dl Nasal Screen MRSA (PCR) Blood Type AB Positive Antibody Screen NEGATIVE Crossmatch See Detail
[2020-06-12] MEDS: traMADol HCL 50 MG TABLET PO PRN (18:20)
[2020-06-12 20:02] LABS: Hematocrit (blood only) 24.4 % (37-47); Hemoglobin 8.3 g/dL (12.0-16.0); Mean Corpuscular Hemoglobin 29.3 pg (25-34); Mean Corpuscular Volume 86.2 fL (80-100); Mean Platelet Volume 11.1 fL (7.4-10.4); Platelet Count 173 K/uL (130-400); RDW Coefficient of Variation 15.9 % (11.5-14.5); RDW Standard Deviation 50.6 fL (36.4-46.3); Red Blood Count 2.83 M/uL (4.2-5.4); White Blood Count 14.47 K/uL (4.8-10.8)
[2020-06-12] MEDS: METOPROLOL TARTRATE 25 MG TAB PO SCH ×2 (20:37→20:45)
[2020-06-12] MEDS: HEPARIN SOD 5,000 UNIT/0.5 ML VIAL SQ SCH ×2 (20:38→20:44)
[2020-06-12] MEDS: DOCUSATE SODIUM 100 MG CAP PO SCH ×2 (20:38→20:43)
[2020-06-12] MEDS: POLYETHYLENE (MIRALAX) 17 GM PACK PO SCH ×2 (20:39→20:46)
[2020-06-12] MEDS: PHENYLEPHRINE HCL 20 MG in DEXTROSE 5% 500 ML IV SCH ×2 (20:44→20:45)
[2020-06-12] MEDS ORDERED: METOPROLOL TARTRATE 1 MG/ML VIAL IV STA (21:13)
[2020-06-12] MEDS ORDERED: dilTIAZem HCL 180 MG CAPCR PO ONE (21:15)
[2020-06-12] MEDS ORDERED: dilTIAZem ER 180 MG CAPCR PO ONE (21:30)
[2020-06-12] MEDS ORDERED: VANCOMYCIN HCL 1,000 MG in SODIUM CHLORIDE 0.9% 250 ML IV SCH (22:00)
[2020-06-12] MEDS ORDERED: STAT IV Infusion **Titration per Protocol STA (22:08)
[2020-06-12] MEDS ORDERED: dilTIAZem HCL 125 MG in DEXTROSE 5% 100 ML IV SCH (22:15)
[2020-06-13] MEDS: NORMOSOL-R 1,000 ML IV SCH ×3 (00:04→00:09)
[2020-06-13] MEDS: ERYTHROMYCIN OP OINT 5 MG/GM 3.5 GM TUBE OP SCH ×6 (00:05→20:06)
[2020-06-13] MEDS: PIPERACILLIN/TAZOBACTAM 3.375 GM in DEXTROSE 5% 100 ML IV SCH (04:00)
[2020-06-13 05:31] LABS: Basophils # (auto) 0.01 K/uL (0-0.2); Basophils % (auto) 0.1 %; Hematocrit (blood only) 23.2 % (37-47); Hemoglobin 7.7 g/dL (12.0-16.0); Immature Granulocytes % (auto) 0.5 %; Lymphocytes # (auto) 1.53 K/uL (1.2-3.4); Lymphocytes % (auto) 8.1 %; Mean Corpuscular Hemoglobin 29.1 pg (25-34); Mean Corpuscular Hgb Conc 33.2 g/dL (32-36); Mean Corpuscular Volume 87.5 fL (80-100); Mean Platelet Volume 11.8 fL (7.4-10.4); Monocytes # (auto) 1.27 K/uL (0.11-0.59); Monocytes % (auto) 6.7 %; Neutrophils # (auto) 16.04 K/uL (1.4-6.5); Neutrophils % (auto) 84.6 %; Platelet Count 192 K/uL (130-400); RDW Coefficient of Variation 15.9 % (11.5-14.5); RDW Standard Deviation 51.1 fL (36.4-46.3); Red Blood Count 2.65 M/uL (4.2-5.4); White Blood Count 18.95 K/uL (4.8-10.8)
[2020-06-13 05:52] LABS: BUN Creatinine Ratio 18.6 (10-20); Calcium 7.7 mg/dl (8.5-10.1); Creatinine Clr Calc Pharmacy 22.9 ml/min; Est GFR (African American) 39.5; Est GFR (Non-African American) 34.1; Magnesium 1.7 mg/dl (1.8-2.4); Potassium 4.2 mmol/L (3.5-5.1)
[2020-06-13 06:18] LABS: RBC Morphology Unremarkable
[2020-06-13] MEDS: ACETAMINOPHEN 500 MG TAB PO SCH ×4 (06:24→20:12)
[2020-06-13] MEDS: HEPARIN SOD 5,000 UNIT/0.5 ML VIAL SQ SCH ×3 (06:24→20:06)
--- NOTE | 2020-06-13 06:52 | Hospitalist Progress Note ---
Date of Service June 13, 2020 Assessment & Plan (1) Right hip pain: Anny Stahl is an 85 yo female with PMHx of afib, HTN, COPD, and HLD, admitted to the hospital on 06/10/20 for right hip pain 2/2 failed hardware from right hip fracture ORIF 03/10/2020 - s/p arthroplasty on 06/11. Transferred to ICU on 06/11 for hypotension c/b a-fib w/ RVR. Transferred to floor on 06/13. Hypotension c/b a-fib w RVR - s/p right CLARY on 06/11 with 700cc blood loss - was given 2u pRBCs - Hgb 14.6 --> 9.6 post-operatively --> 8.6 --> 7.7 today - suspect 2/2 hypovolemia due to intra-operative blood loss - initially required pressor support w/ IV phenylephrine as well as Dilt gtt for a-fib with RVR - weaned off pressors on 06/12 and maintained pressures >90/50 - started Dilt gtt on 06/12 which was weaned on 06/13 - HR < 100 without gtt - PO Dilt/Lopressor re-started today and transferred to med-surg with tele - continue to trend CBC daily - transfuse for Hgb < 7 - monitor clinically for post-operative bleeding Atrial fibrillation - RVR resolved as of today - PO rate-control re-started: Diltiazem 60 mg PO TID and Lopressor 25 mg PO BID - note: home meds are Diltiazem 180 mg PO BID and Toprol 150 mg PO QAM - will plan to increase to home doses as tolerated - Currently has Heparin 5000 units SQ Q8H - will hold on transition to home Eliquis 5 mg PO BID until tomorrow, as patient's VS are improved and he is rate-controlled, but his right hip incision is still having significant drainage Rip Hip Fracture s/p total arthoplasty on 06/11 - Right hip pain secondary to failed hardware from right hip fracture ORIF 03/10/20 - s/p hardware removal and total hip arthoplasty 06/11/20, POD 2 - Ortho following, appreciate recs, removed Hemavac today - pain controlled with current regimen - follow clinically for improvement UTI - UA 06/09: 2+ LE, WBC>30, 1+ bacteria - WBC 21.46 on 06/11 --> 18.95 today - urine culture showed 3 types of organisms in high counts, repeat UA with reflex ordered today - continue Rocephin IV - juarez catheter removed this morning Elevated Creatinine, on CKD Stage 3 - Cr 1.04 (06/12) --> 1.41 (06/13), ratio 18.6 - No clear baseline Cr based on the values in our EMR - suspect pre-renal injury with possible ATN, 2/2 intra-operative blood loss - trend BMP daily HTN - holding home Aldactazide and Lasix due to recent acute blood loss and hypotension - continue to monitor Hx of COPD (chronic obstructive pulmonary disease) - No exacerbation at this time Hyponatremia (resolved) - Mild hyponatremia on admission with Na of 134 - Secondary to volume depletion - Patient on multiple diuretics; diuretics held at admission - Continue IV fluids Hypercalcemia (resolved) - Hypercalcemia on admission at 10.9 - Possibly 2nd to HCTZ use with superimposed dehydration - On admission, HCTZ held - Patient hydrated with IVF - Repeat BMP 06/10/20 with normal calcium at 9.7 - 06/11/20 1.14 iCa POC, wnl Hypomagnesemia (resolved) - Hypomagnesemia on admission at 1.7 - Repleted - Repeat magensium level 06/10/20 normal at 1.9 Hyperlipidemia - No current statin therapy FEN/GI: regular diet dvt ppx: Heparin 5000 units SQ Q8H Dispo: med-surg with tele Code status: full code (2) Hypotension: (3) Closed intertrochanteric fracture of right hip: (4) Failed hardware: (5) Chronic kidney disease, stage 3a: (6) DVT prophylaxis: (7) Elevated serum creatinine: (8) Paroxysmal atrial fibrillation: (9) Hypertension: (10) Dyslipidemia: (11) COPD (chronic obstructive pulmonary disease): (12) Hypercalcemia: (13) Acute kidney injury: Admission and Anticipated Discharge Date Admission Date: June 09, 2020 Supervising Physician Co-Signing Physician Notes Attending attestation Pt seen and examined in concert with Dr. Alcocer. In agreement with the documented findings as noted in the resident documentation with any exceptions or additions as noted here. 85 y/o female h/o chronic AF, HTN, COPD, HLD s/p R hip arthroplasty Resting in bed, pain well controlled with positional change and medication regimen. On examination, S1/S2 nl IRR IRR no MCG. CTAB. Abd NT/ND BS+ve. Stable chronic RLE decreased sensation Hypotension w/ AF w/ RVR, acute blood loss anemia - s/p 2U PRBC - rate controlled. D/C dilt drip today and resume oral regimen. Monitor BP for changes. Transition to Eliquis likely TM R hip fracture s/p repair 12.4 - ortho consultation - pain control and PT CKD III w/ elevated Cr - likely hypovolemia - trend, IV hydration UTI - complete course of abx as noted Else see resident documentation as noted. Subjective Patient continued to maintain BPs without need for pressors overnight. Also weaned off of Dilt gtt as of this morning. Reports doing well this morning and tolerated breakfast without N/V. Pain is adequately controlled. Denies fevers, flank pain, dysuria occurring before hospitalization. Denies current symptoms of fever/chills, chest pain, SOB, abdominal pain. Denies syncope/near-syncope. Review of Systems Review of Systems: Pertinent positives and negatives mentioned in HPI Physical Exam Constitutional: WD/WN, vitals as above Respiratory: normal respiratory effort, lungs clear to auscultation Cardiovascular: Rate/Rhythm: + tachycardic and + irregularly irregular Extremities: no edema Gastrointestinal (Abdomen): normal bowel sounds, soft, nontender, no hepatosplenomegaly Skin: no rashes, warm and dry dressing on right hip with bloody/serous drainage; Hemovac does not appear to be holding suction as there is drainage around the drains Psychiatric: A+Ox3, euthymic affect Genitourinary: indwelling juarez catheter in place, draining clear yellow urine Results & Data Results & Data ([facility]) Vital Signs (Past 12 Hours) Vital Signs Temp Pulse Resp Pulse Ox 06/13/20 06:00 36.7 C 102 H 11 L 95 06/13/20 05:00 76 15 91 06/13/20 04:00 36.7 C 96 H 11 L 93 06/13/20 02:00 118 H 21 95 06/13/20 00:00 110 H 16 95 06/12/20 23:00 129 H 15 93 06/12/20 22:00 126 H 16 95 06/12/20 21:56 127 H 12/05/20 21:00 121 H 23 06/12/20 20:00 146 H 17 95 06/12/20 19:00 130 H 18 96 Resident Activity Tracking Resident Involvement: Resident Care Provided Care Provided: Adult Hospital Medicine
[2020-06-13] MEDS: dilTIAZem HCl 60 MG TAB PO SCH ×3 (07:48→20:06)
[2020-06-13] MEDS: METOPROLOL TARTRATE 25 MG TAB PO SCH ×2 (07:48→20:07)
[2020-06-13] MEDS: DOCUSATE SODIUM 100 MG CAP PO SCH ×3 (07:48→20:07)
[2020-06-13] MEDS: cefTRIAXone SODIUM 1,000 MG in DEXTROSE 5% 50 ML IV SCH (07:49)
[2020-06-13] MEDS: POLYETHYLENE (MIRALAX) 17 GM PACK PO SCH ×3 (07:49→20:07)
[2020-06-13] MEDS: MAGNESIUM SULFATE / D5W 1 GM/100 ML BAG IV SCH ×2 (07:51→10:12)
--- NOTE | 2020-06-13 09:23 | Critical Care Progress Note ---
Date of Service June 13, 2020 Assessment & Plan (1) Hypotension: Her heart rate is improved with IV diltiazem. IV Cardizem drip has been weaned off. I have started her on 60 mg 3 times daily of diltiazem p.o. She is normally on 180 mg twice daily of diltiazem. I have also started her metoprolol tartrate 25 mg twice daily I am reluctant to start long-acting medications given her recent hypotension. Her hemoglobin has dipped down today likely related to hemodilution and her recent surgery. Continue to trend hemoglobin daily. No signs of overt blood loss today. Blood pressure is maintaining on its own without vasopressor support. Continue Rocephin for complicated UTI. We will remove her Lee catheter. We will also remove her arterial line. Continue heparin 3 times daily for DVT prophylaxis. She will need to be started on full dose anticoagulation prior to discharge due to her atrial fibrillation. She does have a mild ESAU likely related to ischemic ATN. We are replacing magnesium. She is stable for transfer to the floor with telemetry. (2) UTI (urinary tract infection): (3) Closed intertrochanteric fracture of right hip: (4) Failed hardware: (5) Renal insufficiency: (6) Dehydration: (7) Chronic kidney disease, stage 3a: (8) Acute kidney injury: (9) Hypomagnesemia: (10) Hypercalcemia: (11) Hyponatremia: (12) DVT prophylaxis: (13) Right hip pain: (14) Hyperlipidemia: (15) Chronic anticoagulation: (16) Intertrochanteric fracture of right hip: (17) Permanent atrial fibrillation: (18) COPD (chronic obstructive pulmonary disease): Admission and Anticipated Discharge Date Admission Date: June 09, 2020 Subjective Patient without any complaints today. She feels that her leg pain and hip pain have improved. She denies any chest pain. The blurry vision also has seemed to improve. She was started on a Cardizem drip overnight which has been weaned off. Heart rates are better controlled. Review of Systems Review of Systems: All systems reviewed & are unremarkable except as noted in HPI & below Physical Exam 2 Constitutional: cooperative, comfortable and + lethargic Eyes: PERRL, conjunctivae normal, anicteric sclerae ENMT: external ear and nose normal, oropharynx normal Neck: trachea midline, no thyromegaly Respiratory: normal respiratory effort, lungs clear to auscultation Cardiovascular: RRR, no murmur, no edema Rate/Rhythm: + tachycardic and + irregularly irregular Vessels: no JVD Extremities: normal capillary refill Gastrointestinal (Abdomen): normal bowel sounds, soft, nontender, no hepatosplenomegaly Musculoskeletal: Limited mobility in the right lower extremity. Pulses intact. Skin: no rashes, warm and dry Neurologic: PERRL, EOMI, accommodation nl, no face palsy, no dysarthria Psychiatric: A+Ox3, euthymic affect Genitourinary: Indwelling Lee catheter present Results & Data Results & Data ([facility]) Vital Signs (Past 12 Hours) Vital Signs Temp Pulse Resp Pulse Ox 06/13/20 06:00 98.1 F 102 H 11 L 95 06/13/20 05:00 76 15 91 06/13/20 04:00 98.1 F 96 H 11 L 93 06/13/20 02:00 118 H 21 95 06/13/20 00:00 110 H 16 95 06/12/20 23:00 129 H 15 93 06/12/20 22:00 126 H 16 95 06/12/20 21:56 127 H I reviewed vital signs, labs and imaging Coding Level of Care Code 42732 Subseq Hosp Care Lvl 3 Diagnoses Hypotension I95.9 UTI (urinary tract infection) N39.0 Closed intertrochanteric fracture of right hip S72.141A Failed hardware Renal insufficiency N28.9 Dehydration E86.0 Chronic kidney disease, stage 3a N18.31 Acute kidney injury N17.9 Hypomagnesemia E83.42 Hypercalcemia E83.52 Hyponatremia E87.1 DVT prophylaxis Z29.9 Right hip pain M25.551 Hyperlipidemia E78.5 Chronic anticoagulation Z79.01 Intertrochanteric fracture of right hip S72.141A Permanent atrial fibrillation I48.21 COPD (chronic obstructive pulmonary disease) J44.9
--- NOTE | 2020-06-13 09:45 | Orthopedic Progress Note ---
Date of Service June 13, 2020 Assessment & Plan (1) Failed hardware: (2) Closed intertrochanteric fracture of right hip: s/p ANDIE, R CLARY POD#2 -Currently on ceftriaxone -DVT PPX: SCDs, TEDs, heparin, when medically stable, restart Eliquis -Partial WB RLE -PT/OT when medically stable -Posterior and Abduction precautions, ambulate with walker at all times -am labs, as noted -Change dressing and DC drain today Admission and Anticipated Discharge Date Admission Date: June 09, 2020 Subjective Postop day 2 Patient currently awake and alert. No complaints this morning. Appears comfortable. Pain is controlled. Denies shortness of breath, chest pain, lightheadedness. Physical Exam Physical Exam: Dressings are noted with bloody drainage. It appears that the Hemovac is no longer holding suction and she is having some drainage around the actual drains themselves. The dressing has been fortified with other dressings. Thigh has mild swelling. Calves are soft and nontender. Neurovascular is intact. Toes are mobile. Leg lengths appear equal. Results & Data ([facility]) Vital Signs (Past 12 Hours) Vital Signs Temp Pulse Resp Pulse Ox 06/13/20 06:00 36.7 C 102 H 11 L 95 06/13/20 05:00 76 15 91 06/13/20 04:00 36.7 C 96 H 11 L 93 06/13/20 02:00 118 H 21 95 06/13/20 00:00 110 H 16 95 06/12/20 23:00 129 H 15 93 06/12/20 22:00 126 H 16 95 06/12/20 21:56 127 H Laboratory Results Laboratory Results WBC 18.95 K/uL (4.8-10.8) H 06/13/20 04:25 RBC 2.65 M/uL (4.2-5.4) L 06/13/20 04:25 Hgb 7.7 g/dL (12.0-16.0) L 06/13/20 04:25 POC Hgb 10.5 g/dl (12.0-16.0) L 06/11/20 16:53 Hct 23.2 % (37-47) L 06/13/20 04:25 POC Hct 31 % (37-47) L 06/11/20 16:53 MCV 87.5 fL (80-100) 06/13/20 04:25 MCH 29.1 pg (25-34) 06/13/20 04:25 MCHC 33.2 g/dL (32-36) 06/13/20 04:25 RDW Std Deviation 51.1 fL (36.4-46.3) H 06/13/20 04:25 RDW Coeff of Abel 15.9 % (11.5-14.5) H 06/13/20 04:25 Plt Count 192 K/uL (130-400) 06/13/20 04:25 MPV 11.8 fL (7.4-10.4) H 06/13/20 04:25 Immature Gran % (Auto) 0.5 % 06/13/20 04:25 Neut % (Auto) 84.6 % 06/13/20 04:25 Lymph % (Auto) 8.1 % 06/13/20 04:25 [place] % (Auto) 6.7 % 06/13/20 04:25 Eos % (Auto) 0.0 % 06/13/20 04:25 Baso % (Auto) 0.1 % 06/13/20 04:25 Neut # (Auto) 16.04 K/uL (1.4-6.5) H 06/13/20 04:25 Lymph # (Auto) 1.53 K/uL (1.2-3.4) 06/13/20 04:25 [place] # (Auto) 1.27 K/uL (0.11-0.59) H 06/13/20 04:25 Eos # (Auto) 0.00 K/uL (0-0.5) 06/13/20 04:25 Baso # (Auto) 0.01 K/uL (0-0.2) 06/13/20 04:25 Immature Gran # (Auto) 0.10 K/uL (0.00-0.02) H 06/13/20 04:25 RBC Morphology Unremarkable 06/13/20 04:25 Echinocytes 1+ 06/11/20 21:37 PT 13.5 Seconds (9.0-12.0) H 06/11/20 21:37 INR 1.3 (0.9-1.1) H 06/11/20 21:37 Fibrinogen 261 mg/dl (184-400) 06/11/20 21:37 POC pH 7.19 (7.35-7.45) L* 06/11/20 16:34 POC pCO2 45 mmHg (35-46) 06/11/20 16:34 POC pO2 321 mmHg (80-95) H 06/11/20 16:34 POC HCO3 17 rita/L (19-24) L 06/11/20 16:34 POC Total CO2 18 mmol/L (24-31) L 06/11/20 16:34 POC Base Excess -11.0 rita/L (-9-1.8) L 06/11/20 16:34 POC ABG O2 Sat 100.0 % (90-95) H 06/11/20 16:34 POC Sodium 137 mmol/L (135-144) 06/11/20 16:53 Sodium 138 mmol/L (136-145) 06/13/20 04:25 POC Potassium 4.1 mmol/L (3.3-5.0) 06/11/20 16:53 Potassium 4.2 mmol/L (3.5-5.1) 06/13/20 04:25 POC Chloride 108 mmol/L (101-112) 06/11/20 16:53 Chloride 109 mmol/L (98-107) H 06/13/20 04:25 Carbon Dioxide 20 mmol/L (21-32) L 06/13/20 04:25 POC Total CO2 20 mmol/L (24-31) L 06/11/20 16:53 Anion Gap 9.0 (3-11) 06/13/20 04:25 POC Anion Gap 14.0 mmol/L (16-25) L 06/11/20 16:53 POC BUN 20 mg/dl (7-18) H 06/11/20 16:53 BUN 26 mg/dl (7-18) H 06/13/20 04:25 Creatinine 1.41 mg/dl (0.6-1.2) H D 06/13/20 04:25 POC Creatinine 0.9 mg/dl (0.6-1.3) 06/11/20 16:53 Est Cr Clr Drug Dosing 22.9 ml/min 06/13/20 04:25 Est GFR ( Amer) 39.5 06/13/20 04:25 Est GFR (Non-Af Amer) 34.1 06/13/20 04:25 BUN/Creatinine Ratio 18.6 (10-20) 06/13/20 04:25 Glucose 120 mg/dl (70-99) H 06/13/20 04:25 POC Glucose (other) 148 mg/dl (70-99) H 06/11/20 23:28 Lactate 1.3 mmol/L (0.4-2.0) 06/12/20 09:33 Calcium 7.7 mg/dl (8.5-10.1) L 06/13/20 04:25 POC Ioniz Calcium Lali 1.14 mmol/l (1.12-1.32) 06/11/20 16:53 Phosphorus 3.0 mg/dl (2.5-4.9) 06/13/20 04:25 Magnesium 1.7 mg/dl (1.8-2.4) L 06/13/20 04:25 Troponin I < 0.015 ng/ml (0-0.045) 06/11/20 21:37 Procalcitonin 0.29 ng/ml (0-0.5) 06/13/20 04:25 TSH 0.328 uIu/ml (0.300-4.500) 06/12/20 01:31 Random Cortisol 44.23 mcg/dl 06/11/20 21:37 Urine Color Yellow 06/09/20 Unknown Urine Appearance Cloudy (Clear) A 06/09/20 Unknown Urine pH 5.5 (4.5-7.5) 06/09/20 Unknown Ur Specific [place] 1.018 (1.000-1.030) 06/09/20 Unknown Urine Protein Negative (Negative) 06/09/20 Unknown Urine Glucose (UA) Negative (Negative) 06/09/20 Unknown Urine Ketones Trace (Negative) H 06/09/20 Unknown Urine Blood Trace (Negative) H 06/09/20 Unknown Urine Nitrite Negative (Negative) 06/09/20 Unknown Urine Bilirubin Negative (Negative) 06/09/20 Unknown Urine Urobilinogen Negative (Negative) 06/09/20 Unknown Ur Leukocyte Esterase 2+ (Negative) H 06/09/20 Unknown Urine WBC (Auto) >30 /hpf (0-5) H 06/09/20 Unknown Urine RBC (Auto) 5-10 /hpf (0-4) H 06/09/20 Unknown U Hyaline Cast (Auto) 5-10 /lpf (0-5) H 06/09/20 Unknown U Epithel Cells (Auto) 20-30 /lpf (0-5) H 06/09/20 Unknown Urine Bacteria (Auto) 1+ (Negative) H 06/09/20 Unknown Urine Yeast Not Reportable 06/09/20 Unknown Nasal Screen MRSA (PCR) Negative (Negative) 06/12/20 03:30 SARS-CoV-2 Ag (Rapid) Negative (Negative) 06/09/20 13:24 Blood Type AB Positive 06/09/20 11:54 Antibody Screen NEGATIVE 06/09/20 11:54 Crossmatch See Detail 06/09/20 11:54
[2020-06-13] MEDS ORDERED: SODIUM CHLORIDE 0.9% 1000ML 500 ML IV ONE (14:40)
[2020-06-14] MEDS: ERYTHROMYCIN OP OINT 5 MG/GM 3.5 GM TUBE OP SCH ×6 (02:48→21:10)
[2020-06-14] MEDS ORDERED: SODIUM CHLORIDE 0.9% 1000ML 500 ML IV ONE (04:39)
[2020-06-14 06:32] LABS: Eosinophils # (auto) 0.01 K/uL (0-0.5); Eosinophils % (auto) 0.1 %; Hematocrit (blood only) 24.5 % (37-47); Immature Granulocytes # (auto) 0.08 K/uL (0.00-0.02); Immature Granulocytes % (auto) 0.6 %; Lymphocytes # (auto) 1.47 K/uL (1.2-3.4); Lymphocytes % (auto) 10.1 %; Mean Corpuscular Hemoglobin 29.1 pg (25-34); Mean Corpuscular Hgb Conc 32.7 g/dL (32-36); Mean Corpuscular Volume 89.1 fL (80-100); Mean Platelet Volume 11.7 fL (7.4-10.4); Monocytes # (auto) 0.98 K/uL (0.11-0.59); Monocytes % (auto) 6.7 %; Neutrophils # (auto) 11.99 K/uL (1.4-6.5); Neutrophils % (auto) 82.5 %; Nucleated RBC # (auto) 0.08 K/uL (0-0); Nucleated RBC % (auto) 0.5 %; Platelet Count 207 K/uL (130-400); RDW Coefficient of Variation 15.8 % (11.5-14.5); RDW Standard Deviation 50.9 fL (36.4-46.3); Red Blood Count 2.75 M/uL (4.2-5.4); White Blood Count 14.53 K/uL (4.8-10.8)
[2020-06-14] MEDS: HEPARIN SOD 5,000 UNIT/0.5 ML VIAL SQ SCH ×3 (06:36→21:09)
[2020-06-14] MEDS: ACETAMINOPHEN 500 MG TAB PO SCH ×3 (06:36→21:26)
[2020-06-14 06:55] LABS: BUN Creatinine Ratio 18.7 (10-20); Calcium 8.2 mg/dl (8.5-10.1); Creatinine Clr Calc Pharmacy 23.4 ml/min; Est GFR (African American) 40.6; Potassium 3.8 mmol/L (3.5-5.1)
--- NOTE | 2020-06-14 06:57 | Orthopedic Progress Note ---
Date of Service June 14, 2020 Assessment & Plan (1) Failed hardware: (2) Closed intertrochanteric fracture of right hip: s/p ANDIE, R CLARY POD#3 -Currently on ceftriaxone -DVT PPX: SCDs, TEDs, heparin SQ, when medically stable, restart Eliquis -Partial WB RLE -PT/OT when medically stable -Posterior and Abduction precautions, ambulate with walker at all times -am labs, as noted, hgb 8.0 Admission and Anticipated Discharge Date Admission Date: June 09, 2020 Subjective Post Operative Progress Note Patient seen resting in bed, comfortable, admits to feeling tired, pain well controlled, no acute issues. Denies F/C/N/V/SOB/CP. Review of Systems Review of Systems: All systems reviewed & are unremarkable except as noted in HPI & below Constitutional: as per Subjective / HPI Physical Exam Physical Exam: RLE NVSI +EHL/FHL/TA/GS SILT grossly, +2 DP pulse, compartments soft NT, dressing cdi. Constitutional: WD/WN, vitals as above Results & Data ([facility] [place]) Vital Signs (Past 12 Hours) Vital Signs Temp Pulse Pulse Pulse Resp BP BP 06/14/20 06:00 123 H 110/67 06/14/20 04:15 145 H 18 105/68 107/70 06/14/20 02:00 36.7 C 84 20 109/70 06/14/20 00:13 105 H 06/13/20 23:13 36.6 C 92 H 18 98/66 L 06/13/20 19:53 36.9 C 66 20 115/81 Pulse Ox 06/14/20 06:00 06/14/20 04:15 97 06/14/20 02:00 97 06/14/20 00:13 06/13/20 23:13 92 06/13/20 19:53 96 Laboratory Results 06/14/20 06/14/20 06/13/20 Range/Units 05:54 05:54 14:40 WBC 14.53 H (4.8-10.8) K/uL RBC 2.75 L (4.2-5.4) M/uL Hgb 8.0 L (12.0-16.0) g/dL Hct 24.5 L (37-47) % MCV 89.1 (80-100) fL MCH 29.1 (25-34) pg MCHC 32.7 (32-36) g/dL RDW Std Deviation 50.9 H (36.4-46.3) fL RDW Coeff of Abel 15.8 H (11.5-14.5) % Plt Count 207 (130-400) K/uL MPV 11.7 H (7.4-10.4) fL Immature Gran % (Auto) 0.6 % Neut % (Auto) 82.5 % Lymph % (Auto) 10.1 % [place] % (Auto) 6.7 % Eos % (Auto) 0.1 % Baso % (Auto) 0.0 % Neut # (Auto) 11.99 H (1.4-6.5) K/uL Lymph # (Auto) 1.47 (1.2-3.4) K/uL [place] # (Auto) 0.98 H (0.11-0.59) K/uL Eos # (Auto) 0.01 (0-0.5) K/uL Baso # (Auto) 0.00 (0-0.2) K/uL Immature Gran # (Auto) 0.08 H (0.00-0.02) K/uL Absolute Nucleated RBC 0.08 H (0-0) K/uL Nucleated RBC % (auto) 0.5 % Sodium 140 (136-145) mmol/L Potassium 3.8 (3.5-5.1) mmol/L Chloride 110 H (98-107) mmol/L Carbon Dioxide 22 (21-32) mmol/L Anion Gap 8.0 (3-11) BUN 26 H (7-18) mg/dl Creatinine 1.38 H (0.6-1.2) mg/dl Est Cr Clr Drug Dosing 23.4 ml/min Est GFR ( Amer) 40.6 Est GFR (Non-Af Amer) 35.0 BUN/Creatinine Ratio 18.7 (10-20) Glucose 85 (70-99) mg/dl Calcium 8.2 L (8.5-10.1) mg/dl Stl C. diff Tox B Gene Negative Cdiff Gene (Neg) Blood Type Antibody Screen Crossmatch 06/09/20 Range/Units 11:54 WBC (4.8-10.8) K/uL RBC (4.2-5.4) M/uL Hgb (12.0-16.0) g/dL Hct (37-47) % MCV (80-100) fL MCH (25-34) pg MCHC (32-36) g/dL RDW Std Deviation (36.4-46.3) fL RDW Coeff of Abel (11.5-14.5) % Plt Count (130-400) K/uL MPV (7.4-10.4) fL Immature Gran % (Auto) % Neut % (Auto) % Lymph % (Auto) % [place] % (Auto) % Eos % (Auto) % Baso % (Auto) % Neut # (Auto) (1.4-6.5) K/uL Lymph # (Auto) (1.2-3.4) K/uL [place] # (Auto) (0.11-0.59) K/uL Eos # (Auto) (0-0.5) K/uL Baso # (Auto) (0-0.2) K/uL Immature Gran # (Auto) (0.00-0.02) K/uL Absolute Nucleated RBC (0-0) K/uL Nucleated RBC % (auto) % Sodium (136-145) mmol/L Potassium (3.5-5.1) mmol/L Chloride (98-107) mmol/L Carbon Dioxide (21-32) mmol/L Anion Gap (3-11) BUN (7-18) mg/dl Creatinine (0.6-1.2) mg/dl Est Cr Clr Drug Dosing ml/min Est GFR ( Amer) Est GFR (Non-Af Amer) BUN/Creatinine Ratio (10-20) Glucose (70-99) mg/dl Calcium (8.5-10.1) mg/dl Stl C. diff Tox B Gene (Neg) Blood Type AB Positive Antibody Screen NEGATIVE Crossmatch See Detail
[2020-06-14] MEDS: SODIUM CHLORIDE 0.9% 1000ML 1,000 ML IV SCH ×2 (07:59→17:24)
[2020-06-14] MEDS: dilTIAZem HCl 60 MG TAB PO SCH ×3 (08:02→21:09)
[2020-06-14] MEDS: cefTRIAXone SODIUM 1,000 MG in DEXTROSE 5% 50 ML IV SCH (08:03)
[2020-06-14] MEDS: METOPROLOL TARTRATE 25 MG TAB PO SCH ×2 (08:03→21:09)
[2020-06-14] MEDS: POLYETHYLENE (MIRALAX) 17 GM PACK PO SCH ×2 (09:27→21:09)
[2020-06-14] MEDS: DOCUSATE SODIUM 100 MG CAP PO SCH ×2 (09:27→21:09)
--- NOTE | 2020-06-14 13:33 | Hospitalist Progress Note ---
Date of Service June 14, 2020 Assessment & Plan (1) Right hip pain: Anny Stahl is an 85 yo female with PMHx of afib, HTN, COPD, and HLD, admitted to the hospital on 06/10/20 for right hip pain 2/2 failed hardware from right hip fracture ORIF 03/10/2020 - s/p arthroplasty on 06/11. Transferred to ICU on 06/11 for hypotension c/b a-fib w/ RVR. Transferred to floor on 06/13. Atrial fibrillation - PO rate-control re-started: Diltiazem 60 mg PO TID and Lopressor 25 mg PO BID - note: home meds are Diltiazem 180 mg PO BID and Toprol 150 mg PO QAM - will plan to increase to home doses as tolerated - Currently has Heparin 5000 units SQ Q8H - will hold on transition to home Eliquis 5 mg PO BID until tomorrow, as patient's VS are improved and he is rate-controlled, but his right hip incision is still having significant drainage - Patient with RVR again today, when tele reviewed in the morning her rates had been 90s-150s; upon review this afternoon just prior to 1pm, her rates were more consistently between 120-150 - Digoxin 500mcg given to patient at 2:30pm, rate has significantly improved to ~100bpm as of 2:45pm; will continue to monitor - Plan to repeat digoxin 125mcg at 8:30pm; plan to redose digoxin 125mcg at 2:30am 06/15/20 if HRs > 110bpm - Continue to monitor Diarrhea - Pt reportedly with 30+ BMs within the past 2 days - C. diff stool toxin testing 06/13/20 negative - Will start patient on Imodium and Metamucil prn Hypotension c/b a-fib w RVR - s/p right CLARY on 06/11 with 700cc blood loss - was given 2u pRBCs - Hgb 14.6 --> 9.6 post-operatively --> 8.6 --> 7.7 --> 8.0 today - suspect 2/2 hypovolemia due to intra-operative blood loss - initially required pressor support w/ IV phenylephrine as well as Dilt gtt for a-fib with RVR - weaned off pressors on 06/12 and maintained pressures >90/50 - started Dilt gtt on 06/12 which was weaned on 06/13 - HR < 100 without gtt - PO Dilt/Lopressor re-started today and transferred to med-surg with tele - continue to trend CBC daily - transfuse for Hgb < 7 - monitor clinically for post-operative bleeding - IV NSS at 100 cc/hr Rip Hip Fracture s/p total arthoplasty on 06/11 - Right hip pain secondary to failed hardware from right hip fracture ORIF 03/10/20 - s/p hardware removal and total hip arthoplasty 06/11/20, POD 2 - Ortho following, appreciate recs, removed Hemavac 06/13 - pain controlled with current regimen - follow clinically for improvement UTI - UA 06/09: 2+ LE, WBC>30, 1+ bacteria - WBC 21.46 on 06/11 --> 18.95 today - urine culture showed 3 types of organisms in high counts, repeat UA with reflex ordered today -- cruise staff member has been unable to collect repeat urine as of 06/14 - IV ceftriaxone x6 days; will discontinue today (06/14) Elevated Creatinine, on CKD Stage 3 - Cr 1.04 (06/12) --> 1.41 (06/13), ratio 18.6 - No clear baseline Cr based on the values in our EMR - suspect pre-renal injury with possible ATN, 2/2 intra-operative blood loss - trend BMP daily HTN - holding home Aldactazide and Lasix due to recent acute blood loss and hypotension - continue to monitor Hx of COPD (chronic obstructive pulmonary disease) - No exacerbation at this time Hyponatremia (resolved) - Mild hyponatremia on admission with Na of 134 - Secondary to volume depletion - Patient on multiple diuretics; diuretics held at admission - Continue IV fluids Hypercalcemia (resolved) - Hypercalcemia on admission at 10.9 - Possibly 2nd to HCTZ use with superimposed dehydration - On admission, HCTZ held - Patient hydrated with IVF - Repeat BMP 06/10/20 with normal calcium at 9.7 - 06/11/20 1.14 iCa POC, wnl Hypomagnesemia (resolved) - Hypomagnesemia on admission at 1.7 - Repleted - Repeat magensium level 06/10/20 normal at 1.9 Hyperlipidemia - No current statin therapy FEN/GI: regular diet; IV NSS 100cc/hr dvt ppx: Heparin 5000 units SQ Q8H Dispo: med-surg with tele Code status: full code (2) Hypotension: (3) Closed intertrochanteric fracture of right hip: (4) Failed hardware: (5) Chronic kidney disease, stage 3a: (6) DVT prophylaxis: (7) Elevated serum creatinine: (8) Paroxysmal atrial fibrillation: (9) Hypertension: (10) Dyslipidemia: (11) COPD (chronic obstructive pulmonary disease): (12) Hypercalcemia: (13) Acute kidney injury: Admission and Anticipated Discharge Date Admission Date: June 09, 2020 Supervising Physician Co-Signing Physician Notes I personally examined the patient and verified all rodriguez points of history and exam, discussed case, and agree with decision making with Dr Rodriguez. feeling lousy first time i see her - feels heart racing and short of breath. later revisited - these sx went away but then was c/o diarrhea for the last 2 days. vitals noted nad heent nc at mmm breathing unlabored lungs clear - initially heart tachy irreg irreg later rate improved. afib/RVR - rate improved after digoxin - continue. follow closely. diarrhea - Cdiff negative. imodium/fiber. questionable UTI - consider dc rocephin otherwise as above Subjective Patient was seen and evaluated at bedside this morning. She states that she is overall "not feeling too great." Patient notes persistent fatigue. Per patient and nursing staff, she does report some intermittent dyspnea on exertion, lightheadedness, and palpitations. Patients symptoms have been waxing and waning. Additionally, patient complains of diarrhea since Sunday (for the past 2 days). Per RN, patient has had > 30 episodes of diarrhea since yesterday; she had a negative C. diff stool test yesterday. She continues to be monitored on telemetry. Patient denies fever, chills, CP, cough, abdominal pain, nausea, vomiting, leg pain, or leg swelling. She reports tolerating PO intake without nausea or vomiting. Review of Systems Review of Systems: See pertinent positive in HPI above Constitutional: no fever and no chills Respiratory: no cough Cardiovascular: no chest pain, no palpitations and no syncope Gastrointestinal: + diarrhea/loose stools; no abdominal pain, no nausea and no vomiting Physical Exam Physical Exam: GENERAL: No acute distress. Vital signs reviewed. EYES: EOMI. Anicteric sclerae. HENT: Moist mucous membranes. RESPIRATORY: Clear to auscultation bilaterally. No wheezing, rales, or rhonchi. CARDIOVASCULAR: Tachycardic. Irregularly irregular rhythm. ABDOMEN: Soft and non-tender. Normal bowel sounds. EXTREMITIES: No edema. B/l calves are non-tender to deep palpation/squeeze. SKIN: Warm, dry. No rashes or lesions. NEUROLOGIC: A/O x3. Normal sensation to light touch to bilateral lower extremities. PSYCHIATRIC: Cooperative. Appropriate mood and affect. Results & Data Results & Data ([facility]) Vital Signs (Past 12 Hours) Vital Signs Temp Pulse Pulse Pulse Resp BP BP 06/14/20 11:57 36.4 C L 56 L 18 119/85 06/14/20 09:29 143 H 06/14/20 07:29 36.4 C L 104 H 18 06/14/20 06:00 123 H 06/14/20 04:15 145 H 18 105/68 06/14/20 02:00 36.7 C 84 20 BP Pulse Ox 06/14/20 11:57 96 06/14/20 09:29 06/14/20 07:29 109/79 97 06/14/20 06:00 110/67 06/14/20 04:15 107/70 97 06/14/20 02:00 109/70 97 Resident Activity Tracking Resident Involvement: Resident Care Provided Care Provided: Adult Hospital Medicine
[2020-06-14] MEDS ORDERED: DIGOXIN 500 MCG in SYRINGE 8 ML IV STA (13:42)
--- NOTE | 2020-06-14 16:03 | Electrocardiogram Report ---
Test Reason : Blood Pressure : / mmHG Vent. Rate : 122 BPM Atrial Rate : 000 BPM P-R Int : 000 ms QRS Dur : 074 ms QT Int : 270 ms P-R-T Axes : 000 048 226 degrees QTc Int : 384 ms Atrial fibrillation with rapid ventricular response Abnormal ECG When compared with ECG of 09-JUN-2020 08:45, Nonspecific T wave abnormality now evident in Inferior leads T wave inversion now evident in Anterior leads Confirmed by Pepe Bonilla ([id number]) on 06/14/2020 4:02:40 PM Referred By: REFERRED SELF Confirmed By:Pepe Bonilla
--- NOTE | 2020-06-14 16:19 | Billing Data ---
Date of Service June 14, 2020 Coding Level of Care Code 94124 Subseq Hosp Care Lvl 3
[2020-06-14] MEDS: LOPERAMIDE HCL 2 MG CAP PO PRN ×2 (16:58→21:26)
[2020-06-14] MEDS: PSYLLIUM 58.6% POWDER PACKET PO SCH (17:24)
[2020-06-14] MEDS ORDERED: DIGOXIN 125 MCG in SYRINGE 9.5 ML IV ONE (20:30)
[2020-06-14 21:34] LABS: Appearance Urine Clear (Clear); Bacteria Urine Automated Negative (Negative); Bilirubin Urine Negative (Negative); Blood Urine 1+ (Negative); Color Urine Yellow; Epithelial Cell Urine Auto 20-30 /lpf (0-5); Glucose Urine UA Negative (Negative); Ketones Urine Negative (Negative); Leukocyte Esterase Urine 3+ (Negative); Nitrite Urine Negative (Negative); Protein Urine Trace (Negative); Specific Gravity Urine 1.013 (1.000-1.030); Urobilinogen Urine Negative (Negative); pH Urine 5.5 (4.5-7.5)
[2020-06-15] MEDS: ERYTHROMYCIN OP OINT 5 MG/GM 3.5 GM TUBE OP SCH ×7 (00:01→23:33)
[2020-06-15] MEDS: SODIUM CHLORIDE 0.9% 1000ML 1,000 ML IV SCH (03:03)
[2020-06-15 06:05] LABS: Basophils # (auto) 0.01 K/uL (0-0.2); Basophils % (auto) 0.1 %; Eosinophils # (auto) 0.07 K/uL (0-0.5); Eosinophils % (auto) 0.6 %; Hemoglobin 7.4 g/dL (12.0-16.0); Immature Granulocytes # (auto) 0.11 K/uL (0.00-0.02); Immature Granulocytes % (auto) 0.9 %; Lymphocytes # (auto) 1.42 K/uL (1.2-3.4); Lymphocytes % (auto) 12.2 %; Mean Corpuscular Hemoglobin 29.1 pg (25-34); Mean Corpuscular Hgb Conc 32.2 g/dL (32-36); Mean Corpuscular Volume 90.6 fL (80-100); Mean Platelet Volume 10.7 fL (7.4-10.4); Monocytes # (auto) 0.76 K/uL (0.11-0.59); Monocytes % (auto) 6.5 %; Neutrophils # (auto) 9.24 K/uL (1.4-6.5); Neutrophils % (auto) 79.7 %; Nucleated RBC # (auto) 0.15 K/uL (0-0); Nucleated RBC % (auto) 1.3 %; Platelet Count 231 K/uL (130-400); RDW Coefficient of Variation 15.7 % (11.5-14.5); RDW Standard Deviation 50.6 fL (36.4-46.3); Red Blood Count 2.54 M/uL (4.2-5.4); White Blood Count 11.61 K/uL (4.8-10.8)
[2020-06-15] MEDS: HEPARIN SOD 5,000 UNIT/0.5 ML VIAL SQ SCH ×3 (06:15→20:15)
[2020-06-15] MEDS: ACETAMINOPHEN 500 MG TAB PO SCH ×3 (06:17→20:15)
[2020-06-15 06:39] LABS: Polychromasia 1+
[2020-06-15 06:57] LABS: BUN Creatinine Ratio 20.6 (10-20); Creatinine Clr Calc Pharmacy 37.4 ml/min; Est GFR (African American) 66.3; Est GFR (Non-African American) 57.2; Potassium 3.7 mmol/L (3.5-5.1)
--- NOTE | 2020-06-15 07:52 | Hospitalist Progress Note ---
Date of Service June 15, 2020 Assessment & Plan (1) Right hip pain: Anny Stahl is an 85 yo female with PMHx of afib, HTN, COPD, and HLD, admitted to the hospital on 06/10/20 for right hip pain 2/2 failed hardware from right hip fracture ORIF 03/10/2020 - s/p arthroplasty on 06/11. Transferred to ICU on 06/11 for hypotension c/b a-fib w/ RVR. Transferred to floor on 06/13. Atrial fibrillation - PO rate-control re-started: Diltiazem 60 mg PO TID and Lopressor 25 mg PO BID (see below) - note: home meds are Diltiazem 180 mg PO BID and Toprol 150 mg PO QAM - will plan to increase to home doses as tolerated - Currently has Heparin 5000 units SQ Q8H - will hold on transition to home Eliquis 5 mg PO BID until tomorrow, as patient's VS are improved and he is rate-controlled, but his right hip incision is still having significant drainage - Patient with RVR again today, when tele reviewed in the morning her rates had been 90s-150s; upon review this afternoon just prior to 1pm, her rates were more consistently between 120-150 - Digoxin 500mcg given 06/14 with significant improvement in rates to ~100bpm (from 150s-160s); additional dose of 125mcg digoxin given evening of 06/14 - Pt did not require 3rd dose of digoxin overnight as HR was not > 100bpm - Per tele monitor 06/15 at 0700, patient is currently in afib at 100 and overnight she was afib 70s-100 - She did reportedly have a brief period of time per tele monitoring of going into afib with rate of 160; however, throughout the afternoon she has been reportedly < 100 bpm - Evaluated K+ and Mag -- K+ 3.7 and Mag 1.8 -- will replete for optimization with goal of K+ 4.0 and Mag 2.0 - Overall rate has improved; BP has been stable. Will increase home metoprolol from 25mg po BID to metoprolol succinate 75mg daily - Continue to monitor Diarrhea - Reportedly with 30+ BMs from Sunday - Sunday (06/12-06/14) - C. diff stool toxin testing 06/13/20 negative - Imodium and Metamucil prn ordered 06/14 - Per patient, diarrhea has resolved 06/15 Hypotension c/b a-fib w RVR - s/p right CLARY on 06/11 with 700cc blood loss - was given 2u pRBCs - suspect 2/2 hypovolemia due to intra-operative blood loss - Hgb 14.6 --> 9.6 post-operatively --> 8.6 --> 7.7 --> 8.0 --> 7.4 this morning and 8.2 on recheck at noon today - In the immediate post-op period, patient initially required pressor support w/ IV phenylephrine as well as Dilt gtt for a-fib with RVR - weaned off pressors on 06/12 and maintained pressures >90/50 - started Dilt gtt on 06/12 which was weaned on 06/13 - HR < 100 without gtt - PO Dilt/Lopressor re-started 06/13 and patient transferred to med-surg with tele - continue to trend CBC daily - transfuse for Hgb < 7 - monitor clinically for post-operative bleeding - IV NSS at 100 cc/hr; will discontinue IVF 06/15 Rip Hip Fracture s/p total arthoplasty on 06/11 - Initially presented on admission with right hip pain secondary to failed hardware from right hip fracture ORIF 03/10/20 - s/p hardware removal and total hip arthoplasty 06/11/20, today is POD #4 - Ortho following, appreciate recs, removed Hemavac 06/13 - pain controlled with current regimen - follow clinically for improvement - Plan for [facility] rehab; pending placement UTI - UA 06/09: 2+ LE, WBC>30, 1+ bacteria - WBC 21.46 on 06/11 - urine culture showed 3 types of organisms in high counts, repeat UA with reflex ordered 06/13 -- billing and accounting staff assistant has been unable to collect repeat urine as of 06/14 - Urine was obtained via straight cath at 8pm on 06/14 -- will await cx results - Patient received IV ceftriaxone x6 days; discontinued 06/14 Elevated Creatinine, on CKD Stage 3 - Cr 1.04 (06/12) --> 1.41 (06/13), ratio 18.6 - No clear baseline Cr based on the values in our EMR - suspect pre-renal injury with possible ATN, 2/2 intra-operative blood loss - trend BMP daily - Tx with IV NSS at 100 cc/hr - Cr has been improving and is 0.92 today HTN - holding home Aldactazide and Lasix due to recent acute blood loss and hypotension - continue to monitor Hx of COPD (chronic obstructive pulmonary disease) - No exacerbation at this time Electrolyte Abnormalities on Admission secondary to dehydration - On admission to the hospital, patient with mild hyponatremia (Na 134), hypercalcemia (Ca 10.9), and hypomagnesemia (1.7). It was suspected that these abnormalities were secondary to volume depletion, dehydration secondary to anorexia due to pain, and home diuretic use. IVFs were administered and home diuretics held at admission --> electrolyte abnormalities resolved prior to surgical intervention 06/11. Hyperlipidemia - No current statin therapy FEN/GI: regular diet; IV NSS 100cc/hr dvt ppx: Heparin 5000 units SQ Q8H Dispo: med-surg with tele Code status: full code (2) Hypotension: (3) Closed intertrochanteric fracture of right hip: (4) Failed hardware: (5) Chronic kidney disease, stage 3a: (6) DVT prophylaxis: (7) Elevated serum creatinine: (8) Paroxysmal atrial fibrillation: (9) Hypertension: (10) Dyslipidemia: (11) COPD (chronic obstructive pulmonary disease): (12) Hypercalcemia: (13) Acute kidney injury: Admission and Anticipated Discharge Date Admission Date: June 09, 2020 Supervising Physician Co-Signing Physician Notes I personally examined the patient and verified all rodriguez points of history and exam, discussed case, and agree with decision making with Dr Rodriguez. generally feeling better. a little time w palpitations and US - mostly when she was workign wtith therapy not at all at rest mch better than yesterday and wonders if it's really palpitations or just exertion from recovering from what she's been through. diarrhea improved significantly. vitals noted nad heent nc at mmm breathing unlabored irreg irreg on monitor mostly rate controlled did have a short time when she went faster - earlier in the day context unknown. no focal deficits afib/RVR - rate improved overall. BP allows for higher dosing of beta sanjuana - will increase this. mag/K >2,4 respectively. diarrhea - Cdiff negative. imodium/fiber. improving questionable UTI - follow off rocephin otherwise as above overall appears stable for rehab now once bed available Subjective Patient was seen and evaluated at bedside this morning. She states that she overall "just feels very tired" and continues to have right hip pain well controlled with analgesia. Previous complaint of diarrhea has resolved with Imodium and Metamucil. Patient is tolerating full diet without nausea or vomiting. Patient denies CP, SOB, leg swelling. Review of Systems Review of Systems: See pertinent positive in HPI above Respiratory: no cough and no dyspnea Cardiovascular: no chest pain Gastrointestinal: no abdominal pain, no nausea and no vomiting Musculoskeletal: + joint pain; no swelling Physical Exam Physical Exam: GENERAL: No acute distress. Appears fatigued; sleeping on initial contact in room today. Vital signs reviewed. EYES: EOMI. HENT: Moist mucous membranes. RESPIRATORY: Able to speak in full sentences without increased respiratory effort. No respiratory distress. ABDOMEN: Soft and non-tender. Normal bowel sounds. NEUROLOGIC: A/O x3. PSYCHIATRIC: Cooperative. Appropriate mood and affect. Results & Data Results & Data ([facility]) Vital Signs (Past 12 Hours) Vital Signs Temp Pulse Pulse Resp BP Pulse Ox 06/15/20 03:08 36.6 C 76 19 111/78 97 06/15/20 00:24 81 06/14/20 23:29 36.3 C L 78 19 109/72 93 06/14/20 21:27 115 H 06/14/20 20:18 36.7 C 91 H 18 121/84 95 Resident Activity Tracking Resident Involvement: Resident Care Provided Care Provided: Adult Hospital Medicine
[2020-06-15] MEDS: dilTIAZem HCl 60 MG TAB PO SCH ×3 (09:11→20:15)
[2020-06-15] MEDS: METOPROLOL TARTRATE 25 MG TAB PO SCH (09:11)
[2020-06-15] MEDS: PSYLLIUM 58.6% POWDER PACKET PO SCH (09:13)
[2020-06-15] MEDS: DOCUSATE SODIUM 100 MG CAP PO SCH ×2 (09:13→20:14)
--- NOTE | 2020-06-15 10:26 | Orthopedic Progress Note ---
Date of Service June 15, 2020 Assessment & Plan (1) Failed hardware: (2) Closed intertrochanteric fracture of right hip: s/p ANDIE, R CLARY POD#4 -Currently on ceftriaxone -DVT PPX: SCDs, TEDs, heparin SQ, when medically stable, restart Eliquis -Partial WB RLE -PT/OT when medically stable -Posterior and Abduction precautions, ambulate with walker at all times -am labs, as above, hgb 7.4, VSS, defer to medical team in regards to transfusion if indicated Orthopedics will sign off at this time, please call with questions. Discharge instructions placed in the audit consultant discharge section. Admission and Anticipated Discharge Date Admission Date: June 09, 2020 Subjective Post Operative Progress Note Patient seen sitting in chair at beside, comfortable, denies complaints, pain well controlled, no acute issues. Reports feeling better today. Patient is in good spirits. Denies F/C/N/V/SOB/CP. Review of Systems Review of Systems: All systems reviewed & are unremarkable except as noted in HPI & below Constitutional: as per Subjective / HPI Physical Exam Physical Exam: RLE NVSI +EHL/FHL/TA/GS SILT grossly, +2 DP pulse, compartments soft NT, incision cdi. Constitutional: WD/WN, vitals as above Results & Data ([facility]) Vital Signs (Past 12 Hours) Vital Signs Temp Pulse Pulse Resp BP BP Pulse Ox 06/15/20 07:00 36.3 C L 67 16 124/80 94 06/15/20 03:08 36.6 C 76 19 111/78 97 06/15/20 00:24 81 06/14/20 23:29 36.3 C L 78 19 109/72 93 Laboratory Results 06/15/20 06/15/20 06/15/20 Range/Units 05:47 05:47 05:47 WBC 11.61 H (4.8-10.8) K/uL RBC 2.54 L (4.2-5.4) M/uL Hgb 7.4 L (12.0-16.0) g/dL Hct 23.0 L (37-47) % MCV 90.6 (80-100) fL MCH 29.1 (25-34) pg MCHC 32.2 (32-36) g/dL RDW Std Deviation 50.6 H (36.4-46.3) fL RDW Coeff of Abel 15.7 H (11.5-14.5) % Plt Count 231 (130-400) K/uL MPV 10.7 H (7.4-10.4) fL Immature Gran % (Auto) 0.9 % Neut % (Auto) 79.7 % Lymph % (Auto) 12.2 % Evangeline % (Auto) 6.5 % Eos % (Auto) 0.6 % Baso % (Auto) 0.1 % Neut # (Auto) 9.24 H (1.4-6.5) K/uL Lymph # (Auto) 1.42 (1.2-3.4) K/uL Evangeline # (Auto) 0.76 H (0.11-0.59) K/uL Eos # (Auto) 0.07 (0-0.5) K/uL Baso # (Auto) 0.01 (0-0.2) K/uL Immature Gran # (Auto) 0.11 H (0.00-0.02) K/uL Absolute Nucleated RBC 0.15 H (0-0) K/uL Nucleated RBC % (auto) 1.3 % Polychromasia 1+ Sodium 140 (136-145) mmol/L Potassium 3.7 (3.5-5.1) mmol/L Chloride 114 H (98-107) mmol/L Carbon Dioxide 22 (21-32) mmol/L Anion Gap 4.0 (3-11) BUN 19 H (7-18) mg/dl Creatinine 0.92 D (0.6-1.2) mg/dl Est Cr Clr Drug Dosing 37.4 ml/min Est GFR ( Amer) 66.3 Est GFR (Non-Af Amer) 57.2 BUN/Creatinine Ratio 20.6 H (10-20) Glucose 76 (70-99) mg/dl Calcium 8.0 L (8.5-10.1) mg/dl Magnesium 1.8 (1.8-2.4) mg/dl Urine Color Urine Appearance (Clear) Urine pH (4.5-7.5) Ur Specific [place] (1.000-1.030) Urine Protein (Negative) Urine Glucose (UA) (Negative) Urine Ketones (Negative) Urine Blood (Negative) Urine Nitrite (Negative) Urine Bilirubin (Negative) Urine Urobilinogen (Negative) Ur Leukocyte Esterase (Negative) Urine WBC (Auto) (0-5) /hpf Urine RBC (Auto) (0-4) /hpf U Hyaline Cast (Auto) (0-5) /lpf U Epithel Cells (Auto) (0-5) /lpf Urine Bacteria (Auto) (Negative) 06/14/20 Range/Units 20:05 WBC (4.8-10.8) K/uL RBC (4.2-5.4) M/uL Hgb (12.0-16.0) g/dL Hct (37-47) % MCV (80-100) fL MCH (25-34) pg MCHC (32-36) g/dL RDW Std Deviation (36.4-46.3) fL RDW Coeff of Abel (11.5-14.5) % Plt Count (130-400) K/uL MPV (7.4-10.4) fL Immature Gran % (Auto) % Neut % (Auto) % Lymph % (Auto) % [place]eline % (Auto) % Eos % (Auto) % Baso % (Auto) % Neut # (Auto) (1.4-6.5) K/uL Lymph # (Auto) (1.2-3.4) K/uL [place] # (Auto) (0.11-0.59) K/uL Eos # (Auto) (0-0.5) K/uL Baso # (Auto) (0-0.2) K/uL Immature Gran # (Auto) (0.00-0.02) K/uL Absolute Nucleated RBC (0-0) K/uL Nucleated RBC % (auto) % Polychromasia Sodium (136-145) mmol/L Potassium (3.5-5.1) mmol/L Chloride (98-107) mmol/L Carbon Dioxide (21-32) mmol/L Anion Gap (3-11) BUN (7-18) mg/dl Creatinine (0.6-1.2) mg/dl Est Cr Clr Drug Dosing ml/min Est GFR ( Amer) Est GFR (Non-Af Amer) BUN/Creatinine Ratio (10-20) Glucose (70-99) mg/dl Calcium (8.5-10.1) mg/dl Magnesium (1.8-2.4) mg/dl Urine Color Yellow Urine Appearance Clear (Clear) Urine pH 5.5 (4.5-7.5) Ur Specific [place] 1.013 (1.000-1.030) Urine Protein Trace H (Negative) Urine Glucose (UA) Negative (Negative) Urine Ketones Negative (Negative) Urine Blood 1+ H (Negative) Urine Nitrite Negative (Negative) Urine Bilirubin Negative (Negative) Urine Urobilinogen Negative (Negative) Ur Leukocyte Esterase 3+ H (Negative) Urine WBC (Auto) 10-30 H (0-5) /hpf Urine RBC (Auto) 5-10 H (0-4) /hpf U Hyaline Cast (Auto) 1-5 (0-5) /lpf U Epithel Cells (Auto) 20-30 H (0-5) /lpf Urine Bacteria (Auto) Negative (Negative)
[2020-06-15] MEDS: ONDANSETRON INJ 2 MG/ML 2 ML VIAL IV PRN (12:25)
[2020-06-15 12:33] LABS: Hematocrit (blood only) 25.7 % (37-47); Hemoglobin 8.2 g/dL (12.0-16.0)
--- NOTE | 2020-06-15 17:19 | Billing Data ---
Date of Service June 15, 2020 Coding Level of Care Code 00080 Subseq Hosp Care Lvl 3
[2020-06-15] MEDS ORDERED: DIGOXIN 250 MCG in SYRINGE 9 ML IV STA (22:12)
[2020-06-16] MEDS: ERYTHROMYCIN OP OINT 5 MG/GM 3.5 GM TUBE OP SCH ×6 (04:45→23:39)
[2020-06-16] MEDS: ACETAMINOPHEN 500 MG TAB PO SCH ×4 (06:07→22:10)
[2020-06-16] MEDS: HEPARIN SOD 5,000 UNIT/0.5 ML VIAL SQ SCH ×3 (06:08→22:09)
[2020-06-16 07:31] LABS: Basophils # (auto) 0.01 K/uL (0-0.2); Basophils % (auto) 0.1 %; Eosinophils # (auto) 0.24 K/uL (0-0.5); Hematocrit (blood only) 22.8 % (37-47); Hemoglobin 7.2 g/dL (12.0-16.0); Immature Granulocytes # (auto) 0.25 K/uL (0.00-0.02); Immature Granulocytes % (auto) 2.1 %; Lymphocytes # (auto) 1.75 K/uL (1.2-3.4); Lymphocytes % (auto) 14.4 %; Mean Corpuscular Hgb Conc 31.6 g/dL (32-36); Mean Corpuscular Volume 91.9 fL (80-100); Mean Platelet Volume 10.3 fL (7.4-10.4); Monocytes # (auto) 0.97 K/uL (0.11-0.59); Neutrophils # (auto) 8.92 K/uL (1.4-6.5); Neutrophils % (auto) 73.4 %; Nucleated RBC # (auto) 0.13 K/uL (0-0); Nucleated RBC % (auto) 1.1 %; Platelet Count 312 K/uL (130-400); RDW Coefficient of Variation 15.6 % (11.5-14.5); RDW Standard Deviation 50.9 fL (36.4-46.3); Red Blood Count 2.48 M/uL (4.2-5.4); White Blood Count 12.14 K/uL (4.8-10.8)
[2020-06-16] MEDS: dilTIAZem HCl 60 MG TAB PO SCH ×3 (08:00→19:52)
[2020-06-16 08:01] LABS: BUN Creatinine Ratio 19.2 (10-20); Calcium 8.3 mg/dl (8.5-10.1); Creatinine Clr Calc Pharmacy 44.5 ml/min; Est GFR (African American) 82.2; Est GFR (Non-African American) 70.9; Magnesium 1.8 mg/dl (1.8-2.4); Potassium 3.8 mmol/L (3.5-5.1)
[2020-06-16] MEDS ORDERED: METOPROLOL SUCC 25MG EXT REL TAB PO SCH (09:00)
--- NOTE | 2020-06-16 09:30 | Hospitalist Progress Note ---
Date of Service June 16, 2020 Assessment & Plan (1) Right hip pain: Anny Stahl is an 85 yo female with PMHx of afib, HTN, COPD, and HLD, admitted to the hospital on 06/10/20 for right hip pain 2/2 failed hardware from right hip fracture ORIF 03/10/2020 - s/p arthroplasty on 06/11. Transferred to ICU on 06/11 for hypotension c/b a-fib w/ RVR. Transferred to floor on 06/13. Atrial fibrillation - PO rate-control re-started: Diltiazem 60 mg PO TID and Lopressor 25 mg PO BID (see below) - note: home meds are Diltiazem 180 mg PO BID and Toprol 150 mg PO QAM; will plan to increase to home doses as tolerated - Currently has Heparin 5000 units SQ Q8H - will hold on transition to home Eliquis 5 mg PO BID until stable, as patient's VS are improved and he is rate-controlled, but his right hip incision is still having significant drainage - Patient with RVR again 06/14, when tele reviewed in the morning her rates had been 90s-150s; upon review this afternoon just prior to 1pm, her rates were more consistently between 120-150 - Digoxin 500mcg given 06/14 with significant improvement in rates to ~100bpm (from 150s-160s); additional dose of 125mcg digoxin given evening of 06/14 - Pt did not require 3rd dose of digoxin overnight as HR was not > 100bpm - Per tele monitor 06/15 at 0700, patient is currently in afib at 100 and overnight she was afib 70s-100 - She did reportedly have a brief period of time per tele monitoring of going into afib with rate of 160; however, throughout the afternoon she has been reportedly < 100 bpm - 06/15 -- Overall rate has improved; BP has been stable. Will increase home metoprolol from 25mg po BID to metoprolol succinate 75mg daily - Overnight 06/15 to 06/16, patient with recurrent Afib with RVR --> given digoxin 250mcg - Per tele monitor 06/16 at 0800, patient in afib at 120; overnight afib 90s-160s - Tele code and test clerk also reports that patient had possible very brief run of Vtach (?) overnight but she quickly reverted back to afib - Evaluated K+ and Mag -- K+ 3.7 and Mag 1.8 -- will replete for optimization with goal of K+ 4.0 and Mag 2.0 - Continue to monitor on tele - Need for better rate control - Will consult cardiology; appreciate their recommendations Hypotension c/b a-fib w RVR - s/p right CLARY on 06/11 with 700cc blood loss - was given 2u pRBCs - suspect 2/2 hypovolemia due to intra-operative blood loss - Hgb 14.6 --> 9.6 post-operatively --> 8.6 --> 7.7 --> 8.0 --> 7.4 AM 06/16 and 8.2 on recheck at noon 06/16 - Anemia is stable - 06/16 Patient is fatigued but this is likely multifactorial secondary to Afib with difficult to control RVR and recent hip surgery; will hold on transfusion at this time but will continue to monitor - In the immediate post-op period, patient initially required pressor support w/ IV phenylephrine as well as Dilt gtt for a-fib with RVR - weaned off pressors on 06/12 and maintained pressures >90/50 - started Dilt gtt on 06/12 which was weaned on 06/13 - HR < 100 without gtt - PO Dilt/Lopressor re-started 06/13 and patient transferred to med-surg with tele - continue to trend CBC daily - transfuse for Hgb < 7 - monitor clinically for post-operative bleeding - IV NSS at 100 cc/hr; will discontinue IVF 06/15 Rip Hip Fracture s/p total arthoplasty on 06/11 - Initially presented on admission with right hip pain secondary to failed hardware from right hip fracture ORIF 03/10/20 - s/p hardware removal and total hip arthoplasty 06/11/20, today is POD #4 - Ortho following, appreciate recs, removed Hemavac 06/13 - pain controlled with current regimen - follow clinically for improvement - Plan for [facility] rehab; pending placement Elevated Creatinine, on CKD Stage 3 - Cr 1.04 (06/12) --> 1.41 (06/13), ratio 18.6 - No clear baseline Cr based on the values in our EMR - suspect pre-renal injury with possible ATN, 2/2 intra-operative blood loss - trend BMP daily - Cr has been improving and is 0.77 today HTN - holding home Aldactazide and Lasix due to recent acute blood loss and hypotension - continue to monitor UTI (resolved) - UA 06/09: 2+ LE, WBC>30, 1+ bacteria - WBC 21.46 on 06/11 - urine culture showed 3 types of organisms in high counts, repeat UA with reflex ordered 06/13 -- public health staff nurse has been unable to collect repeat urine as of 06/14 - Urine was obtained via straight cath at 8pm on 06/14 -- will await cx results - Patient received IV ceftriaxone x6 days; discontinued 06/14 - Repeat urine culture obtained 06/14 shows no growth on preliminary results Diarrhea (resolved) - Reportedly with 30+ BMs from Sunday - Sunday (06/12-06/14) - C. diff stool toxin testing 06/13/20 negative - Imodium and Metamucil prn ordered 06/14 - Per patient, diarrhea has resolved 06/15 Hx of COPD (chronic obstructive pulmonary disease) - No exacerbation at this time Electrolyte Abnormalities on Admission secondary to dehydration - On admission to the hospital, patient with mild hyponatremia (Na 134), hypercalcemia (Ca 10.9), and hypomagnesemia (1.7). It was suspected that these abnormalities were secondary to volume depletion, dehydration secondary to anorexia due to pain, and home diuretic use. IVFs were administered and home diuretics held at admission --> electrolyte abnormalities resolved prior to surgical intervention 06/11. Hyperlipidemia - No current statin therapy FEN/GI: regular diet; IV NSS 100cc/hr dvt ppx: Heparin 5000 units SQ Q8H Dispo: med-surg with tele Code status: full code (2) Hypotension: (3) Closed intertrochanteric fracture of right hip: (4) Failed hardware: (5) Chronic kidney disease, stage 3a: (6) DVT prophylaxis: (7) Elevated serum creatinine: (8) Paroxysmal atrial fibrillation: (9) Hypertension: (10) Dyslipidemia: (11) COPD (chronic obstructive pulmonary disease): (12) Hypercalcemia: (13) Acute kidney injury: Admission and Anticipated Discharge Date Admission Date: June 09, 2020 Supervising Physician Co-Signing Physician Notes I personally examined the patient and verified all rodriguez points of history and exam, discussed case, and agree with decision making with Dr Rodriguez. mostly just very tired. no palpitations or sob. vitals noted nad heent nc at mmm breathing unlabored irreg irreg on monitor more increases in HR last ~18hrs afib/RVR - need for better rate control - ask cardiology for assistance since has been somewhat refractory anemia - BP stable. tachycardia intermittent rather than persistent and BP not lower when HR lower so doubt compensatory. fatigue w multiple explanations. hold on transfusion for now and follow closely diarrhea - Cdiff negative. imodium/fiber. improved questionable UTI - follow off rocephin otherwise as above Subjective Patient was seen and evaluated at bedside this morning. Patient complaining of severe fatigue and states, "I feel like I can't do anything." She denies any feelings of palpitations or tachycardia. Patient states that her hip pain is well controlled with analgesia. The prior complaint of diarrhea has resolved and patient states that she has not had a bowel movement since the diarrhea stopped 2 days ago. She reports not being hungry due to the fatigue and has decided that she only wants to drink Boost. Patient denies CP, SOB, leg swelling. Review of Systems Constitutional: + fatigue; no fever and no chills Respiratory: no cough and no dyspnea Cardiovascular: no chest pain and no palpitations Musculoskeletal: no swelling Physical Exam Physical Exam: GENERAL: No acute distress. Appears fatigued; sleeping on initial contact in room today. Vital signs reviewed. EYES: EOMI. HENT: Moist mucous membranes. RESPIRATORY: Able to speak in full sentences without increased respiratory effort. No respiratory distress. NEUROLOGIC: A/O x3. PSYCHIATRIC: Cooperative. Appropriate mood and affect. Results & Data Results & Data ([facility]) Vital Signs (Past 12 Hours) Vital Signs Temp Pulse Pulse Pulse Resp BP Pulse Ox 06/16/20 07:49 37.1 C 96 H 20 107/70 92 06/16/20 07:13 87 06/16/20 02:59 37.2 C 85 18 122/74 94 06/15/20 23:05 36.6 C 18 93 06/15/20 22:25 125 H 06/15/20 22:20 112 H 06/15/20 22:00 130 H 109/57 L Resident Activity Tracking Resident Involvement: Resident Care Provided Care Provided: Adult Hospital Medicine
[2020-06-16] MEDS ORDERED: POTASSIUM CHLORIDE CRTAB 20 MEQ TABCR PO STA (09:41)
[2020-06-16] MEDS: MAGNESIUM SULFATE / D5W 1 GM/100 ML BAG IV SCH ×2 (11:12→12:31)
[2020-06-16] MEDS: PSYLLIUM 58.6% POWDER PACKET PO SCH (11:13)
[2020-06-16] MEDS: DOCUSATE SODIUM 100 MG CAP PO SCH ×2 (11:13→22:09)
--- NOTE | 2020-06-16 15:34 | Cardiology Consultation ---
Date of Consultation June 16, 2020 Assessment & Plan (1) Atrial fibrillation with rapid ventricular response: -ventricular response has been difficult to control during other hospitalizations. -would continue to up titrate diltiazem and metoprolol. -could continue digoxin. -her profound anemia may be a contributing factor. Consider transfusion. -could consider antiarrhythmic therapy. -Dr. Hernández will assume her care tomorrow. (2) Hypertension: -adequate control on current regimen. History of Present Illness Attending Physician: Casey Jang DO History of Present Illness Mrs. Stahl is an 85-year-old female admitted on June 09 with malfunctioning hardware in her right hip. The patient's ventricular response to her persistent atrial fibrillation has been difficult to control, and therefore, this consultation was ordered. Of note, the patient follows with Dr. Hernández in the outpatient setting. The patient's recent history began back in February when she had a mechanical fall and fractured her right hip. She had an ORIF performed and was then transferred to [facility] for 6 weeks of therapy. Unfortunately, as described above, the patient developed severe right hip pain and was found to have a malpositioned nail. She was admitted for a total hip replacement. Following hip replacement surgery on the , the patient developed hypotension as was transferred to the intensive care unit for intravenous pressors. Fortunately, she was able to be weaned off his medications easily and transferred to the floor. Her ventricular response atrial fibrillation has been difficult to control. In terms of her atrial fibrillation, she was diagnosed back in February at the time of her mechanical fall. She did have a cardioversion performed in early April which was only successful for a short period of time. She has been following rate control and long-term anticoagulation since that time. Currently, patient is resting comfortably in bed without complaints of chest pain, dyspnea, or palpitations. Past medical and surgical history 1. Persistent atrial fibrillation 2. Hypertension 3. Left ventricle hypertrophy 4. Mild mitral regurgitation 5. Hypercholesterolemia 6. COPD 7. Chronic renal failure 8. Gout 9. Right hip ORIF-February 2020 10. Right TKR-June 11, 2020 11. Intra-ocular lens implants Social history , lives alone No tobacco alcohol Family history Father of an [place] at age 59. Review of systems A 10 point review systems was negative except for that described above. Allergies Allergy/AdvReac Type Severity Reaction Status Date / Time No Known Allergies Allergy Verified 06/09/20 08:18 Home Medications Medication Instructions Recorded Confirmed Type apixaban 5 mg tablet 5 mg PO BID #60 tab 03/02/20 06/09/20 Rx fluticasone propionate 1 spray INTRANASAL QAM PRN 04/06/20 06/09/20 History diltiazem HCl 180 mg capsule,24 180 mg PO BID cap 05/07/20 06/09/20 History hr,extended release metoprolol succinate 50 mg 150 mg PO QAM tab 05/13/20 06/09/20 History tablet,extended release 24 hr spironolacton-hydrochlorothiaz 1 tab PO QAM 06/07/20 06/09/20 History [Aldactazide] docusate sodium [Stool Softener] 100 mg PO BID 06/09/20 06/09/20 History furosemide 40 mg PO QAM 06/09/20 06/09/20 History oxycodone 5 mg PO Q6H PRN 06/09/20 06/09/20 History potassium chloride 10 meq PO QAM 06/09/20 06/09/20 History Patient History Medical History (Updated 06/16/20 @ 15:49 by Pepe Bonilla MD) Atrial fibrillation with rapid ventricular response 02/[address] hernández COPD (chronic obstructive pulmonary disease) Dyslipidemia Hx of gout Hypertension On anticoagulant therapy Osteoarthritis Surgical History History of cardioversion 04/2020 [place] History of open reduction and internal fixation (ORIF) procedure right hip with nailing 03/2020 History of total right knee replacement Dr. Jeremiah Eddy [place], [place] 05/2017 S/P cataract surgery Family History Father , age 59 Myocardial infarction Social History Smoking Status: Former smoker Tobacco Type: Cigarettes Years Smoked: 15; Cigarettes Per Day: 0.5 ppd; Second Hand Exposure: No; Do You Dip or Chew Tobacco: No; Hx Alcohol Use: No Hx Substance Use: No Preferred Language: Estonian Communication Ability: Effective Hearing Ability: Normal Electric Meter Tester Required: No Beliefs That Will Affect Care: None marital status: / Current Living Situation: Alone Current Living Situation Comment: 1 floor apartment current occupational status: retired How many Children do You have: 4 Feels Safe at Home: Yes Safety Concerns: Feels Safe At This Time Assistive Devices: Glasses Physical Exam Physical Exam: In general is a well-developed well-nourished white female in no acute distress. HEENT exam is negative. Neck is supple with full carotid upstrokes. No carotid bruits. Jugular venous pressure is flat at 90. There is no thyromegaly. Cardiovascular exam reveals an irregular rhythm with distant heart sounds. Lungs are clear without rales, rhonchi or wheezes. Abdomen is soft without bruits extremities reveal intact radial artery pulses bilaterally. Trace pretibial edema is noted. Results & Data ([facility]) Vital Signs (Past 12 Hours) Vital Signs Temp Pulse Pulse Pulse Resp BP Pulse Ox 06/16/20 11:35 36.9 C 80 20 120/78 94 06/16/20 07:49 37.1 C 96 H 20 107/70 92 06/16/20 07:13 87 Laboratory Results CBC notes hemoglobin of 7.2, hematocrit 22.8, white count 12.14, and platelet count [id number]. Electrolytes note sodium of 140, potassium 3.8, chloride 112, bicarb 24, BUN 15, creatinine 0.77, glucose of 88. Diagnostic Findings EKG notes atrial fibrillation with rapid ventricular response. Diffuse ST and T-wave changes noted. peanut cleaner confirmed the same. Chest x-ray shows no acute disease. Echocardiogram notes normal left ventricular systolic function without wall motion abnormalities. Left ventricular ejection fraction is 55-60%. There was mild LVH and mild to moderate tricuspid regurgitation. This is unchanged from study done in February 2020. PG Care Time/CCT Total # of Minutes Spent Total Time Spent with Patient: Total time spent is greater than 50% in coordination of care (as documented) at patient's floor/unit and/or counseling patient: Coding Level of Care Code 52958 Initial Inpt Care Lvl 3 Diagnoses Atrial fibrillation with rapid ventricular response I48.91 Hypertension I10
--- NOTE | 2020-06-16 18:42 | Billing Data ---
Date of Service June 16, 2020 Coding Level of Care Code 89762 Subseq Hosp Care Lvl 3
[2020-06-16] MEDS: METOPROLOL SUCC 25MG EXT REL TAB PO SCH (19:57)
[2020-06-16] MEDS ORDERED: SODIUM CHLORIDE 0.9% 1000ML 500 ML IV ONE ×2 (20:43→21:37)
[2020-06-16] MEDS: METOPROLOL TARTRATE 1 MG/ML VIAL IV PRN (22:44)
[2020-06-17] MEDS: ERYTHROMYCIN OP OINT 5 MG/GM 3.5 GM TUBE OP SCH ×5 (03:49→20:38)
[2020-06-17] MEDS: METOPROLOL TARTRATE 1 MG/ML VIAL IV PRN (05:26)
[2020-06-17] MEDS: ACETAMINOPHEN 500 MG TAB PO SCH ×3 (06:08→22:08)
[2020-06-17] MEDS: HEPARIN SOD 5,000 UNIT/0.5 ML VIAL SQ SCH ×3 (06:09→20:40)
[2020-06-17 06:24] LABS: Hematocrit (blood only) 24.4 % (37-47); Hemoglobin 7.8 g/dL (12.0-16.0); Mean Corpuscular Hemoglobin 29.9 pg (25-34); Mean Corpuscular Volume 93.5 fL (80-100); Mean Platelet Volume 10.1 fL (7.4-10.4); Nucleated RBC % (auto) 0.7 %; Platelet Count 374 K/uL (130-400); RDW Coefficient of Variation 16.7 % (11.5-14.5); RDW Standard Deviation 52.9 fL (36.4-46.3); Red Blood Count 2.61 M/uL (4.2-5.4); White Blood Count 14.67 K/uL (4.8-10.8)
[2020-06-17 06:45] LABS: BUN Creatinine Ratio 19.9 (10-20); Calcium 9.3 mg/dl (8.5-10.1); Creatinine Clr Calc Pharmacy 47.7 ml/min; Est GFR (African American) 90.7; Est GFR (Non-African American) 78.2; Magnesium 1.9 mg/dl (1.8-2.4); Potassium 4.1 mmol/L (3.5-5.1)
[2020-06-17 07:24] LABS: Anisocytosis Present; Basophilic Stippling 1+; Basophils # (auto) 0.02 K/uL (0-0.2); Basophils % (auto) 0.1 %; Eosinophils # (auto) 0.31 K/uL (0-0.5); Eosinophils % (auto) 2.1 %; Immature Granulocytes # (auto) 0.63 K/uL (0.00-0.02); Immature Granulocytes % (auto) 4.3 %; Lymphocytes # (auto) 2.09 K/uL (1.2-3.4); Lymphocytes % (auto) 14.2 %; Monocytes # (auto) 1.39 K/uL (0.11-0.59); Monocytes % (auto) 9.5 %; Neutrophils # (auto) 10.23 K/uL (1.4-6.5); Neutrophils % (auto) 69.8 %; Polychromasia 1+
[2020-06-17] MEDS: ONDANSETRON INJ 2 MG/ML 2 ML VIAL IV PRN (07:48)
[2020-06-17] MEDS: LOPERAMIDE HCL 2 MG CAP PO PRN (07:48)
[2020-06-17] MEDS: PSYLLIUM 58.6% POWDER PACKET PO SCH (07:58)
[2020-06-17] MEDS: DOCUSATE SODIUM 100 MG CAP PO SCH ×2 (07:58→20:39)
[2020-06-17] MEDS: METOPROLOL SUCC 25MG EXT REL TAB PO SCH ×2 (08:00→20:40)
[2020-06-17] MEDS: dilTIAZem HCl 60 MG TAB PO SCH ×2 (08:00→13:36)
[2020-06-17] MEDS: SODIUM CHLORIDE 0.9% 500 ML IV SCH ×3 (08:42→19:14)
--- NOTE | 2020-06-17 10:02 | Hospitalist Progress Note ---
Date of Service June 17, 2020 Assessment & Plan (1) Right hip pain: Anny Stahl is an 85 yo female with PMHx of afib, HTN, COPD, and HLD, admitted to the hospital on 06/10/20 for right hip pain 2/2 failed hardware from right hip fracture ORIF 03/10/2020 - s/p arthroplasty on 06/11. Transferred to ICU on 06/11 for hypotension c/b a-fib w/ RVR. Transferred to floor on 06/13. Atrial fibrillation - note: home meds are Diltiazem 180 mg PO BID and Toprol 150 mg PO QAM; will plan to increase to home doses as tolerated - Currently has Heparin 5000 units SQ Q8H - will hold on transition to home Eliquis 5 mg PO BID until stable, as patient's VS are improved and he is rate-controlled, but his right hip incision is still having significant drainage - 06/14/2020 - Patient with RVR again 06/14, when tele reviewed in the morning her rates had been 90s-150s; upon review this afternoon just prior to 1pm, her rates were more consistently between 120-150 - Digoxin 500mcg given 06/14 with significant improvement in rates to ~100bpm (from 150s-160s); additional dose of 125mcg digoxin given evening of 06/14 - Pt did not require 3rd dose of digoxin overnight as HR was not > 100bpm - Per tele monitor 06/15 at 0700, patient is currently in afib at 100 and overnight she was afib 70s-100 - She did reportedly have a brief period of time per tele monitoring of going into afib with rate of 160; however, throughout the afternoon she has been reportedly < 100 bpm - 06/15/2020 - 06/15 -- Overall rate has improved; BP has been stable. Metoprolol changed from metoprolol succinate 25mg po BID to metoprolol succinate 75mg daily - 06/16/2020 - Overnight 06/15 to 06/16, patient with recurrent Afib with RVR --> given digoxin 250mcg - Per tele monitor 06/16 at 0800, patient in afib at 120; overnight afib 90s- 160s - Tele motor lodge clerk also reports that patient had possible very brief run of Vtach (?) overnight 06/15-06/16 but she quickly reverted back to afib - Will increase metoprolol succinate from 75mg daily to 75mg BID - Will consult cardiology for further recommendations - Evaluated K+ and Mag -- K+ 3.7 and Mag 1.8 -- will replete for optimization with goal of K+ 4.0 and Mag 2.0 - 06/17/2020 - Overnight 06/16-06/17, patient reportedly having Afib with RVR up to 160s; given 2 boluses of 500cc NSS IVF; lopressor 5mg [id number] ordered (required one dose last night and one dose this morning) - This AM 06/17, K+ = 4.1, Mag = 1.9 - Per tele monitor at 1000 this morning, patient in Afib w/ PVCs 110s-160s; reporting overnight 06/16-06/17 that patient got up to 170s - Diltiazem increased from 60mg TID to home dose of 180mg BID; continue met oprolol succinate 75mg BID - Continue to monitor on tele - Need for better rate control - Will consult cardiology; appreciate their recommendations Hypotension c/b a-fib w RVR - s/p right CLARY on 06/11 with 700cc blood loss - was given 2u pRBCs - suspect 2/2 hypovolemia due to intra-operative blood loss - Hgb 14.6 --> 9.6 post-operatively --> 8.6 --> 7.7 --> 8.0 --> 7.4 AM 06/16 and 8.2 on recheck at noon 06/16 --> 7.8 today 06/17 - Anemia is stable - 06/16 Patient is fatigued but this is likely multifactorial secondary to Afib with difficult to control RVR and recent hip surgery; will hold on transfusion at this time but will continue to monitor - In the immediate post-op period, patient initially required pressor support w/ IV phenylephrine as well as Dilt gtt for a-fib with RVR - weaned off pressors on 06/12 and maintained pressures >90/50 - started Dilt gtt on 06/12 which was weaned on 06/13 - HR < 100 without gtt - PO Dilt/Lopressor re-started 06/13 and patient transferred to med-surg with tele - continue to trend CBC daily - transfuse for Hgb < 7 - monitor clinically for post-operative bleeding - IV NSS at 100 cc/hr Wheezing - Pt w/ hx of COPD - Wheezing noted in L upper lung field on exam today - Order ipatropium inhaler - Continue to monitor Rip Hip Fracture s/p total arthoplasty on 06/11 - Initially presented on admission with right hip pain secondary to failed hardware from right hip fracture ORIF 03/10/20 - s/p hardware removal and total hip arthoplasty 06/11/20, today is POD #4 - Ortho following, appreciate recs, removed Hemavac 06/13 - pain controlled with current regimen - follow clinically for improvement - Plan for [facility] inpatient rehab; pending placement - Continue to encourage adequate nutrition Elevated Creatinine, on CKD Stage 3 - Cr 1.04 (06/12) --> 1.41 (06/13), ratio 18.6 - No clear baseline Cr based on the values in our EMR - suspect pre-renal injury with possible ATN, 2/2 intra-operative blood loss - trend BMP daily - Cr has been improving and is 0.71 today HTN - holding home Aldactazide and Lasix due to recent acute blood loss and hypotension - continue to monitor UTI (resolved) - UA 06/09: 2+ LE, WBC>30, 1+ bacteria - WBC 21.46 on 06/11 - urine culture showed 3 types of organisms in high counts, repeat UA with reflex ordered 06/13 -- staff mine warfare officer has been unable to collect repeat urine as of 06/14 - Urine was obtained via straight cath at 8pm on 06/14 -- will await cx results - Patient received IV ceftriaxone x6 days; discontinued 06/14 - Repeat urine culture obtained 06/14 shows no growth on preliminary results Diarrhea (resolved) - Reportedly with 30+ BMs from Sunday - Sunday (06/12-06/14) - C. diff stool toxin testing 06/13/20 negative - Imodium and Metamucil prn ordered 06/14 - Per patient, diarrhea has resolved 06/15 Hx of COPD (chronic obstructive pulmonary disease) - No exacerbation at this time Electrolyte Abnormalities on Admission secondary to dehydration - On admission to the hospital, patient with mild hyponatremia (Na 134), hypercalcemia (Ca 10.9), and hypomagnesemia (1.7). It was suspected that these abnormalities were secondary to volume depletion, dehydration secondary to anor exia due to pain, and home diuretic use. IVFs were administered and home diuretics held at admission --> electrolyte abnormalities resolved prior to surgical intervention 06/11. Hyperlipidemia - No current statin therapy FEN/GI: regular diet; IV NSS 100cc/hr dvt ppx: Heparin 5000 units SQ Q8H Dispo: med-surg with tele Code status: full code (2) Hypotension: (3) Closed intertrochanteric fracture of right hip: (4) Failed hardware: (5) Chronic kidney disease, stage 3a: (6) DVT prophylaxis: (7) Elevated serum creatinine: (8) Paroxysmal atrial fibrillation: (9) Hypertension: (10) Dyslipidemia: (11) COPD (chronic obstructive pulmonary disease): (12) Hypercalcemia: (13) Acute kidney injury: Admission and Anticipated Discharge Date Admission Date: June 09, 2020 Supervising Physician Co-Signing Physician Notes I personally examined the patient and verified all rodriguez points of history and exam, discussed case, and agree with decision making with Dr Rodriguez. a little discouraged, still quite tired, but trying to eat or at least drink boost. otherwise no new copmlaitns. d/w cardiology input appreciated. vitals noted nad heent nc at mmm breathing unlabored irreg irreg on monitor still faster than desired afib/RVR - need for better rate control - increased metoprolol yesterdsay, increasing dilt today. BP allowing for easier increase in rate control meds. anemia - BP stable. tachycardia intermittent rather than persistent and BP not lower when HR lower so doubt compensatory. fatigue w multiple explanations. continue to hold on transfusion for now and follow closely diarrhea - Cdiff negative. imodium/fiber. improved questionable UTI - follow off rocephin, no dysuria otherwise as above Subjective Patient was seen and evaluated at bedside this morning. Patient states "I really just don't feel good." She is complaining of severe fatigue and states, "I feel like I can't do anything." Patient does report a slight cough and wheezing today which she states is intermittent at baseline. She denies any feelings of palpitations, tachycardia, or SOB. With regards to nutrition, patient states that she "has been trying to eat more" but that she is still having difficulty with eating secondary to the fatigue; she does report eating 6 bites of Raisin Bran cereal, more than 1/2 a cup of jello, and a few bites of applesauce this morning. She is also waiting for a cup of cottage cheese to come to the room from the kitchen. Review of Systems Constitutional: + fatigue Respiratory: + wheezing; no dyspnea Cardiovascular: no chest pain, no dyspnea and no palpitations Gastrointestinal: no nausea and no vomiting Physical Exam Physical Exam: GENERAL: No acute distress. Appears fatigued; sleeping on initial contact in room today. Vital signs reviewed. EYES: EOMI. HENT: Moist mucous membranes. RESPIRATORY: Able to speak in full sentences without increased respiratory effort. No respiratory distress. Intermittent coughing during interview and exam. There is some end expiratory wheezing in the left upper lung field. CARDIOVASCULAR: Irregularly irregular rhythm. Currently with regular rate. NEUROLOGIC: A/O x3. PSYCHIATRIC: Cooperative. Appropriate mood and affect. Results & Data Results & Data ([facility]) Vital Signs (Past 12 Hours) Vital Signs Temp Pulse Pulse Pulse Resp BP BP 06/17/20 08:06 36.9 C 82 20 06/17/20 05:26 122 H 146/92 H 06/17/20 04:00 37.5 C 70 18 153/78 H 06/17/20 01:55 130 H 06/16/20 23:00 37.0 C 95 H 18 06/16/20 22:55 36.6 C 122 H 18 123/76 06/16/20 22:44 138 H 123/76 BP Pulse Ox 06/17/20 08:06 124/85 95 06/17/20 05:26 06/17/20 04:00 95 06/17/20 01:55 06/16/20 23:00 115/74 95 06/16/20 22:55 94 06/16/20 22:44 Resident Activity Tracking Resident Involvement: Resident Care Provided Care Provided: Adult Hospital Medicine
--- NOTE | 2020-06-17 18:21 | Billing Data ---
Date of Service June 17, 2020 Coding Level of Care Code 06292 Subseq Hosp Care Lvl 3
[2020-06-17] MEDS ORDERED: dilTIAZem HCl 60 MG TAB PO SCH (21:00)
[2020-06-18] MEDS: SODIUM CHLORIDE 0.9% 500 ML IV SCH ×3 (00:18→10:08)
[2020-06-18] MEDS: ERYTHROMYCIN OP OINT 5 MG/GM 3.5 GM TUBE OP SCH ×6 (00:19→20:48)
[2020-06-18] MEDS: traMADol HCL 50 MG TABLET PO PRN (02:40)
[2020-06-18] MEDS: ACETAMINOPHEN 500 MG TAB PO SCH ×3 (05:46→22:33)
[2020-06-18] MEDS: HEPARIN SOD 5,000 UNIT/0.5 ML VIAL SQ SCH ×3 (05:47→20:52)
[2020-06-18 06:20] LABS: Basophils # (auto) 0.02 K/uL (0-0.2); Basophils % (auto) 0.1 %; Eosinophils # (auto) 0.37 K/uL (0-0.5); Eosinophils % (auto) 2.4 %; Hematocrit (blood only) 24.3 % (37-47); Hemoglobin 7.5 g/dL (12.0-16.0); Immature Granulocytes # (auto) 0.65 K/uL (0.00-0.02); Immature Granulocytes % (auto) 4.2 %; Lymphocytes # (auto) 2.48 K/uL (1.2-3.4); Lymphocytes % (auto) 16.2 %; Mean Corpuscular Hemoglobin 29.2 pg (25-34); Mean Corpuscular Hgb Conc 30.9 g/dL (32-36); Mean Corpuscular Volume 94.6 fL (80-100); Mean Platelet Volume 9.6 fL (7.4-10.4); Monocytes # (auto) 1.14 K/uL (0.11-0.59); Monocytes % (auto) 7.4 %; Neutrophils # (auto) 10.67 K/uL (1.4-6.5); Neutrophils % (auto) 69.7 %; Nucleated RBC # (auto) 0.06 K/uL (0-0); Nucleated RBC % (auto) 0.4 %; Platelet Count 393 K/uL (130-400); RDW Coefficient of Variation 17.7 % (11.5-14.5); RDW Standard Deviation 53.9 fL (36.4-46.3); Red Blood Count 2.57 M/uL (4.2-5.4); White Blood Count 15.33 K/uL (4.8-10.8)
[2020-06-18 06:56] LABS: BUN Creatinine Ratio 24.9 (10-20); Calcium 8.4 mg/dl (8.5-10.1); Creatinine Clr Calc Pharmacy 56.4 ml/min; Est GFR (Non-African American) 83.7; Potassium 3.9 mmol/L (3.5-5.1)
[2020-06-18 07:01] LABS: Polychromasia 1+
[2020-06-18] MEDS: METOPROLOL SUCC 25MG EXT REL TAB PO SCH ×2 (09:33→20:50)
[2020-06-18] MEDS: DOCUSATE SODIUM 100 MG CAP PO SCH ×2 (09:33→20:49)
[2020-06-18] MEDS: PSYLLIUM 58.6% POWDER PACKET PO SCH (09:34)
--- NOTE | 2020-06-18 11:22 | XRay Report ---
XR chest 1V portable CLINICAL HISTORY: shortness of breath, leukocytosis COMPARISON STUDY: Chest radiograph June 11, 2020. FINDINGS: There is been interval development of small bilateral pleural effusions, left larger than r ight. Associated bibasilar opacities are noted. Moderate cardiomegaly is unchanged. There is no evide nce for pulmonary edema. There is no pneumothorax. IMPRESSION: 1. Interval development of bilateral pleural effusions, left larger than right, with associated bibas ilar opacities could reflect consolidation or atelectasis. 2. Cardiomegaly without evidence for pulmonary edema. ACT 112: Negative or not required by law. Electronically signed by: Satinder Marcelino M.D. 06/18/2020 11:21 AM
--- NOTE | 2020-06-18 13:11 | Hospitalist Progress Note ---
Date of Service June 18, 2020 Assessment & Plan (1) Right hip pain: Anny Stahl is an 85 yo female with PMHx of afib, HTN, COPD, and HLD, admitted to the hospital on 06/10/20 for right hip pain 2/2 failed hardware from right hip fracture ORIF 03/10/2020 - s/p arthroplasty on 06/11. Transferred to ICU on 06/11 for hypotension c/b a-fib w/ RVR. Transferred to floor on 06/13. Atrial fibrillation - note: home meds are Diltiazem 180 mg PO BID and Toprol 150 mg PO QAM; will plan to increase to home doses as tolerated - Currently has Heparin 5000 units SQ Q8H - will hold on transition to home Eliquis 5 mg PO BID until stable, as patient's VS are improved and he is rate-controlled, but his right hip incision is still having significant drainage - 06/14/2020 - Patient with RVR again 06/14, when tele reviewed in the morning her rates had been 90s-150s; upon review this afternoon just prior to 1pm, her rates were more consistently between 120-150 - Digoxin 500mcg given 06/14 with significant improvement in rates to ~100bpm (from 150s-160s); additional dose of 125mcg digoxin given evening of 06/14 - Pt did not require 3rd dose of digoxin overnight as HR was not > 100bpm - Per tele monitor 06/15 at 0700, patient is currently in afib at 100 and overnight she was afib 70s-100 - She did reportedly have a brief period of time per tele monitoring of going into afib with rate of 160; however, throughout the afternoon she has been reportedly < 100 bpm - 06/15/2020 - 06/15 -- Overall rate has improved; BP has been stable. Metoprolol changed from metoprolol succinate 25mg po BID to metoprolol succinate 75mg daily - 06/16/2020 - Overnight 06/15 to 06/16, patient with recurrent Afib with RVR --> given digoxin 250mcg - Per tele monitor 06/16 at 0800, patient in afib at 120; overnight afib 90s- 160s - Tele locker room clerk also reports that patient had possible very brief run of Vtach (?) overnight 06/15-06/16 but she quickly reverted back to afib - Will increase metoprolol succinate from 75mg daily to 75mg BID - Will consult cardiology for further recommendations - Evaluated K+ and Mag -- K+ 3.7 and Mag 1.8 -- will replete for optimization with goal of K+ 4.0 and Mag 2.0 - 06/17/2020 - Overnight 06/16-06/17, patient reportedly having Afib with RVR up to 160s; given 2 boluses of 500cc NSS IVF; lopressor 5mg [id number] ordered (required one dose last night and one dose this morning) - This AM 06/17, K+ = 4.1, Mag = 1.9 - Per tele monitor at 1000 this morning, patient in Afib w/ PVCs 110s-160s; reporting overnight 06/16-06/17 that patient got up to 170s - Diltiazem increased from 60mg TID to home dose of 180mg BID; continue met oprolol succinate 75mg BID - 06/18/20 - Per telemetry, patient has been in Afib in 100-110s - Rate has been better controlled - Will continue with home doses of Dilt ER (180mg BID) and metoprolol s uccinate 75mg BID - Continue to monitor on tele Leukocytosis - WBC has been slowly increasing again over the past 4 days - WBC today 15.33 (it was 11.61 three days ago) - Patient also with SOB and cough x2 days; no change today compared to yesterday - CXR 06/18/20: Interval development of bilateral pleural effusions, L larger than R, w/ associated bibasilar opacities could reflect consolidation or atelectasis. Cardiomegaly without evidence for pulmonary edema. - ProCal negative at 0.1 and CRP is not impressive at 3.31 - Will obtain blood cultures - No signs of UTI on exam including no dysuria, urinary frequency, or suprapubic abdominal pain - No signs of cellulitis or skin breakdown on skin exam today - Will repeat CBC tomorrow AM - If WBC is unchanged or increased, will plan to start empiric abx therapy Hypotension c/b a-fib w RVR - s/p right CLARY on 06/11 with 700cc blood loss - was given 2u pRBCs - suspect 2/2 hypovolemia due to intra-operative blood loss - Hgb 14.6 --> 9.6 post-operatively --> 8.6 --> 7.7 --> 8.0 --> 7.4 AM 06/16 and 8.2 on recheck at noon 06/16 --> 7.8 today 06/17 - Anemia is stable - 06/16 Patient is fatigued but this is likely multifactorial secondary to Afib with difficult to control RVR and recent hip surgery; will hold on transfusion at this time but will continue to monitor - In the immediate post-op period, patient initially required pressor support w/ IV phenylephrine as well as Dilt gtt for a-fib with RVR - weaned off pressors on 06/12 and maintained pressures >90/50 - started Dilt gtt on 06/12 which was weaned on 06/13 - HR < 100 without gtt - PO Dilt/Lopressor re-started 06/13 and patient transferred to med-surg with tele - continue to trend CBC daily - transfuse for Hgb < 7 - monitor clinically for post-operative bleeding - IV NSS at 100 cc/hr Wheezing - Pt w/ hx of COPD - Continue Atrovent inaler BID prn for wheezing - Will continue to monitor Rip Hip Fracture s/p total arthoplasty on 06/11 - Initially presented on admission with right hip pain secondary to failed hardware from right hip fracture ORIF 03/10/20 - s/p hardware removal and total hip arthoplasty 06/11/20, today is POD #4 - Ortho following, appreciate recs, removed Hemavac 06/13 - pain controlled with current regimen - follow clinically for improvement - Plan for [facility] inpatient rehab; pending placement - Continue to encourage adequate nutrition HTN - holding home Aldactazide and Lasix due to recent acute blood loss and hypotension - continue to monitor UTI (resolved) - UA 06/09: 2+ LE, WBC>30, 1+ bacteria - WBC 21.46 on 06/11 - urine culture showed 3 types of organisms in high counts, repeat UA with reflex ordered 06/13 -- waitstaff has been unable to collect repeat urine as of 06/14 - Urine was obtained via straight cath at 8pm on 06/14 -- will await cx results - Patient received IV ceftriaxone x6 days; discontinued 06/14 - Repeat urine culture obtained 06/14 shows tawnya albicans/dubliniensis Elevated Creatinine, on CKD Stage 3 (elevated creatinine resolved) - Cr 1.04 (06/12) --> 1.41 (06/13), ratio 18.6 - No clear baseline Cr based on the values in our EMR - suspect pre-renal injury with possible ATN, 2/2 intra-operative blood loss - Cr has been improving and is 0.60 on 06/18/20 Diarrhea (resolved) - Reportedly with 30+ BMs from Sunday - Sunday (06/12-06/14) - C. diff stool toxin testing 06/13/20 negative - Imodium and Metamucil prn ordered 06/14 - Per patient, diarrhea has resolved 06/15 Hx of COPD (chronic obstructive pulmonary disease) - No exacerbation at this time Electrolyte Abnormalities on Admission secondary to dehydration - On admission to the hospital, patient with mild hyponatremia (Na 134), hypercalcemia (Ca 10.9), and hypomagnesemia (1.7). It was suspected that these abnormalities were secondary to volume depletion, dehydration secondary to anorexia due to pain, and home diuretic use. IVFs were administered and home diuretics held at admission --> electrolyte abnormalities resolved prior to surgical intervention 06/11. Hyperlipidemia - No current statin therapy FEN/GI: regular diet; IV NSS 100cc/hr dvt ppx: Heparin 5000 units SQ Q8H Dispo: med-surg with tele Code status: full code (2) Hypotension: (3) Closed intertrochanteric fracture of right hip: (4) Failed hardware: (5) Chronic kidney disease, stage 3a: (6) DVT prophylaxis: (7) Elevated serum creatinine: (8) Paroxysmal atrial fibrillation: (9) Hypertension: (10) Dyslipidemia: (11) COPD (chronic obstructive pulmonary disease): (12) Hypercalcemia: (13) Acute kidney injury: Admission and Anticipated Discharge Date Admission Date: June 09, 2020 Supervising Physician Co-Signing Physician Notes I personally examined the patient and verified all rodriguez points of history and exam, discussed case, and agree with decision making with Dr Rodriguez. trying to eat better. even woke up at 2a and thought for a minute that she better start eating! maybe questionable a little bit of new sob but not bad. no abdominal pain/diarrhea. no dysuria. vitals noted nad heent nc at mmm lungs cta b/l no rr//w good effort abd soft nd nt wounds c/d/i no erythema no exudate appear healing well. skin no other rashes no pallor or icterus afib/RVR - increasing meds, improving rate control. progressive leukocytosis - no clear cut s/s infection. CXR nonspecific in light of this. blood cultures pending. inflammatory markers reassuring. follow closely clinically. serial labs and exams. nothing indicating empiric abx at this time anemia - BP stable. tachycardia intermittent rather than persistent and BP not lower when HR lower so doubt compensatory. fatigue w multiple explanations. continue to hold on transfusion for now and follow closely diarrhea - Cdiff negative. imodium/fiber. improved otherwise as above Subjective Patient was seen and evaluated at bedside this morning. She states that she is overall "feeling much better." Patient does report some persistent fatigue and SOB. She notes that she is trying to be more conscientious about her nutritional intake. She denies any feelings of palpitations or tachycardia. Review of Systems Constitutional: + fatigue; no fever and no chills + decreased appetite Respiratory: + cough and + dyspnea Cardiovascular: no chest pain and no palpitations Gastrointestinal: no abdominal pain, no nausea, no vomiting and no diarrhea/loose stools Physical Exam Physical Exam: GENERAL: No acute distress. Awake and alert. Vital signs reviewed. EYES: EOMI. HENT: Moist mucous membranes. RESPIRATORY: Lungs CTAB. Able to speak in full sentences without increased respiratory effort. No respiratory distress. Intermittent coughing during interview and exam. CARDIOVASCULAR: Irregularly irregular rhythm. Currently with regular rate. NEUROLOGIC: A/O x3. PSYCHIATRIC: Cooperative. Appropriate mood and affect. Results & Data Results & Data ([facility]) Vital Signs (Past 12 Hours) Vital Signs Temp Pulse Pulse Pulse Resp BP BP 06/18/20 11:38 36.5 C 89 20 113/69 06/18/20 08:00 36.7 C 86 18 118/81 06/18/20 04:00 36.5 C 90 18 118/79 06/18/20 01:51 89 Pulse Ox 06/18/20 11:38 98 06/18/20 08:00 95 06/18/20 04:00 94 06/18/20 01:51 Resident Activity Tracking Resident Involvement: Resident Care Provided Care Provided: [facility] Medicine
[2020-06-18] MEDS: SODIUM CHLORIDE 0.9% 1,000 ML IV SCH (14:20)
[2020-06-18] MEDS: IPRATROPIUM BROMIDE HFA INHALER INH PRN (15:57)
--- NOTE | 2020-06-18 18:01 | Billing Data ---
Date of Service June 18, 2020 Coding Level of Care Code 53226 Subseq Hosp Care Lvl 3
[2020-06-19] MEDS: ERYTHROMYCIN OP OINT 5 MG/GM 3.5 GM TUBE OP SCH ×6 (00:05→19:39)
[2020-06-19] MEDS: SODIUM CHLORIDE 0.9% 1,000 ML IV SCH ×2 (00:05→08:14)
[2020-06-19] MEDS: ACETAMINOPHEN 500 MG TAB PO SCH ×3 (05:33→22:10)
[2020-06-19] MEDS: HEPARIN SOD 5,000 UNIT/0.5 ML VIAL SQ SCH ×3 (05:33→22:10)
[2020-06-19] MEDS: IPRATROPIUM BROMIDE HFA INHALER INH PRN (05:47)
[2020-06-19 06:53] LABS: Basophils # (auto) 0.03 K/uL (0-0.2); Basophils % (auto) 0.2 %; Eosinophils # (auto) 0.32 K/uL (0-0.5); Eosinophils % (auto) 2.4 %; Hematocrit (blood only) 24.1 % (37-47); Hemoglobin 7.4 g/dL (12.0-16.0); Immature Granulocytes # (auto) 0.54 K/uL (0.00-0.02); Lymphocytes # (auto) 1.96 K/uL (1.2-3.4); Lymphocytes % (auto) 14.5 %; Mean Corpuscular Hemoglobin 29.2 pg (25-34); Mean Corpuscular Hgb Conc 30.7 g/dL (32-36); Mean Corpuscular Volume 95.3 fL (80-100); Mean Platelet Volume 9.6 fL (7.4-10.4); Monocytes % (auto) 7.4 %; Neutrophils # (auto) 9.64 K/uL (1.4-6.5); Neutrophils % (auto) 71.5 %; Nucleated RBC # (auto) 0.05 K/uL (0-0); Nucleated RBC % (auto) 0.4 %; Platelet Count 412 K/uL (130-400); RDW Coefficient of Variation 18.7 % (11.5-14.5); RDW Standard Deviation 57.9 fL (36.4-46.3); Red Blood Count 2.53 M/uL (4.2-5.4); White Blood Count 13.49 K/uL (4.8-10.8)
[2020-06-19 07:20] LABS: Polychromasia 1+
[2020-06-19 07:28] LABS: BUN Creatinine Ratio 21.8 (10-20); Calcium 8.4 mg/dl (8.5-10.1); Creatinine Clr Calc Pharmacy 57.1 ml/min; Est GFR (African American) 95.5; Est GFR (Non-African American) 82.4; Potassium 3.7 mmol/L (3.5-5.1)
[2020-06-19] MEDS: METOPROLOL SUCC 25MG EXT REL TAB PO SCH ×2 (08:14→20:37)
[2020-06-19] MEDS: PSYLLIUM 58.6% POWDER PACKET PO SCH (08:14)
[2020-06-19] MEDS: DOCUSATE SODIUM 100 MG CAP PO SCH ×2 (08:14→20:36)
--- NOTE | 2020-06-19 09:44 | Hospitalist Progress Note ---
Date of Service June 19, 2020 Assessment & Plan (1) Right hip pain: Anny Stahl is an 85 yo female with PMHx of afib, HTN, COPD, and HLD, admitted to the hospital on 06/10/20 for right hip pain 2/2 failed hardware from right hip fracture ORIF 03/10/2020 - s/p arthroplasty on 06/11. Transferred to ICU on 06/11 for hypotension c/b a-fib w/ RVR. Transferred to floor on 06/13. Atrial fibrillation - note: home meds are Diltiazem 180 mg PO BID and Toprol 150 mg PO QAM; will plan to increase to home doses as tolerated - Currently has Heparin 5000 units SQ Q8H - will hold on transition to home Eliquis 5 mg PO BID until stable, as patient's VS are improved and he is rate-controlled, but his right hip incision is still having significant drainage - 06/14/2020 - Patient with RVR again 06/14, when tele reviewed in the morning her rates had been 90s-150s; upon review this afternoon just prior to 1pm, her rates were more consistently between 120-150 - Digoxin 500mcg given 06/14 with significant improvement in rates to ~100bpm (from 150s-160s); additional dose of 125mcg digoxin given evening of 06/14 - Pt did not require 3rd dose of digoxin overnight as HR was not > 100bpm - Per tele monitor 06/15 at 0700, patient is currently in afib at 100 and overnight she was afib 70s-100 - She did reportedly have a brief period of time per tele monitoring of going into afib with rate of 160; however, throughout the afternoon she has been reportedly < 100 bpm - 06/15/2020 - 06/15 -- Overall rate has improved; BP has been stable. Metoprolol changed from metoprolol succinate 25mg po BID to metoprolol succinate 75mg daily - 06/16/2020 - Overnight 06/15 to 06/16, patient with recurrent Afib with RVR --> given digoxin 250mcg - Per tele monitor 06/16 at 0800, patient in afib at 120; overnight afib 90s- 160s - Tele state appellate clerk also reports that patient had possible very brief run of Vtach (?) overnight 06/15-06/16 but she quickly reverted back to afib - Will increase metoprolol succinate from 75mg daily to 75mg BID - Will consult cardiology for further recommendations - Evaluated K+ and Mag -- K+ 3.7 and Mag 1.8 -- will replete for optimization with goal of K+ 4.0 and Mag 2.0 - 06/17/2020 - Overnight 06/16-06/17, patient reportedly having Afib with RVR up to 160s; given 2 boluses of 500cc NSS IVF; lopressor 5mg [id number] ordered (required one dose last night and one dose this morning) - This AM 06/17, K+ = 4.1, Mag = 1.9 - Per tele monitor at 1000 this morning, patient in Afib w/ PVCs 110s-160s; reporting overnight 06/16-06/17 that patient got up to 170s - Diltiazem increased from 60mg TID to home dose of 180mg BID; continue met oprolol succinate 75mg BID - 06/18/20 - Per telemetry, patient has been in Afib in 100-110s - Rate has been better controlled - Will continue with home doses of Dilt ER (180mg BID) and metoprolol s uccinate 75mg BID - 06/19/20: patient's HR has been stable; per tele monitor, patient is in Afib with rates in 70s to 80s; 24 hour trend is reassuring; continue current management - Continue to monitor on tele Poor appetite/malnutrition - Nutrition consulted; have been encouraging encreasing PO intake and discussed calorie goal of [id number] kcals/day - Despite encouragement and her understanding of need for adequate nutrition, she's still not have appropriate intake - Started marinol 2.5g po daily scheduled on 06/19 SOB and Cough - Pt with complaint of SOB and cough x3 days (since 06/17/20) - Wheezing; pt w/ hx of COPD - Started on ipatropium inhaler BID for wheezing on 06/17/20 - She has been hydrated with IVF NSS at 100 cc/hr; IVF stopped 06/19 - No infectious process on CXR 06/18/20 - 06/19/20: IVF stopped, IV lasix 40mg IV x1 given to patient with improvement in the SOB and cough Leukocytosis (improving) - WBC had been slowly increasing again 06/16 to 06/18; peak WBC count 06/18 was 15.33 (was 11.61 on 06/15) - WBC improved today, 06/19, at 13.49 - Patient also with SOB and cough x3 days; no change today compared to yesterday - 06/19/20: At this point, the SOB and cough does not appear to be part of an infectious process and it is more likely that the SOB/cough is associated with fluid overload - CXR 06/18/20: Interval development of bilateral pleural effusions, L larger than R, w/ associated bibasilar opacities could reflect consolidation or atelectasis. Cardiomegaly without evidence for pulmonary edema. - ProCal negative at 0.1 and CRP is not impressive at 3.31 - Will obtain blood cultures, pending - No signs of UTI on exam including no dysuria, urinary frequency, or suprapubic abdominal pain - No signs of cellulitis or skin breakdown on skin exam 06/18/20 - Will repeat CBC tomorrow AM Hypotension c/b a-fib w RVR - s/p right CLARY on 06/11 with 700cc blood loss - was given 2u pRBCs - suspect 08/10 hypovolemia due to intra-operative blood loss - Hgb 14.6 --> 9.6 post-operatively --> 8.6 --> 7.7 --> 8.0 --> 7.4 AM 06/16 and 8.2 on recheck at noon 06/16 --> 7.8 today 06/17 - Anemia is stable - 06/16 Patient is fatigued but this is likely multifactorial secondary to Afib with difficult to control RVR and recent hip surgery; will hold on transfusion at this time but will continue to monitor - In the immediate post-op period, patient initially required pressor support w/ IV phenylephrine as well as Dilt gtt for a-fib with RVR - weaned off pressors on 06/12 and maintained pressures >90/50 - started Dilt gtt on 06/12 which was weaned on 06/13 - HR < 100 without gtt - PO Dilt/Lopressor re-started 06/13 and patient transferred to med-surg with tele - continue to trend CBC daily - transfuse for Hgb < 7 - monitor clinically for post-operative bleeding - IV NSS at 100 cc/hr Rip Hip Fracture s/p total arthoplasty on 06/11 - Initially presented on admission with right hip pain secondary to failed hardware from right hip fracture ORIF 03/10/20 - s/p hardware removal and total hip arthoplasty 06/11/20, today is POD #4 - Ortho following, appreciate recs, removed Hemavac 06/13 - pain controlled with current regimen - follow clinically for improvement - Plan for [facility] inpatient rehab; pending placement - Continue to encourage adequate nutrition HTN - holding home Aldactazide and Lasix due to recent acute blood loss and hypotension - continue to monitor UTI (resolved) - UA 06/09: 2+ LE, WBC>30, 1+ bacteria - WBC 21.46 on 06/11 - urine culture showed 3 types of organisms in high counts, repeat UA with reflex ordered 06/13 -- staff nuclear weapons officer has been unable to collect repeat urine as of 06/14 - Urine was obtained via straight cath at 8pm on 06/14 -- will await cx results - Patient received IV ceftriaxone x6 days; discontinued 06/14 - Repeat urine culture obtained 06/14 shows tawnya albicans/dubliniensis Elevated Creatinine, on CKD Stage 3 (elevated creatinine resolved) - Cr 1.04 (06/12) --> 1.41 (06/13), ratio 18.6 - No clear baseline Cr based on the values in our EMR - suspect pre-renal injury with possible ATN, 2/2 intra-operative blood loss - Cr has been improving and is 0.60 on 06/18/20 Diarrhea (resolved) - Reportedly with 30+ BMs from Sunday - Sunday (06/12-06/14) - C. diff stool toxin testing 06/13/20 negative - Imodium and Metamucil prn ordered 06/14 - Per patient, diarrhea has resolved 06/15 Hx of COPD (chronic obstructive pulmonary disease) - No exacerbation at this time Electrolyte Abnormalities on Admission secondary to dehydration - On admission to the hospital, patient with mild hyponatremia (Na 134), hypercalcemia (Ca 10.9), and hypomagnesemia (1.7). It was suspected that these abnormalities were secondary to volume depletion, dehydration secondary to anorexia due to pain, and home diuretic use. IVFs were administered and home diuretics held at admission --> electrolyte abnormalities resolved prior to surgical intervention 06/11. Hyperlipidemia - No current statin therapy FEN/GI: regular diet; IV NSS 100cc/hr dvt ppx: Heparin 5000 units SQ Q8H Dispo: med-surg with tele Code status: full code (2) Hypotension: (3) Closed intertrochanteric fracture of right hip: (4) Failed hardware: (5) Chronic kidney disease, stage 3a: (6) DVT prophylaxis: (7) Elevated serum creatinine: (8) Paroxysmal atrial fibrillation: (9) Hypertension: (10) Dyslipidemia: (11) COPD (chronic obstructive pulmonary disease): (12) Hypercalcemia: (13) Acute kidney injury: Admission and Anticipated Discharge Date Admission Date: June 09, 2020 Supervising Physician Co-Signing Physician Notes I personally examined the patient and verified all rodriguez points of history and exam, discussed case, and agree with decision making with Dr Rodriguez. trying to eat but struggling. was more sob thorugh the night and early AM - had to get O2 on. thinks maybe she's feeling better since lasix, but maybe a little too soon to tell. vitals noted nad heent nc at mmm lungs with very very faint rales at base only heard w amplification. no other adventitious lung sounds noted. cardio reg rate irreg irreg. 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 appears more c/w this than infectious lung pathology poor appetite/malnutrition - despite encouragement and her understanding the importance of getting enough in/trying - she's still not getting adequate intake - start marinol as appetite stimulant (discussed risks/benefits) progressive leukocytosis - no clear cut s/s infection - see above more c/w chf than pneumonia. blood cultures negative to date. WBC improved today. inflammatory markers reassuring. serial exams. anemia - BP stable. tachycardia intermittent rather than persistent and BP not lower when HR lower so doubt compensatory. fatigue w multiple explanations. continue to hold on transfusion for now and follow closely diarrhea - Cdiff negative. imodium/fiber. improved otherwise as above Subjective Patient was seen and evaluated at bedside this morning. She states that she is "not feeling too well" this morning. Patient complains of persistent fatigue and SOB. She also complains of cough that she believes is worsening. Patient co ntinues to have decreased appetite secondary to the fatigue and she is "not eating as much anymore, again." She denies CP, palpitations, heart racing, fevers, abdominal pain, nausea, or vomiting. Review of Systems Review of Systems: See pertinent positive in HPI above Constitutional: + fatigue; no fever and no chills + decreased appetite Respiratory: + cough and + dyspnea Cardiovascular: no chest pain and no palpitations Physical Exam Physical Exam: GENERAL: No acute distress. Awake and alert. Vital signs reviewed. EYES: EOMI. HENT: Moist mucous membranes. RESPIRATORY: Lungs CTAB. Mild expiratory wheeze right upper lobe, clered after cough. No respiratory distress. Coughing during interview and exam. CARDIOVASCULAR: Irregularly irregular rhythm. Currently with regular rate. NEUROLOGIC: A/O x3. PSYCHIATRIC: Cooperative. Appropriate mood and affect. Results & Data Results & Data ([facility]) Vital Signs (Past 12 Hours) Vital Signs Temp Pulse Pulse Pulse Resp BP Pulse Ox 06/19/20 07:43 66 06/19/20 06:31 36.3 C L 95 H 20 102/69 96 06/19/20 05:52 85 18 86 L 06/19/20 02:54 36.6 C 65 18 117/82 92 06/18/20 23:56 36.4 C L 89 16 120/87 93 Resident Activity Tracking Resident Involvement: Resident Care Provided Care Provided: Adult Hospital Medicine
[2020-06-19] MEDS ORDERED: FUROSEMIDE 40 MG in SYRINGE 0 ML IV ONE (10:30)
--- NOTE | 2020-06-19 13:55 | Billing Data ---
Date of Service June 19, 2020 Coding Level of Care Code 24647 Subseq Hosp Care Lvl 3
[2020-06-19] MEDS: traMADol HCL 50 MG TABLET PO PRN (17:37)
[2020-06-19] MEDS: MIRTAZAPINE TAB 15 MG TAB PO SCH (20:45)
[2020-06-20] MEDS: ERYTHROMYCIN OP OINT 5 MG/GM 3.5 GM TUBE OP SCH ×7 (01:02→23:34)
[2020-06-20] MEDS: HEPARIN SOD 5,000 UNIT/0.5 ML VIAL SQ SCH ×3 (06:13→19:56)
[2020-06-20] MEDS: ACETAMINOPHEN 500 MG TAB PO SCH ×3 (06:14→22:33)
[2020-06-20 06:57] LABS: Basophils # (auto) 0.02 K/uL (0-0.2); Basophils % (auto) 0.2 %; Eosinophils # (auto) 0.26 K/uL (0-0.5); Eosinophils % (auto) 2.3 %; Hematocrit (blood only) 27.1 % (37-47); Hemoglobin 8.4 g/dL (12.0-16.0); Immature Granulocytes # (auto) 0.39 K/uL (0.00-0.02); Immature Granulocytes % (auto) 3.5 %; Lymphocytes # (auto) 1.97 K/uL (1.2-3.4); Lymphocytes % (auto) 17.7 %; Mean Corpuscular Hemoglobin 29.7 pg (25-34); Mean Corpuscular Volume 95.8 fL (80-100); Mean Platelet Volume 9.7 fL (7.4-10.4); Monocytes % (auto) 8.1 %; Neutrophils # (auto) 7.59 K/uL (1.4-6.5); Neutrophils % (auto) 68.2 %; Nucleated RBC # (auto) 0.03 K/uL (0-0); Nucleated RBC % (auto) 0.3 %; Platelet Count 417 K/uL (130-400); RDW Standard Deviation 59.9 fL (36.4-46.3); Red Blood Count 2.83 M/uL (4.2-5.4); White Blood Count 11.13 K/uL (4.8-10.8)
[2020-06-20 07:34] LABS: BUN Creatinine Ratio 19.8 (10-20); Calcium 8.2 mg/dl (8.5-10.1); Est GFR (Non-African American) 81.9; Potassium 3.4 mmol/L (3.5-5.1)
[2020-06-20] MEDS: PSYLLIUM 58.6% POWDER PACKET PO SCH (07:43)
[2020-06-20] MEDS ORDERED: POTASSIUM CHLORIDE CRTAB 20 MEQ TABCR PO STA (08:30)
[2020-06-20] MEDS: METOPROLOL SUCC 25MG EXT REL TAB PO SCH ×2 (08:57→19:56)
[2020-06-20] MEDS: DOCUSATE SODIUM 100 MG CAP PO SCH ×2 (08:57→19:55)
[2020-06-20 16:45] LABS: BUN Creatinine Ratio 16.9 (10-20); Calcium 8.3 mg/dl (8.5-10.1); Creatinine Clr Calc Pharmacy 40.6 ml/min; Est GFR (African American) 72.9; Est GFR (Non-African American) 62.9; Potassium 4.5 mmol/L (3.5-5.1)
[2020-06-20] MEDS ORDERED: FUROSEMIDE 40 MG TAB PO ONE (18:00)
--- NOTE | 2020-06-20 18:01 | Hospitalist Progress Note ---
Date of Service June 20, 2020 Assessment & Plan (1) Right hip pain: Anny Stahl is an 85 yo female with PMHx of afib, HTN, COPD, and HLD, admitted to the hospital on 06/10/20 for right hip pain 2/2 failed hardware from right hip fracture ORIF 03/10/2020 - s/p arthroplasty on 06/11. Transferred to ICU on 06/11 for hypotension c/b a-fib w/ RVR. Transferred to floor on 06/13. Atrial fibrillation - note: home meds are Diltiazem 180 mg PO BID and Toprol 150 mg PO QAM; will plan to increase to home doses as tolerated - Currently has Heparin 5000 units SQ Q8H - will hold on transition to home Eliquis 5 mg PO BID until stable, as patient's VS are improved and he is rate-controlled, but his right hip incision is still having significant drainage - 06/14/2020 - Patient with RVR again 06/14, when tele reviewed in the morning her rates had been 90s-150s; upon review this afternoon just prior to 1pm, her rates were more consistently between 120-150 - Digoxin 500mcg given 06/14 with significant improvement in rates to ~100bpm (from 150s-160s); additional dose of 125mcg digoxin given evening of 06/14 - Pt did not require 3rd dose of digoxin overnight as HR was not > 100bpm - Per tele monitor 06/15 at 0700, patient is currently in afib at 100 and overnight she was afib 70s-100 - She did reportedly have a brief period of time per tele monitoring of going into afib with rate of 160; however, throughout the afternoon she has been reportedly < 100 bpm - 06/15/2020 -- Overall rate has improved; BP has been stable. Metoprolol changed from metoprolol succinate 25mg po BID to metoprolol succinate 75mg daily - 06/16/2020 - Overnight 06/15 to 06/16, patient with recurrent Afib with RVR --> given digoxin 250mcg - Per tele monitor 06/16 at 0800, patient in afib at 120; overnight afib 90s- 160s - Tele fountain clerk also reports that patient had possible very brief run of Vtach (?) overnight 06/15-06/16 but she quickly reverted back to afib - Will increase metoprolol succinate from 75mg daily to 75mg BID - Will consult cardiology for further recommendations - Evaluated K+ and Mag -- K+ 3.7 and Mag 1.8 -- will replete for optimization with goal of K+ 4.0 and Mag 2.0 - 06/17/2020 - Overnight 06/16-06/17, patient reportedly having Afib with RVR up to 160s; given 2 boluses of 500cc NSS IVF; lopressor 5mg [id number] ordered (required one dose last night and one dose this morning) - This AM 06/17, K+ = 4.1, Mag = 1.9 - Per tele monitor at 1000 this morning, patient in Afib w/ PVCs 110s-160s; reporting overnight 06/16-06/17 that patient got up to 170s - Diltiazem increased from 60mg TID to home dose of 180mg BID; continue metoprolol succinate 75mg BID - 06/18/20 - Per telemetry, patient has been in Afib in 100-110s; Rate has been better controlled; will continue with home doses of Dilt ER (180mg BID) and metoprolol succinate 75mg BID - 06/19/20: patient's HR has been stable; per tele monitor, patient is in Afib with rates in 70s to 80s; 24 hour trend is reassuring; continue current management - 06/20/20: Afib with rates 80s to 110s - Potassium and magnesium repleted today; plan to maintain K around 4.0 and Mag around 2.0 - Continue to monitor on tele - BMP and mag qAM Poor appetite/malnutrition - Nutrition consulted; have been encouraging increasing PO intake and discussed calorie goal of [id number] kcals/day - Despite encouragement and her understanding of need for adequate nutrition, she's still not have appropriate intake - Started marinol 2.5g po daily scheduled on 06/19 --> increased to 5mg po daily on 06/20/20 - Patient also started on remeron 15mg po qhs for both appetite stimulant properties and for anti-depressant properties SOB and Cough - Pt with complaint of SOB and cough x3 days (since 06/17/20) - Wheezing; pt w/ hx of COPD; started on ipratropium inhaler BID for wheezing on 06/17/20 --> changed to QID scheduled on 06/20/20 - She has been hydrated with IVF NSS at 100 cc/hr; IVF stopped 06/19 - No infectious process on CXR 06/18/20 - 06/19/20: IVF stopped, IV lasix 40mg IV x1 given to patient with improvement in the SOB and cough - 06/20/20: lasix po 40mg daily started today; will continue with diuresis but closely monitor fluid status Leukocytosis (improving) - WBC had been slowly increasing again 06/16 to 06/18; peak WBC count 06/18 was 15.33 (was 11.61 on 06/15) - WBC improved 06/19 at 13.49 --> continuing to improve and is 11.13 on 06/20 - Patient also with SOB and cough x4 days;largely unchanged today compared to yesterday - 06/19/20: At this point, the SOB and cough does not appear to be part of an infectious process and it is more likely that the SOB/cough is associated with fluid overload. Will continue to treat with diuresis - CXR 06/18/20: Interval development of bilateral pleural effusions, L larger than R, w/ associated bibasilar opacities could reflect consolidation or atelectasis. Cardiomegaly without evidence for pulmonary edema. - ProCal negative at 0.1 and CRP is not impressive at 3.31 - Will obtain blood cultures, pending - No signs of UTI on exam including no dysuria, urinary frequency, or suprapubic abdominal pain - No signs of cellulitis or skin breakdown on skin exam 06/18/20 - Will repeat CBC tomorrow AM Hypotension c/b a-fib w RVR - s/p right CLARY on 06/11 with 700cc blood loss - was given 2u pRBCs - suspect 2/2 hypovolemia due to intra-operative blood loss - Hgb 14.6 --> 9.6 post-operatively --> 8.6 --> 7.7 --> 8.0 --> 7.4 AM 06/16 and 8.2 on recheck at noon 06/16 --> 7.8 on 06/17 - Anemia is stable - 06/16 Patient is fatigued but this is likely multifactorial secondary to Afib with difficult to control RVR and recent hip surgery; will hold on transfusion at this time but will continue to monitor - In the immediate post-op period, patient initially required pressor support w/ IV phenylephrine as well as Dilt gtt for a-fib with RVR - weaned off pressors on 06/12 and maintained pressures >90/50 - started Dilt gtt on 06/12 which was weaned on 06/13 - HR < 100 without gtt - PO Dilt/Lopressor re-started 06/13 and patient transferred to med-surg with tele - Diltiazem and Metoprolol is back to home doses Rip Hip Fracture s/p total arthoplasty on 06/11 - Initially presented on admission with right hip pain secondary to failed hardware from right hip fracture ORIF 03/10/20 - s/p hardware removal and total hip arthoplasty 06/11/20, today is POD #4 - Ortho following, appreciate recs, removed Hemavac 06/13 - pain controlled with current regimen - follow clinically for improvement - Plan for [facility] inpatient rehab; pending placement - Continue to encourage adequate nutrition HTN - holding home Aldactazide and Lasix due to recent acute blood loss and hypotension - continue to monitor UTI (resolved) - UA 06/09: 2+ LE, WBC>30, 1+ bacteria - WBC 21.46 on 06/11 - urine culture showed 3 types of organisms in high counts, repeat UA with reflex ordered 06/13 -- staff reporter has been unable to collect repeat urine as of 06/14 - Urine was obtained via straight cath at 8pm on 06/14 -- will await cx results - Patient received IV ceftriaxone x6 days; discontinued 06/14 - Repeat urine culture obtained 06/14 shows tawnya albicans/dubliniensis Elevated Creatinine, on CKD Stage 3 (elevated creatinine resolved) - Cr 1.04 (06/12) --> 1.41 (06/13), ratio 18.6 - No clear baseline Cr based on the values in our EMR - suspect pre-renal injury with possible ATN, 2/2 intra-operative blood loss - Cr has been improving and is 0.60 on 06/18/20 Diarrhea (resolved) - Reportedly with 30+ BMs from Sunday - Sunday (06/12-06/14) - C. diff stool toxin testing 06/13/20 negative - Imodium and Metamucil prn ordered 06/14 - Per patient, diarrhea has resolved 06/15 Hx of COPD (chronic obstructive pulmonary disease) - No exacerbation at this time Electrolyte Abnormalities on Admission secondary to dehydration - On admission to the hospital, patient with mild hyponatremia (Na 134), hypercalcemia (Ca 10.9), and hypomagnesemia (1.7). It was suspected that these abnormalities were secondary to volume depletion, dehydration secondary to anorexia due to pain, and home diuretic use. IVFs were administered and home diuretics held at admission --> electrolyte abnormalities resolved prior to surgical intervention 06/11. Hyperlipidemia - No current statin therapy FEN/GI: regular diet; IV NSS 100cc/hr dvt ppx: Heparin 5000 units SQ Q8H Dispo: med-surg with tele Code status: full code (2) Hypotension: (3) Closed intertrochanteric fracture of right hip: (4) Failed hardware: (5) Chronic kidney disease, stage 3a: (6) DVT prophylaxis: (7) Elevated serum creatinine: (8) Paroxysmal atrial fibrillation: (9) Hypertension: (10) Dyslipidemia: (11) COPD (chronic obstructive pulmonary disease): (12) Hypercalcemia: (13) Acute kidney injury: Admission and Anticipated Discharge Date Admission Date: June 09, 2020 Supervising Physician Co-Signing Physician Notes I personally examined the patient and verified all rodriguez points of history and exam, discussed case, and agree with decision making with Dr Rodriguez. breathign still not perfect but seems to be improving a little. video calls with family helped a lot with how she's feeling overall. vitals noted nad heent nc at mmm breathing unlabored no accessory muscles good effort. skin no rashes no pallor or icterus. cn 2-12 grossly intact gross motor intact afib/RVR - rate control now acceptable, continue current meds hypoxia/dyspnea - seems more c/w diastolic chf from afib; continue diuresis - but more gently - with rate now controlled and her overall volume status appearing dry, hopefully time for diastolic filling will allow fluid to mobilize as much as anything - to accelerate clearing pulmonary edema will give ongoing lasix PO - but trying to avoid compounding her overall weakness w hypovolemia. delicate balance, follow closely. rehab w supplemental O2 initially might be needed. poor appetite/malnutrition - despite encouragement and her understanding the importance of getting enough in/trying - she's still not getting adequate intake - marinol and remeron, titrate to appetite progressive leukocytosis - no clear cut s/s infection - see above more c/w chf than pneumonia. blood cultures negative to date. situation less worrisome last 2 days. inflammatory markers reassuring. serial exams. anemia - BP stable. tachycardia intermittent rather than persistent and BP not lower when HR lower so doubt compensatory. fatigue w multiple explanations. continue to hold on transfusion and follow closely diarrhea - Cdiff negative. imodium/fiber. improved otherwise as above, possibly to rehab tomorrow w ongoing stability or a little more improvement Subjective Patient was seen and evaluated at bedside this morning. States that she is overall feeling a little better. She does complain of persistent SOB and cough, largely unchanged from yesterday. Still w/ decreased appetite. She denies any other pain or symptoms. Review of Systems Constitutional: + fatigue; no fever and no chills Respiratory: + cough and + dyspnea Cardiovascular: no chest pain Gastrointestinal: no abdominal pain, no nausea and no vomiting Physical Exam Physical Exam: GENERAL: No acute distress. Awake and alert. Vital signs reviewed. Patient is sitting in bed in semi-reclined supine position. EYES: EOMI. HENT: Moist mucous membranes. RESPIRATORY: Mild inspiratory wheezing bilaterally. After several minutes of conversation with daughter over facetime, patient with some increased work of breathing noted but patient denies increased SOB at that time. CARDIOVASCULAR: Irregularly irregular rhythm. Regular rate. NEUROLOGIC: A/O x3. PSYCHIATRIC: Cooperative. Appropriate mood and affect. Results & Data Results & Data ([facility]) Vital Signs (Past 12 Hours) Vital Signs Temp Pulse Pulse Pulse Resp BP BP 06/20/20 15:23 36.6 C 78 20 108/76 06/20/20 14:51 104 H 06/20/20 11:33 37.0 C 81 18 110/54 L 06/20/20 10:28 86 06/20/20 07:23 36.5 C 79 18 124/91 Pulse Ox 06/20/20 15:23 92 06/20/20 14:51 06/20/20 11:33 92 06/20/20 10:28 06/20/20 07:23 91 Resident Activity Tracking Resident Involvement: Resident Care Provided Care Provided: Adult Hospital Medicine
[2020-06-20] MEDS: MAGNESIUM SULFATE / D5W 1 GM/100 ML BAG IV SCH ×4 (18:04→23:31)
--- NOTE | 2020-06-20 18:51 | Billing Data ---
Date of Service June 20, 2020 Coding Level of Care Code 15364 Subseq Hosp Care Lvl 3
[2020-06-20] MEDS: IPRATROPIUM BROMIDE HFA INHALER INH SCH (19:46)
[2020-06-20] MEDS: MIRTAZAPINE TAB 15 MG TAB PO SCH (19:55)
[2020-06-21] MEDS: ERYTHROMYCIN OP OINT 5 MG/GM 3.5 GM TUBE OP SCH ×4 (05:13→16:52)
[2020-06-21] MEDS: ACETAMINOPHEN 500 MG TAB PO SCH ×3 (06:18→21:38)
[2020-06-21] MEDS: HEPARIN SOD 5,000 UNIT/0.5 ML VIAL SQ SCH (06:18)
--- NOTE | 2020-06-21 06:39 | Hospitalist Progress Note ---
Date of Service June 21, 2020 Assessment & Plan (1) Right hip pain: Anny is an 85-year-old female with a notable PMHx of AF, HTN, COPD, and HLD who was admitted to [facility] on 06/10 for right hib pain, subsequent found to be d/t failed hardware placed after a right hip fracture in 03/2020, who was then subsequently transferred to ICU for HoTN c/b AF w/ RVR. She is hemodynamically stable. Atrial Fibrillation, Previously with RVR - Please see previous note for timeline of AF w/ RVR control throughout this stay - Rates have nicely returned to 80 - 100bpm over the last two days, with intermittent runs of RVR to the 130-150s - Now on home doses of medications: continue diltiazem 180mg PO b.i.d. and Toprol XL 75mg PO b.i.d. - Transitioned from heparin --> Eliquis 2.5mg PO b.i.d. (note: previously patient was on 5mg PO b.i.d., but given age > 80 and weight < 60kg, meets criteria for 2.5mg b.i.d.) - BMP qAM (K goal 4) - Mg qAM (Mg goal 2) - If needed: consider metoprolol tartrate 2.5mg IV x 1 Malnutrition / Diminished Appetite - Nutrition previously consulted; continue to encourage PO intake, caloric goal of 1500-1800kcal/day - Despite these goals, patient usually under goal and not wanting to eat -- continue to promote soft foods and liquid nutrient shakes, e.g., Jello, Boost, Ensure, etc. - Continue Marinol 5mg PO daily -- can consider discontinuation upon d/c - Continue Remeron 15mg PO qhs for both appetite stimulation and antidepressant effects Fluid overload sec to diastolic dysfunction due to RVR - Patient previously c/o dyspnea, cough (06/17) --> no infectious process on CXR (but was bilateral pleural effusions, L>R) --> Lasix 40mg PO, responding well - Patient reports breathing well today, and is satting close to 99% on 2L/m NC ; net fluid status -738mL - Reduce Lasix 40mg PO qAM --> 20mg PO qAM tomorrow A Rip Hip Fracture s/p total arthroplasty on 06/11 - Primary reason for admission: right hip pain 2/2 failed hardware placed after fracture and ORIF on 03/10/20 - s/p hardware removal and rTHA on 06/11/20 - Initially presented on admission with right hip pain secondary to failed hardware from right hip fracture ORIF 03/10/20 - Continue pain control - Encourage good nutrition, as above - Plan for [facility] inpatient rehab; pending placement HTN - holding home Aldactazide for now -- should consider resumption in outpatient setting and PCP f/u - Lasix as above Leukocytosis (Resolved) - WBCs previously elevated to 15.33 on 06/18 - Blood cultures demonstrating no growth x 3 days; no evidence of UTI; no evidence of cellulitis on 06/18 - WBC within normal limits at 9.1 this AM with very mild PMN count at 6.55 - CBC qAM UTI (resolved 06/14) - Patient received IV ceftriaxone x6 days; discontinued 06/14 - Repeat urine culture obtained 06/14 shows tawnya albicans/dubliniensis Elevated Creatinine, on CKD Stage 3 (resolved) - Cr previously elevated to 1.4 on 06/13, thought to be d/t post-operative ESAU, HoTN - Resolved. Continue to monitor BMP. Diarrhea (resolved) - Reportedly with 30+ BMs from Sunday - Sunday (06/12-06/14) - C. diff stool toxin testing 06/13/20 negative - Resolved s/p Imodium and Metamucil Post op Hypotension c/b a-fib w RVR (Resolved) Acute blood loss anemia - stable h/h - Previously required 2U pRBC after rTHA on 06/11 w/ 700cc blood loss - Did require pressor support in the immediate post-op - BPs stable throughout last night into today at 110/70s with normal HRs - Hgb up-trending from low 7s to mid 8s now Hx of COPD (chronic obstructive pulmonary disease) - As above: ipratropium b.i.d. Electrolyte Abnormalities on Admission secondary to dehydration - On admission to the hospital, patient with mild hyponatremia (Na 134), hypercalcemia (Ca 10.9), and hypomagnesemia (1.7). It was suspected that these abnormalities were secondary to volume depletion, dehydration secondary to anorexia due to pain, and home diuretic use. IVFs were administered and home diuretics held at admission --> electrolyte abnormalities resolved prior to surgical intervention 06/11. Hyperlipidemia - No current statin therapy FEN/GI: Regular diet -- nutrition encouragement as above dvt ppx: Eliquis 2.5mg PO b.i.d. Dispo: med-surg with tele -- Plan for [facility] inpatient rehab tomorrow, case management following Code status: full code (2) Hypotension: (3) Closed intertrochanteric fracture of right hip: (4) Failed hardware: (5) Chronic kidney disease, stage 3a: (6) DVT prophylaxis: (7) Elevated serum creatinine: (8) Paroxysmal atrial fibrillation: (9) Hypertension: (10) Dyslipidemia: (11) COPD (chronic obstructive pulmonary disease): (12) Hypercalcemia: (13) Acute kidney injury: Admission and Anticipated Discharge Date Admission Date: June 09, 2020 Supervising Physician Co-Signing Physician Notes Resident Physician Supervision Note: I independently interviewed and examined the patient and verified the rodriguez history and physical, reviewed labs and image studies, discussed the case with the resident Dr. Canales and agree with the findings and care plan. Subjective NAEO. Rates in the ~80s per Tele, with a one-time spike to the 120s for about a minute. Reports that she doesn't want to eat because food doesn't taste great. Understands it's important to eat to transition out of the hospital, which she is eager to do. No nausea or vomiting. Denies chest pain, palpitations, or shortness of breath. No pain. Review of Systems Review of Systems: as per HPI Physical Exam Constitutional: Well-appearing 85 year old female who is interactive and engaged in our conversation, making good eye contact. She has no conversational dyspnea. She is alert and oriented only to person and time -- was unaware of location though, thinking she was in [place]. NAD. Respiratory: Good respiratory effect with symmetric expansion of chest. On NC @ 2L. Lungs are CTAB w/o crackles or wheezes. Gastrointestinal (Abdomen): NABS. Abdomen is soft, nontender, and nondistended. Musculoskeletal: There is 1+ pitting edema in the lower extremities b/l. Results & Data Results & Data ([facility]) Vital Signs (Past 12 Hours) Vital Signs Temp Pulse Pulse Pulse Resp BP Pulse Ox 06/21/20 04:00 37 C 82 20 109/64 91 06/21/20 00:00 37 C 74 18 109/77 91 06/20/20 23:39 97 H 06/20/20 22:01 96 06/20/20 20:21 36.8 C 96 H 18 106/71 06/20/20 19:50 76 20 100 Resident Activity Tracking Resident Involvement: Resident Care Provided Care Provided: Adult Hospital Medicine
[2020-06-21 06:50] LABS: Basophils # (auto) 0.02 K/uL (0-0.2); Basophils % (auto) 0.2 %; Eosinophils # (auto) 0.15 K/uL (0-0.5); Eosinophils % (auto) 1.6 %; Hematocrit (blood only) 26.8 % (37-47); Hemoglobin 8.3 g/dL (12.0-16.0); Immature Granulocytes % (auto) 2.2 %; Lymphocytes % (auto) 15.4 %; Mean Corpuscular Hemoglobin 29.5 pg (25-34); Mean Corpuscular Volume 95.4 fL (80-100); Mean Platelet Volume 9.4 fL (7.4-10.4); Monocytes # (auto) 0.79 K/uL (0.11-0.59); Monocytes % (auto) 8.7 %; Neutrophils # (auto) 6.55 K/uL (1.4-6.5); Neutrophils % (auto) 71.9 %; Nucleated RBC # (auto) 0.03 K/uL (0-0); Nucleated RBC % (auto) 0.3 %; Platelet Count 407 K/uL (130-400); RDW Coefficient of Variation 19.7 % (11.5-14.5); Red Blood Count 2.81 M/uL (4.2-5.4); White Blood Count 9.11 K/uL (4.8-10.8)
[2020-06-21 07:31] LABS: BUN Creatinine Ratio 14.8 (10-20); Calcium 8.9 mg/dl (8.5-10.1); Creatinine Clr Calc Pharmacy 40.1 ml/min; Est GFR (African American) 82.2; Est GFR (Non-African American) 70.9; Potassium 3.6 mmol/L (3.5-5.1)
[2020-06-21] MEDS: IPRATROPIUM BROMIDE HFA INHALER INH SCH ×4 (07:57→19:19)
[2020-06-21] MEDS: DOCUSATE SODIUM 100 MG CAP PO SCH ×2 (08:50→21:40)
[2020-06-21] MEDS: PSYLLIUM 58.6% POWDER PACKET PO SCH (08:51)
[2020-06-21] MEDS: METOPROLOL SUCC 25MG EXT REL TAB PO SCH ×2 (08:52→21:40)
[2020-06-21] MEDS ORDERED: FUROSEMIDE 40 MG TAB PO SCH (09:00)
[2020-06-21] MEDS: APIXABAN 2.5 MG TAB PO SCH (21:40)
[2020-06-21] MEDS: MIRTAZAPINE TAB 15 MG TAB PO SCH (21:40)
[2020-06-21] MEDS: METOPROLOL TARTRATE 1 MG/ML VIAL IV PRN (23:28)
[2020-06-22] MEDS: ACETAMINOPHEN 500 MG TAB PO SCH ×3 (06:25→20:57)
[2020-06-22] MEDS: IPRATROPIUM BROMIDE HFA INHALER INH SCH ×4 (07:29→20:29)
[2020-06-22] MEDS ORDERED: fentaNYL citrate 100 MCG/2 ML VIAL IV ONE ×2 (08:38)
[2020-06-22] MEDS ORDERED: LIDOCAINE HCL 2% 2 ML VIAL/AMP(20MG/ML) INFIL ONE (08:38)
[2020-06-22] MEDS ORDERED: NEOSTIGMINE METHYLSULFATE 5 MG/5 ML SYR IV ONE (08:38)
[2020-06-22] MEDS ORDERED: BUPIVACAINE 0.5 % 5 MG/1 ML PF 10ML VIAL INFIL ONE (08:38)
[2020-06-22] MEDS ORDERED: GLYCOPYRROLATE 0.2 MG/ML VIAL IM ONE (08:38)
[2020-06-22] MEDS ORDERED: PHENYLEPHRINE HCL 10 MG/ML VIAL IV ONE (08:38)
[2020-06-22] MEDS ORDERED: ESMOLOL HCL INJ 10 MG/ML 10ML VIAL IV ONE (08:38)
[2020-06-22] MEDS ORDERED: ONDANSETRON INJ 2 MG/ML 2 ML VIAL IV ONE (08:38)
[2020-06-22] MEDS ORDERED: ROCURONIUM BROMIDE 10 MG/ML 5 ML VIAL IV ONE (08:38)
[2020-06-22] MEDS ORDERED: PROPOFOL IV EMULSION 10 MG/ML 20 ML VIAL IV ONE (08:38)
[2020-06-22] MEDS ORDERED: ALBUMIN HUMAN 5% 12.5 GM/250 ML VIAL IV ONE (08:38)
[2020-06-22] MEDS ORDERED: VASOPRESSIN 20 UNIT/ML VIAL IV ONE (08:38)
[2020-06-22] MEDS: APIXABAN 2.5 MG TAB PO SCH ×2 (08:54→20:57)
[2020-06-22] MEDS: METOPROLOL SUCC 25MG EXT REL TAB PO SCH ×2 (08:54→20:57)
[2020-06-22] MEDS: FUROSEMIDE 20 MG TAB PO SCH (08:54)
[2020-06-22] MEDS: PSYLLIUM 58.6% POWDER PACKET PO SCH (08:55)
[2020-06-22] MEDS: DOCUSATE SODIUM 100 MG CAP PO SCH ×2 (08:55→20:57)
--- NOTE | 2020-06-22 12:48 | Discharge Summary ---
Date of Service June 22, 2020 Admission HPI Per Admitting Provider 85yo female with h/o permanent a. fib, COPD, and right hip fracture s/p ORIF in 03/2020 followed by 6 week stay at [facility] presents with 10 days of refractory, severe right hip/groin pain. Patient states she never fully recovered from her hip repair. Got to 50% weight-bearing earlier this fall following the procedure. However, by the time she was discharged from [facility] to home, she essentially has been wheelchair dependent. About 10 days ago she developed the acute onset of severe right hip/anterior groin pain. Some of the pain radiates down the anterior thigh to the right knee. She was seen in the ER and diagnosed with a malpositioned nail extending into the joint. She has been taking oxycodone since then without relief of the pain. She has stopped eating/drinking because of the pain. It has severely affected her quality of life. Finally called EMS to bring her to [facility] today because of the severity of the pain. Discharge Data Allergies Allergy/AdvReac Type Severity Reaction Status Date / Time No Known Allergies Allergy Verified 06/09/20 08:18 Consultations 06/09/20 12:07 ED Decision to Admit Stat 06/09/20 14:52 Consult Orthopedic Surgery Routine 06/11/20 20:31 Consult Case Management - Discharge Planning Routine 06/11/20 20:58 Consult Public Health Dietitian Routine 06/16/20 11:27 Consult Cardiology Routine Procedures Performed Operation Date: 06/11/20 13:00 Actual Procedures p Right Trochanteric Nail Removal of Hardware, Posterior Total Hip Arthroplasty(Right) - Juan Perez DO Ordered Studies 06/11/20 15:00 FL fluoroscopy <1hr Routine FL hip RT 1V Routine Hospital Course (1) Right hip pain: Anny is an 85-year-old female with a notable PMHx of AF, HTN, COPD, and HLD who was admitted to [facility] on 06/10 for right hib pain, subsequent found to be d/t failed hardware placed after a right hip fracture in 03/2020, who was then subsequently transferred to ICU for HoTN c/b AF w/ RVR. She is hemodynamically stable. Rip Hip Fracture s/p total arthroplasty on 06/11 - Primary reason for admission: right hip pain 2/2 failed hardware placed after fracture and ORIF on 03/10/20 - s/p hardware removal and right CLARY on 06/11/20 - Continue pain control - Encourage good nutrition, as above - PT following daily, assessment as follows on 06/22: - "Motivated / tires easily / Recommend SNF (Less than 3 Hours Combined Therapy Daily) / Recommend Rehab (3 Hours Combined Therapy Daily)" - Plan for [facility] inpatient rehab; pending placement Post op Hypotension c/b A-Fib w RVR (Resolved) - Acute blood loss anemia following right CLARY on 06/11 - Required 2U pRBC following CLARY with 700cc blood loss - Did require pressor support in the immediate post-op in the ICU - Following ICU stay, BPs continued to remain WNL throughout the rest of her admission - Hgb up-trending from low 7s to mid 8s now Atrial Fibrillation, Previously with RVR - Please see previous note for timeline of AF w/ RVR control throughout this stay - Rates have nicely returned to 80 - 100bpm over the last two days, with intermittent runs of RVR to the 130-150s - Now on home doses of medications: continue diltiazem 180mg PO b.i.d. and Toprol XL 75mg PO b.i.d. - Transitioned from heparin --> Eliquis 2.5mg PO b.i.d. (note: previously patient was on 5mg PO b.i.d., but given age > 80 and weight < 60kg, meets criteria for 2.5mg b.i.d.) - BMP qAM (K goal 4) - Mg qAM (Mg goal 2) - If needed: consider metoprolol tartrate 2.5mg IV x 1 Malnutrition / Diminished Appetite - Nutrition previously consulted; continue to encourage PO intake, caloric goal of 1500-1800kcal/day - Despite these goals, patient usually under goal and not wanting to eat -- continue to promote soft foods and liquid nutrient shakes, e.g., Jello, Boost, Ensure, etc. - Continue Marinol 5mg PO daily -- can consider discontinuation upon d/c - Continue Remeron 15mg PO qhs for both appetite stimulation and antidepressant effects Fluid overload due to Diastolic Dysfunction d/t RVR - Patient previously c/o dyspnea, cough (06/17) --> no infectious process on CXR (but was bilateral pleural effusions, L>R) --> Lasix 40mg PO, responding well - Patient reports breathing well today, and is satting close to 99% on 2L/m NC ; net fluid status -738mL - Reduce Lasix 40mg PO qAM --> 20mg PO qAM tomorrow A HTN - holding home Aldactazide for now -- should consider resumption in outpatient setting and PCP f/u - Lasix as above Leukocytosis (Resolved) - WBCs previously elevated to 15.33 on 06/18 - Blood cultures demonstrating no growth x 3 days; no evidence of UTI; no evidence of cellulitis on 06/18 - WBC within normal limits at 9.1 this AM with very mild PMN count at 6.55 - CBC qAM UTI (resolved 06/14) - Patient received IV ceftriaxone x6 days; discontinued 06/14 - Repeat urine culture obtained 06/14 shows tawnya albicans/dubliniensis Elevated Creatinine, on CKD Stage 3 (resolved) - Cr previously elevated to 1.4 on 06/13, thought to be d/t post-operative ESAU, HoTN - Resolved. Continue to monitor BMP. Diarrhea (resolved) - Reportedly with 30+ BMs from Sunday - Sunday (06/12-06/14) - C. diff stool toxin testing 06/13/20 negative - Resolved s/p Imodium and Metamucil Hx of COPD (chronic obstructive pulmonary disease) - As above: ipratropium b.i.d. Electrolyte Abnormalities on Admission secondary to dehydration - On admission to the hospital, patient with mild hyponatremia (Na 134), hypercalcemia (Ca 10.9), and hypomagnesemia (1.7). It was suspected that these abnormalities were secondary to volume depletion, dehydration secondary to anorexia due to pain, and home diuretic use. IVFs were administered and home diuretics held at admission --> electrolyte abnormalities resolved prior to surgical intervention 06/11. Hyperlipidemia - No current statin therapy FEN/GI: Regular diet -- nutrition encouragement as above dvt ppx: Eliquis 2.5mg PO b.i.d. Dispo: med-surg with tele -- Plan for [facility] inpatient rehab tomorrow, case management following Code status: full code (2) Hypotension: (3) Closed intertrochanteric fracture of right hip: (4) Failed hardware: (5) Chronic kidney disease, stage 3a: (6) DVT prophylaxis: (7) Elevated serum creatinine: (8) Paroxysmal atrial fibrillation: (9) Hypertension: (10) Dyslipidemia: (11) COPD (chronic obstructive pulmonary disease): (12) Hypercalcemia: (13) Acute kidney injury: Discharge Plan Discharge Items Patient Disposition: Transfer [facility] Fac Reason For Visit: INTRACTABLE RIGHT HIP PAIN, MALPOSITIONED RIGHT Follow-up/Referrals: Franklin Whitaker MD [Primary Care Provider] - [facility] Service Support Representative Provider Instructions: [facility] DISCHARGE INSTRUCTIONS: HIP FRACTURE STATUS POST REMOVAL OF HARDWARE, RIGHT TOTAL HIP REPLACEMENT SELF CARE INSTRUCTIONS: A. You are to ambulate with a walker or crutches for approximately 6 weeks. B. You are PARTIAL WEIGHT BEARING on your operative lower extremity for at least 6 weeks. C. Wear low heeled shoes with non-slip soles D. Be sure that your floors are free of things that could trip you throw rugs, electrical cords, and small objects. Avoid wet and waxed floors, especially with crutches/walker/cane. E. Try to walk several times a day with rest periods between. F. You may shower 48 hours after surgery and get the incision area wet, but DO NOT soak or submerge incision area in water. (No baths, swimming pools, hot tubs) G. You may have a large, band-aid like dressing over your incision (Aquacel). This will remain on your incision for 7 days, and then can be removed. You CAN shower with this on. If incision is leaking through the dressing, please call the office . H. Do NOT apply soap or any ointment/lotions directly over incision. I. You may use ice as needed to operative site. J. Please adhere to posterior and abduction hip precautions, do not bend past 90 degrees at your waist, cross your legs or sleep on your side. No abductor strengthening until cleared by your surgeon. Please ambulate with a walker until cleared by your surgeon. SPECIAL CARE INSTRUCTIONS: VERY IMPORTANT TO READ AND REVIEW A. You may be at risk for phlebitis or blood clots. a. Wear surgical stockings (MILTON hose) for 2 weeks after surgery to improve circulation and reduce swelling. b. Take your home blood thinner, Eliquis 5m twice daily or as directed. This is your blood thinner. c. If you are on Coumadin- you will have daily/weekly blood work to monitor your levels. This will be done by either your family physician/fire alarm technician (if you are on Coumadin chronically) versus your orthopedic surgeon. Expect a phone call the day of or the day after your blood work is drawn to adjust your dose accordingly. B. There are a few signs you need to watch for after you are home. Call [facility] at [phone] if you experience any of the following: a. If you have a temperature of 101 degrees or higher. b. Sudden increase in pain in your hip not relieved by rest or pain medication. c. Any fluid or drainage from the incision; redness of the incision. d. Shortness of breath or chest pain. B. Please call [facility] at [phone] if you have any questions or concerns about your operation or recovery. C. Call your physician if: a. Temperature is greater than 101 degrees (F). b. Pain is not relieved by prescribed pain medications. c. Increase drainage or redness from incision. d. Unanswered questions or concerns. D. Pain Medication: a. You will be prescribed pain medication upon discharge that should last till your first post-operative appointment. b. If you experience nausea and/or skin rash, discontinue this medication and contact our office for an alternative medication. c. Caution- narcotic pain medication can cause constipation. FOLLOW UP VISIT: Please call [facility] at [phone] to schedule a follow up appointment 10-14 days from the date of your surgery date. Stand-Alone Forms: My [facility] Medications and DC Order Prescriptions: No Action Eliquis 5 mg tablet 5 mg PO BID Qty: 60 RF: 11 diltiazem HCl 180 mg capsule,extended release 24 hr 180 mg PO BID RF: 0 metoprolol succinate 50 mg tablet extended release 24 hr 150 mg PO QAM RF: 0 fluticasone propionate 50 mcg/actuation [place],Suspension 1 spray INTRANASAL QAM PRN (Reason: seasonal allergies) RF: 0 furosemide 40 mg tablet 40 mg PO QAM RF: 0 potassium chloride 10 mEq capsule, extended release 10 meq PO QAM RF: 0 docusate sodium [Stool Softener] 100 mg Capsule 100 mg PO BID RF: 0 oxycodone 5 mg tablet 5 mg PO Q6H PRN (Reason: Pain) RF: 0 spironolacton-hydrochlorothiaz [Aldactazide] 25-25 mg tablet 1 tab PO QAM RF: 0 Admission Data Admit Date/Time: 06/09/20 12:47 Attending Provider: Arleth Jackson Admit Provider: Tavares Butt Primary Care Provider: Franklin Whiatker Other Providers: [facility] ; Hakan Musa ; Juan Perez ; Tavares Butt ; Rah Smyth ; Pepe Bonilla ; Casey Jang
--- NOTE | 2020-06-22 18:40 | Hospitalist Progress Note ---
Date of Service June 22, 2020 Assessment & Plan (1) Right hip pain: Anny is an 85-year-old female with a notable PMHx of AF, HTN, COPD, and HLD who was admitted to [facility] on 06/10 for right hib pain, subsequent found to be d/t failed hardware placed after a right hip fracture in 03/2020, who was then subsequently transferred to ICU for HoTN c/b AF w/ RVR. She is hemodynamically stable. Atrial Fibrillation, Previously with RVR - Please see previous note (06/20) for timeline of AF w/ RVR control throughout this stay - Rates have nicely returned to 80 - 100bpm over the last two days overall -- did have a spike last night with rates up to 130s that lasted for about 3 hours - Now on home doses of medications: continue diltiazem 180mg PO b.i.d. and Toprol XL 75mg PO b.i.d. - Transitioned from heparin --> Eliquis 2.5mg PO b.i.d. (note: previously patient was on 5mg PO b.i.d., but given age > 80 and weight < 60kg, meets criteria for 2.5mg b.i.d.) - BMP qAM (K goal 4) - Mg qAM (Mg goal 2) - If needed: consider metoprolol tartrate 2.5mg IV x 1 Malnutrition / Diminished Appetite - Nutrition previously consulted; continue to encourage PO intake, caloric goal of 1500-1800kcal/day - Despite these goals, patient usually under goal and not wanting to eat -- continue to promote soft foods and liquid nutrient shakes, e.g., Jell-o, Boost, Ensure, etc. - Continue Remeron 15mg PO qhs for both appetite stimulation and antidepressant effects - Marinol discontinued today Fluid overload sec to diastolic dysfunction due to RVR - Patient previously c/o dyspnea, cough (06/17) --> no infectious process on CXR (but was bilateral pleural effusions, L>R) --> Lasix 40mg PO, responding well - Patient continued to saturate well throughout today on 1L NC (mid-high 90s) ; net fluid status -1050 - Lasix 20mg PO qAM ; can consider increasing back to 40mg PO qAM as needed Rip Hip Fracture s/p total arthroplasty on 06/11 - Primary reason for admission: right hip pain 2/2 failed hardware placed after fracture and ORIF on 03/10/20 - s/p hardware removal and R-CLARY on 06/11/20 - Continue pain control - Encourage good nutrition, as above - PT following: appreciate recs - Pending placement - [facility] denied today, anticipate appeal process with family; continue to work with case management HTN - holding home Aldactazide for now -- should consider resumption in outpatient setting and PCP f/u - Lasix as above Leukocytosis (Resolved) - WBCs previously elevated to 15.33 on 06/18 - Blood cultures demonstrating no growth x 3 days; no evidence of UTI; no evidence of cellulitis on 06/18 - WBC within normal limits at 9.1 this AM with very mild PMN count at 6.55 - CBC qAM UTI (resolved 06/14) - Patient received IV ceftriaxone x6 days; discontinued 06/14 - Repeat urine culture obtained 06/14 shows tawnya albicans/dubliniensis Elevated Creatinine, on CKD Stage 3 (resolved) - Cr previously elevated to 1.4 on 06/13, thought to be d/t post-operative ESAU, HoTN - Resolved. Continue to monitor BMP. Diarrhea (resolved) - Reportedly with 30+ BMs from Sunday - Sunday (06/12-06/14) - C. diff stool toxin testing 06/13/20 negative - Resolved s/p Imodium and Metamucil Post op Hypotension c/b a-fib w RVR (Resolved) Acute blood loss anemia - stable h/h - Previously required 2U pRBC after rTHA on 06/11 w/ 700cc blood loss - Did require pressor support in the immediate post-op - BPs stable throughout last night into today at 110/70s with normal HRs - Hgb up-trending from low 7s to mid 8s now Hx of COPD (chronic obstructive pulmonary disease) - As above: ipratropium b.i.d. Electrolyte Abnormalities on Admission secondary to dehydration - resolved Hyperlipidemia - No current statin therapy FEN/GI: Regular diet -- nutrition encouragement as above dvt ppx: Eliquis 2.5mg PO b.i.d. Dispo: med-surg with tele -- awaiting placement, appeal process ongoing for inpatient rehab Code status: full code (2) Hypotension: (3) Closed intertrochanteric fracture of right hip: (4) Failed hardware: (5) Chronic kidney disease, stage 3a: (6) DVT prophylaxis: (7) Elevated serum creatinine: (8) Paroxysmal atrial fibrillation: (9) Hypertension: (10) Dyslipidemia: (11) COPD (chronic obstructive pulmonary disease): (12) Hypercalcemia: (13) Acute kidney injury: Admission and Anticipated Discharge Date Admission Date: June 09, 2020 Supervising Physician Co-Signing Physician Notes Resident Physician Supervision Note: I independently interviewed and examined the patient and verified the rodriguez history and physical, reviewed labs and image studies, discussed the case with the resident Dr. Canales and agree with the findings and care plan. Subjective NAEO. Feeling great this AM. Reports good energy and eagerness to transition out of the hospital. Denies dyspnea and cough. No chest pain or palpitations. Good appetite, no abdominal pain. Reports eagerness to eat. No other questions / concerns today. Review of Systems Review of Systems: as per HPI Physical Exam Constitutional: Well-appearing 85 year old female who is engaged and interactive in our conversation, making good eye contact. No conversational dyspnea. NAD. Respiratory: Good respiratory effort with symmetric expansion of the health. Lungs CTAB w/o crackles or wheezes. NC on and in place. Cardiovascular: Normal rate, irregular rhythm. S1/S2 present without m/r/g. Gastrointestinal (Abdomen): NABS. Abdomen is soft, nontender, nondistended. Results & Data Results & Data ([facility]) Vital Signs (Past 12 Hours) Vital Signs Temp Pulse Pulse Pulse Resp BP Pulse Ox 06/22/20 15:31 36.3 C L 85 18 103/71 95 06/22/20 15:10 84 06/22/20 11:22 92 H 18 96 06/22/20 11:16 36.7 C 97 H 18 94/62 L 94 06/22/20 10:15 101 H 06/22/20 07:35 36.8 C 73 18 104/62 99 06/22/20 07:30 101 H 18 99 Resident Activity Tracking Resident Involvement: Resident Care Provided Care Provided: Adult Hospital Medicine
[2020-06-22] MEDS: MIRTAZAPINE TAB 15 MG TAB PO SCH (20:57)
[2020-06-23] MEDS: traMADol HCL 50 MG TABLET PO PRN (01:29)
[2020-06-23] MEDS: ACETAMINOPHEN 500 MG TAB PO SCH ×3 (05:37→21:26)
[2020-06-23 06:40] LABS: Basophils # (auto) 0.01 K/uL (0-0.2); Basophils % (auto) 0.1 %; Eosinophils # (auto) 0.15 K/uL (0-0.5); Eosinophils % (auto) 1.6 %; Hematocrit (blood only) 23.9 % (37-47); Hemoglobin 7.6 g/dL (12.0-16.0); Immature Granulocytes # (auto) 0.05 K/uL (0.00-0.02); Immature Granulocytes % (auto) 0.5 %; Lymphocytes # (auto) 1.61 K/uL (1.2-3.4); Mean Corpuscular Hemoglobin 29.9 pg (25-34); Mean Corpuscular Hgb Conc 31.8 g/dL (32-36); Mean Corpuscular Volume 94.1 fL (80-100); Mean Platelet Volume 9.5 fL (7.4-10.4); Monocytes # (auto) 0.56 K/uL (0.11-0.59); Monocytes % (auto) 5.9 %; Neutrophils # (auto) 7.08 K/uL (1.4-6.5); Neutrophils % (auto) 74.9 %; Platelet Count 349 K/uL (130-400); RDW Coefficient of Variation 19.3 % (11.5-14.5); RDW Standard Deviation 65.2 fL (36.4-46.3); Red Blood Count 2.54 M/uL (4.2-5.4); White Blood Count 9.46 K/uL (4.8-10.8)
[2020-06-23 07:24] LABS: BUN Creatinine Ratio 18.5 (10-20); Calcium 8.2 mg/dl (8.5-10.1); Creatinine Clr Calc Pharmacy 46.7 ml/min; Est GFR (African American) 90.7; Est GFR (Non-African American) 78.2; Magnesium 1.3 mg/dl (1.8-2.4)
[2020-06-23] MEDS: IPRATROPIUM BROMIDE HFA INHALER INH SCH ×4 (07:29→20:16)
[2020-06-23] MEDS: DOCUSATE SODIUM 100 MG CAP PO SCH ×2 (07:50→21:24)
[2020-06-23] MEDS: PSYLLIUM 58.6% POWDER PACKET PO SCH (07:50)
[2020-06-23] MEDS: APIXABAN 2.5 MG TAB PO SCH ×2 (07:50→21:24)
[2020-06-23] MEDS: FUROSEMIDE 20 MG TAB PO SCH (07:50)
[2020-06-23] MEDS: METOPROLOL SUCC 25MG EXT REL TAB PO SCH ×2 (07:50→21:25)
--- NOTE | 2020-06-23 11:59 | Hospitalist Progress Note ---
Date of Service June 23, 2020 Assessment & Plan (1) Right hip pain: Anny is an 85-year-old female with a notable PMHx of AF, HTN, COPD, and HLD who was admitted to [facility] on 06/10 for right hib pain, subsequent found to be d/t failed hardware placed after a right hip fracture in 03/2020, who was then subsequently transferred to ICU for HoTN c/b AF w/ RVR. She is hemodynamically stable. Atrial Fibrillation, Previously with RVR - Please see previous note (06/20) for timeline of AF w/ RVR control throughout this stay - Rates have nicely returned to 80 - 100 bpm over the last two days overall -- did have a bit higher of an average rate last night, between 90-110. - Now on home doses of medications: continue diltiazem 180mg PO b.i.d. and Toprol XL 75mg PO b.i.d. Maintain throughout today. - Transitioned from heparin --> Eliquis 2.5mg PO b.i.d. (note: previously patient was on 5mg PO b.i.d., but given age > 81 and weight < 60kg, meets criteria for 2.5mg b.i.d.) - BMP qAM (K goal 4) - Mg qAM (Mg goal 2) - If needed: consider metoprolol tartrate 2.5mg IV x 1 Malnutrition / Diminished Appetite - Nutrition previously consulted; continue to encourage PO intake, caloric goal of 1500-1800kcal/day - Despite these goals, patient usually under goal and not wanting to eat -- continue to promote soft foods and liquid nutrient shakes, e.g., Jell-o, Boost, Ensure, etc. - Continues to get better -- endorses increase in appetite day-by-day - Continue Remeron 15mg PO qhs for both appetite stimulation and antidepressant effects - Marinol discontinued Fluid overload sec to diastolic dysfunction due to RVR - Patient previously c/o dyspnea, cough (06/17) --> no infectious process on CXR (but was bilateral pleural effusions, L>R) --> Lasix 40mg PO, responding well - Patient continued to saturate well throughout today on 1L NC (mid-high 90s) ; net fluid status -1050 - Lasix 20mg PO qAM ; Rt Hip Fracture s/p total arthroplasty on 06/11 - Primary reason for admission: right hip pain 2/2 failed hardware placed after fracture and ORIF on 03/10/20 - s/p hardware removal and R-CLARY on 06/11/20 - Continue pain control - PT following: appreciate recs. Will return later today to attempt and work with patient again (denied d/t shakiness and fatigue this AM) HTN - holding home Aldactazide for now -- should consider resumption in outpatient setting and PCP f/u - Lasix as above Leukocytosis (Resolved) - WBCs previously elevated to 15.33 on 06/18 - Blood cultures demonstrating no growth x 3 days; no evidence of UTI; no evidence of cellulitis on 06/18 - WBC within normal limits at 9.1 this AM with very mild PMN count at 6.55 - CBC qAM UTI (resolved 06/14) - Patient received IV ceftriaxone x6 days; discontinued 06/14 - Repeat urine culture obtained 06/14 shows tawnya albicans/dubliniensis Elevated Creatinine, on CKD Stage 3 (resolved) - Cr previously elevated to 1.4 on 06/13, thought to be d/t post-operative ESAU, HoTN - Resolved. Continue to monitor BMP. Diarrhea (resolved) - Reportedly with 30+ BMs from Sunday - Sunday (06/12-06/14) - C. diff stool toxin testing 06/13/20 negative - Resolved s/p Imodium and Metamucil Post op Hypotension c/b a-fib w RVR (Resolved) Acute blood loss anemia - stable h/h - Previously required 2U pRBC after rTHA on 06/11 w/ 700cc blood loss - Did require pressor support in the immediate post-op - BPs stable throughout last night into today at 110/70s with normal HRs - Hgb continues to maintain between low 7s to mid 8s now Hx of COPD (chronic obstructive pulmonary disease) - As above: ipratropium b.i.d. Electrolyte Abnormalities on Admission secondary to dehydration - resolved Hyperlipidemia - No current statin therapy FEN/GI: Regular diet -- nutrition encouragement as above dvt ppx: Eliquis 2.5mg PO b.i.d. Dispo: med-surg with tele -- Pending placement - [facility] denied on initial attempt, Code status: full code (2) Hypotension: (3) Closed intertrochanteric fracture of right hip: (4) Failed hardware: (5) Chronic kidney disease, stage 3a: (6) DVT prophylaxis: (7) Elevated serum creatinine: (8) Paroxysmal atrial fibrillation: (9) Hypertension: (10) Dyslipidemia: (11) COPD (chronic obstructive pulmonary disease): (12) Hypercalcemia: (13) Acute kidney injury: Admission and Anticipated Discharge Date Admission Date: June 09, 2020 Supervising Physician Co-Signing Physician Notes Resident Physician Supervision Note: I independently interviewed and examined the patient and verified the rodriguez history and physical, reviewed labs and image studies, discussed the case with the resident Dr. Canales and agree with the findings and care plan. Subjective NAEO. Reports feeling a "little worse" this morning -- does report increased feelings of shakiness when she got up to walk around, but no pain. Some increased fatigue. Also feels she may have put on a little weight after she had pasta for dinnner last night. No shortness of breath. No chest pressure. Appetite continues to improve, no n/v. Eager to leave the hospital. Deferred PT this AM to this afternoon to allow her strength to recover. Review of Systems Review of Systems: as per HPI Physical Exam Constitutional: Well appearing 85 year old female who is relaxed in her hospital bed, resting, upon my arrival. She is freely conversant throughout our conversation. She does demonstrate slightly less energy while speaking today. No objective tremors. A+O fully. NAD. Respiratory: No supplemental oxygen in place today. Good respiratory effort with symmetric expansion of the chest. Lungs CTAB w/o crackles or wheezes. Cardiovascular: Normal rate, irregular rhythm. S1/S2 present without m/r/g. Gastrointestinal (Abdomen): Abdomen is soft, nontender, and nondistended to palpation. Results & Data Results & Data ([facility]) Vital Signs (Past 12 Hours) Vital Signs Temp Pulse Pulse Resp BP Pulse Ox 06/23/20 11:19 37.2 C 79 18 110/71 95 06/23/20 10:48 76 18 93 06/23/20 08:00 112 H 06/23/20 07:36 36.9 C 84 18 108/72 97 06/23/20 07:30 85 18 94 06/23/20 04:00 36.8 C 94 H 78 18 99/64 L 94 Resident Activity Tracking Resident Involvement: Resident Care Provided Care Provided: Adult Hospital Medicine
[2020-06-23] MEDS: MIRTAZAPINE TAB 15 MG TAB PO SCH (21:25)
[2020-06-24] MEDS: ACETAMINOPHEN 500 MG TAB PO SCH ×2 (06:19→14:18)
[2020-06-24] MEDS: IPRATROPIUM BROMIDE HFA INHALER INH SCH ×3 (07:13→15:12)
[2020-06-24] MEDS: APIXABAN 2.5 MG TAB PO SCH (08:08)
[2020-06-24] MEDS: FUROSEMIDE 20 MG TAB PO SCH (08:08)
[2020-06-24] MEDS: DOCUSATE SODIUM 100 MG CAP PO SCH (08:08)
[2020-06-24] MEDS: METOPROLOL SUCC 25MG EXT REL TAB PO SCH (08:09)
[2020-06-24] MEDS: PSYLLIUM 58.6% POWDER PACKET PO SCH (08:09)
[2020-06-24 08:31] LABS: Basophils # (auto) 0.02 K/uL (0-0.2); Basophils % (auto) 0.3 %; Eosinophils # (auto) 0.11 K/uL (0-0.5); Eosinophils % (auto) 1.7 %; Hematocrit (blood only) 24.4 % (37-47); Hemoglobin 7.6 g/dL (12.0-16.0); Immature Granulocytes # (auto) 0.02 K/uL (0.00-0.02); Immature Granulocytes % (auto) 0.3 %; Lymphocytes # (auto) 1.46 K/uL (1.2-3.4); Mean Corpuscular Hemoglobin 29.5 pg (25-34); Mean Corpuscular Hgb Conc 31.1 g/dL (32-36); Mean Corpuscular Volume 94.6 fL (80-100); Mean Platelet Volume 9.8 fL (7.4-10.4); Monocytes # (auto) 0.54 K/uL (0.11-0.59); Monocytes % (auto) 8.1 %; Neutrophils # (auto) 4.48 K/uL (1.4-6.5); Neutrophils % (auto) 67.6 %; Platelet Count 332 K/uL (130-400); RDW Coefficient of Variation 19.2 % (11.5-14.5); Red Blood Count 2.58 M/uL (4.2-5.4); White Blood Count 6.63 K/uL (4.8-10.8)
[2020-06-24 08:55] LABS: Anisocytosis Present
[2020-06-24] MEDS ORDERED: FUROSEMIDE 40 MG TAB PO SCH (09:00)
[2020-06-24 09:09] LABS: BUN Creatinine Ratio 15.3 (10-20); Calcium 8.3 mg/dl (8.5-10.1); Creatinine Clr Calc Pharmacy 46.3 ml/min; Est GFR (African American) 86.2; Est GFR (Non-African American) 74.4; Potassium 2.8 mmol/L (3.5-5.1)
[2020-06-24] MEDS ORDERED: FUROSEMIDE 20 MG TAB PO SCH (10:00)
[2020-06-24] MEDS: traMADol HCL 50 MG TABLET PO PRN ×2 (10:27→15:35)
[2020-06-24] MEDS: POTASSIUM CHLORIDE 10 MEQ TABCR PO SCH ×2 (11:49→15:35)
--- NOTE | 2020-06-24 15:44 | Discharge Summary ---
Date of Service June 24, 2020 Admission HPI Per Admitting Provider 85yo female with h/o permanent a. fib, COPD, and right hip fracture s/p ORIF in 03/2020 followed by 6 week stay at [facility] presents with 10 days of refractory, severe right hip/groin pain. Patient states she never fully recovered from her hip repair. Got to 50% weight-bearing earlier this fall following the procedure. However, by the time she was discharged from [facility] to home, she essentially has been wheelchair dependent. About 10 days ago she developed the acute onset of severe right hip/anterior groin pain. Some of the pain radiates down the anterior thigh to the right knee. She was seen in the ER and diagnosed with a malpositioned nail extending into the joint. She has been taking oxycodone since then without relief of the pain. She has stopped eating/drinking because of the pain. It has severely affected her quality of life. Finally called EMS to bring her to [facility] today because of the severity of the pain. Admission Exam Per Admitting Provider Constitutional: + acute distress; no altered mental status Eyes: PERRL ENMT: Mouth: + dry oral mucous membranes Neck: trachea midline, no thyromegaly Respiratory: normal respiratory effort, lungs clear to auscultation Cardiovascular: Rate/Rhythm: regular rate and regular rhythm Heart Sounds: normal S1 and normal S2; no murmur Vessels: posterior tibial pulses present and dorsalis pedis pulses present Extremities: no edema Gastrointestinal (Abdomen): Inspection/Auscultation: normal bowel sounds; abdomen not distended Percussion/Palpation: abdomen soft and + hernia (periumbilical - reducible); no hepatosplenomegaly Musculoskeletal: right leg mildly shorter than left leg and slightly externally rotated Skin: no rashes, warm and dry Neurologic: moves all extremities; no focal motor deficits Psychiatric: A+Ox3, euthymic affect Lymphatic: no cervical lymphadenopathy Principal Diagnosis right hip fracture s/p total hip arthroplasty atrial fibrillation with rapid ventricular response malnutrition fluid overload Discharge Exam Constitutional well-appearing 85 year old female who is sleeping upon my arrival into the room. Upon waking, she is freely conversant, smiling, and interactive in our conv ersation. Fully alert and oriented. NAD. Respiratory Good respiratory effort with symmetric expansion of the chest. Lungs are CTAB without crackles or wheezes Cardiovascular Normal rate, irregular rhythm. S1/S2 present without m/r/g. Gastrointestinal (Abdomen) NABS. Abdomden is soft, nontender, and nondistended. Discharge Data Allergies Allergy/AdvReac Type Severity Reaction Status Date / Time No Known Allergies Allergy Verified 06/09/20 08:18 Consultations 06/09/20 12:07 ED Decision to Admit Stat 06/09/20 14:52 Consult Orthopedic Surgery Routine 06/11/20 20:31 Consult Case Management - Discharge Planning Routine 06/11/20 20:58 Consult Healthcare Representative Routine 06/16/20 11:27 Consult Cardiology Routine Procedures Performed Operation Date: 06/11/20 13:00 Actual Procedures p Right Trochanteric Nail Removal of Hardware, Posterior Total Hip Arthroplasty(Right) - Juan Perez DO Ordered Studies 06/11/20 15:00 FL fluoroscopy <1hr Routine FL hip RT 1V Routine Hospital Course (1) Right hip pain: Anny is an 85-year-old female with a notable PMHx of AF, HTN, COPD, and HLD who was admitted to [facility] on 06/10 for right hib pain, subsequent found to be d/t failed hardware placed after a right hip fracture in 03/2020, who was then subsequently transferred to ICU for HoTN c/b AF w/ RVR. She is hemodynamically stable. Rip Hip Fracture s/p total arthroplasty on 06/11 - Primary reason for admission: right hip pain 2/2 failed hardware placed after fracture and ORIF on 03/10/20 --> s/p hardware removal and R-CLARY on 06/11/20 - Adequate nutrition encouraged throughout recovery period (see below) - PT, OT followed throughout stay -- recommended inpatient rehabilitation - Apixaban for DVT proph Post op Hypotension c/b A-fib with RVR and Acute Blood Loss (Resolved) - Required 2U pRBC and pressor support after rTHA on 06/11 with 700cc blood loss - Hgb remained between Hgb mid-7s to 8s prior to d/c, no symptoms of anemia - Remained hemodynamically stable following short course in ICU Atrial Fibrillation, Previously with RVR (Resolved) - Immediate post-operative course complicated by AF w/ RVR - Rates nicely returned to average of HR 70 - 100 bpm in few days prior to d/c - Titrated to home doses of rate-control meds: diltiazem 180mg PO b.i.d. and Toprol XL 75mg PO b.i.d. - Continue apixaban 2.5mg PO b.i.d. *(note: previously patient was on 5mg PO b.i.d., but given age >80 and weight <60kg, meets criteria for 2.5mg b.i.d.) -- consider adjusting if needed as outpatient Malnutrition / Diminished Appetite - Poor PO intake throughout admission - Nutrition consulted; worked with patient and PO intake; caloric goal of 1500- 1800kcal/day - Despite these goals, patient usually under-ate -- promoted soft foods and liquid nutrient shakes, e.g., Jell-o, Boost, Ensure, etc., which should be consider in outpatient setting PRN, especially during her recovery from surgery - Appetite increased day-by-day prior to d/c - Marinol briefly trialed during stay, discontinued prior to d/c - Remeron 15mg PO qhs for both appetite stimulation and antidepressant effects Fluid overload due to RVR and Diastolic Dysfunction - Patient c/o cough and dyspnea (06/17) --> no infectious process on CXR (but had bilateral pleural effusions, L>R) --> Lasix 40mg PO, responded well - Patient recovered after diuresis and returned to adequate SpO2s on RA - Continue Lasix 20mg PO once daily upon d/c, can increase PRN HTN - Held home Aldactazide (Spironolactone/HCTZ) throughout hospital stay after HoTN following surgery; remained normotensive thereafter - Consider restarting PRN in outpatient setting Hx of COPD (chronic obstructive pulmonary disease) - Continue ipratropium b.i.d. Hyperlipidemia - No current statin therapy -- consider in outpatient setting ------ Leukocytosis (Resolved) - WBCs previously elevated to 15.33 on 06/18 - Blood cultures demonstrating no growth x 3 days; no evidence of UTI; no eviden ce of cellulitis on 06/18 - Remained resolved prior to d/c UTI (resolved) - Patient received IV ceftriaxone x6 days; discontinued 06/14 d/t UTI - Repeat urine culture obtained 06/14 shows tawnya albicans/dubliniensis Elevated Creatinine, on CKD Stage 3 (resolved) - Cr previously elevated to 1.4 on 06/13, thought to be d/t post-operative ESAU, HoTN Diarrhea (resolved) - Reportedly with 30+ BMs from 06/12-06/14 - C. diff stool toxin testing 06/13/20 negative - Resolved s/p Imodium and Metamucil Electrolyte Abnormalities on Admission secondary to dehydration (resolved) - IVF and repletion utilized PRN (2) Closed intertrochanteric fracture of right hip: (3) Failed hardware: (4) Chronic kidney disease, stage 3a: (5) DVT prophylaxis: (6) Hypertension: (7) Dyslipidemia: (8) COPD (chronic obstructive pulmonary disease): (9) Acute kidney injury: Total Time Total Time Spent Total Time Spent (In Minutes): 16 nights Discharge Plan Discharge Items Patient Disposition: Transfer Inpatient Rehab Fac Reason For Visit: INTRACTABLE RIGHT HIP PAIN, MALPOSITIONED RIGHT Discharge Diagnosis: right hip fracture s/p total hip arthroplasty atrial fibrillation with rapid ventricular response malnutrition fluid overload Condition on Discharge: Good Activity: As commented below Activity Comment: Please continue to work with PT and OT in the inpatient rehab setting Non-emergency contact: Primary Care Provider, Surgeon and Joint Cleaning Machine Operator Call non-emergency contact if: you have any medication questions, your symptoms worsen, your pain is unusual for you and your temperature is above 101 Follow-up/Referrals: Franklin Whitaker MD [Primary Care Provider] - Diet: Heart Healthy and Low Sodium (2gm) Addtl Attending Provider Instructions: You were cared for at [facility] from 06/09/20 - 06/24/20 for evaluation of right hip pain. Upon your admission to the hospital, you were found to have hardware in your hip that was in need of replacement. As such, you underwent a hip replacement. You immediate post-operative course was complicated by blood loss and - as a result - low blood pressure. Contributory to this was also a flare of atrial fibrillation with a heart rate that was too fast. You were given blood pressure support and other medications to help support you whilst navigating these complex medical problems. Thankfully, you continued to do well throughout your stay here - your atrial fibrillation rate was controlled, as was your heart's overall function. You worked regularly with both physical and occupational therapy to improve your strength and functional wellbeing. Upon your discharge from the hospital, you are being transferred to an inpatient rehabilitation facility that continue to work with you on regaining strength, functionality, and optimize your health conditions. You should follow-up with your primary care physician (PCP) and doctors at inpatient rehabilitation regarding this visit. If, for whatever reason, you begin to develop fevers, chills, significant signs of illness, chest pain, worsening shortness of breath, or an uncontrolled heart rate, please seek immediate medical attention at the hospital (ER) or by calling 911. Medication Adjustments / Notes: - Continue diltiazem 180mg by mouth, twice daily, to aid with your heart rate (atrial fibrillation medication) - Continue metoprolol succinate 75mg by mouth, twice daily, to also aid with your heart rate (atrial fibrillation medication) - Continue taking apixaban 2.5mg by mouth, twice daily, to help prevent clot formation (atrial fibrillation medication) - Please talk with your doctor about your dose; because of your weight and age, you were transitioned from 5mg twice daily to 2.5mg twice daily while here, but may need a dosage increase if indicated - Continue taking furosemide (Lasix) 20mg by mouth, once daily, to help remove "water weight" - Please talk with your doctor about your dose; you were previously on 40mg once daily but, given reduced need while here, you were transitioned to 20mg once daily - Continue mirtazapine 15mg once daily at night (near bedtime) to help with sleep, to increase your appetite, and help with your mood (started here in the hospital) - Continue potassium chloride pills as indicated after discussion with your primary care doctor - Home blood pressure medicine, Aldactazide (spironolactone/HCTZ), was held while in the hospital due to your low blood pressure and otherwise normal blood pressures - Please talk with your doctor about whether or not you should restart this medication in the future Upon Discharge, Please Talk with Your Doctor About Checking the Following Labs 1. Blood electrolytes (BMP) - check potassium and sodium Please continue working with your inpatient rehabilitation team at [facility] to manage these medications. Addtl Healthcare Representative Provider Instructions: [facility] DISCHARGE INSTRUCTIONS: HIP FRACTURE STATUS POST REMOVAL OF HARDWARE, RIGHT TOTAL HIP REPLACEMENT SELF CARE INSTRUCTIONS: A. You are to ambulate with a walker or crutches for approximately 6 weeks. B. You are PARTIAL WEIGHT BEARING on your operative lower extremity for at least 6 weeks. C. Wear low heeled shoes with non-slip soles D. Be sure that your floors are free of things that could trip you throw rugs, electrical cords, and small objects. Avoid wet and waxed floors, especially with crutches/walker/cane. E. Try to walk several times a day with rest periods between. F. You may shower 48 hours after surgery and get the incision area wet, but DO NOT soak or submerge incision area in water. (No baths, swimming pools, hot tubs) G. You may have a large, band-aid like dressing over your incision (Aquacel). This will remain on your incision for 7 days, and then can be removed. You CAN shower with this on. If incision is leaking through the dressing, please call the office . H. Do NOT apply soap or any ointment/lotions directly over incision. I. You may use ice as needed to operative site. J. Please adhere to posterior and abduction hip precautions, do not bend past 90 degrees at your waist, cross your legs or sleep on your side. No abductor strengthening until cleared by your surgeon. Please ambulate with a walker until cleared by your surgeon. SPECIAL CARE INSTRUCTIONS: VERY IMPORTANT TO READ AND REVIEW A. You may be at risk for phlebitis or blood clots. a. Wear surgical stockings (MILTON hose) for 2 weeks after surgery to improve circulation and reduce swelling. b. Take your home blood thinner, Eliquis 5m twice daily or as directed. This is your blood thinner. c. If you are on Coumadin- you will have daily/weekly blood work to monitor your levels. This will be done by either your family physician/expanded duty dental assistant (if you are on Coumadin chronically) versus your orthopedic surgeon. Expect a phone call the day of or the day after your blood work is drawn to adjust your dose accordingly. B. There are a few signs you need to watch for after you are home. Call [facility] at [phone] if you experience any of the following: a. If you have a temperature of 101 degrees or higher. b. Sudden increase in pain in your hip not relieved by rest or pain medication. c. Any fluid or drainage from the incision; redness of the incision. d. Shortness of breath or chest pain. B. Please call [facility] at [phone] if you have any questions or concerns about your operation or recovery. C. Call your physician if: a. Temperature is greater than 101 degrees (F). b. Pain is not relieved by prescribed pain medications. c. Increase drainage or redness from incision. d. Unanswered questions or concerns. D. Pain Medication: a. You will be prescribed pain medication upon discharge that should last till your first post-operative appointment. b. If you experience nausea and/or skin rash, discontinue this medication and contact our office for an alternative medication. c. Caution- narcotic pain medication can cause constipation. FOLLOW UP VISIT: Please call [facility] at [phone] to schedule a follow up appointment 10-14 days from the date of your surgery date. Pending Studies at Discharge: No Stand-Alone Forms: [facility] Skilled Items Patient informed of condition?: Yes DNR: No Discharge Level of Care: Other Communicable Disease: No Discharge Prognosis: Stable Lines: None Urinary Catheter: No Medications and DC Order Prescriptions: New furosemide 20 mg Tablet 20 mg PO QAM Qty: 0 RF: 0 mirtazapine 15 mg Tablet 15 mg PO HS Qty: 0 RF: 0 metoprolol succinate 25 mg Tablet Extended Release 24 Hr 75 mg PO BID Qty: 0 RF: 0 Atrovent HFA 17 mcg/actuation Hfa Aerosol Inhaler 2 puff inhalation QIDR Qty: 0 RF: 0 Eliquis 2.5 mg Tablet 2.5 mg PO BID Qty: 0 RF: 0 Metamucil (with sugar) 3.4 gram Powder In Packet 1 pkg PO QAM Qty: 0 RF: 0 Continued diltiazem HCl 180 mg capsule,extended release 24 hr 180 mg PO BID RF: 0 fluticasone propionate 50 mcg/actuation [place],Suspension 1 spray INTRANASAL QAM PRN (Reason: seasonal allergies) RF: 0 potassium chloride 10 mEq capsule, extended release 10 meq PO QAM RF: 0 docusate sodium [Stool Softener] 100 mg Capsule 100 mg PO BID RF: 0 Discontinued Eliquis 5 mg tablet 5 mg PO BID Qty: 60 RF: 11 metoprolol succinate 50 mg tablet extended release 24 hr 150 mg PO QAM RF: 0 furosemide 40 mg tablet 40 mg PO QAM RF: 0 oxycodone 5 mg tablet 5 mg PO Q6H PRN (Reason: Pain) RF: 0 spironolacton-hydrochlorothiaz [Aldactazide] 25-25 mg tablet 1 tab PO QAM RF: 0 Discharge Orders: Discharge Order (Routine); Ordered 06/24/20 Ordered By: Casey Canales Admission Data Admit Date/Time: 06/09/20 12:47 Attending Provider: Arleth Jackson Admit Provider: Tavares Butt Primary Care Provider: Franklin Whitaker Other Providers: Juan Perez ; Pepe Bonilla ; Hakan Musa Other Interventions: Discharge Summary Assessment (RN) Last Done: 06/24/20 16:54 Supervising Physician Co-Signing Physician Notes Resident Physician Supervision Note: I independently interviewed and examined the patient and verified the rodriguez history and physical, reviewed labs and image studies, discussed the case with the resident Dr. Canales and agree with the findings and care plan. Resident Activity Tracking Resident Involvement: Resident Care Provided Care Provided: Adult Hospital Medicine
== END 2020-06-24 16:20 | DRG 469 ==
LOC: ED 07:47 → 2N 12:47 → SUATTDRO 12:47 → 2N 14:05 → 1E 06-11 20:53 → 2N 06-13 12:24